=== PATIENT | male | born 1950 | race Caucasian/White ===

== ENCOUNTER 2021-03-11 08:00 | Outpatient (RCR) | payer MEDICARE, OTHER, SELFPAY | END 2021-03-13 23:59 | disposition home or self-care (01) | LOC: CR 08:00 | PROVIDERS: PCP Internal Medicine; Visit Provider Family Medicine | DX: Z51.89 Encounter for other specified aftercare (principal); I25.10 Atherosclerotic heart disease of native coronary artery without angina pectoris; Z95.5 Presence of coronary angioplasty implant and graft | CPT/HCPCS: S9472 ==

== ENCOUNTER 2021-04-11 08:00 | Outpatient (RCR) | payer MEDICARE, OTHER, SELFPAY | END 2021-04-12 23:59 | disposition home or self-care (01) | LOC: CR 08:00 | PROVIDERS: PCP Internal Medicine; Visit Provider Family Medicine | DX: Z51.89 Encounter for other specified aftercare (principal); I25.10 Atherosclerotic heart disease of native coronary artery without angina pectoris; Z95.5 Presence of coronary angioplasty implant and graft | CPT/HCPCS: S9472 ==

== ENCOUNTER 2021-05-09 08:00 | Outpatient (RCR) | payer MEDICARE, OTHER, SELFPAY | END 2021-05-13 23:59 | disposition home or self-care (01) | LOC: CR 08:00 | PROVIDERS: PCP Internal Medicine; Visit Provider Family Medicine | DX: Z51.89 Encounter for other specified aftercare (principal); I25.10 Atherosclerotic heart disease of native coronary artery without angina pectoris; Z95.5 Presence of coronary angioplasty implant and graft | CPT/HCPCS: S9472 ==

== ENCOUNTER 2021-06-03 08:00 | Outpatient (RCR) | payer MEDICARE, OTHER, SELFPAY | END 2021-06-13 23:59 | disposition home or self-care (01) | LOC: CR 08:00 | PROVIDERS: PCP Internal Medicine; Visit Provider Family Medicine | DX: Z51.89 Encounter for other specified aftercare (principal); I25.10 Atherosclerotic heart disease of native coronary artery without angina pectoris; Z95.5 Presence of coronary angioplasty implant and graft | CPT/HCPCS: S9472 ==

== ENCOUNTER 2022-12-14 10:04 | Outpatient (REF) | payer MEDICARE, SELFPAY ==
--- NOTE | 2022-12-14 09:00 | SKI_PTH ---
PATIENT: Francisco J Alvarez JR LOC: [facility] U#:[id number] AGE/SX: 72/M ROOM: RE12/14/[address]: Marvin Foster MD : [id number] BED: DIS: 12/14/2022 SPEC #: [id number] RECD: 12/14/22 15:33 STATUS: LINA REQ #: [id number] ISAAK: 12/14/22 09:[address]: Marvin Foster DEPT: Surgical Specimen RECD BY: Marti Ibarra ENTERED: 12/14/22 15:35 SP TYPE: CHARLENE MCCALL DR: Antione Moon Tissues: 1 - SKIN BIOPSY(SHAVE/PUNCH) Procedures: SKIN LEVEL 4 Comments: [id number]
== END 2022-12-14 10:05 | disposition home or self-care (01) ==
LOC: LBN 10:04
PROVIDERS: PCP Family Medicine; Visit Provider Otolaryngology
DX: L57.0 Actinic keratosis (principal); L98.8 Other specified disorders of the skin and subcutaneous tissue
CPT/HCPCS: 88305

== ENCOUNTER → 2022-12-18 09:07 | Outpatient (BNVA) | payer MEDICARE, SELFPAY | PROVIDERS: PCP Family Medicine; Referring Provider Family Medicine; Visit Provider Psychiatry & Neurology Neurology | DX: R51.9 Headache, unspecified (principal); I10 Essential (primary) hypertension | CPT/HCPCS: 99204 ==

== ENCOUNTER 2022-12-20 12:41 | Outpatient (REF) | payer MEDICARE, SELFPAY ==
[2022-12-20 15:31] LABS: CREATININE 1.3 mg/dL (0.70-1.30); Estimated GFR 58.73 (mL/min/1.73m2)
== END 2022-12-20 12:42 | disposition home or self-care (01) ==
LOC: NCHCN 12:41
PROVIDERS: PCP Family Medicine; Visit Provider Family Medicine
DX: Z01.812 Encounter for preprocedural laboratory examination (principal)
CPT/HCPCS: 82565

== ENCOUNTER → 2023-01-29 08:35 | Outpatient (BNVA) | payer MEDICARE, SELFPAY | PROVIDERS: PCP Family Medicine; Referring Provider Family Medicine; Visit Provider Psychiatry & Neurology Neurology | DX: R51.9 Headache, unspecified (principal); H53.142 Visual discomfort, left eye; I10 Essential (primary) hypertension | CPT/HCPCS: 99213 ==

== ENCOUNTER → 2023-05-18 01:05 | Outpatient (CLI) | payer MEDICARE, SELFPAY ==
--- OUTSIDE RECORDS SUMMARY | 2023-05-18 01:05 | XMS_ITS | Continuity of Care Document ---
Author Name Unknown Organization [facility] Address [address] [place] [id number] Care Team Providers Care [employer] Name Role Phone ESTER YARBROUGH Primary Care Physician Encounter [facility] NBR [id number] Date(s): 11/20/22 - 11/20/[address] [id number] Discharge Disposition: Home f/u Internal Provider Attending Physician: Davonte Mata MD Admitting Physician: Davonte Mata MD Referring Physician: ESTER YARBROUGH Allergies, Adverse Reactions, Alerts Substance Reaction Severity Status sulfa drugs diffuse rash Unknown Active Pollen Unknown Unknown Active Abhinav Rash Unknown Moderate Active Assessment and Plan Diagnostic Tests Pending * Pathology Request 11/20/22 Functional Status 11/20/22 ADLs Independent Family Member Travel History No recent t ravel Recent Travel History No recent travel Other exposure to Infectious Disease Non e 11/15/22 Living Situation Home independently Immunizations Given and Recorded Vaccine Date Status Refusal Reason influenza virus vaccine, inactivated 03/09/22 Give n influenza, unspecified formulation 1 02/24/21 Elio rded influenza, unspecified formulation 2 02/17/20 Elio rded SARS-CoV-2 (COVID-19) mRNA-1273 vaccine 3 08/26/20 Recorded SARS-CoV-2 (COVID-19) mRNA-1273 vaccine 4 07/29/20 Recorded zoster vaccine, inactivated 5 06/22/20 Recorded zoster vaccine, inactivated 6 01/16/20 Recorded pneumococcal 13-valent conjugate vaccine 7 12/25/19 Recorded tetanus/diphth/pertuss (Tdap) adult/adol 10/02/13 Recorded Td(adult) unspecified formulation 05/14/13 Recorde d 1Result Comment: Unit: Unknown 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: [employer] 2Result Comment: Unit: Unknown 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: [employer] 3Result Comment: Unit: Unknown 4Result Comment: Unit: Unknown 5Result Comment: Unit: Unknown 6Result Comment: Unit: Unknown 7Result Comment: Unit: Unknown Medications !-Aspir 81 oral delayed release tablet 81 mg = 1 tab, Oral, Daily, # 30 tab, 0 Refill(s) Start Date: 06/19/22 Status: Ordered amLODIPine 10 mg oral tablet 10 mg = 1 tab, Oral, Daily, # 30 tab, 0 Refill(s) Start Date: 03/09/22 Status: Ordered amLODIPine 5 mg oral tablet 1 Unknown, 0 Refill(s) Start Date: 03/06/22 Status: Ordered atorvastatin 40 mg oral tablet 1 Unknown, 0 Refill(s) Start Date: 03/06/22 Status: Ordered cholecalciferol 2000 intl units oral capsule 1 Unknown, 0 Refill(s) Start Date: 03/06/22 Status: Ordered folic acid 0.4 mg oral tablet 1 Unknown, 0 Refill(s) Start Date: 03/06/22 Status: Ordered Home CPAP Supply, See instructions, # 1 EA, 0 Refill(s) Start Date: 03/06/22 Status: Ordered multivitamin adult, oral tablet 1 Unknown, 0 Refill(s) Start Date: 03/06/22 Status: Ordered nitroglycerin 0.4 mg sublingual tablet 0 Refill(s) Start Date: 03/06/22 Status: Ordered Probiotic + Colostrum 0 Refill(s) Start Date: 03/06/22 Status: Ordered Timolol Maleate (Eqv-Timoptic) 0.5% ophthalmic solution 1 Unknown, 0 Refill(s) Start Date: 03/06/22 Status: Ordered triamcinolone 0.1% topical cream 1 Unknown, 0 Refill(s) Start Date: 03/06/22 Status: Ordered Vitamin B12 1000 mcg oral tablet 1 Unknown, 0 Refill(s) Start Date: 03/06/22 Status: Ordered Problem List Condition Confirmation Course Effective Dates Status Health Status Informant Benign prostatic hyperplasia Confirmed Active Disorder of reproductive system Confirmed Active Eczema Confirmed Active Essential hypertension Confirmed Active Excessive cerumen in ear canal Confirmed Active Hematoma of scrotum Confirmed Active History of operative procedure on knee Confirmed Active Hydrocele of testis Confirmed Active Hyperlipidemia Confirmed Active Obstructive sleep apnea syndrome Confirmed Active Pain of right knee joint Confirmed Active Polyp of colon Confirmed Active Psoriasis Confirmed Active Psychophysiologic insomnia Confirmed Active Swelling of scrotum Confirmed Active Procedures Procedure Date Related Diagnosis Body Site Status Colonoscopy Biopsy 1 11/20/22 Comp leted Adenotonsillectomy Comple janusz Arthroplasty, left knee C ompleted Colonoscopy Completed Placement of stent in cardiac conduit 2 Completed 1auto-populated from documented surgical case Vital Signs Most recent to oldest [Reference Range]: 1 2 3 Temperature Temporal Artery [36-38 Deg C] 36.7 Deg C (11/20/22 11:25 AM) 36.8 Deg C (11/20/22 10:58 AM) 36.1 Deg C (11/20/22 9:11 AM) Temperature Temporal Artery (DegF) [97.3-100 Deg F] 98.24 Deg F (11/20/22 10:58 AM) Peripheral Pulse Rate [60-100 bpm] 52 bpm *LOW* (11/20/22 11:25 AM) 51 bpm *LOW* (11/20/22 11:11 AM) 48 bpm *LOW* (11/20/22 11:05 AM) Respiratory Rate [12-24 br/min] 16 br/min (11/20/22 9:11 AM) Blood Pressure [90-140/60-90 mmHg] 144/80mmHg *HI* (11/20/22 11:25 AM) 118/71mmHg (11/20/22 11:11 AM) 118/71mmHg (11/20/22 11:05 AM) Mean Arterial Pressure, Cuff [65-140 mmHg] 101 mmHg (11/20/22 11:25 AM) 87 mmHg (11/20/22 11:11 AM) 87 mmHg (11/20/22 11:05 AM) Mean Arterial Pressure Cuff 100 mmHg (11/20/22:25 AM) 84 mmHg (11/20/22 11:11 AM) 83 mmHg (11/20/22 10:58 AM) Weight 115.670 kg (11/15/22 11:54 AM) Weight Dosing 115.670 kg (11/15/22 11:54 AM) Height 190.500 cm (11/15/22 11:54 AM) Height/Length Dosing 190.500 cm (11/15/22 11:54 AM) Social History Social History Type Response Tobacco Never tobacco user T obacco Use:. Sex Hospital Discharge Instructions Patient Education 11/20/2022 10:04:11 Diverticulosis Diverticulosis Diverticulosis is a condition that develops when small pouches (diverticula) form in the wall of the large intestine (colon). The colon is where water is absorbed and stool (feces) is formed. The pouches form when the inside layer of the colon pushes through weak spots in the outer layers of the colon. You may have a few pouches or many of them. The pouches usually do not cause problems unless they become inflamed or infected. When this happens, the condition is called diverticulitis. What are the causes? The cause of this condition is not known. What increases the risk? The following factors may make you more likely to develop this condition: ??? Being older than age 60. Your risk for this condition increases with age. Diverticulosis is rare among people younger than age 30. By age 80, many people have it. ??? Eating a low-fiber diet. ??? Having frequent constipation. ??? Being overweight. ??? Not getting enough exercise. ??? Smoking. ??? Taking ruwy-ykh-nzttqzo pain medicines, like aspirin and ibuprofen. ??? Having a family history of diverticulosis. What are the signs or symptoms? In most people, there are no symptoms of this condition. If you do have symptoms, they may include: ??? Bloating. ??? Cramps in the abdomen. ??? Constipation or diarrhea. ??? Pain in the lower left side of the abdomen. How is this diagnosed? Because diverticulosis usually has no symptoms, it is most often diagnosed during an exam for othercolon problems. The condition may be diagnosed by: ??? Using a flexible scope to examine the colon (colonoscopy). ??? Taking an X-ray of the colon after dye has been put into the colon (barium enema). ??? Having a CT scan. How is this treated? You may not need treatment for this condition. Your health care provider may recommend treatment toprevent problems. You may need treatment if you have symptoms or if you previously had diverticulitis. Treatment may include: ??? Eating a high-fiber diet. ??? Taking a fiber supplement. ??? Taking a live bacteria supplement (probiotic). ??? Taking medicine to relax your colon. Follow these instructions at home: Medicines ??? Take tixk-wjx-tkgjnln and prescription medicines only as told by your health care provider. ??? If told by your health care provider, take a fiber supplement or probiotic. Constipation prevention Your condition may cause constipation. To prevent or treat constipation, you may need to: ??? Drink enough fluid to keep your urine pale yellow. ??? Take msop-meg-cidzgli or prescription medicines. ??? Eat foods that are high in fiber, such as beans, whole grains, and fresh fruits and vegetables. ??? Limit foods that are high in fat and processed sugars, such as fried or sweet foods. General instructions ??? Try not to strain when you have a bowel movement. ??? Keep all follow-up visits as told by your health care provider. This is important. Contact a health care provider if you: ??? Have pain in your abdomen. ??? Have bloating. ??? Have cramps. ??? Have not had a bowel movement in 3 days. Get help right away if: ??? Your pain gets worse. ??? Your bloating becomes very bad. ??? You have a fever or chills, and your symptoms suddenly get worse. ??? You vomit. ??? You have bowel movements that are bloody or black. ??? You have bleeding from your rectum. Summary ??? Diverticulosis is a condition that develops when small pouches (diverticula) form in the wall of the large intestine (colon). ??? You may have a few pouches or many of them. ??? This condition is most often diagnosed during an exam for other colon problems. ??? Treatment may include increasing the fiber in your diet, taking supplements, or taking medicines. This information is not intended to replace advice given to you by your health care provider. Make sure you discuss any questions you have with your health care provider. Document Revised: 11/27/2019 Document Reviewed: 11/27/2019 [employer] Patient Education ?? 2022 [employer]. 11/20/2022 10:04:08 Colonoscopy, Adult, Care After Colonoscopy, Adult, Care After The following information offers guidance on how to care for yourself after your procedure. Your health care provider may also give you more specific instructions. If you have problems or questions, contact your health care provider. What can I expect after the procedure? After the procedure, it is common to have: ??? A small amount of blood in your stool for 24 hours after the procedure. ??? Some gas. ??? Mild cramping or bloating of your abdomen. Follow these instructions at home: Eating and drinking ??? Drink enough fluid to keep your urine pale yellow. ??? Follow instructions from your health care provider about eating or drinking restrictions. ??? Resume your normal diet as told by your health care provider. Avoid heavy or fried foods that are hard to digest. Activity ??? Rest as told by your health care provider. ??? Avoid sitting for a long time without moving. Get up to take short walks every 1???2 hours. This is important to improve blood flow and breathing. Ask for help if you feel weak or unsteady. ??? Return to your normal activities as told by your health care provider. Ask your health care provider what activities are safe for you. Managing cramping and bloating ??? Try walking around when you have cramps or feel bloated. ??? If directed, apply heat to your abdomen as told by your health care provider. Use the heat source that your health care provider recommends, such as a moist heat pack or a heating pad. ??? Place a towel between your skin and the heat source. ??? Leave the heat on for 20???30 minutes. ??? Remove the heat if your skin turns bright red. This is especially important if you are unable to feel pain, heat, or cold. You have a greater risk of getting burned. General instructions ??? If you were given a sedative during the procedure, it can affect you for several hours. Do not drive or operate machinery until your health care provider says that it is safe. ??? For the first 24 hours after the procedure: ??? Do not sign important documents. ??? Do not drink alcohol. ??? Do your regular daily activities at a slower pace than normal. ??? Eat soft foods that are easy to digest. ??? Take zzha-epy-mhrrkqu and prescription medicines only as told by your health care provider. ??? Keep all follow-up visits. This is important. Contact a health care provider if: ??? You have blood in your stool 2???3 days after the procedure. Get help right away if: ??? You have more than a small spotting of blood in your stool. ??? You have large blood clots in your stool. ??? You have swelling of your abdomen. ??? You have nausea or vomiting. ??? You have a fever. ??? You have increasing pain in your abdomen that is not relieved with medicine. These symptoms may be an emergency. Get help right away. Call 911. ??? Do not wait to see if the symptoms will go away. ??? Do not drive yourself to the hospital. Summary ??? After the procedure, it is common to have a small amount of blood in your stool. You may also have mild cramping and bloating of your abdomen. ??? If you were given a sedative during the procedure, it can affect you for several hours. Do not drive or operate machinery until your health care provider says that it is safe. ??? Get help right away if you have a lot of blood in your stool, nausea or vomiting, a fever, or increased pain in your abdomen. This information is not intended to replace advice given to you by your health care provider. Make sure you discuss any questions you have with your health care provider. Document Revised: 12/21/2021 Document Reviewed: 12/21/2021 [employer] Patient Education ?? 2022 [employer]. 11/20/2022 10:04:07 Colon Polyps Colon Polyps Colon polyps are tissue growths inside the colon, which is part of the large intestine. They are one of the types of polyps that can grow in the body. A polyp may be a round bump or a mushroom-shapedgrowth. You could have one polyp or more than one. Most colon polyps are noncancerous (benign). However, some colon polyps can become cancerous over time. Finding and removing the polyps early can help prevent this. What are the causes? The exact cause of colon polyps is not known. What increases the risk? The following factors may make you more likely to develop this condition: ??? Having a family history of colorectal cancer or colon polyps. ??? Being older than 45 years of age. ??? Being younger than 45 years of age and having a significant family history of colorectal canceror colon polyps or a genetic condition that puts you at higher risk of getting colon polyps. ??? Having inflammatory bowel disease, such as ulcerative colitis or Crohn's disease. ??? Having certain conditions passed from parent to child (hereditary conditions), such as: ??? Familial adenomatous polyposis (FAP). ??? West syndrome. ??? Turcot syndrome. ??? Peutz???Jeghers syndrome. ??? MUTYH-associated polyposis (MAP). ??? Being overweight. ??? Certain lifestyle factors. These include smoking cigarettes, drinking too much alcohol, not getting enough exercise, and eating a diet that is high in fat and red meat and low in fiber. ??? Having had childhood cancer that was treated with radiation of the abdomen. What are the signs or symptoms? Many times, there are no symptoms. If you have symptoms, they may include: ??? Blood coming from the rectum during a bowel movement. ??? Blood in the stool (feces). The blood may be bright red or very dark in color. ??? Pain in the abdomen. ??? A change in bowel habits, such as constipation or diarrhea. How is this diagnosed? This condition is diagnosed with a colonoscopy. This is a procedure in which a lighted, flexible scope is inserted into the opening between the buttocks (anus) and then passed into the colon to examine the area. Polyps are sometimes found when a colonoscopy is done as part of routine cancer screening tests. How is this treated? This condition is treated by removing any polyps that are found. Most polyps can be removed during a colonoscopy. Those polyps will then be tested for cancer. Additional treatment may be needed depending on the results of testing. Follow these instructions at home: Eating and drinking ??? Eat foods that are high in fiber, such as fruits, vegetables, and whole grains. ??? Eat foods that are high in calcium and vitamin D, such as milk, cheese, yogurt, eggs, liver, fish, and broccoli. ??? Limit foods that are high in fat, such as fried foods and desserts. ??? Limit the amount of red meat, precooked or cured meat, or other processed meat that you eat, such as hot dogs, sausages, daniels, or meat loaves. ??? Limit sugary drinks. Lifestyle ??? Maintain a healthy weight, or lose weight if recommended by your health care provider. ??? Exercise every day or as told by your health care provider. ??? Do not use any products that contain nicotine or tobacco, such as cigarettes, e-cigarettes, andchewing tobacco. If you need help quitting, ask your health care provider. ??? Do not drink alcohol if: ??? Your health care provider tells you not to drink. ??? You are , may be , or are planning to become . ??? If you drink alcohol: ??? Limit how much you use to: ??? 0???1 drink a day for women. ??? 0???2 drinks a day for men. ??? Know how much alcohol is in your drink. In the [place] one drink equals one 12 oz bottle of beer (355 mL), one 5 oz glass of wine (148 mL), or one 1?? oz glass of hard liquor (44 mL). General instructions ??? Take pjug-dhe-upkgwgz and prescription medicines only as told by your health care provider. ??? Keep all follow-up visits. This is important. This includes having regularly scheduled colonoscopies. Talk to your health care provider about when you need a colonoscopy. Contact a health care provider if: ??? You have new or worsening bleeding during a bowel movement. ??? You have new or increased blood in your stool. ??? You have a change in bowel habits. ??? You lose weight for no known reason. Summary ??? Colon polyps are tissue growths inside the colon, which is part of the large intestine. They are one type of polyp that can grow in the body. ??? Most colon polyps are noncancerous (benign), but some can become cancerous over time. ??? This condition is diagnosed with a colonoscopy. ??? This condition is treated by removing any polyps that are found. Most polyps can be removed during a colonoscopy. This information is not intended to replace advice given to you by your health care provider. Make sure you discuss any questions you have with your health care provider. Document Revised: 08/18/2020 Document Reviewed: 08/18/2020 [employer] Patient Education ?? 2022 [employer] Discharge instructions * Harriett Foy: PERFORM Event Display: Discharge Instructions Authored Date: [id number] RAUL PIEDRA JR :1950 Age:72 years Sex:Male Visit Date:11/20/2022 Primary Care Physician: ESTER YARBROUGH Hospital Discharge Instructions We would like to thank you for allowing us to assist you with your healthcare needs. The following includes patient education materials and information regarding your injury/illness. Medications What How Much When Instructions Next Dose Unchanged amLODIPine (amLODIPine 10 mg oral tablet) 1 tab Oral (given by mouth) Every day Unchanged amLODIPine (amLODIPine 5 mg oral tablet) 1 Unknown ?? Unchanged aspirin (!-Aspir 81 oral delayed release tablet) 1 tab Oral (given by mouth) Every day Unchanged atorvastatin (atorvastatin 40 mg oral tablet) 1 Unknown ?? Unchanged bifidobacterium-lactobacillus (Probiotic + Colostrum) Unchanged cholecalciferol (cholecalciferol 2000 intl units oral capsule) 1 Unknown ?? Unchanged cyanocobalamin (Vitamin B12 1000 mcg oral tablet) 1 Unknown ?? Unchanged Durable Medical Equipment for Prescription (Home CPAP) See instructions Unchanged folic acid (folic acid 0.4 mg oral tablet) 1 Unknown ?? Unchanged multivitamin (multivitamin adult, oral tablet) 1 Unknown ?? Unchanged nitroglycerin (nitroglycerin 0.4 mg sublingual tablet) Unchanged timolol ophthalmic (Timolol Maleate (Eqv-Timoptic) 0.5% ophthalmic solution) 1 Unknown ?? Unchanged triamcinolone topical (triamcinolone 0.1% topical cream) 1 Unknown ?? Your Summary Your Care Team Admitting Physician - Esperanza RAND, Davonte Attending Physician - Esperanza RAND, Davonte Primary Care Physician - ESTER YARBROUGH Referring Physician - ESTER YARBROUGH Problems Ongoing - Any problem that you are currently receiving treatment for. Benign prostatic hyperplasia Disorder of reproductive system Eczema Essential hypertension Excessive cerumen in ear canal Hematoma of scrotum History of operative procedure on knee Hydrocele of testis Hyperlipidemia Obstructive sleep apnea syndrome Pain of right knee joint Polyp of colon Psoriasis Psychophysiologic insomnia Swelling of scrotum Historical - Any problem that you are no longer receiving treatment for. 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 Procedures Performed ???Colonoscopy Biopsy (11/20/2022)???Arthroplasty, left knee???Placement of stent in cardiac conduit Discharge Vitals Temperature??(Temporal Artery) 98.2 ??F (36.8 ??C) Heart Rate??(Peripheral) 48 Respiratory Rate?? 16 Blood Pressure?? 118/71?? Allergies Abhinav??(Rash, Unknown) Pollen??(Unknown) sulfa drugs??(diffuse rash) Education Materials Diverticulosis Diverticulosis is a condition that develops when small pouches (diverticula) form in the wall of the large intestine (colon). The colon is where water is absorbed and stool (feces) is formed. The pouches form when the inside layer of the colon pushes through weak spots in the outer layers of the colon. You may have a few pouches or many of them. The pouches usually do not cause problems unless they become inflamed or infected. When this happens, the condition is called diverticulitis. What are the causes? The cause of this condition is not known. What increases the risk? The following factors may make you more likely to develop this condition: ? Being older than age 60. Your risk for this condition increases with age. Diverticulosis is rare among people younger than age 30. By age 80, many people have it. ? Eating a low-fiber diet. ? Having frequent constipation. ? Being overweight. ? Not getting enough exercise. ? Smoking. ? Taking tpsg-yvd-fjxepwx pain medicines, like aspirin and ibuprofen. ? Having a family history of diverticulosis. What are the signs or symptoms? In most people, there are no symptoms of this condition. If you do have symptoms, they may include: ? Bloating. ? Cramps in the abdomen. ? Constipation or diarrhea. ? Pain in the lower left side of the abdomen. How is this diagnosed? Because diverticulosis usually has no symptoms, it is most often diagnosed during an exam for othercolon problems. The condition may be diagnosed by: ? Using a flexible scope to examine the colon (colonoscopy). ? Taking an X-ray of the colon after dye has been put into the colon (barium enema). ? Having a CT scan. How is this treated? You may not need treatment for this condition. Your health care provider may recommend treatment toprevent problems. You may need treatment if you have symptoms or if you previously had diverticulitis. Treatment may include: ? Eating a high-fiber diet. ? Taking a fiber supplement. ? Taking a live bacteria supplement (probiotic). ? Taking medicine to relax your colon. Follow these instructions at home: Medicines ? Take tcuz-iay-yduoudx and prescription medicines only as told by your health care provider. ? If told by your health care provider, take a fiber supplement or probiotic. Constipation prevention Your condition may cause constipation. To prevent or treat constipation, you may need to: ? Drink enough fluid to keep your urine pale yellow. ? Take hjwx-gqj-qzdtkcz or prescription medicines. ? Eat foods that are high in fiber, such as beans, whole grains, and fresh fruits and vegetables. ? Limit foods that are high in fat and processed sugars, such as fried or sweet foods. General instructions ? Try not to strain when you have a bowel movement. ? Keep all follow-up visits as told by your health care provider. This is important. Contact a health care provider if you: ? Have pain in your abdomen. ? Have bloating. ? Have cramps. ? Have not had a bowel movement in 3 days. Get help right away if: ? Your pain gets worse. ? Your bloating becomes very bad. ? You have a fever or chills, and your symptoms suddenly get worse. ? You vomit. ? You have bowel movements that are bloody or black. ? You have bleeding from your rectum. Summary ? Diverticulosis is a condition that develops when small pouches (diverticula) form in the wall of the large intestine (colon). ? You may have a few pouches or many of them. ? This condition is most often diagnosed during an exam for other colon problems. ? Treatment may include increasing the fiber in your diet, taking supplements, or taking medicines. This information is not intended to replace advice given to you by your health care provider. Make sure you discuss any questions you have with your health care provider. Document Revised: 11/27/2019 Document Reviewed: 11/27/2019 [employer] Patient Education ?? 2022 [employer] Colonoscopy, Adult, Care After The following information offers guidance on how to care for yourself after your procedure. Your health care provider may also give you more specific instructions. If you have problems or questions, contact your health care provider. What can I expect after the procedure? After the procedure, it is common to have: ? A small amount of blood in your stool for 24 hours after the procedure. ? Some gas. ? Mild cramping or bloating of your abdomen. Follow these instructions at home: Eating and drinking ? Drink enough fluid to keep your urine pale yellow. ? Follow instructions from your health care provider about eating or drinking restrictions. ? Resume your normal diet as told by your health care provider. Avoid heavy or fried foods that are hard to digest. Activity ? Rest as told by your health care provider. ? Avoid sitting for a long time without moving. Get up to take short walks every 1???2 hours. This isimportant to improve blood flow and breathing. Ask for help if you feel weak or unsteady. ? Return to your normal activities as told by your health care provider. Ask your health care provider what activities are safe for you. Managing cramping and bloating ? Try walking around when you have cramps or feel bloated. ? If directed, apply heat to your abdomen as told by your health care provider. Use the heat source that your health care provider recommends, such as a moist heat pack or a heating pad. ? Place a towel between your skin and the heat source. ? Leave the heat on for 20???30 minutes. ? Remove the heat if your skin turns bright red. This is especially important if you are unable to feel pain, heat, or cold. You have a greater risk of getting burned. General instructions ? If you were given a sedative during the procedure, it can affect you for several hours. Do not drive or operate machinery until your health care provider says that it is safe. ? For the first 24 hours after the procedure: ? Do not sign important documents. ? Do not drink alcohol. ? Do your regular daily activities at a slower pace than normal. ? Eat soft foods that are easy to digest. ? Take oemx-uff-ciogaij and prescription medicines only as told by your health care provider. ? Keep all follow-up visits. This is important. Contact a health care provider if: ? You have blood in your stool 2???3 days after the procedure. Get help right away if: ? You have more than a small spotting of blood in your stool. ? You have large blood clots in your stool. ? You have swelling of your abdomen. ? You have nausea or vomiting. ? You have a fever. ? You have increasing pain in your abdomen that is not relieved with medicine. These symptoms may be an emergency. Get help right away. Call 911. ? Do not wait to see if the symptoms will go away. ? Do not drive yourself to the hospital. Summary ? After the procedure, it is common to have a small amount of blood in your stool. You may also have mild cramping and bloating of your abdomen. ? If you were given a sedative during the procedure, it can affect you for several hours. Do not drive or operate machinery until your health care provider says that it is safe. ? Get help right away if you have a lot of blood in your stool, nausea or vomiting, a fever, or increased pain in your abdomen. This information is not intended to replace advice given to you by your health care provider. Make sure you discuss any questions you have with your health care provider. Document Revised: 12/21/2021 Document Reviewed: 12/21/2021 [employer] Patient Education ?? 2022 [employer] Colon Polyps Colon polyps are tissue growths inside the colon, which is part of the large intestine. They are one of the types of polyps that can grow in the body. A polyp may be a round bump or a mushroom-shapedgrowth. You could have one polyp or more than one. Most colon polyps are noncancerous (benign). However, some colon polyps can become cancerous over time. Finding and removing the polyps early can help prevent this. What are the causes? The exact cause of colon polyps is not known. What increases the risk? The following factors may make you more likely to develop this condition: ? Having a family history of colorectal cancer or colon polyps. ? Being older than 45 years of age. ? Being younger than 45 years of age and having a significant family history of colorectal cancer or colon polyps or a genetic condition that puts you at higher risk of getting colon polyps. ? Having inflammatory bowel disease, such as ulcerative colitis or Crohn's disease. ? Having certain conditions passed from parent to child (hereditary conditions), such as: ? Familial adenomatous polyposis (FAP). ? West syndrome. ? Turcot syndrome. ? Peutz???Jeghers syndrome. ? MUTYH-associated polyposis (MAP). ? Being overweight. ? Certain lifestyle factors. These include smoking cigarettes, drinking too much alcohol, not gettingenough exercise, and eating a diet that is high in fat and red meat and low in fiber. ? Having had childhood cancer that was treated with radiation of the abdomen. What are the signs or symptoms? Many times, there are no symptoms. If you have symptoms, they may include: ? Blood coming from the rectum during a bowel movement. ? Blood in the stool (feces). The blood may be bright red or very dark in color. ? Pain in the abdomen. ? A change in bowel habits, such as constipation or diarrhea. How is this diagnosed? This condition is diagnosed with a colonoscopy. This is a procedure in which a lighted, flexible scope is inserted into the opening between the buttocks (anus) and then passed into the colon to examine the area. Polyps are sometimes found when a colonoscopy is done as part of routine cancer screening tests. How is this treated? This condition is treated by removing any polyps that are found. Most polyps can be removed during a colonoscopy. Those polyps will then be tested for cancer. Additional treatment may be needed depending on the results of testing. Follow these instructions at home: Eating and drinking ? Eat foods that are high in fiber, such as fruits, vegetables, and whole grains. ? Eat foods that are high in calcium and vitamin D, such as milk, cheese, yogurt, eggs, liver, fish, and broccoli. ? Limit foods that are high in fat, such as fried foods and desserts. ? Limit the amount of red meat, precooked or cured meat, or other processed meat that you eat, such as hot dogs, sausages, daniels, or meat loaves. ? Limit sugary drinks. Lifestyle ? Maintain a healthy weight, or lose weight if recommended by your health care provider. ? Exercise every day or as told by your health care provider. ? Do not use any products that contain nicotine or tobacco, such as cigarettes, e- cigarettes, and chewing tobacco. If you need help quitting, ask your health care provider. ? Do not drink alcohol if: ? Your health care provider tells you not to drink. ? You are , may be , or are planning to become . ? If you drink alcohol: ? Limit how much you use to: ? 0???1 drink a day for women. ? 0???2 drinks a day for men. ? Know how much alcohol is in your drink. In the [place] one drink equals one 12 oz bottle of beer (355mL), one 5 oz glass of wine (148 mL), or one 1?? oz glass of hard liquor (44 mL). General instructions ? Take gzlh-dmo-yvhzamy and prescription medicines only as told by your health care provider. ? Keep all follow-up visits. This is important. This includes having regularly scheduled colonoscopies. Talk to your health care provider about when you need a colonoscopy. Contact a health care provider if: ? You have new or worsening bleeding during a bowel movement. ? You have new or increased blood in your stool. ? You have a change in bowel habits. ? You lose weight for no known reason. Summary ? Colon polyps are tissue growths inside the colon, which is part of the large intestine. They are one type of polyp that can grow in the body. ? Most colon polyps are noncancerous (benign), but some can become cancerous over time. ? This condition is diagnosed with a colonoscopy. ? This condition is treated by removing any polyps that are found. Most polyps can be removed during a colonoscopy. This information is not intended to replace advice given to you by your health care provider. Make sure you discuss any questions you have with your health care provider. Document Revised: 08/18/2020 Document Reviewed: 08/18/2020 [employer] Patient Education ?? 2022 [employer] Patient Name:RAUL PIEDRA JR I have received this information and my questions have been answered. 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
--- OUTSIDE RECORDS SUMMARY | 2023-05-18 01:05 | XMS_ITS | Continuity of Care Document ---
Author Name Unknown Organization [facility] Address [address] [place] [id number] Care Team Providers Care Insurance Claims Supervisor Name Role Phone Korin Romero Primary Care Physician Encounter [facility] FIN NBR [id number] Date(s): 05/10/22 - 05/10/[address] [address] Discharge Disposition: Home or Self Care Attending Physician: Korin Romero APRN Admitting Physician: Korin Romero APRN Allergies, Adverse Reactions, Alerts Substance Reaction Severity Status sulfa drugs diffuse rash Unknown Active Pollen Unknown Unknown Active Abhinav Unknown Unknown Active Assessment and Plan Future Appointments Immunizations Given and Recorded Vaccine Date Status [...] 05/14/13 Recorde d 1Result Comment: Unit: Unknown 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[employer] 2Result Comment: Unit: Unknown 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[employer] 3Result Comment: Unit: Unknown 4Result Comment: Unit: Unknown 5Result Comment: Unit: Unknown 6Result Comment: Unit: Unknown 7Result Comment: Unit: Unknown Medications amLODIPine 10 mg oral tablet 10 mg = 1 tab, Oral, Daily, # 30 tab, 0 Refill(s) Start Date: 03/09/22 Status: Ordered amLODIPine 5 mg oral tablet 1 Unknown, 0 Refill(s) Start Date: 03/06/22 Status: Ordered atorvastatin 40 mg oral tablet 1 Unknown, 0 Refill(s) Start Date: 03/06/22 Status: Ordered Brilinta (ticagrelor) 90 mg oral tablet BID, 1 Unknown, 0 Refill(s) Start Date: 03/06/22 [...] of operative procedure on knee Confirmed Active 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 Confirmed Active Hydrocele of testis Confirmed Active Hyperlipidemia Confirmed Active Obstructive sleep apnea syndrome Confirmed Active Pain of right knee joint Confirmed Active Polyp of colon Confirmed Active Psoriasis Confirmed Active Psychophysiologic insomnia Confirmed Active Swelling of scrotum Confirmed Active Procedures Procedure Date Related Diagnosis Body Site Status Adenotonsillectomy Comple janusz Colonoscopy Completed Results Laboratory List Name Date Comprehensive Metabolic Panel 05/10/22 Lipid Panel 05/10/22 PSA Screen 05/10/22 Most recent to oldest [Reference Range]: 1 BUN [8-26 mg/dL] 19 mg/dL (05/10/22 8:03 AM) Cholesterol Total [129-209 mg/dL] 109 mg /dL *LOW* (05/10/22 8:03 AM) LDL 57.0 *NA* (05/10/22 8:03 AM) Glucose Level [74-106 mg/dL] 108 mg/dL *HI* (05/10/22 8:03 AM) Potassium Level [3.5-5.1 mmol/L] 4.2 mmo l/L (05/10/22 8:03 AM) HDL [40-80 mg/dL] 41 mg/dL (05/10/22 8:03 AM) AST [15-41 IntlUnit/L] 20 IntlUnit/L (05/10/22 8:03 AM) ALT [17-63 IntlUnit/L] 23 IntlUnit/L (05/10/22 8:03 AM) Osmolality [275-295 mOsm/kg] 282 mOsm/kg (05/10/22 8:03 AM) Sodium Level [134-143 mmol/L] 140 mmol/L (05/10/22 8:03 AM) Chol/HDL 2.7 *NA* (05/10/22 8:03 AM) Triglycerides [10-150 mg/dL] 55 mg/dL (05/10/22 8:03 AM) Calcium Level [8.9-10.3 mg/dL] 9.5 mg/dL (05/10/22 8:03 AM) Albumin Level [3.5-5.0 g/dL] 4.1 g/dL (05/10/22 8:03 AM) Protein Total [6.5-8.1 g/dL] 6.3 g/dL *LOW* (05/10/22 8:03 AM) Bilirubin Total [0.2-1.2 mg/dL] 1.3 mg/d L *HI* (05/10/22 8:03 AM) Alk Phos [38-130 IntlUnit/L] 64 IntlUnit /L (05/10/22 8:03 AM) CO2 [22-32 mmol/L] 27 mmol/L (05/10/22 8:03 AM) eGFR Non-AA 93 *NA* (05/10/22 8:03 AM) eGFR AA 93 *NA* (05/10/22 8:03 AM) Chloride Level [98-111 mmol/L] 105 mmol/ L (05/10/22 8:03 AM) A/G Ratio 1.9 *NA* (05/10/22 8:03 AM) BUN/Creat Ratio [8.0-20.0] 21.6 *HI* (05/10/22 8:03 AM) Globulin 2.2 *NA* (05/10/22 8:03 AM) Creatinine Level [0.61-1.24 mg/dL] 0.88 mg/dL (05/10/22 8:03 AM) PSA Total Screening [<=4.000 ng/mL] 2.30 0 ng/mL (05/10/22 8:03 AM) Anion Gap [3.0-12.0] 8.0 (05/10/22 8:03 AM) Social History Social History Type Response Tobacco Never tobacco user T obacco Use:. Sex Patient Care team information Personnel Name: Korin Romero APRN Address: Address: [address] [place] [address]
--- OUTSIDE RECORDS SUMMARY | 2023-05-18 01:05 | XMS_ITS | Continuity of Care Document ---
Author Name Unknown Organization [facility] Ambulatory Clin[facility] Address [address] [place] [address] Care Team Providers Care Aerial Photographer Name Role Phone Korin Romero Primary Care Physician Encounter [facility] NBR [id number] Date(s): 03/09/22 - 03/09/22 [facility] [address] [place], [place] [address] Encounter Diagnosis Essential hypertension(Discharge Diagnosis) - 03/09/22 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(Discharge Diagnosis) - 03/09/22 Screening for colon cancer(Discharge Diagnosis) - 03/09/22 Screening for prostate cancer(Discharge Diagnosis) - 03/09/22 Screening for cardiovascular condition(Discharge Diagnosis) - 03/09/22 Discharge Disposition: Home or Self Care Attending Physician: Korin Romero APRN Allergies, Adverse Reactions, Alerts Substance Reaction Severity Status sulfa drugs diffuse rash Unknown Active Pollen Unknown Unknown Active Abhinav Unknown Unknown Active Assessment and Plan Future Scheduled Tests Laboratory* Comprehensive Metabolic Panel 03/09/22 * Lipid Panel 03/09/22 * PSA Screen 03/09/22 Functional Status 03/09/22 Other exposure to Infectious Disease Non e Immunizations Given and Recorded Vaccine Date Status [...] 05/14/13 Recorde d 1Result Comment: Unit: Unknown 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[employer] 2Result Comment: Unit: Unknown 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[employer] P[employer] 3Result Comment: Unit: Unknown 4Result [...] Site Status Adenotonsillectomy Comple janusz Colonoscopy Completed Vital Signs Most recent to oldest [Reference Range]: 1 Peripheral Pulse Rate [60-100 bpm] 52 bp m *LOW* (03/09/22 9:37 AM) Respiratory Rate [12-24 br/min] 16 br/mi n (03/09/22 9:37 AM) Blood Pressure [90-140/60-90 mmHg] 121/7 2mmHg (03/09/22 9:37 AM) Weight 111.3 kg (03/09/22 9:37 AM) Weight Measured (lbs) 245.374 lb (03/09/22 9:37 AM) [place] Body Weight Calculated 84.5 kg (03/09/22 9:37 AM) Height 190.5 cm (03/09/22 9:37 AM) Height/Length Measured (inches) 75 inch (03/09/22 9:37 AM) BSA Measured 2.43 m2 (03/09/22 9:37 AM) Body Mass Index 30.67 kg/m2 (03/09/22 9:37 AM) Social History Social History Type Response Tobacco Never tobacco user T obacco Use:. Sex Patient Care team information Personnel Name: Korin Romero APRN Address: Address: [address] [place] [address] [address]
--- OUTSIDE RECORDS SUMMARY | 2023-05-18 01:06 | XMS_ITS | Continuity of Care Document ---
Author Name Unknown Organization [facility] Address [address] [place] [address] Care Team Providers Care Tile Helper Name Role Phone Nick Korin Primary Care Physician [phone] Encounter [facility] NBR [id number] Date(s): 06/19/22 - 06/19/22 [facility] [address] [place], [place] [address] Encounter Diagnosis Obstructive sleep apnea syndrome(Discharge Diagnosis) - 06/19/22 Discharge Disposition: Home or Self Care Attending Physician: Elan Dawn DO Allergies, Adverse Reactions, Alerts Substance Reaction Severity Status sulfa drugs diffuse rash Unknown Active Pollen Unknown Unknown Active Abhinav Unknown Unknown Active Functional Status 06/19/22 Other exposure to Infectious Disease Non e [...] 05/14/13 Recorde d 1Result Comment: Unit: Unknown 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[employer] 2Result Comment: Unit: Unknown 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[employer]ur 3Result Comment: Unit: Unknown 4Result [...] Range]: 1 Peripheral Pulse Rate [60-100 bpm] 53 bp m *LOW* (06/19/22 9:04 AM) Respiratory Rate [12-24 br/min] 14 br/mi n (06/19/22 9:04 AM) Blood Pressure [90-140/60-90 mmHg] 130/6 0mmHg (06/19/22 9:04 AM) Weight 115.8 kg (06/19/22 9:04 AM) Weight Measured (lbs) 255.295 lb (06/19/22 9:04 AM) [place] Body Weight Calculated 84.5 kg (06/19/22 9:04 AM) Height 190.5 cm (06/19/22 9:04 AM) Height/Length Measured (inches) 75 inch (06/19/22 9:04 AM) BSA Measured 2.48 m2 (06/19/22 9:04 AM) Body Mass Index 31.91 kg/m2 (06/19/22 9:04 AM) Neck Circumference 42.5 cm (06/19/22 9:04 AM) Social History Social History Type Response Tobacco Never tobacco user T obacco Use:. Sex Hospital Discharge Instructions Follow Up Care 04/21/2022 15:25:21 With:Elan Dawn DO Address: [address] [place] [id number] When:Within 1 Year(s) Polysomnography (sleep) study * Татьяна Becker: PERFORM Event Display: Sleep Study Authored Date: * Татьяна Becker: PERFORM Event Display: Sleep Study Authored Date: NCSLEEP/ADULT PAP QUESTIONNAIRE Electronically Signed on 06/19/22 01:05 PM Татьяна Becker * Татьяна Becker: PERFORM Event Display: Sleep Study Authored Date: * Татьяна Becker: PERFORM Event Display: Sleep Study Authored Date: [id number] NCSLEEP/APAP COMPLIANCE REPORT Electronically Signed on 06/19/22 01:03 PM Татьяна Becker Physician Outpatient Note * Elan Dawn DO: PERFORM Event Display: Office Clinic Note Physician Authored Date: [id number] FRANCISCO J PIEDRA :1950 Age:72 years Sex:Male Visit Date:06/19/2022 Primary Care Physician: Korin Romero APRN Chief Complaint Annual follow-up for mild to moderate WILNER treated with AutoPap 10 to 20 cm H2O. ESS 06/06 History of Present Illness --Clinical presentation: Initially seen September 25, 2018 for his primary care provider, Dr. Hill Ng. Known diagnosis of WILNER having trouble falling asleep and staying asleep. Witnessed apneas and gasping, nonrestorative and fragmented sleep. --Home sleep apnea test scored by 4% desaturation rule dated September 30, 2018. 7 hours and 44 minutes of data. --20 apneas, 18 were obstructive and 2 were central, and 41 hypopneas for an AHI of 8.7. Supine AHI16.5 versus a nonsupine AHI 6.7. --Average oxygen saturation 92.3% with a madan of 84%. --Average heart rate 48.7 bpm. ... ?? Data Download:??May 16, 2022??through June 14, 2022 - Settings:??AutoPap 10 to 20 cm H2O - Use:??30 of 30 days or 100% - Av. nightly use:??8 hours 8 minutes - 95% pressure:??14.6 cm H2O - AHI:??2.2 - 95% leak:??27 L/min ... Francisco J presents today??without complaints.?? He uses a large??AirTouch fullface mask that he??changes every month or 2. ??He also wipes and out??daily.?? He does not use the reservoir.?? He changes ahose monthly??and he changes the filters every 2 weeks. ?? Francisco J sleeps somewhere between 10 PM and 10:30 PM until 6 AM.?? He has to drink a lot of water??and??frequently gets up to pee but that is only??twice at night.?? Awakenings are brief and he readilyresumes sleep.?? His Parmele sleepiness score is nice and low at 06/06. ?? There is no medical news to report.?? He does not have a stable primary care??provider at present.?? He saw a nurse practitioner??over in our primary care department but little was done, he tells me.?? He misses Dr. Gaming who saved his life by??finding inflammatory markers and tracking them down and demanding he get a second opinion??prior to getting a stent??in a??more than 90% occluded??LAD.?? That was down at [facility]??a few years ago. ?? Francisco J continues to note positive benefits and these include no snoring, better sleep quality, waking up more refreshed,??and having less daytime sleepiness. ?? He travels quite a lot throughout the world??and would like??me to order an AirMini from [employer]??through [employer].?? I am happy to do so. Review of Systems Constitutional:?No??fevers,?No??chills,?No??sweats ENT:?No??ear pain,?No??nasal congestion,?No??sore throat Respiratory:?No??shortness of breath,?No??cough Cardiovascular:?No??Chest pain,?No??palpitations,?No??syncope Neurologic: Alert & oriented X 4 Psychiatric:?No??anxiety,?No??depression Physical Exam Vitals & Measurements HR:??53??(Peripheral)?? RR:??14?? BP:??130/60?? SpO2:??98%?? HT:??190.5??cm?? WT:??115.8??kg?? BMI:??31.91?? BSA:??2.48?? General: Alert and oriented,??No??acute distress, tall Eye: PERRL, EOMI,?Normal??conjunctiva HENT: Normocephalic, Atraumatic, Dentition??normal??Retrognathia??none??Mallampati class??III-IV,??Tongue size??large, Tonsils??Normal, Uvula??Normal Throat:??Normal Neck: Supple, non-tender,?No??carotid bruits,?No??JVD,?No??lymphadenopathy Lungs: Clear to auscultation and percussion,?Non-labored?? respiration,??No wheezes,??No Rales,??No rhonchi Heart:?Normal?? rate,?Regular??rhythm,?No??murmur??_,?No??gallop,?No??edema Neurologic: Awake, alert and oriented, Cognition??Normal, Coordination??Normal??Speech??Normal??TremorNone Psychiatric: Appropriate mood and affect Assessment/Plan 1.??Obstructive sleep apnea syndrome??G47.33 I expect??our friend to continue to do well.?? He is remarkably consistent in his bed routine and usage.?? Furthermore, everything is working out well for him and he takes proper care of things.?? Heis getting lots of good benefits.?? I am going to write him a prescription for a??portable??unit??set to??his??current settings of 10 to 20 cm H2O.?? I will make that out to [email or web address]??and he will let me know if there are any problems.?I will Alfonso will also be in touch with me between now and next year??should any questions, problems, or concerns arise.?? He will be due for new machine at that time. Follow Up Instructions With When Contact Information Elan Dawn DO In 1 year [address] [place] [address] Additional Instructions: Problem List/Past Medical History Ongoing Benign prostatic hyperplasia Disorder of reproductive system Eczema Essential hypertension Excessive cerumen in ear canal Hematoma of scrotum History of operative procedure on knee 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 Hydrocele of testis Hyperlipidemia Obstructive sleep apnea syndrome Pain of right knee joint Polyp of colon Psoriasis Psychophysiologic insomnia Swelling of scrotum Historical No qualifying data Procedure/Surgical History ???Adenotonsillectomy???Colonoscopy Medications !-Aspir 81 oral delayed release tablet, 81 mg= 1 tab, Oral, Daily amLODIPine 10 mg oral tablet, 10 mg= 1 tab, Oral, Daily amLODIPine 5 mg oral tablet atorvastatin 40 mg oral tablet cholecalciferol 2000 intl units oral capsule folic acid 0.4 mg oral tablet Home CPAP, See instructions multivitamin adult, oral tablet nitroglycerin 0.4 mg sublingual tablet Probiotic + Colostrum Timolol Maleate (Eqv-Timoptic) 0.5% ophthalmic solution triamcinolone 0.1% topical cream Vitamin B12 1000 mcg oral tablet Allergies Abhinav??(Unknown) Pollen??(Unknown) sulfa drugs??(diffuse rash) Social History Alcohol Never Electronic Cigarette/Vaping Electronic Cigarette Use: Never. Tobacco Never tobacco user Tobacco Use:. Family History Cancer: Mother. Heart attack: Father and Grandfather (P). Hypertension: Father. Stroke: Grandfather (P). Family Member(s): ?? FATHER, at age: 58 Years. Cause of : Family Member(s): ?? MOTHER, at age: Unknown. 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asteur SARS-CoV-2 (COVID-19) mRNA-1273 vaccine 08/26/2020 Recorded Comments : Unit: Unknown SARS-CoV-2 (COVID-19) mRNA-1273 vaccine 07/29/2020 Recorded Comments : Unit: Unknown zoster vaccine, inactivated 06/22/2020 Recorded Comments : Unit: Unknown influenza, unspecified formulation 02/17/2020 Recorded Comments : Unit: Unknown 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asteur zoster vaccine, inactivated 01/16/2020 Recorded Comments : Unit: Unknown pneumococcal 13-valent conjugate vaccine 12/25/2019 Recorded Comments : Unit: Unknown tetanus/diphth/pertuss (Tdap) adult/adol 10/02/2013 Recorded Td(adult) unspecified formulation 05/14/2013 Recorded Electronically Signed on 06/19/22 09:44 AM Elan Dawn DO Patient Care team information Personnel Name: Korin Romero APRN Address: Address: [address] [place] [address] [address] [place], [place] [address]
--- NOTE | 2023-05-18 09:50 | DI.RAD_ITS ---
Exam(s) XR ANKLE RT COMPLETE XR HEEL RT OS CALCIS EXAM: XR ANKLE RT COMPLETE and XR heel RT os calcis CLINICAL HISTORY: PLANTAR FASCIAL FIBROMATOSIS,M72.2,RT FOOT PAIN,m79.671. TECHNIQUE: 2D digital imaging was performed of the right heel and ankle. Six images were obtained. AP, lateral and oblique views were obtained. COMPARISON: No priors for comparison. FINDINGS: BONES: No acute fracture is present. No bony destructive lesion is seen. There is a plantar calcanea l spur. There is an enthesophyte at the posterior calcaneus. JOINTS: The ankle mortise is normally aligned. Degenerative changes are seen in the hindfoot at the t alonavicular joint and the visualized tarsometatarsal joints. SOFT TISSUE: Vascular calcifications are present. IMPRESSION: 1. Degenerative changes seen in the foot. 2. Calcaneal spurs. DATA REPOSITORY: RADIATION DOSE DELIVERED:
== END ==
PROVIDERS: PCP Family Medicine; Visit Provider Family Medicine
DX: M19.071 Primary osteoarthritis, right ankle and foot (principal); M77.31 Calcaneal spur, right foot
CPT/HCPCS: 73610; 73650

== ENCOUNTER 2023-07-25 15:07 | Outpatient (REF) | payer MEDICARE, SELFPAY ==
[2023-07-25 14:41] LABS: HCT 41.5 % (40.0-50.0); HGB 14.5 g/dL (13.5-17.5); MCHC 34.9 % (32.0-36.0); MCV 89 fL (80-95); MPV 9.3 fL (8.0-11.0); Platelet Count 220 10^3/uL (130-400); RBC 4.67 10^6/uL (4.36-5.78); RDW 12.4 % (11.8-14.1); RDW-SD 40.5 fL; WBC 6.42 10^3/uL (4.4-10.8)
[2023-07-25 15:01] LABS: ALT 31 U/L (16-63); AST 20 U/L (15-37); Albumin 4.2 g/dL (3.4-5.0); Alkaline Phosphatase 84 U/L (46-116); BUN 15 mg/dL (7-18); Bilirubin, Total 1.2 mg/dL (0.2-1.0); Calcium 9.7 mg/dL (8.5-10.1); Chloride 110 mmol/L (98-107); Estimated GFR 79.97 (mL/min/1.73m2); Glucose 94 mg/dL (74-106); Sodium 146 mmol/L (136-145); Total Protein 6.4 g/dL (6.4-8.2)
== END 2023-07-25 15:08 | disposition home or self-care (01) ==
LOC: NCHCN 15:07
PROVIDERS: PCP Family Medicine; Referring Provider Family Medicine; Visit Provider Family Medicine
DX: I10 Essential (primary) hypertension (principal)
CPT/HCPCS: 80053; 85027

== ENCOUNTER → 2023-08-21 00:30 | Outpatient (CLI) | payer MEDICARE, SELFPAY ==
--- NOTE | 2023-08-21 15:04 | DI.RAD_ITS ---
Exam(s) XR LUMBAR SPINE COMPLETE EXAM: XR LUMBAR SPINE COMPLETE CLINICAL HISTORY: SI JOINT,M53.3. TECHNIQUE: 2D digital imaging was performed. Five views. COMPARISON: No exams were available for comparison FINDINGS: BONES: No fracture or destructive lesion. Vertebral body heights are maintained. Prominent endplate osteophytes. Facet degenerative changes on noted greatest at L4-5 and L5-S1. DISKS: Moderate narrowing of the L1-2 disc space. Mild narrowing of the L 2 3 and L3-4 disc spaces. Severe narrowing of the L4-5 disc space. Mild narrowing of the L5-S1 disc space. ALIGNMENT: Lumbar spinal alignment is within normal limits. SOFT TISSUE: Tania calcifications. IMPRESSION: Degenerative changes, greatest at L4-5. DATA REPOSITORY: RADIATION DOSE DELIVERED:
== END ==
PROVIDERS: PCP Family Medicine; Visit Provider Family Medicine
DX: M53.3 Sacrococcygeal disorders, not elsewhere classified (principal); M47.817 Spondylosis without myelopathy or radiculopathy, lumbosacral region; M51.37 Other intervertebral disc degeneration, lumbosacral region
CPT/HCPCS: 72110

== ENCOUNTER 2024-03-08 13:56 | Emergency (ER) | payer MEDICARE, SELFPAY ==
[2024-03-08] VITALS (19 sets, daily range): BP systolic 130–169; BP diastolic 68–108; PULSE 59–139; RESP 13–22; TEMP 36.6–36.8; O2SAT 94–99
--- NOTE | 2024-03-08 13:45 | RT.EKG_ITS ---
APPROVED REPORT Exam: Resting ECG Reason for Exam: abnormal heart rate Patient Location: E HR:115 bpm ECG Measurements Heart Rate 115 AXIS DC [id number] P [id number] QRSd 83 QRS -7 QT 308 T 72 QTc 427 Conclusion Atrial fibrillation with RVR, V-rate 115 No STEMI No priors avaiable for comparison
--- NOTE | 2024-03-08 14:27 | W.ED.GENAD ---
Discharge Plan Disposition Patient Disposition: Home Condition: Stable Discharge Details Clinical Impression: Atrial fibrillation, Urinary frequency Primary Care Provider: Antione Moon ED Provider: Senia Rosenberg Home Meds and New Rx's Prescriptions: New diltiazem HCl 60 mg capsule,extended release 12 hr 60 mg PO BID Qty: 60 0RF apixaban 5 mg tablet 5 mg PO BID Qty: 60 0RF No Action aspirin 81 mg tablet,delayed release (DR/EC) 81 mg PO DAILY cholecalciferol (vitamin D3) 50 mcg (2,000 unit) capsule 50 mcg PO DAILY folic acid 400 mcg tablet 0.4 mg PO DAILY cyanocobalamin (vitamin B-12) 1,000 mcg capsule 1,000 mcg PO DAILY atorvastatin 40 mg tablet 40 mg PO DAILY nitroglycerin 0.4 mg tablet, sublingual 0.4 mg sublingual ONCE Rx Instructions: as a single dose; administer 5-10 minutes before situation known to precipitate angina attack amlodipine 5 mg tablet 5 mg PO DAILY CPAP .daily multivitamin [Daily Multi-Vitamin] Tablet 1 tab PO DAILY vitamin K2 1 cap PO DAILY coenzyme Q10 [Ultra CoQ10] 1 tab PO DAILY Discharge Instructions Instructions: Atrial Fibrillation (DC) Additional Instructions: You were seen in the emergency department today for evaluation of urinary frequency and fast heart rate and were found to be in atrial fibrillation. In our department you have a full physical examination performed, had laboratory studies that were reassuring, and had an EKG that did not show any sign of damage to your heart. You are in an irregular rhythm called atrial fibrillation, and will need to follow-up with your carpenter mold to discuss next steps. As we mentioned, one of the medications used to treat atrial fibrillation is a blood thinner called apixaban. This is a medication you take twice per day, and you should take this medication until you are able to meet with your carpenter mold. Your risk of bleeding is increased, so you should avoid activities that could cause injury to your head, and if you do have falls, car crashes, or other injuries you should return to the emergency department immediately. I also provided you with a medication called diltiazem, this can help keep your heart rate slightly lower, and your carpenter mold may make changes to the dose or the medication at your visit. You should return to the emergency department if you develop any chest pain, dizziness or loss of consciousness, or any other symptoms that cause you concern. I also provided you with a referral to urology to discuss your urinary frequency. Thank you for allowing us to be part of your care. Referrals: Matthieu Sweeney MD [ [facility] STAFF PHYSICIAN] - 2 weeks HPI General Mode of arrival: ambulatory. Date/Time Provider Initiated Documentation: 03/08/24 13:59. Limitations to Documentation: no limitations. Information obtained by: patient, family and old records reviewed. HPI Narrative: HPI: This is a 73-year-old male patient with a past medical history significant for hypertension, coronary artery disease, WILNER, who is presenting for evaluation of high heart rate and urinary frequency. The patient reports that he was in his normal state of health until last night, when he noticed he had to get up and use the bathroom several times over the course of the night. This was not associated with any dysuria, hematuria, or sensation of incomplete emptying. He states that when he woke up this morning he will had several notifications from his smart watch that his heart rate was high. Typically he has a low resting heart rate, but today his heart rate has gone up as high as the 120s. He has not experienced any associated palpitations, chest pain, shortness of breath, exercise intolerance, or peripheral edema. The patient reports that he has no personal history of atrial fibrillation, takes an aspirin every day but does not take any anticoagulants. He is attempting to lose some weight and has been limiting excess sugar, including Pepsi which is his typical source of caffeine. He does not utilize any utey-ung-iyjgfze supplementation for weight loss. Exam: Gen: Awake and alert, in no apparent distress HEENT: Non-icteric sclera Neck: Supple Lungs: No apparent respiratory distress, normal respiratory effort. Lung sounds clear and equal bilaterally CV: Appears well perfused, heart with irregularly irregular rhythm and tachycardic rate, no murmurs auscultated, strong and symmetrical distal pulses Abdomen: Non-distended, soft MSK: Moves 4 extremities without apparent limitation in ROM, no peripheral edema appreciated, no unilateral calf swelling or tenderness Skin: Visualized skin without rashes, cyanosis. Neuro: Normal Gait, no obvious focal deficits or facial asymmetry. Speaks in full, clear sentences. Psych: Appropriate for situation. MDM: This is a 73-year-old male patient presenting for evaluation of increasing urinary frequency as well as intermittent tachycardia, with atrial fibrillation appreciated on the patient's EKG performed here today. Regarding his urinary frequency my differential includes but is not limited to urinary tract infection, renal stone, BPH, certainly considered kidney injury, medication effects, etc. I considered overflow incontinence and urinary retention. Regarding the patient's new atrial fibrillation, I considered paroxysmal atrial fibrillation that had been previously unrecognized, considered structural heart disease, ACS/ischemia, metabolic and electrolyte derangement, hyperthyroidism. On my examination the patient does have a rapid ventricular response though he is hemodynamically appropriate and without signs concerning for instability such as chest pain or pulmonary edema. As the patient is not anticoagulated and the onset is not known to be within 48 hours, we will not proceed with rhythm control or cardioversion. I will obtain laboratory studies to include CBC, CMP, magnesium, troponin, BNP, and TSH. I will obtain a urinalysis, provide the patient with 2 g of magnesium for supplementation given his A-fib with RVR, as well as 10 mg of diltiazem. ED Course: The patient was noted to have improvement in his rate after administration of the above-noted treatments, with a ventricular rate in the 80s. He remained chest pain and palpitation free, but similarly did not convert spontaneously to a sinus rhythm. I independently interpreted the laboratory studies, which show no significant leukocytosis, anemia, or thrombocytopenia. The chemistry panel is without evidence of electrolyte abnormality, kidney dysfunction, or liver injury. The patient's troponin was not elevated, given his lack of chest pain and the duration of symptoms he does not meet criteria for delta troponin trending. He had a borderline elevated BNP to 345 without associated physical examination evidence concerning for fluid overload or heart failure. TSH was within normal limits. His urinalysis was noninfectious and without hematuria. I will provide him with a referral to urology to discuss his ongoing urinary frequency, which is likely prostatic in nature given the lack of other concerning findings on exam and laboratory studies. I provided the patient with a dose of oral diltiazem, and had a shared decision-making conversation with the patient and his family regarding anticoagulation. The patient has a [id number] score of 2, and a has bled score of 3. At this time, the patient meets criteria for, and is amenable to starting anticoagulant coagulation therapy, and understands the risks and benefits associated with this medication. We also discussed return precautions for both bleeding events and worsening of atrial fibrillation/cardiac events. At this time, the patient has had a full medical evaluation and is safe for discharge to home. They are hemodynamically stable, ambulatory, and tolerating PO. They are understanding of the follow-up plan and return precautions. They left our facility without incident. Senia Rosenberg MD Related Data Home Medications ?Medication ?Instructions ?Recorded ?Confirmed amlodipine 5 mg tablet 5 mg PO DAILY 12/04/22 03/08/24 aspirin 81 mg tablet,delayed 81 mg PO DAILY 12/04/22 03/08/24 release atorvastatin 40 mg tablet 40 mg PO DAILY 12/04/22 03/08/24 cholecalciferol (vitamin D3) 50 50 mcg PO DAILY 12/04/22 03/08/24 mcg (2,000 unit) capsule cyanocobalamin (vitamin B-12) 1,000 mcg PO DAILY 12/04/22 03/08/24 1,000 mcg capsule folic acid 400 mcg tablet 0.4 mg PO DAILY 12/04/22 03/08/24 nitroglycerin 0.4 mg sublingual 0.4 mg sublingual ONCE 12/04/22 03/08/24 tablet CPAP .daily 12/12/22 02/01/23 coenzyme Q10 1 tab PO DAILY 12/12/22 03/08/24 multivitamin (Daily Multi-Vitamin 1 tab PO DAILY 12/12/22 03/08/24 tablet) vitamin K2 1 cap PO DAILY 12/12/22 03/08/24 apixaban 5 mg tablet 5 mg PO BID #60 tabs 03/08/24 diltiazem HCl 60 mg 60 mg PO BID #60 caps 03/08/24 capsule,extended release 12 hr Previous Rx's ?Medication ?Instructions ?Recorded apixaban 5 mg tablet 5 mg PO BID #60 tabs 03/08/24 diltiazem HCl 60 mg 60 mg PO BID #60 caps 03/08/24 capsule,extended release 12 hr Allergies Allergy/AdvReac Type Severity Reaction Status Date / Time Sulfa (Sulfonamide Allergy Intermediate Unknown Verified 03/08/24 14:21 Antibiotics) POLLEN Allergy Intermediate Unknown Uncoded 03/08/24 14:21 cadneium Allergy Unknown Unknown Uncoded 03/08/24 14:21 YUDY Allergy Unknown Unknown Uncoded 03/08/24 14:21 General Stated Complaint: Arrhythmia ESTEFANI: 3 Course Vital Signs Vital signs: Vital Signs Temperature 36.6 C 03/08/24 14:02 Pulse 80 03/08/24 14:02 Respiratory Rate 20 03/08/24 14:02 Blood Pressure 147/77 H 03/08/24 14:02 Pulse Oximetry 95 03/08/24 14:02 Temperature 36.6 C 03/08/24 14:02 Temperature Source Oral 03/08/24 14:02 Pulse 80 03/08/24 14:02 Respiratory Rate 20 03/08/24 14:02 Respiratory Effort Normal 03/08/24 14:07 Blood Pressure 147/77 H 03/08/24 14:02 Blood Pressure Position Sitting 03/08/24 14:02 Pulse Oximetry 95 03/08/24 14:02 Oxygen Delivery Method Room Air 03/08/24 14:02 Oxygen Flow Rate 0 03/08/24 14:02 Medical Decision Making Quality:SDOH Health Related Social Needs: No Data to Display PFSH All Active Problems (Updated 03/08/24 @ 16:00 by Senia Rosenberg MD) Urinary frequency (Acute) Atrial fibrillation (Chronic) Facial pain (Acute) Medical History Asthma Atherosclerotic cardiovascular disease Atopic dermatitis BPH (benign prostatic hyperplasia) Colonic polyp Glaucoma Hyperlipidemia Hypertension Lesion of skin of nose Psoriasis Sleep apnea Tinea cruris Vitamin B12 deficiency Surgical History History of heart artery stent Status post total left knee replacement Family History Father Heart disease Mother Hypertension Social History Smoking/Tobacco Use Status: Never Smoking risk assessment performed?: Yes Alcohol Intake: never Drug use: Never Household members: spouse Number of Children: 2 current occupation: Retired
[2024-03-08] MEDS: MAGNESIUM SULFATE 2 GM/50 ML BAG IV_INF (14:41)
[2024-03-08 14:50] LABS: Abs Immature Grans 0.06 10^3/uL (0.0-0.06); Absolute Basophil Count 0.05 10^3/uL (0.0-0.2); Absolute Eosinophil Count 0.16 10^3/uL (0.0-0.7); Absolute Lymphocyte Count 1.88 10^3/uL (1.2-3.4); Absolute Monocyte Count 0.63 10^3/uL (0.1-0.8); Basophils % 0.5 %; Eosinophils % 1.5 %; HCT 44.2 % (40.0-50.0); HGB 15.5 g/dL (13.5-17.5); Immature Grans % 0.6 %; Lymphocytes % 17.4 %; MCH 30.6 pg (27.0-33.0); MCHC 35.1 % (32.0-36.0); MCV 87 fL (80-95); MPV 8.6 fL (8.0-11.0); Monocytes % 5.8 %; Neutrophils % 74.2 %; Platelet Count 275 10^3/uL (130-400); RBC 5.06 10^6/uL (4.36-5.78); RDW 12.5 % (11.8-14.1); RDW-SD 39.5 fL; WBC 10.83 10^3/uL (4.4-10.8)
[2024-03-08 14:52] LABS: Absolute Neutrophil Count 8.04 10^3/uL (1.2-6.7)
[2024-03-08 14:57] LABS: Bilirubin Negative (Negative); Blood Negative (Negative); Clarity Clear (Clear); Glucose Negative (Negative); Ketones Negative (Negative); Leukocyte Esterase Negative (Negative); Nitrite Negative (Negative); Urobilinogen 0.2 mg/dL (Up to 0.2); pH 5.5 (5-8)
--- OUTSIDE RECORDS SUMMARY | 2024-03-08 14:58 | XMS_ITS | Encounter Summary ---
[place] [address] Care Team Providers Care Keyboard Operator Name Role Phone Edith Gaming DO Primary Care Provider Unava ilable Reason for Visit * Reason Onset Date Comments Prior Authorization 08/23/[address] c alcium Encounter Details Date Type Department Care Team (Late st Contact Info) Description 08/23/2020 Telephone Cardiology at [address] [phone] Mandy Mcgill, ornamental plaster sticker (cardiac CT calcium) Social History Tobacco Use Types Packs/Day Years Used Date Smoking Tobacco: Never Smokeless Tobacco: Never Alcohol Use Standard Drinks/Week Comments No 0 (1 standard drink = 0.6 oz pur e alcohol) Sex and Gender Information Value Date Recorded Sex Assigned at Male 08/16/2020 1:10 PM EDT Gender Identity Not on file Sexual Orientation Not on file documented as of this encounter Miscellaneous Notes * Telephone Encounter - Mandy Mcgill, RN - 08/23/2020 9:01 AM EDTSummary: Medicare + Medicare supplemental - [place] not required Images from the original note were not included. Medicare is primary Medicare supplement is [employer] through [address] of [place], [place] Patient Eligibility Lookup Patient ID:* Date Of :* MM/DD/YYYY Patient Last Name Only:* [?] We are unable to locate a patient record based on the information provided. If you believe this patient record is active with this health plan, please call to speak to an [facility] outreach representative. 40% Complete Provider and NPI JESUS GIRON [phone] ([employer]) documented in this encounter Plan of Treatment Not on file documented as of this encounter Visit Diagnoses Not on filedocumented in this encounter Care Teams Keyboard Operator Relationship Specialty Start Date End Date Edith Gaming DO PCP - General Family Medicine 07/24/20 04/23/23 documented as of this encounter
--- OUTSIDE RECORDS SUMMARY | 2024-03-08 14:58 | XMS_ITS | Encounter Summary ---
Author Organization [facility] [place] [address] Care Team Providers Care Shell Molder Name Role Phone Edith Gaming DO Primary Care Provider Unava ilable Encounter Details Date Type Department Care Team (Late st Contact Info) Description 11/08/2020 Telephone Cardiology at [address] [phone] Vasile Grover MD [facility] [place] [address] Social History Tobacco Use Types Packs/Day Years [...] encounter Miscellaneous Notes * Telephone Encounter - aTyla Medellin RN - 11/08/2020 11:34 AM EDT Called and gave him Dr. Grover instructions to decrease lisinopril to 5 mg a day and if systolic b/p is still lower than 120 after 3 days of decreased dosage he can stop it altogether. Pt aware and repeated instructions back. * Telephone Encounter - Tayla Medellin RN - 11/08/2020 10:36 AM EDT Says he is trying to lose the weight and has changed his diet and exercising. Has lost 38 lbs over 60 days. Drinks 150 oz of water a day. Is wondering if his b/p meds need to be reduced because he gets lightheaded when he bends over, looks up or moves fast. * Telephone Encounter - Cecilia Villa - 11/08/2020 9:02 AM EDT Patient called because he has now lost a total of 38 lbs. His blood pressures are: top # 105-115; bottom # 49-58; He said he is starting to get a little lightheadedness. Should his blood pressure medications lisinopril and metoprolol be reduced? Please call him @ [phone]. documented in this encounter Plan of Treatment Not on file documented as of this encounter Visit Diagnoses Not on filedocumented in this encounter Care Teams Shell Molder Relationship Specialty Start Date End Date Edith Gaming DO PCP - General Family Medicine 07/24/20 04/23/23 documented as of this encounter
--- OUTSIDE RECORDS SUMMARY | 2024-03-08 14:58 | XMS_ITS ---
Author Organization Unknown Address [address] [place] [phone] Phone Care Team Providers Care Hot Plate Plywood Press Laborer Name Role Phone GAURANG Allen Attending Unavailable LINNEA Bautista Primary Unavailable Social History Type Status Start Date End Date Code Code Syst em Smoking History Never smoker (Never Smoked) 157063682 SNOMED CT Sex Male Assessment You had the following problems:LOCALIZED OSTEOARTHRITIS Hospital Discharge Instructions Should you have any questions prior to discharge, please contact a member of your healthcare team. If you have left the hospital and have any questions, please contact your primary care physician. Reason For Referral No Data Found Problems Problem Start Date Resolved Date Status Code Code System LOCALIZED OSTEOARTHRITIS active 32503 002 SNOMED-CT Allergies and Adverse Reactions Allergy Substance Reaction Severity Start Date Concern Status Co de Code System NICKEL Moderate Active 6561289 RxNorm METAL Moderate Active Plan of Treatment No Data Found Encounters Encounter Diagnosis Start Date Code Code Sys tem Plantar fascial fibromatosis 06/04/2023 [id number] SNOMED-CT Personal Care Team Section Performer Name Performer Role Active Date Inactive Da te
--- OUTSIDE RECORDS SUMMARY | 2024-03-08 14:58 | XMS_ITS | Clinical Summary ---
Author Organization [facility] Address [facility] [place] [address] Care Team Providers Care Cup Trimming Machine Operator Name Role Phone Unknown Primary Care Provider Unavailabl e Allergies Active Allergy Reactions Criticality Noted Date Comments Nickel Rash 03/30/2014 Medications Medication Sig Dispensed Refills Start Date End Date Status metoprolol succinate (TOPROL-XL) 100 mg XL tablet Take 50 mg by mouth daily. 12/10/20 per MD Grover reduce to 50 mg daily 03/21/2013 Active ibuprofen (ADVIL;MOTRIN) 200 mg tablet Take 800 mg by mouth as needed. Active ELIDEL 1 % cream Apply topically 2 times daily as needed. 06/11/2013 Active FLUOCINONIDE-EMOLLI ENT 0.05 % cream 2 times daily as needed. 06/12/2013 Active atorvastatin (Lipitor) 40 mg Tablet Take 1 tablet by mouth every evening. 90 tablet 3 09/15/2020 Active ezetimibe (Zetia) 10 mg Tablet Take 1 tablet by mouth daily. 90 tablet 3 09/15/2020 Active lactobacillus rhamnosus, GG, (CULTURELLE) 10 billion cell Capsule Take 1 capsule by mouth daily. Active multivitamin with minerals and lutein Tablet Take 1 tablet by mouth daily. Active folic acid (Folvite) 1 mg Tablet Take 1 mg by mouth daily. Active cholecalciferol, Vitamin D3, (cholecalciferol, Vitamin D3,) 50 mcg (2,000 unit) Capsule Take 1 capsule by mouth. Active aspirin EC 81 mg Tablet, Delayed Release (E.C.) Take 1 tablet by mouth daily. 90 tablet 10/06/2020 Active Additional Information Patient not taking.Reported on 12/10/2020 Active Problems Problem Noted Date Diagnosed Date ASCVD (arteriosclerotic cardiovascular disease) 09/29/2020 Overview (09/29/2020): 09/2020 Coronary Calcium Score (in Agatston Units) Left Main 24 LAD 957 Cx 124 RCA 42 ?? Percentile Age/Gender Cohort ([place] database): 88% ?? IMPRESSION: 1) Total Calcium Score 1147 2) This coronary calcium score suggests a high burden of coronary artery disease. 3) Without symptoms, stress testing is not indicated. However, intense risk factor modification, including high-potency statin + zetia is recommended, with goal LDL < 70 Assessment & Plan (10/06/2020 11:18 AM EDT): The majority of this visit was spent discussing the results and interpretation of the coronary calcium. Reviewed that the calcium was a marker of atherosclerosis plaque, and because of this we know that he has significant CAD. He has significant disease in all vessels, which would portend a higher risk of future CO compared to age-matched cohort. Thus the desire to aggressively medically manage. There is no indication for stress testing nor coronary lumenography in the setting of no symptoms with exertion. Also reviewed that I do not think the calcium will change in the future, as most of it is extravascular and not easily removed. Similarly, I do not think the cholesterol profile will be of help to follow, as he already had a very good appearing lipid profile and still developed significant coronary calcium. 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, about 2004 Colon polyp 08/26/2009 Overview (07/27/2020): 2010-normal, Due in 2020 Hypertensive disorder 08/26/2009 Resolved Problems Problem Noted Date Diagnosed Date Resolved Date Fam hx-ischem heart disease 07/27/2020 08/18/2020 CRP elevated 07/27/2020 08/18/2020 Homocysteine level above reference range 07/27/2020 08/18/2020 Left knee pain 04/09/2013 08/18/2020 Snoring 09/18/2012 09/29/2020 Family History Medical History Relation Comments Myocardial Infarction Father Coronary Artery Disease Mother High Blood Pressure Mother Hypertension Mother Breast Cancer Sister 1 Cancer Sister 2 Relation Status Comments Father CO at 59, at 60 Mother Sister 1 Alive Sister 2 Social History Tobacco Use Types Packs/Day Years Used Date Smoking Tobacco: Never Smokeless Tobacco: Never Alcohol Use Standard Drinks/Week Comments No 0 (1 standard drink = 0.6 oz pur e alcohol) Sex and Gender Information Value Date Recorded Sex Assigned at Male 08/16/2020 1:10 PM EDT Gender Identity Not on file Sexual Orientation Not on file Last Filed Vital Signs Vital Sign Reading Time Taken Comments Blood Pressure 135/67 09/29/2020 1:36 PM EDT Pulse 57 09/29/2020 1:36 PM EDT Temperature 36.6 ??C (97.8 ??F) 06/16/2013 12:[address] Respiratory Rate 15 05/29/2013 8:35 AM EST Oxygen Saturation 97% 07/15/2015 8:15 AM EST Inhaled Oxygen Concentration - - Weight 131.5 kg (290 lb) 09/29/2020 1:36 PM EDT Height 190.5 cm (6' 3) 09/29/2020 1:36 PM EDT Body Mass Index 36.25 09/29/2020 1:36 PM EDT Plan of Treatment Health Maintenance Due Date Last Done Comments CT Colonography 1950 Colonoscopy 1950 Colorectal Cancer Screening 1950 FIT DNA 1950 FIT 1950 Sigmoidoscopy (10 year) with FIT yearly 1950 Sigmoidoscopy 1950 Hepatitis C Screening 1969 Tetanus/Diphtheria/Pertussis Vaccines (1 - Tdap) 05/24 Zoster vaccine (1 of 2) 2001 Advance Directive 2006 Pneumoccocal Vaccine: 65+ (1 of 1 - PCV) 2016 Covid-19 Vaccine (1 - 2022- season) 2024 Influenza (Flu) vaccine (1 o f 1 - Influenza standard series) 01/13/2024 Advance Directives * Full Code (Latest Code Status on File) Date Activated Date Inactivated Comments 05/29/2013 8:26 AM 05/29/2013 11:41 AM Question Answer Comments Does patient have decision m aking capacity? Yes, order is based on Patient wishes. Care Teams Cup Trimming Machine Operator Relationship Specialty Start Date End Date Unknown None PCP - General 04/24/23
--- OUTSIDE RECORDS SUMMARY | 2024-03-08 14:58 | XMS_ITS | Encounter Summary ---
Author Organization [facility] Address [facility] [place] [address] Care Team Providers Care Engraver Name Role Phone Edith Gaming DO Primary Care Provider Unava ilable Encounter Details Date Type Department Care Team (Late st Contact Info) Description 10/14/2020 Telephone Cardiology at [address] [phone] Vasile Grover MD [facility] [place] [address] Social History Tobacco Use Types Packs/Day Years [...] Telephone Encounter - Mandy Mcgill, RN - 10/14/2020 11:13 AM EDT Noted. Thank you * Telephone Encounter - Lorna Barnes - 10/14/2020 9:57 AM EDT Patient stopped in to say that the combination of medications his Heart rate is now in the 50's. Hehas also lost 18 lbs. He was coming from PCP office Dr. Gaming. Called for the PCP notes from today, they will fax when available. documented in this encounter Plan of Treatment Not on file documented as of this encounter Visit Diagnoses Not on filedocumented in this encounter Care Teams Engraver Relationship Specialty Start Date End Date Edith Gaming DO PCP - General Family Medicine 07/24/20 04/23/23 documented as of this encounter
--- OUTSIDE RECORDS SUMMARY | 2024-03-08 14:58 | XMS_ITS | Encounter Summary ---
Author Organization [facility] [place] [address] Care Team Providers Care Vamp Wetter Name Role Phone Edith Gaming DO Primary Care Provider Unava ilable Reason for Visit * Reason Onset Date Comments Prior Authorization 08/23/2020 echocaradiog juany Encounter Details Date Type Department Care Team (Late st Contact Info) Description 08/23/2020 Telephone Cardiology at [address] [phone] Mandy Mcgill, manager utilization management (echocaradiogram) Social History Tobacco Use Types Packs/Day Years [...] Encounter - Mandy Mcgill, RN - 08/23/2020 9:22 AM EDT x documented in this encounter Plan of Treatment Not on file documented as of this encounter Visit Diagnoses Not on filedocumented in this encounter Care Teams Vamp Wetter Relationship Specialty Start Date End Date Edith Gaming DO PCP - General Family Medicine 07/24/20 04/23/23 documented as of this encounter
--- OUTSIDE RECORDS SUMMARY | 2024-03-08 14:58 | XMS_ITS | Encounter Summary ---
Author Organization [facility] Address [facility] [place] [address] Care Team Providers Care Laborer Adjustable Steel Joist Name Role Phone Edith Gaming DO Primary Care Provider Unava ilable Encounter Details Date Type Department Care Team (Latest Contact Info) Description 09/15/2020 Interpretation Only Cardiology at [address] [phone] Vasile Grover MD [facility] [place] [address] Hypertension, unspecified type Social History Tobacco Use Types Packs/Day Years Used Date Smoking Tobacco: Never Smokeless Tobacco: Never Alcohol Use Standard Drinks/Week Comments No 0 (1 standard drink = 0.6 oz pur e alcohol) Sex and Gender Information Value Date Recorded Sex Assigned at Male 08/16/2020 1:10 PM EDT Gender Identity Not on file Sexual Orientation Not on file documented as of this encounter Procedure Notes * Vasile Grover MD - 09/15/2020 10:49 AM EDTAssociated Order(s): Coronary Calcium Score Post-Procedure Diagnose(s): Hypertension, unspecified type Coronary Calcium Score Vasile Grover MD 09/15/2020 Patient Location: [facility] [place] Coronary Calcium Score (in Agatston Units) Left Main 24 LAD 957 Cx 124 RCA 42 Percentile Age/Gender Cohort ([place] database): 88% Extra-cardiac findings: Please refer to dedicated report, performed by radiology. IMPRESSION: 1) Total Calcium Score 1147 2) This coronary calcium score suggests a high burden of coronary artery disease. 3) Without symptoms, stress testing is not indicated. However, intense risk factor modification, including high-potency statin + zetia is recommended, with goal LDL < 70 Electronically Signed: Vasile Grover MD, 09/15/2020 10:55 AM documented in this encounter Plan of Treatment Not on file documented as of this encounter Procedures Procedure Name Priority Date/Time Associated Diagnosis Comments CAT SCAN Routine 09/15/2020 10:49 AM EDT Hypertension, unspecified type documented in this encounter Results * CAT SCAN (09/15/2020 10:49 AM EDT) Anatomical Region Laterality Modality Other Narrative 09/15/2020 10:49 AM EDT Vasile Grover MD ? 09/15/2020 10:55 AM Coronary Calcium Score Vasile Grover MD 09/15/2020 Patient Location: [facility] [place] Vasile Grover MD PROCDOC ORDERABLES documented in this encounter Visit Diagnoses Diagnosis Hypertension, unspecified type documented in this encounter Care Teams Laborer Adjustable Steel Joist Relationship Specialty Start Date End Date Edith Gaming DO PCP - General Family Medicine 07/24/20 04/23/23 documented as of this encounter
--- OUTSIDE RECORDS SUMMARY | 2024-03-08 14:58 | XMS_ITS ---
Author Organization Unknown Address [address] [place] [phone] Phone Care Team Providers Care Appeals Referee Name Role Phone ARIANNA Cifuentes Attending Unavailable BRENDEN Macdonald Primary Unavailable Results XR KNEE 3V RT* - Completed: 10/04/2023 10:15 LOINC: [facility] [place], [place] [address] [facility] RENTAL CLERK REPORT Patient Name: RAUL PIEDRA MRN: Sex: : Age: [id number] O 1950 73 Account: Accession: Admit: StayType: [id number] 10/04/2023 O Ordered: Order ID: Submitted: Ordering Provider: 10/04/2023 09:56 [id number] NADJA NAYAK Completed: Technologist: Resulted: 10/04/2023 09:59 JULIAN 10/04/2023 11:26 FINAL REPORT EXAM: XR KNEE 3V RT* CLINICAL HISTORY: Reason for Extrem: Post Op Eval. TECHNIQUE: 2D digital imaging was performed. Four views. COMPARISON: KNEE LEFT 1V OR 2V from 04/28/2014 MO KNEE LEFT 3V from 06/01/2016 MO KNEE LEFT 3V from 09/09/2020 FINDINGS: BONES: No acute fracture is present. No bony destructive lesion is seen. JOINTS: The knee is normally aligned. A joint effusion is seen. Faint calcifications now seen in suprapatellar region. Stable appearance total knee prosthesis and surrounding bone. SOFT TISSUE: Unremarkable. IMPRESSION: Stable appearance of knee prosthesis. Faint calcifications are seen in the suprapatellar region. DATA REPOSITORY: RADIATION DOSE DELIVERED: Electronically signed by: Ashley Hernandez Dictated: 10/04/2023 11:26 Social History Type Status Start Date End Date Code Code Syst em Smoking History Never smoker (Never Smoked) [id number] SNOMED CT Sex Male Assessment You had [...] Status Code Code System LOCALIZED OSTEOARTHRITIS active 88036 002 SNOMED-CT Allergies and Adverse Reactions Allergy Substance Reaction Severity Start Date Concern Status Co de Code System NICKEL Moderate Active 6542947 RxNorm METAL Moderate Active Plan of Treatment No Data Found Encounters Encounter Diagnosis Start Date Code Code Sys tem 10/04/2023 [id number] SNOMED-CT Personal Care Team Section Performer Name Performer Role Active Date Inactive Da te
--- OUTSIDE RECORDS SUMMARY | 2024-03-08 14:58 | XMS_ITS | Encounter Summary ---
Author Organization [facility] [place] [address] Care Team Providers Care Software Reliability Engineer Name Role Phone Edith Gaming DO Primary Care Provider Unava ilable Reason for Visit * Reason Onset Date Comments Hypertension 10/18/2020 update from nick ent Encounter Details Date Type Department Care Team (Late st Contact Info) Description 10/18/2020 Telephone Cardiology at [address] [place] [address] Vasile Grover MD [facility] [place] [address] Hypertension (update from patient) Social History Tobacco Use Types Packs/Day Years [...] encounter Miscellaneous Notes * Telephone Encounter - Amrit Fields RN - 10/20/2020 9:23 AM EDT Fantastic BP! ??No changes Called patient and let him know Dr. Grover message. Had to leave voicemail. * Telephone Encounter - Mandy Mcgill RN - 10/18/2020 11:32 AM EDT Francisco J called with report on BP since the medications were adjusted 3 weeks ago. BP systolic range has been 120-125 most days, lowest seen was 109. BP diastolic range has been near 60 most days, lowest seen was 50 Pulse rate varies from 49-60. It is lowest when he has been quiet; revives to 60 +/- with activity. His weight was 290 pounds 3 weeks ago. He reports he has lost 24 pounds by cutting out the junk and eating fruits and vegetables. He denies feeling symptomatic for the lowered pulse. The only time he has been lightheaded is when bending at waist and head lowered to knee height. Plan: Al to continue checking BP and pulse Al to continue dietary changes Al will report any malaise symptoms if they occur This nurse to forward update message to Dr. Grover documented in this encounter Plan of Treatment Not on file documented as of this encounter Visit Diagnoses Not on filedocumented in this encounter Care Teams Software Reliability Engineer Relationship Specialty Start Date End Date Edith Gaming DO PCP - General Family Medicine 07/24/20 04/23/23 documented as of this encounter
--- OUTSIDE RECORDS SUMMARY | 2024-03-08 14:58 | XMS_ITS | Encounter Summary ---
Author Organization [facility] [place] [address] Care Team Providers Care Computer Lab Aide Name Role Phone Edith Gaming DO Primary Care Provider Unava ilable Reason for Visit * Reason Onset Date Comments Results 09/15/2020 CT heart angiogr am Encounter Details Date Type Department Care Team (Late st Contact Info) Description 09/15/2020 Telephone Cardiology at [address] [place] [address] Vasile Grover MD [facility] [place] [address] Results (CT heart angiogram) Social History Tobacco Use Types Packs/Day Years [...] Miscellaneous Notes * Telephone Encounter - Mandy Mcgill RN - 09/15/2020 4:02 PM EDT This nurse explains Dr. Grover' comments on the CT angiogram and his recomendation for medication management. 1. A strong statin 2. Zetia Are both oral medications that can be prescribed by your primary care provider,Dr. Gaming, or Dr. Grover. If Dr. Grover is asked to prescribe these therapies, follow up as needed will need to happenwith Dr. Grover. Otherwise, Dr. Gaming can prescribe these medications and follow his response to them. Francisco J asks questions as if this had been an angiogram with measurement of per cent blockage of coronary arteries. My explanation that the results are not expressed that way was unsatisfactory. He asks if the two medications will make the calcium go away and will this happen in 3 months? 6 months. Teaching: the medications do not actively remove calcium that has hardened onto the inside of the artery [place]. It works to reduce the amount of cholesterol in your blood and reduce the likelihood of it sticking to those calcium deposits. These will be lifetime therapies if he tolerates them well. He would also like information about diet and other things he can do to reduce his risk of heartattack. He would like his prescriptions to go to [facility] * Telephone Encounter - Mandy Mcgill, RN - 09/15/2020 3:58 PM EDT ----- Message from Vasile Grover MD sent at 09/15/2020 3:34 PM EDT ----- Patient has a significant amount of coronary calcium on CT scan. Recommended high intensity statin + zetia on report. To consolidate preventive care, Dr Gaming can certainly intiiate these, but if patient or GP feel differently, happy to prescribe and continue f/u. Otherwise, can f/u prn documented in this encounter Plan of Treatment Not on file documented as of this encounter Visit Diagnoses Not on filedocumented in this encounter Care Teams Computer Lab Aide Relationship Specialty Start Date End Date Edith Gaming DO PCP - General Family Medicine 07/24/20 04/23/23 documented as of this encounter
--- OUTSIDE RECORDS SUMMARY | 2024-03-08 14:58 | XMS_ITS | Encounter Summary ---
Author Organization [facility] [place] [address] Care Team Providers Care Rug Measurer Name Role Phone Edith Gaming DO Primary Care Provider Unava ilable Encounter Details Date Type Department Care Team (Late st Contact Info) Description 12/10/2020 Telephone Cardiology at [address] [address] Vasile Grover MD [facility] [address] Social History Tobacco Use Types Packs/Day Years [...] Telephone Encounter - Amrit Fields RN - 12/21/2020 8:29 AM EDT Patient returned call, let him know he can stop the Toprol-per Dr. Grover. Patient verbalized understanding. * Telephone Encounter - Amrit Fields RN - 12/20/2020 11:[address] Grover: It would be fine to stop the toprol * Telephone Encounter - Kiah Edwards RN - 12/17/2020 4:15 PM EDT Patient states that over all symptoms are resolving. Patient is still concerned about heart rates. See BP log below. Nurse will update MD Grover 12/11 BP 116/55 HR 42 8/1 BP 118/60 HR 52 8/2 BP 118/61 HR 45 8/3 BP 109/61 HR 47 8/4 BP 116/45 HR 49 8/5 BP 117/60 HR 43 * Telephone Encounter - Cecilia Villa - 12/17/2020 1:24 PM EDT Patient called to report his BP's. He said they have been okay. Please call him after 3 pm @ [phone] * Telephone Encounter - Kiah Edwards RN - 12/10/2020 3:54 PM EDT Per MD Grover patient may reduce his dose to 50 mg daily, keep BP log and report back to us in one week. * Telephone Encounter - Kiah Edwards RN - 12/10/2020 3:26 PM EDT Patient called to report out come from medication changes on 11/08/20. Per patient he was able to stop lisinopriil all together. He is wondering if he could decrease his metoprolol now. SBP runs between 98-112, DBP 44-59 and HR 42-52. He still report getting dizzy when changing position from kneeling to standing but not as often as before the medication reduction. Patient continues to loose weight. Nurse will update MD Grover. documented in this encounter Plan of Treatment Not on file documented as of this encounter Visit Diagnoses Not on filedocumented in this encounter Care Teams Rug Measurer Relationship Specialty Start Date End Date Edith Gaming DO PCP - General Family Medicine 07/24/20 04/23/23 documented as of this encounter
--- OUTSIDE RECORDS SUMMARY | 2024-03-08 14:58 | XMS_ITS | Encounter Summary ---
Author Organization [facility] [place] [address] Care Team Providers Care Industrial Roofer Name Role Phone Edith Gaming DO Primary Care Provider Unava ilable Reason for Visit * Reason Comments Coronary Artery Disease high coronary ca lcium score Encounter Details Date Type Department Care Team (Latest Contact Info) Description 09/29/2020 1:40 PM EDT Office Visit Cardiology at [address] [address] Vasile Grover MD [facility] [address] ASCVD (arteriosclerotic cardiovascular disease) Social History Tobacco Use Types Packs/Day Years Used Date Smoking Tobacco: Never Smokeless Tobacco: Never Alcohol Use Standard Drinks/Week Comments No 0 (1 standard drink = 0.6 oz pur e alcohol) Sex and Gender Information Value Date Recorded Sex Assigned at Male 08/16/2020 1:10 PM EDT Gender Identity Not on file Sexual Orientation Not on file documented as of this encounter Last Filed Vital Signs Vital Sign Reading Time Taken Comments Blood Pressure 135/67 09/29/2020 1:36 PM EDT Pulse 57 09/29/2020 1:36 PM EDT Temperature - - Respiratory Rate - - Oxygen Saturation - - Inhaled Oxygen Concentration - - Weight 131.5 kg (290 lb) 09/29/2020 1:36 PM EDT Height 190.5 cm (6' 3) 09/29/2020 1:36 PM EDT Body Mass Index 36.25 09/29/2020 1:36 PM EDT documented in this encounter Progress Notes * Vasile Grover MD - 09/29/2020 1:40 PM EDT Images from the original note were not included. Subjective: Patient ID: Francisco J Alvarez Jr. is a 70 y.o. male who presents on follow-up for: Chief Complaint Patient presents with ??? Coronary Artery Disease high coronary calcium score HPI Last seen by me 08/2020, at which time we had a discussion regarding preventive cardiology, and it was decided to obtain a calcium score. This returned with very high calcium score, as per the problemlist. He returns for further discussion Since then, he continues to be doing well. Notes nyha I dyspnea with strenuous activities; not out of the ordinary. He continues to perform strenuous activities without significant exertional symptomatology. Tolerating statin and zetia well Current Outpatient Medications: ??? lactobacillus rhamnosus, GG, (CULTURELLE) 10 billion cell Capsule, Take 1 capsule by mouth daily., Disp: , Rfl: ??? multivitamin with minerals and lutein Tablet, Take 1 tablet by mouth daily., Disp: , Rfl: ??? folic acid (Folvite) 1 mg Tablet, Take 1 mg by mouth daily., Disp: , Rfl: ??? cholecalciferol, Vitamin D3, (cholecalciferol, Vitamin D3,) 50 mcg (2,000 unit) Capsule, Take 1capsule by mouth., Disp: , Rfl: ??? atorvastatin (Lipitor) 40 mg Tablet, Take 1 tablet by mouth every evening., Disp: 90 tablet, Rfl: 3 ??? ezetimibe (Zetia) 10 mg Tablet, Take 1 tablet by mouth daily., Disp: 90 tablet, Rfl: 3 ??? lisinopriL (Prinivil;Zestril) 10 mg Tablet, Take 10 mg by mouth daily., Disp: , Rfl: ??? ELIDEL 1 % cream, Apply topically 2 times daily as needed., Disp: , Rfl: ??? FLUOCINONIDE-EMOLLIENT 0.05 % cream, 2 times daily as needed., Disp: , Rfl: ??? metoprolol succinate (TOPROL-XL) 100 mg XL tablet, Take 100 mg by mouth daily., Disp: , Rfl: ??? ibuprofen (ADVIL;MOTRIN) 200 mg tablet, Take 800 mg by mouth as needed., Disp: , Rfl: ??? aspirin EC 81 mg Tablet, Delayed Release (E.C.), Take 1 tablet by mouth daily., Disp: 90 tablet, Rfl: PRN Patient Active Problem List Diagnosis ??? ASCVD (arteriosclerotic cardiovascular disease) 09/2020 Coronary Calcium Score (in Agatston Units) Left Main 24 LAD 957 Cx 124 RCA 42 ?? Percentile Age/Gender Cohort ([employer] database): 88% ?? IMPRESSION: 1) Total Calcium Score 1147 2) This coronary calcium score suggests a high burden of coronary artery disease. 3) Without symptoms, stress testing is not indicated. However, intense risk factor modification, including high-potency statin + zetia is recommended, with goal LDL < 70 ??? Obstructive sleep apnea 2012, CPAP ??? Psoriasis Gluteal cleft ??? Hydrocele Left Chronic, about 2004 ??? Colon polyp 2010-normal, Due in 2020 ??? Hypertensive disorder Objective: BP 135/67 (BP Location (NBP): Right arm, Patient Position: Sitting, BP Cuff Sizes: Adult (25-34 cm)) Pulse 57 Ht 190.5 cm (6' 3) Wt 131.5 kg (290 lb) BMI 36.25 kg/m?? Gen: pleasant male in NAD Cor: rrr, s1/s2 of nl character and amplitude, no m/r/g. Estimated RAP not elevated. Carotids with normal upstroke without bruit. Pulm: CTAB. Normal diaphragmatic movement without use of accessory muscles Assessment and Plan: ASCVD (arteriosclerotic cardiovascular disease) The majority of this visit was spent discussing the results and interpretation of the coronary calcium. Reviewed that the calcium was a marker of atherosclerosis plaque, and because of this we know that he has significant CAD. He has significant disease in all vessels, which would portend a higher risk of future OR compared to age-matched cohort. Thus the desire [...] appearing lipid profile and still developed significant coronarycalcium. Reviewed that the role of the statin and zetia was to stabilize the cholesterol plaque anddecrease the probability of plaque rupture/OR - Lipitor 40 - Zetia 10 - ASA 81 RTC 12 months Vasile Grover MD Between 30 and 39 minutes were spent doing patient care, chart care/review (today), and care coordination. documented in this encounter Miscellaneous Notes * Assessment & Plan Note - Vasile Grover MD - 10/06/2020 11:11 AM EDT Associated Problem(s): ASCVD (arteriosclerotic cardiovascular disease) The majority of this visit was spent discussing the results and interpretation of the coronary calcium. Reviewed that the calcium was a marker of atherosclerosis plaque, and because of this we know that he has significant CAD. He has significant disease in all vessels, which would portend a higher risk of future OR compared to age-matched cohort. Thus the desire [...] appearing lipid profile and still developed significant coronarycalcium. Reviewed that the role of the statin and zetia was to stabilize the cholesterol plaque anddecrease the probability of plaque rupture/OR - Lipitor 40 - Zetia 10 - ASA 81 documented in this encounter Plan of Treatment Not on file documented as of this encounter Visit Diagnoses Diagnosis ASCVD (arteriosclerotic cardiovascular disease) Unspecified cardiovascular disease documented in this encounter Care Teams Industrial Roofer Relationship Specialty Start Date End Date Edith Gaming DO PCP - General Family Medicine 07/24/20 04/23/23 documented as of this encounter
--- OUTSIDE RECORDS SUMMARY | 2024-03-08 14:59 | XMS_ITS | Encounter Summary ---
Author Organization [facility] Address [address] [place] [address] Care Team Providers Care Distribution Center Manager Name Role Phone Quan Bingham MD Primary Care Provider Encounter Details Date Type Department Care Team (Late st Contact Info) Description 09/30/[address] [place] [address] Sylvain Su RN Social History Tobacco Use Types Packs/Day Years Used Date Smoking Tobacco: Never Smokeless Tobacco: Never Alcohol Use Standard Drinks/Week Comments No 0 (1 standard drink = 0.6 oz pur e alcohol) Sex and Gender Information Value Date Recorded Sex Assigned at Not on file Gender Identity Not on file Sexual Orientation Not on file documented as of this encounter Plan of Treatment Not on file documented as of this encounter Goals Goal Patient Goal Type Associated Problems Recent Progress Patient-Stated? Author Blood Pressure < 150/90 Blood Pressure Hypertensive disorder 128/70(09/28 8:41 EDT) No Morenita Carreno LPN Weight Loss General Hypertensive disorder Not on track(2013 9:39 EDT) Yes Quan Bingham Note: Goal: continue improved diet, smaller portions Confidence level (1= Not very confident; 10 = Very confident): 9 Barriers: None documented as of this encounter Visit Diagnoses Not on filedocumented in this encounter Care Teams Distribution Center Manager Relationship Specialty Start Date End Date Quan Bingham MD [address] [place] [address] [address] [place] [address] PCP - General 05/27/13 08/09/16 documented as of this encounter
--- OUTSIDE RECORDS SUMMARY | 2024-03-08 14:59 | XMS_ITS | Encounter Summary ---
[place] [address] Care Team Providers Care Radio Survey Worker Name Role Phone Irineo Vazquez MD Primary Care Provider [phone] Reason for Visit * Reason Comments Snoring Encounter Details Date Type Department Care Team (Late st Contact Info) Description 09/18/2012 10:00 AM EDT Office Visit [address] [address] Fatoumata Mcdowell MD [facility] [place] [address] Apnea (Primary Dx); Hypersomnia, unspecified; Other dyspnea and respiratory abnormality Social History Tobacco Use Types Packs/Day Years Used Date Smoking Tobacco: Never Assessed Sex and Gender Information Value Date Recorded Sex Assigned at Male 08/16/2020 1:10 PM EDT Gender Identity Not on file Sexual Orientation Not on file documented as of this encounter Last Filed Vital Signs Vital Sign Reading Time Taken Comments Blood Pressure - - Pulse - - Temperature - - Respiratory Rate - - Oxygen Saturation - - Inhaled Oxygen Concentration - - Weight 142 kg (313 lb) 09/18/2012 11:23 AM EDT b y report Height 185.4 cm (6' 1) 09/18/2012 11:23 AM EDT Body Mass Index 41.3 09/18/2012 11:23 AM EDT documented in this encounter Progress Notes * Fatoumata Mcdowell MD - 09/18/2012 10:07 AM EDT Sleep Medicine Consultation Note HPI: Mr. Francisco J Alvarez is a 62 y.o. male seen at the request of Dr. Vazquez for advice regarding suspected obstructive sleep apnea in the setting of loud snoring, witnessed apenas, and poor quality sleep. Sleep Apnea Risk: Snoring: yes, probably > 5 yrs, not sure, getting worse, very loud Frequency: nightly Modifying factors: ? 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 Never happened before. 5-6 weeks ago. Travels for work, but not oversees lately. Sleep Pattern: Location: bedroom Bed/Recliner/Wedge: bed # of pillows under head: 1 Position: sides, never back Bedtime: 9 pm Latency: immediately Awakenings: 3-4 x - most times gets back to sleep, not bathroom Rise time: 4-5 am Days off: weekends the same Not a brenda Daytime Symptoms: [place]: 7/24 Upon Awakening: inconsistent Daytime fatigue/sleepiness: some days worse than others Naps: no Involuntary Dozing: watching TV Cognitive Symptoms: no Driving: driving drowsiness on afternoon on long drives - discussed driving safety Close calls related to sleepiness: no Accidents related to sleepiness: no Sleep Review of Symptoms Parasomnias: Sleep Walking: no Dream Enactment: no Bruxism: no Motor: RLS: no PLMS: no Narcolepsy: Hallucinations: no Paralysis: no Cataplexy: no - episode described above NOT consistent with cataplexy Past/Childhood Sleep History: no issues Family History: Family history of sleep disorders: both parents are , Dad was terrible snoring, sister with sleep apnea with CPAP (50's nurse) Past Medical History Diagnosis Date ??? HTN (hypertension) ??? Hypertension ??? ENVIRONMENTAL ALLERGIES terrible as a child ??? Asthma mostly as a child, no meds for asthma now ??? Back pain ??? Obesity ??? GERD (gastroesophageal reflux disease) spicy food late at night leads to heart burn Past Surgical History Procedure Date ??? 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 Alcohol: no Smoking: no Other drugs: not asked Caffeine: 2 x Pepsi 20 oz ROS: CON: weight change: see HPI ENT: nasal obstruction: see HPI NEURO: sleep related headaches: no CV: chest pain: no Palpitations: no LE edema: yes PUL: PINEDA: no PSY: Depression: no Anxiety: no GI: GERD: yes : Nocturia: no MSK: Pain: no ALL: Environmental Allergies: yes, sleeps better when less allergens MSE: Alert and appropriate: yes Oriented to person, place and time: yes Mood: normal Affect: normal PE: Ht 185.4 cm (6' 1) Wt 141.976 kg (313 lb) BMI 41.30 kg/m2 General: alert, pleasant, no distress, full facial hair Eyes: Conjunctivae: clear EOM: full ENT: MP: 4 Facial deformity: no Hard palate: normal Soft palate: edematous Gums and teeth: adequate Tongue: large for space Pul: Respirations: NAD Auscultation: clear, no Wheezes Neck/Lymphatics: Circumference: 17 3/4 Cardiac: HS: RRR, ?soft systolic murmur LE edema: + edema, worse left than right, no clubbing or cyanosis Neuro: alert, pleasant Musculoskeletal: Gait and stance: normal Assessment: Mr. Francisco J Alvarez is a 62 y.o. male who is seen to evaluate for possible obstructive sleep apnea in the setting of loud snoring, witnessed apneas, obesity, and physical exam characteristics that are highly suggestive. The pathophysiology of, the reasons to treat and treatment options for obstructive sleep apnea were all reviewed with the patient today. Given his elevated BMI, he is also at higher risk for obesity hypoventilation. He has a childhood h/o of asthma/allergies and reports mild chest tightness when exposed to allergens, suggesting possible ongoing asthma which may contribute to lower nighttime oxygen levels, if seen. We discussed treatment of nasal congestion/allergies with a nasal steroid, but he deferred treatment at this point pending an overnight PSG. Time spent face to face: 55 min Time spent devoted to counseling and discussion: 25 min Recommendations: 1) Polysomnography - he will call to book testing. 2) Driving safety was reviewed with patient. If the patient feels too sleepy to drive he/she knows not to drive. If he/she becomes sleepy while driving he/she will wire puller and nap. The patient indicates understanding of these issues and agrees with the plan. Fatoumata Mcdowell MD documented in this encounter Plan of Treatment Not on file documented as of this encounter Visit Diagnoses Diagnosis Apnea- Primary Hypersomnia, unspecified Other dyspnea and respiratory abnormality documented in this encounter Care Teams Radio Survey Worker Relationship Specialty Start Date End Date Irineo Vazquez MD [facility] [address] [place] [address] PCP - General 05/22/11 04/08/13 documented as of this encounter
--- OUTSIDE RECORDS SUMMARY | 2024-03-08 14:59 | XMS_ITS | Encounter Summary ---
Author Organization [facility] Address [facility] [place] [address] Care Team Providers Care Electro Optics Engineer Name Role Phone Quan Bingham MD Primary Care Provider Encounter Details Date Type Department Care Team (Latest Contact Info) Description 09/10/2013 9:14 AM EDT - 09/10/2013 11:59 PM EDT Hospital Encounter XRay at [address] [place] [address] DJD (degenerative joint disease) of knee Social History Tobacco Use Types Packs/Day Years Used Date Smoking Tobacco: Never Smokeless Tobacco: Never Alcohol Use Standard Drinks/Week Comments No 0 (1 standard drink = 0.6 oz pur e alcohol) Sex and Gender Information Value Date Recorded Sex Assigned at Male 08/16/2020 1:10 PM EDT Gender Identity Not on file Sexual Orientation Not on file documented as of this encounter Medications at Time of Discharge Medication Sig Dispensed Refills Start Date End Date ELIDEL 1 % cream Apply topically 2 times daily as needed. 06/11/2013 FLUOCINONIDE-EMOLLIENT 0.05 % cream 2 times daily as needed. 06/12/2013 metoprolol succinate (TOPROL-XL) 100 mg XL tablet Take 50 mg by mouth daily. 12/10/20 per MD Grover reduce to 50 mg daily 03/21/2013 ibuprofen (ADVIL;MOTRIN) 200 mg tablet Take 800 mg by mouth as needed. enalapril (VASOTEC) 20 mg tablet Take 20 mg by mouth daily. 03/21/2013 08/13/2020 documented as of this encounter Plan of Treatment Not on file documented as of this encounter Procedures Procedure Name Priority Date/Time Associated Diagnosis Comments XR JOINT TEAM ALIGNMENT AP LAT SCHUSS SKYLINE Routine 09/10/2013 9:32 AM EDT DJD (degenerative joint disease) of knee documented in this encounter Results * XR JOINT TEAM ALIGNMENT AP LAT SCHUSS SKYLINE (09/10/2013 9:32 AM EDT) Anatomical Region Laterality Modality N/A Radiographic Christel ging 09/10/2013 9:32 AM EDT Narrative 09/10/2013 9:38 AM EDT Examination JOINT TEAM STANDING ALIGNMENT AP LAT SCHUSS SKYLINE/LEFT Clinical History Knee Pain Comparison April 09, 2013 Technique Separate images of the pelvis, knees and feet were acquired in the AP projection with the patient standing. In addition to routine views of the knee, these images were stitched together to form a composite image of the pelvis and legs allowing for evaluation of lower extremity alignment in the weight bearing position. AP standing, PA Schuss, axial both knees and lateral left knee. Findings There is spurring of the left-sided tibial spines. Small osteophytes are present at the left patella femoral space. ??There is narrowing of the right patellofemoral space. Chondrocalcinosis is present in the left knee. ?? Standing alignment There is mild medial deviation of weight-bearing axes of the legs bilaterally. Impression Mild osteoarthritis of the knees without change. Procedure Note Sixto Rain MD - 09/10/2013 Examination JOINT TEAM STANDING ALIGNMENT AP LAT SCHUSS SKYLINE/LEFT Clinical History Knee Pain Comparison April 09, 2013 Technique Separate images of the pelvis, knees and feet were acquired in the AP projection with the patient standing. In addition to routine views of theknee, these images were stitched together to form a composite image of thepelvis and legs allowing for evaluation of lower extremity alignment in the weightbearing position. AP standing, PA Schuss, axial both knees and lateral left knee. Findings There is spurring of the left-sided tibial spines. Small osteophytes are present at the left patella femoral space. There is narrowing of theright patellofemoral space. Chondrocalcinosis is present in the left knee. Standing alignment There is mild medial deviation of weight-bearing axes of the legsbilaterally. Impression Mild osteoarthritis of the knees without change. Casey Cota MD IMG DX ORDERABLES documented in this encounter Visit Diagnoses Diagnosis DJD (degenerative joint disease) of knee Osteoarthrosis, unspecified whether generalized or localized, lower leg documented in this encounter Care Teams Electro Optics Engineer Relationship Specialty Start Date End Date Quan Bingham MD PCP - General 04/09/13 07/23/20 documented as of this encounter
--- OUTSIDE RECORDS SUMMARY | 2024-03-08 14:59 | XMS_ITS | Encounter Summary ---
Author Organization [facility] [place] [address] Care Team Providers Care Product Safety Administrator Name Role Phone Quan Bingham MD Primary Care Provider [phone] Encounter Details Date Type Department Care Team (Late st Contact Info) Description 09/20/2018 Telephone [address] [facility] [address] [place] [address] Kayla Dawn Social History Tobacco Use Types Packs/Day Years [...] encounter Miscellaneous Notes * Telephone Encounter - Kayla Dawn - 09/20/2018 9:01 AM EDT I called Erica (manager customer) at [employer] exchange [phone] and this is a non working number.Pt was last seen in 2012 so we do not have a current script to send. If pt wants an updated script he would need to be referred and start with a consult appointment to re establish care. documented in this encounter Plan of Treatment Not on file documented as of this encounter Visit Diagnoses Not on filedocumented in this encounter Care Teams Product Safety Administrator Relationship Specialty Start Date End Date Quan Bingham MD PCP - General 04/09/13 07/23/20 documented as of this encounter
--- OUTSIDE RECORDS SUMMARY | 2024-03-08 14:59 | XMS_ITS | Encounter Summary ---
Author Organization [facility] Address [address] [place] [address] Care Team Providers Care Hand Sander Name Role Phone Quan Bingham MD Primary Care Provider Reason for Visit * Reason Comments Other Encounter Details Date Type Department Care Team (Late st Contact Info) Description 08/11/2015 Refill [facility] [place] [address] [facility] [address] [place] [address] Quan Bingham MD [address] [place] [address] [address] [place] [address] Other Social History Tobacco Use Types Packs/Day Years Used Date Smoking Tobacco: Never Smokeless Tobacco: Never Alcohol Use Standard Drinks/Week Comments No 0 (1 standard drink = 0.6 oz pur e alcohol) Sex and Gender Information Value Date Recorded Sex Assigned at Not on file Gender Identity Not on file Sexual Orientation Not on file documented as of this encounter Ordered Prescriptions Prescription Sig Dispensed Refills Start Date End Da te enalapril (VASOTEC) 20 mg tablet take 1 tablet by mouth once daily 90 Tab 0 08/11/2015 09/29/2015 documented in this encounter Miscellaneous Notes * Telephone Encounter - Angella Vora RN - 08/11/2015 1051 EDT Medication(s) Requested: Enalapril 20 mg Pharmacy: [facility] Last Refill Date: 08/31/14 for #90 with 3 refills Last Visit Date: 08/31/14 for pt to f/up in 6 months. Next Visit Date: Visit date not found Is patient out of medication? unknown Pt is overdue for ROV for hypertension check. Pt is now scheduled for physical on 09/07/15. Will bridge. Angella Vora, RN 08/11/2015 10:51 documented in this encounter Plan of Treatment [...] Diagnoses Not on filedocumented in this encounter Discontinued Medications Medication Sig Discontinue Reason Start Date End Da te enalapril (VASOTEC) 20 mg tabletIndications:Hypert ensive disorder take 1 tablet by mouth once daily Reorder 08/31/2014 08/11/2015 documented as of this encounter Care Teams Hand Sander Relationship Specialty Start Date End Date Quan Bingham MD [address] [place] [phone] PCP - General 05/27/13 08/09/16 documented as of this encounter
--- OUTSIDE RECORDS SUMMARY | 2024-03-08 14:59 | XMS_ITS | Encounter Summary ---
Author Organization [facility] Address [address] [place] [address] Care Team Providers Care Junior Software Engineer Name Role Phone Quan Bingham MD Primary Care Provider Encounter Details Date Type Department Care Team (Latest Contact Info) Description 07/19/2016 15:40 EST - 07/19/2016 23:59 EST Hospital Encounter [address] [address] Unknown, Provider, Discharge Disposition: Home or Self Care Social History Tobacco Use Types Packs/Day Years [...] Sig Dispensed Refills Start Date End Date enalapril (VASOTEC) 20 mg tabletIndications:Essent ial hypertension with goal blood pressure less than 140/90 take 1 tablet by mouth once daily 90 Tab 3 09/29/2015 fluocinonide (LIDEX) 0.05 % creamIndications:Rash Apply 1 application topically to affected area 2 times daily 60 g 1 08/03/2014 metoprolol XL (TOPROL-XL) 100 mg tabletIndications:Essent ial hypertension with goal blood pressure less than 140/90 Take 1 Tab by mouth daily. 90 Tab 3 09/29/2015 pimecrolimus (ELIDEL) 1 % cream Apply topically as needed. triamcinolone (KENALOG) 0.1 % creamIndications:Rash Apply 1 application topically 2 times daily. 80 g 1 09/29/2015 documented as of this encounter Discharge Disposition Disposition Code Departure Means Destination Home or Self Snf documented in this encounter Plan of Treatment [...] Barriers: None documented as of this encounter Procedures Procedure Name Priority Date/Time Associated Diagnosis Comments PATHOLOGY - SCANNED 08/07/2016 10:29 EDT documented in this encounter Results * PATHOLOGY - SCANNED (08/07/2016 10:29 EDT) 08/07/2016 10:2 9 EDT Scan 2 [facility] INFO SERVICE AN D SUPPORT & PHONE RESULT documented in this encounter Visit Diagnoses Not on filedocumented in this encounter Care Teams Junior Software Engineer Relationship Specialty Start Date End Date Quan Bingham MD [address] [place] [phone] PCP - General 05/27/13 08/09/16 documented as of this encounter
--- OUTSIDE RECORDS SUMMARY | 2024-03-08 14:59 | XMS_ITS | Clinical Summary ---
Author Organization [facility] Address [address] [place] [address] Care Team Providers Care Order Processing Specialist Name Role Phone Unknown, Provider Primary Care Provider Allergies Active Allergy Reactions Criticality Noted Date Comments Nickel Rash 03/30/2014 Medications Medication Sig Dispensed Refills Start Date End Date Status pimecrolimus (ELIDEL) 1 % cream Apply topically as needed. Active fluocinonide (LIDEX) 0.05 % creamIndications:Rash Apply 1 application topically to affected area 2 times daily 60 g 1 08/03/2014 Active enalapril (VASOTEC) 20 mg tabletIndications:Ess ential hypertension with goal blood pressure less than 140/90 take 1 tablet by mouth once daily 90 Tab 3 09/29/2015 Active metoprolol XL (TOPROL-XL) 100 mg tabletIndications:Ess ential hypertension with goal blood pressure less than 140/90 Take 1 Tab by mouth daily. 90 Tab 3 09/29/2015 Active triamcinolone (KENALOG) 0.1 % creamIndications:Rash Apply 1 application topically 2 times daily. 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, about 2004 Hypertensive disorder 08/26/2009 Colon polyp 08/26/2009 Overview: 2010-normal, Due in 2020 Immunizations Name Administration Dates Next Due Influenza Vaccine Quad (AFLURIA) PF 0.5 ml IM (3 yrs+) 03/30/2014 Tdap Vaccine =>7YO IM 10/02/2013 Tetanus Vaccine IM, Historical 05/14/2003 Zostavax (Zoster Vaccine, Live) SQ 10/02/2013 Surgical History Surgery Date Site/Laterality Comments COLONOSCOPY 2004,04/2011 repeat 2020 TONSILLECTOMY KNEE SURGERY remote,right, left 05/2013-meniscus JOINT REPLACEMENT 04/2014 left knee Family History Medical History Relation Comments Heart Disease Father [place] at 58 Heart Failure Father [place] age 58 Cancer Mother lung - 80s Cancer Paternal Grandmother gASTRIC Cancer Sister breast X 2 sisit errs Relation Status Comments Father Mother Paternal Grandmother Sister Social History Tobacco Use Types Packs/Day Years Used Date Smoking Tobacco: Never Smokeless Tobacco: Never Alcohol Use Standard Drinks/Week Comments No 0 (1 standard drink = 0.6 oz pur e alcohol) Interpersonal Safety Answer Date Record ed Physically Hurt Never 12/14/2019 Verbally Threaten Not on file 12/14/2019 Sex and Gender Information Value Date Recorded Sex Assigned at Not on file Gender Identity Not on file Sexual Orientation Not on file Obstetrics History Last Filed Vital Signs Vital Sign Reading Time Taken Comments Blood Pressure 128/70 09/29/2015 0841 EDT Pulse 54 09/29/2015 0841 EDT Temperature 36.6 ??C (97.8 ??F) 09/29/2015 0841 EDT Respiratory Rate 16 08/31/2014 0826 EDT Oxygen Saturation 95% 12/20/2012 0818 EDT Inhaled Oxygen Concentration - - Weight 131.5 kg (290 lb) 09/29/2015 0841 EDT Height 190.5 cm (6' 3) 09/29/2015 0841 EDT Body Mass Index 36.25 09/29/2015 0841 EDT Plan of Treatment Health Maintenance Due Date Last Done Comments RSV Immunization ( o r 60+ Years) (1 - 1-dose 60+ series) 2011 Fall Risk Screening 2016 Creatinine (Kidney Test) 09/28/2016 016, 10/01/2013, 08/21/2012 COVID-19 Vaccine (2023-2 5 season) 2024 Colonoscopy (Colon Cancer Screening) Discontinued 04/14 Colorectal Cancer Screening Discontinued Hepatitis C Screen Completed 09/29/2015, 09/29/2015 Cologuard (Colon Cancer Screening) Discontinued FIT Test (Colon Cancer Screening) Discontinued Sigmoidoscopy (Colon Cancer Screening) Discontinued Goals Goal Patient Goal Type Associated Problems Recent Progress Patient-Stated? Author Blood Pressure < 150/90 Blood Pressure Hypertensive disorder 128/70(09/28 8:41 EDT) No Morenita Carreno LPN Weight Loss General Hypertensive disorder Not on track(2013 9:39 EDT) Yes Quan Bingham Note: Goal: continue improved diet, smaller portions Confidence level (1= Not very confident; 10 = Very confident): 9 Barriers: None Procedures Procedure Name Priority Date/Time Associated Diagnosis Comments HEPATITIS C AB W REFLEX TO HCV RNA BY PCR Routine 09/29/2015 Health care maintenance CREATININE Routine 08/21/2012 COLONOSCOPY PROCEDURE Routine 05/09/2011 from Last 3 Months or Most Recently Relevant to Health Maintenance Results * HEPATITIS C ANTIBODY (09/29/2015) Hepatitis C Ab Negative POINT OF CARE Blood specimen (specimen) 09/29/2015 Quan Bingham MD CHEMISTRY & BL OOD GAS ORDERABLES POINT OF CARE * CREATININE (08/21/2012) Creatinine, External 1.1 [facility] GFR, Calculated, External >60 [facility] Blood specimen (specimen) 08/21/2012 Historical Provider CHEMISTRY & BLOOD GAS ORDERABLES [facility] * COLONOSCOPY (05/09/2011) Colonoscopy NORMAL [facility] Comment:REPEAT IN 2020 Colonoscopy, External [facility] Anatomical Region Laterality Modality Endoscopy 05/09/2011 Historical Provider GI PROCEDURE ALFONSO LEWIS from Last 3 Months or Most Recently Relevant to Health Maintenance Care Teams Order Processing Specialist Relationship Specialty Start Date End Date Unknown, Provider, PCP - General 10/17/16
--- OUTSIDE RECORDS SUMMARY | 2024-03-08 14:59 | XMS_ITS | Encounter Summary ---
Author Organization [facility] Address [address] [place] [address] Care Team Providers Care Senior Housekeeper Name Role Phone Quan Bingham MD Primary Care Provider Reason for Visit * Reason Comments Hypertension BP check. Pt needs b oth BP med's refilled. Encounter Details Date Type Department Care Team (Late st Contact Info) Description 08/31/2014 8:15 EDT Office Visit [facility] Medicine [address] [place], [place] [id number] Quan Bingham MD [address] [place] [address] [address] [place] [address] Hypertension (Primary Dx); Rash Social History Tobacco Use Types Packs/Day Years [...] Reading Time Taken Comments Blood Pressure 128/70 08/31/2014 0826 EDT Pulse 60 08/31/2014 0826 EDT Temperature - - Respiratory Rate 16 08/31/2014 0826 EDT Oxygen Saturation - - Inhaled Oxygen Concentration - - Weight 123.8 kg (273 lb) 08/31/2014 0826 EDT Height - - Body Mass Index 33.67 03/30/2014 1015 EST documented in this encounter Ordered Prescriptions Prescription Sig Dispensed Refills Start Date End Da te enalapril (VASOTEC) 20 mg tabletIndications:Hyperten sive disorder take 1 tablet by mouth once daily 90 Tab 3 08/31/2014 08/11/2015 documented in this encounter Progress Notes * Quan Bingham - 08/31/2014 1010 EDT REASON FOR VISIT: Hypertension. SUBJECTIVE: The patient here largely for followup of hypertension. Overall, doing well, no intervalproblems or complaints noted. Medicines were reviewed. He is tolerating medicines well. Other issues, knee replacement 4 months ago. This is improving with increased mobility and he is happy with status. He had recent mild venous stasis and stasis dermatitis. This has largely resolved. He was treated with triamcinolone cream as needed. REVIEW OF SYSTEMS: Otherwise negative. OBJECTIVE: Blood pressure 128/70, pulse 60. Lower extremity exam: Trace edema and no significant rash identified on pretibial surfaces is now. ASSESSMENT: Hypertension, well controlled. PLAN: 1. Continue current medicine. 2. Follow up in 6 months for recheck, sooner as needed. PROBLEM 2: Recent stasis dermatitis essentially resolved. Follow up as needed. PROBLEM 3: Recent knee replacement, doing well. documented in this encounter Plan of Treatment Not on file documented as of this encounter Goals Goal Patient Goal Type Associated Problems Recent Progress Patient-Stated? Author Blood Pressure < 150/90 Blood Pressure Hypertensive disorder 128/70(09/28 8:41 EDT) No Morenita Carreno, NANCY Weight Loss General Hypertensive disorder Not on track(2013 9:39 EDT) Yes Quan Bingham Note: Goal: continue improved diet, smaller portions Confidence level (1= Not very confident; 10 = Very confident): 9 Barriers: None documented as of this encounter Visit Diagnoses Diagnosis Hypertension- Primary Unspecified essential hypertension Rash Rash and other nonspecific skin eruption documented in this encounter Discontinued Medications Medication Sig Discontinue Reason Start Date End Da te enalapril (VASOTEC) 20 mg tablet take 1 tablet by mouth once daily Reorder 12/22/2013 08/31/2014 documented as of this encounter Care Teams Senior Housekeeper Relationship Specialty Start Date End Date Quan Bingham MD [address] [place] [phone] PCP - General 05/27/13 08/09/16 documented as of this encounter
--- OUTSIDE RECORDS SUMMARY | 2024-03-08 14:59 | XMS_ITS | Encounter Summary ---
Author Organization [facility] Address [address] [place] [address] Care Team Providers Care Psychiatric Arnp Name Role Phone Unknown, Provider Primary Care Provider Encounter Details Date Type Department Care Team (Latest Contact Info) Description 01/08/2017 14:23 EDT - 01/08/2017 23:59 EDT Hospital Encounter [address] [address] Unknown, Provider, Discharge Disposition: Home or Self [...] Code Departure Means Destination Home or Self Long-Term documented in this encounter Plan of Treatment [...] on filedocumented in this encounter Care Teams Psychiatric Arnp Relationship Specialty Start Date End Date Unknown, Provider, PCP - General 10/17/16 documented as of this encounter
--- OUTSIDE RECORDS SUMMARY | 2024-03-08 14:59 | XMS_ITS | Encounter Summary ---
[place] [address] Care Team Providers Care Disaster Response Director Name Role Phone Quan Bingham MD Primary Care Provider [phone] Encounter Details Date Type Department Care Team (Late st Contact Info) Description 09/13/[address] [facility] [address] [place] [address] Celena Goins, LAVENDER FARM WORKER Social History Tobacco Use Types Packs/Day Years [...] on filedocumented in this encounter Care Teams Disaster Response Director Relationship Specialty Start Date End Date Quan Bingham MD PCP - General 04/09/13 07/23/20 documented as of this encounter
--- OUTSIDE RECORDS SUMMARY | 2024-03-08 14:59 | XMS_ITS | Encounter Summary ---
Author Organization [facility] Address [address] [place] [address] Care Team Providers Care Instructional Designer Name Role Phone Unknown, Provider Primary Care Provider [phone] Encounter Details Date Type Department Care Team (Late st Contact Info) Description 01/08/2017 Results Only [facility] [phone] Lisa Burch MD [address] [place] [phone] Social History Tobacco Use Types Packs/Day Years [...] Procedure Name Priority Date/Time Associated Diagnosis Comments SURGICAL PATHOLOGY Routine 01/08/2017 11 :15 EDT documented in this encounter Results * SURGICAL PATHOLOGY (01/08/2017 11:15 EDT) Pathology Report: SURGICAL PATHOLOGY REPORT Reports generated via electronic interface contain original data; however they are lacking the format of the original report. Caution should be taken when reading/interpret ing unformatted reports. Name: ? FRANCISCO J ALVAREZ JR ? Accession #: ? [id number] ? : ? 1950 (Age: 66) ??M ? Collect Date: ? 01/08/2017 ? Location: ? [facility] ? Receive Date: ? 01/09/2017 ? Provider: LISA BURCH MD Copy to: ? Final Pathologic Diagnosis: RECTUM, POLYP, BIOPSY: - ??Hyperplastic polyp. Document reviewed and electronically signed by: OSMANY LEON MD Report ??Date: 01/10/2017 13:25 By the signature above, the attending physician certifies that he/she has personally conducted a gross and/or microscopic examination of the described specimens and rendered or confirmed the above diagnosis. Specimen(s) Received: Rectal polyp Clinical History: Screening; clinical diagnosis code: ??Z86.010 Gross Description: ? Received in formalin labelled with proper patient identification (initials A, A) and rectal polyp is a single pink-moreno tissue fragment (0.3 x 0.2 x 0.2 cm). Submitted intact in 1. ADRIANA Koch ([facility]) 01/09/2017 11:46 AM End of Report [facility] 01/08/2017 11:1 5 EDT 01/09/2017 11:15 EDT Lisa Burch MD PATHOLOGY ORDERABL ES [facility] [address] [phone] documented in this encounter Visit Diagnoses Not on filedocumented in this encounter Care Teams Instructional Designer Relationship Specialty Start Date End Date Unknown, Provider, PCP - General 10/17/16 documented as of this encounter
--- OUTSIDE RECORDS SUMMARY | 2024-03-08 14:59 | XMS_ITS | Encounter Summary ---
Author Organization [facility] Address [facility] [address] Care Team Providers Care Joint Filler Name Role Phone Irineo Vazquez MD Primary Care Provider [phone] Encounter Details Date Type Department Care Team (Late st Contact Info) Description 11/25/2012 Notes Only [facility] [address] [place] [address] Fatoumata Mcdowell MD [facility] [place] [address] Social History Tobacco Use Types Packs/Day Years Used Date Smoking Tobacco: Never Assessed Sex and Gender Information Value Date Recorded Sex Assigned at Male 08/16/2020 1:10 PM EDT Gender Identity Not on file Sexual Orientation Not on file documented as of this encounter Progress Notes * Fatoumata Mcdowell MD - 11/25/2012 4:43 PM EDT Orders filled out using [facility] special order sheet - AUTO 4-20, mask fitting. Fatoumata Mcdowell MD * Fatoumata Mcdowell MD - 11/25/2012 4:35 PM EDT Home sleep testing performed by [employer] through his insurance company. The study was performed from 10:16 to 2:07 am, TRT 228 min. The overall AHI was 17.4/hr with a mean oxygen saturation 925 with desaturations to a low of 79%. He was seen in the right and left lateral positions. These results were discussed by phone. Given the significant WILNER noted, therapy is recommended. We discussed AUTOPAP (recommended by his insurance protocol). He is agreeable to proceed. He expressed concern about his experience with [facility], stating that no one was available and did not call back for two of his calls regarding technical issues with his HST. [facility] is also will be providing equipment. I did inform him that we will be scheduling an early follow up in our PAP clinic to help assess his response, readjust pressures, and help ensure proper mask fit. He can call sooner if problems develop.He was advised to bring his equipment for that follow up. Impression: WILNER Plan: AUTOPAP Early follow up in PAP clinic to readjust the unit and assess mask fit. Fatoumata Mcdowell MD documented in this encounter Plan of Treatment Not on file documented as of this encounter Visit Diagnoses Not on filedocumented in this encounter Care Teams Joint Filler Relationship Specialty Start Date End Date Irineo Vazquez MD [facility] [address] [place] [address] PCP - General 05/22/11 04/08/13 documented as of this encounter
--- OUTSIDE RECORDS SUMMARY | 2024-03-08 14:59 | XMS_ITS | Encounter Summary ---
Author Organization [facility] Address [facility] [place] [address] Care Team Providers Care Book Sorter Name Role Phone Quan Bingham MD Primary Care Provider Encounter Details Date Type Department Care Team (Late st Contact Info) Description 04/09/2013 9:10 AM EST - 04/09/2013 11:59 PM [facility] Hospital Encounter XRay at [address] [place] [address] Knee pain Social History Tobacco Use Types Packs/Day Years Used Date Smoking Tobacco: Never Smokeless Tobacco: Never Alcohol Use Standard Drinks/Week Comments Yes 0 (1 standard drink = 0.6 oz pur e alcohol) Sex and Gender Information Value Date Recorded Sex Assigned at Male 08/16/2020 1:10 PM EDT Gender Identity Not on file Sexual Orientation Not on file documented as of this encounter Medications at Time of Discharge Medication Sig Dispensed Refills Start Date End Date metoprolol succinate (TOPROL-XL) 100 mg XL tablet [...] TEAM ALIGNMENT AP LAT SCHUSS SKYLINE Routine 04/09/2013 9:49 AM EST Knee pain documented in this encounter Results * XR JOINT TEAM ALIGNMENT AP LAT SCHUSS SKYLINE (04/09/2013 9:49 AM EST) Anatomical Region Laterality Modality N/A Radiographic Christel ging 04/09/2013 9:49 AM EST Narrative 04/09/2013 10:25 AM EST Examination JOINT TEAM STANDING ALIGNMENT AP LAT SCHUSS SKYLINE/LEFT Clinical History LEFT KNEE PAIN Comparison None Technique Separate images of the pelvis, knees and feet were acquired in the AP projection with the patient standing. In addition to routine views of the knee, these images were stitched together to form a composite image of the pelvis and legs allowing for evaluation of lower extremity alignment in the weight bearing position. Findings Standing alignment: There is minimal, left slightly greater than right medial deviation of the weightbearing axes. Knees: ??There is mild, left greater than right medial compartment joint space narrowing. Small tricompartmental marginal osteophytes are present, greater on the left than the right. There is no joint effusion, fracture or dislocation. Impression Mild osteoarthritis of the left knee. Procedure Note Jas Bautista MD - 04/09/2013 Examination JOINT TEAM STANDING ALIGNMENT AP LAT SCHUSS SKYLINE/LEFT Clinical History LEFT KNEE PAIN Comparison None Technique Separate images of the pelvis, knees and feet were acquired in the AP projection with the patient standing. In addition to routine views of theknee, these images were stitched together to form a composite image of thepelvis and legs allowing for evaluation of lower extremity alignment in the weightbearing position. Findings Standing alignment: There is minimal, left slightly greater than rightmedial deviation of the weightbearing axes. Knees: There is mild, left greater than right medial compartment jointspace narrowing. Small tricompartmental marginal osteophytes are present,greater on the left than the right. There is no joint effusion, fracture ordislocation. Impression Mild osteoarthritis of the left knee. Casey Cota MD IMG DX ORDERABLES documented in this encounter Visit Diagnoses Diagnosis Knee pain Pain in joint, lower leg documented in this encounter Care Teams Book Sorter Relationship Specialty Start Date End Date Quan Bingham MD PCP - General 04/09/13 07/23/20 documented as of this encounter
--- OUTSIDE RECORDS SUMMARY | 2024-03-08 14:59 | XMS_ITS | Encounter Summary ---
Author Organization [facility] Address [facility] [place] [address] Care Team Providers Care Aircraft Painter Apprentice Name Role Phone Quan Bingham MD Primary Care Provider [phone] Reason for Visit * Reason Comments Follow Up Surgery SP L KNEE SCOPE DOS 05/29/13 Encounter Details Date Type Department Care Team (Late st Contact Info) Description 06/16/2013 12:00 PM EST Office [place] [address] Casey Cota MD [facility] [place] [address] Knee pain, left Discharge Disposition: Home Social History Tobacco Use Types Packs/Day Years [...] Sign Reading Time Taken Comments Blood Pressure 147/77 06/16/2013 12:24 PM EST Pulse 56 06/16/2013 12:24 PM EST Temperature 36.6 ??C (97.8 ??F) 06/16/2013 12:[address] Respiratory Rate - - Oxygen Saturation - - Inhaled Oxygen Concentration - - Weight 141.1 kg (311 lb) 06/16/2013 12:24 PM EST Height 190.5 cm (6' 3) 06/16/2013 12:24 PM EST STATED Body Mass Index 38.87 06/16/2013 12:24 PM EST documented in this encounter Progress Notes * Casey Cota MD - 06/16/2013 12:49 PM EST Case Date: 05/29/2013 Surgeon: Surgeon(s) and Role: * Casey Cota MD - Primary PROCEDURES: 1. left knee diagnostic arthroscopy. 2. Arthroscopic partial medial meniscectomy. PREOPERATIVE DIAGNOSIS: medial meniscal tear with mechanical symptoms. POSTOPERATIVE DIAGNOSIS: medial meniscal tear with mechanical symptoms. FINDINGS: 1. Displaced posterior horn medial meniscal tear. 2. 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 3. Grade 2-3 chondromalacia changes in the medial compartment. 4. Grade 1 chondromalacia changes in the lateral compartment. 5. Intact anterior cruciate ligament. 6. Suprapatellar pouch, medial and lateral gutters were examined with no evidence of loose bodies. HISTORY OF PRESENT ILLNESS: The patient is a very pleasant 63 y.o.-year-old male who presents for afollowup of a knee arthroscopy. He has been doing very well and the pain has much improved over preoperative status. No fevers, chills, nausea, vomiting, or symptoms of infection. There has been no significant drainage from the wound and no erythema. Francisco J has been ambulating without support and weightbearing as tolerated. PHYSICAL EXAMINATION: A well-appearing male in no acute distress. Examination reveals well-healed arthroscopy portals with mild localized erythema. No drainage. Sutures were removed and steri-strips applied. Range of motion is 0-95 degrees. Intact motor and sensory function in the superficial peroneal, deep peroneal, and tibial nerve distributions. Palpable dorsalis pedis pulse. ASSESSMENT/PLAN: Doing well 2 weeks s/p knee arthroscopy. Francisco J is delighted with the results so far and has had relief from his previous pain. Continue weightbearing as tolerated and working on range of motion, and we will see him back in six weeks for repeat examination. documented in this encounter Plan of Treatment Not on file documented as of this encounter Visit Diagnoses Diagnosis Knee pain, left Pain in joint, lower leg documented in this encounter Care Teams Aircraft Painter Apprentice Relationship Specialty Start Date End Date Quan Bingham MD PCP - General 04/09/13 07/23/20 documented as of this encounter
--- OUTSIDE RECORDS SUMMARY | 2024-03-08 14:59 | XMS_ITS | Encounter Summary ---
Author Organization [facility] Address [address] [place] [address] Care Team Providers Care Forensic Accountant Name Role Phone Quan Bingham MD Primary Care Provider Unknown, Provider Primary Care Provider [phone] Quan Bingham MD Primary Care Provider Unknown, Provider Primary Care Provider [phone] Encounter Details Date Type Department Care Team (Late st Contact Info) Description 03/28/2016 Historical Results Only [facility] [place] [address] [place] [address] Will Field MD [address] [place] [address]A [address] [address] Social History Tobacco Use Types Packs/Day Years [...] Procedure Name Priority Date/Time Associated Diagnosis Comments BACTERIAL CULTURE/SMEAR, RESPIRATORY Routine 03/28/2016 8:58 EST documented in this encounter Results * BACTERIAL CULTURE/SMEAR, RESPIRATORY (03/28/2016 8:58 EST) GRAM STAIN - [facility] TWO SWABS RECEIVED FOR CULTURE AND GRAM STAIN 03/28/2016 15:02 [facility] GRAM POSITIVE COCCI - [facility] FEW 03/28/2016 15:02 [facility] WBC FEW 03/28/2016 15:02 [facility] GRAM STAIN - [facility] The mecA gene product was NOT detected in this coagulase positive Staph isolate. It is SUSCEPTIBLE to oxacillin, cephalosporins and other beta lactam antibiotics. 03/30/2016 12:31 [facility] ESCHERIACHIA COLI - [facility] ESCHERICHIA COLI 03/30/2016 12:31 [facility] QUANT - [facility] FEW 03/30/2016 12:31 [facility] STAPHYLOCOCCUS SP COAG POSITIVE - [facility] STAPHYLOCOCCUS SP COAG POS 03/30/2016 12:31 [facility] QUANT - [facility] MODERATE 03/30/2016 12:31 [facility] BETA STREP NOT A/B/ENTEROCOCCI - [facility] BABENT 03/30/2016 12:31 [facility] QUANT - [facility] RARE 03/30/2016 12:31 [facility] 03/28/2016 8:58 EST 03/28/2016 13:46 EST Narrative Organism Antibiotic Method Susceptibility Escherichia coli Ampicillin Sulbactam GRAM NEGAT DANYA SUSCEPTIBILITY - [facility] <=2: Susceptible Escherichia coli Ampicillin GRAM NEGATIVE SUSCEPTIBILITY - [facility] <=2: Susceptible Escherichia coli Amoxicillin Clavulanic acid GRAM NEGATIVE SUSCEPTIBILITY - [facility] <=2: Susceptible Escherichia coli Ceftriaxone GRAM NEGATIVE SUSCEPTIBILITY - [facility] <=1: Susceptible Escherichia coli Cefazolin GRAM NEGATIVE SUSCEPTIBILITY - [facility] <=4: Susceptible Escherichia coli Ciprofloxacin GRAM NEGATIVE SUSCEPTIBILITY - [facility] <=0.25: Susceptible Escherichia coli Cefepime GRAM NEGATIVE SUSCEPTIBILITY - [facility] <=1: Susceptible Escherichia coli Ertapenem GRAM NEGATIVE SUSCEPTIBILITY - [facility] <=0.5: Susceptible Escherichia coli Gentamicin GRAM NEGATIVE SUSCEPTIBILITY - [facility] <=1: Susceptible Escherichia coli Imipenem GRAM NEGATIVE SUSCEPTIBILITY - [facility] <=0.25: Susceptible Escherichia coli Levofloxacin GRAM NEGATIVE SUSCEPTIBILITY - [facility] <=0.12: Susceptible Escherichia coli Piperacillin Tazobactam GRAM NEGATIVE SUSCEPTIBILITY - [facility] <=4: Susceptible Escherichia coli Trimethoprim-Sulfame t hoxazole GRAM NEGATIVE SUSCEPTIBILITY - [facility] <=20: Susceptible Escherichia coli Tobramycin GRAM NEGATIVE SUSCEPTIBILITY - [facility] <=1: Susceptible Comment:See Reason(s) for [facility] Staphylococcus sp coag pos Azithromycin GRAM POSITIVE SUSCEPTIBILITY - [facility] Susceptible Staphylococcus sp coag pos Clindamycin GRAM POSITIVE SUSCEPTIBILITY - [facility] <=0.25: Susceptible Staphylococcus sp coag pos Cefpodoxime GRAM POSITIVE SUSCEPTIBILITY - [facility] Susceptible Staphylococcus sp coag pos Cefazolin GRAM POSITIVE SUSCEPTIBILITY - [facility] Susceptible Staphylococcus sp coag pos Erythromycin GRAM POSITIVE SUSCEPTIBILITY - [facility] <=0.25: Susceptible Staphylococcus sp coag pos Levofloxacin GRAM POSITIVE SUSCEPTIBILITY - [facility] 0.25: Susceptible Staphylococcus sp coag pos Oxacillin GRAM POSITIVE SUSCEPTIBILITY - [facility] <=0.25: Susceptible Staphylococcus sp coag pos Penicillin GRAM POSITIVE SUSCEPTIBILITY - [facility] 0.06: Susceptible Staphylococcus sp coag pos Trimethoprim-Sulfamet hoxazole GRAM POSITIVE SUSCEPTIBILITY - [facility] <=10: Susceptible Staphylococcus sp coag pos Tetracycline GRAM POSITIVE SUSCEPTIBILITY - [facility] <=1: Susceptible Staphylococcus sp coag pos Vancomycin GRAM POSITIVE SUSCEPTIBILITY - [facility] 1: Susceptible Comment:See Reason(s) for [facility] Will Field MD MICROBIOLOGY - GENER AL ORDERABLES [facility] documented in this encounter Visit Diagnoses Not on filedocumented in this encounter Care Teams Forensic Accountant Relationship Specialty Start Date End Date Quan Bingham MD [address] [place] [phone] PCP - General 05/27/13 08/09/16 Unknown, Provider, [address] [place] [address] [address] [place] [phone] PCP - General 08/10/16 10/15/16 Quan Bingham MD [address] [facility] [address] [place] [address] PCP - General 10/16/16 10/16/16 Unknown, Provider, [address] [place] [address] [address] [place] [phone] PCP - General 10/17/16 documented as of this encounter
--- OUTSIDE RECORDS SUMMARY | 2024-03-08 14:59 | XMS_ITS | Encounter Summary ---
Author Organization [facility] [place] [address] Care Team Providers Care Bench Repair Technician Name Role Phone Quan Bingham MD Primary Care Provider [phone] Encounter Details Date Type Department Care Team (Late st Contact Info) Description 03/31/2013 Telephone [place] [phone] Michelle Ruiz Social History Tobacco Use Types Packs/Day Years Used Date Smoking Tobacco: Never Assessed Sex and Gender Information Value Date Recorded Sex Assigned at Male 08/16/2020 1:10 PM EDT Gender Identity Not on file Sexual Orientation Not on file documented as of this encounter Miscellaneous Notes * Telephone Encounter - Enrique Michelle - 03/31/2013 9:46 AM EST Ask patient to verify the following:COMPLETE Full name: Francisco J Alvarez : 1950 Phone number: [phone] (home) Mailing address: [address] [address] Intake: LEFT KNEE PAIN Is this an injury that happened: NO ?? At work? ?? Playing a sport? ?? If yes to either, what is DOI? Tell me how this how long you've had these symptoms? 5 YEARS Has anyone ever seen you before for this issue? YES Have you tried:NO ?? Physical Therapy ?? INJECTION ?? Other therapies Have you had any of the following studies for this issue? YES ?? X-Ray ?? MRI -STEVEN PATEL ?? CT Scan ?? LABS Have you seen an Orthopaedic surgeon for the this issue? NO If YES: Who did you see? Where were you seen (facility)? When? Phone # Fax# Have you ever had surgery for this issue? NO If YES and different than above: Who performed surgery? Where did you have the surgery (facility)? When? Phone # Fax# If patient is implanted with hardware fixation or joint prosthesis retrieve OPERATIVE REPORT and IMPLANT STICKERS. documented in this encounter Plan of Treatment Not on file documented as of this encounter Visit Diagnoses Not on filedocumented in this encounter Care Teams Bench Repair Technician Relationship Specialty Start Date End Date Quan Bingham MD PCP - General 04/09/13 07/23/20 documented as of this encounter
--- OUTSIDE RECORDS SUMMARY | 2024-03-08 14:59 | XMS_ITS | Encounter Summary ---
Author Organization [facility] Address [facility] [place] [address] Care Team Providers Care Filter Press Supervisor Name Role Phone Irineo Vazquez MD Primary Care Provider [phone] Encounter Details Date Type Department Care Team (Late st Contact Info) Description 03/31/2013 Orders [place] [address] Casey Cota MD [facility] [place] [address] Knee pain (Primary Dx) Social History Tobacco Use Types Packs/Day Years Used Date Smoking Tobacco: Never Assessed Sex and Gender Information Value Date Recorded Sex Assigned at Male 08/16/2020 1:10 PM EDT Gender Identity Not on file Sexual Orientation Not on file documented as of this encounter Plan of Treatment Not on file documented as of this encounter Results * XR JOINT TEAM [...] in this encounter Visit Diagnoses Diagnosis Knee pain- Primary Pain in joint, lower leg Knee pain Pain in joint, lower leg documented in this encounter Care Teams Filter Press Supervisor Relationship Specialty Start Date End Date Irineo Vazquez MD [facility] [address] [place] [id number] PCP - General 05/22/11 04/08/13 documented as of this encounter
--- OUTSIDE RECORDS SUMMARY | 2024-03-08 14:59 | XMS_ITS | Encounter Summary ---
Author Organization [facility] [place] [address] Care Team Providers Care Securities Research Analyst Name Role Phone Quan Bingham MD Primary Care Provider [phone] Encounter Details Date Type Department Care Team (Late st Contact Info) Description 05/29/2013 7:30 AM EST - 05/29/2013 8:58 AM EST [place] [address] Casey Ramsey MD [facility] [place] [address] ARTHROSCOPY KNEE, MENISCECTOMY SINGLE W/ SHAVING (WRVU 7.03) Social History Tobacco Use Types Packs/Day Years [...] Sign Reading Time Taken Comments Blood Pressure 164/82 05/29/2013 8:35 AM EST Pulse 56 05/29/2013 8:35 AM EST Temperature 36.7 ??C (98.1 ??F) 05/29/2013 8:21 AM ES T Respiratory Rate 15 05/29/2013 8:35 AM EST Oxygen Saturation 98% 05/29/2013 8:35 AM EST Inhaled Oxygen Concentration - - Weight 138.8 kg (306 lb) 05/29/2013 6:08 AM EST Height 190.5 cm (6' 3) 05/29/2013 6:08 AM EST Body Mass Index 38.25 05/29/2013 6:08 AM EST documented in this encounter Discharge Instructions * Discharge Instructions* Monika Beard RN - 05/29/2013 8:40 AM EST Images from the original note were not included. Same day Program Home care instructions WALKING WITH CRUTCHES Proper crutch stance: stand erect with crutches 4 inches in front and slightly to the side of either foot. Weight should be on palm of hands with wrists extended and elbows slightly bent. Two different ways to walk with crutches: (1) Non weight bearing: Start Move crutches Step through Move crutches Ahead ahead (2) Partial weight bearing: Start Move both crutches Step through with And injured leg normal leg Hints for using crutches (A) Walking up stairs: Hold on to railing on one side and hold both crutches under the other Arm. Take one step at a time. Place good foot first, then crutches. (B) Walking down stairs: always place crutches down first before stepping down. (C) Getting out of a chair: Hold crutches in one hand slightly to one side. With other hand on armrest, push yourself to standing position. Once standing, place crutches under each arm. (D) Sitting in a chair: Always remove crutches from under arms before sitting down. (E) Do not walk on ice or slippery surfaces. (F) Remember; never put weight on your armpits. You could permanently damage a nerve. If you are having problems or concerns please call your surgeons office between the hours of 8 am and 6 pm. After hours call for the doctor senior instrumentation engineer. [address] ??? [place] [address] ??? [phone] ??? [email or web address] ??? [facility] ??? [facility] ??? [facility], [place], [place] POST ANESTHESIA INSTRUCTIONS Go home, rest, use caution on stairs. Change positions slowly. Do not smoke if you are alone. Diet light to regular as tolerated today. If nausea occurs start with clear liquids and progress slowly. No driving, operating machinery, alcoholic beverages and no important decisions for 24 hours. Monitor IV site for signs and symptoms of infection: increasing redness, swelling, foul drainage, if occurs contact M.D. Patients who have had endotrachial tubes (this tube, used by anesthesia department, is passed down your throat after you are asleep, to ensure safe air passage during your operation). A sore throat is normal due to the tube. Cold liquids or soothing lozenges will help ease the discomfort. The generalized muscle aches are due to the medication given to you just before the tube is inserted. As the medication wears off, you may develop muscle soreness, which usually goes away in 12-24 hours. * Patient Instructions* Orlando Torres III, MD - 05/29/2013 8:17 AM EST Orthopaedic Surgery Knee Arthroscopy Discharge Instructions Activity: Weight bear and Range of Motion of your knee as tolerated. Crutches for support as needed for pain. Ice to extremity 20-30 minutes four times daily. Do not drive while taking pain medications. Keep dressing intact for next 72 hours, then may remove and apply gauze daily for 1 week. After oneweek, may leave incision sites open to air. Keep incision sites clean and dry. Showering is okay but cover incision sites with plastic (tegaderm as provided), then change dressings after showering. Take Aspirin (325 mg) by mouth once daily for 4 weeks to help prevent blood clots. Call if you develop fevers, chills, night sweats, nausea, vomiting, wound discharge, numbness, tingling, increased pain, pain with passive or active extension of toes in the affected extremity, or other questions or concerns. Follow up: Future Appointments Date Time Provider Department Center 06/16/2013 12:00 PM Casey Ramsey MD [facility] None documented in this encounter Medications at Time of Discharge Medication Sig Dispensed Refills Start Date End Date metoprolol succinate (TOPROL-XL) 100 mg XL tablet Take 50 mg by mouth daily. 12/10/20 per Storms reduce to 50 mg daily 03/21/2013 ibuprofen (ADVIL;MOTRIN) 200 mg tablet Take 800 mg by mouth as needed. aspirin 325 mg EC tablet Take 1 tablet by mouth daily for 28 days. 28 tablet 0 05/29/2013 06/26/2013 OXYcodone (ROXICODONE) 5 mg immediate release tablet Take 1-2 tablets by mouth every 4 hours as needed for Pain. 60 tablet 0 05/29/2013 06/16/2013 acetaminophen (ACETAMINOPHEN EXTRA STRENGTH) 500 mg tablet Take 2 tablets by mouth every 8 hours. 30 tablet 1 05/29/2013 07/30/2013 enalapril (VASOTEC) 20 mg tablet Take 20 mg by mouth daily. 03/21/2013 08/13/2020 documented as of this encounter H&P Notes * Casey Ramsey MD - 05/29/2013 6:33 AM EST Patient Name: Francisco J Alvarez Jr. Patient Age: 63 y.o. Birthdate: 1950 Admit date: 05/29/2013 Attending Physician: Casey Ramsey MD Please see H&P note for visit documentation. The patient's history and physical exam have been reviewed and completed. There has been no interval change from that of the pre-operative history and physical exam done within the last 30 days. * Orlando Torres III, MD - 05/29/2013 6:22 AM EST The patient's history and physical exam have been reviewed and completed. There has been no interval change from that of the pre-operative history and physical exam. Please see clinic note on 05/21/13 documented in this encounter Miscellaneous Notes * Miscellaneous - Marci, Zarina - 05/29/2013 3:51 PM EST * Op Note - Casey Ramsey MD - 05/29/2013 8:08 AM EST [facility] [place] Patient Name: Francisco J Alvarez Jr. : [id number] MR#: [id number] Case Date: 05/29/2013 Surgeon: Surgeon(s) and Role: * Casey Ramsey MD - Primary * Orlando Torres III, MD - Resident-Surgeon Chief * Shannon Ramos PA - Physician Examining Officer PROCEDURES: 1. left knee diagnostic arthroscopy. 2. Arthroscopic partial medial meniscectomy. PREOPERATIVE DIAGNOSIS: medial meniscal tear with mechanical symptoms. POSTOPERATIVE DIAGNOSIS: medial meniscal tear with mechanical symptoms. ANESTHESIA: General endotracheal and local. ESTIMATED BLOOD LOSS: 50 cc. TOURNIQUET TIME: 16 minutes at 250 mm Hg. COMPLICATIONS: none. FINDINGS: 1. Displaced posterior horn medial meniscal tear. 2. 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 3. Grade 2-3 chondromalacia changes in the medial compartment. 4. Grade 1 chondromalacia changes in the lateral compartment. 5. Intact anterior cruciate ligament. 6. Suprapatellar pouch, medial and lateral gutters were examined with no evidence of loose bodies. INDICATIONS: The patient presented to the orthopedic clinic with severe knee pain. The physical exam and imaging findings consistent with a meniscal tear. His comorbidities include Patient Active Problem List Diagnosis Code ??? Snoring 786.09 ??? Knee pain 719.46 . He has exhausted non-operative treatment options including NSAIDS, physical therapy, and activitymodification. We had a discussion regarding the risks and benefits of the different treatment options including activity modification, physical therapy, anti-inflammatory medications, corticosteroid injection, and arthroscopic surgery. The patient elected to proceed with arthroscopy. We discussed the risks of surgery including bleeding, infection, damage to nerves or blood vessels, failure to relieve pain, recurrent meniscal tear, fracture, cardiopulmonary complications associated with anesthesia, and . All questions were answered. Informed consent was signed in the clinic during the pre-op visit and I personally marked the surgical site with a green big lagoon in the pre-op area. DESCRIPTION OF OPERATIVE PROCEDURE: After careful identification of the patient in the holding areaand confirmation of the procedure, the patient was transferred to the operating room. General endotracheal anesthesia was administered by the anesthesiology staff. Antibiotic prophylaxis was given and a tourniquet was placed on the upper thigh. A lateral post was then placed. The operative extremity was then prepped and draped in the usual sterile fashion. A time-out for the stated surgery was undertaken and all agreed to proceed with knee arthroscopy. The limb was exsanguinated and tourniquet inflated. A lateral parapatellar arthroscopy portal was marked out using bony landmarks. A 1 cm incision was then made and the joint was entered bluntly using a trocar. The knee was insufflated with fluid and a diagnostic arthroscopy undertaken. The findings were as listed above. We then marked out a medial parapatellar portal with the use of spinal needle after insufflation with Marcaine. A #15 blade was then used under direct visualization with the arthroscope to create this portal. The probe was introduced and the medial meniscus examined. We then used a combination of arthroscopic biter and shaver to debride the meniscus back to a stable edge. We then carefully probed the rest of the meniscus. We then returned to the lateral compartment and probed the meniscus there as well. The ACL was also examined with the probe. After completion of the therapeutic portion of the case, the knee was thoroughly irrigated with arthroscopic fluid. It was then sucked dry and the arthroscope removed. The wounds were then closed using 4-0 Prolene in a simpleinterrupted manner. The arthroscopy portals were injected with 0.25% marcaine. The wounds were cleansed, dried, and a dressing consistent of Xeroform followed by dry gauze and ABDs was applied. This was then over wrapped with an Gianluca bandage. The tourniquet was then deflated, and the patient awakened by the anesthesiology staff. The [facility] was [facility] good condition. There appeared to be no intraoperative complications. The patient had palpable dorsalis pedis pulse after the case. POSTOPERATIVE PLAN: Admission to the same-day surgery unit for recovery. The patient will be discharged with appropriate pain medications and asked to take daily aspirin for one month for DVT prophylaxis. Crutches as needed for comfort. Weightbearing as tolerated. Return to clinic in two weeks for suture removal. * OR Attestation - Casey Ramsey MD - 05/29/2013 8:07 AM EST Attestation: Case Date: 05/29/2013 I was present and I participated during the entire procedure (does not need to include opening and closing). CASEY RAMSEY MD 05/29/2013 * Brief Op Note - Casey Ramsey MD - 05/29/2013 8:07 AM EST Brief Operative Note Patient Name: Francisco J Alvarez Jr. : [id number] MR#: [id number] Case Date: 05/29/2013 Surgeon: Surgeon(s) and Role: * Casey Ramsey MD - Primary * Orlando Torres III, MD - Resident-Surgeon Chief * Shannon Ramos PA - Physician Examining Officer Preoperative diagnosis: mensical tear Postoperative diagnosis: mensical tear Procedure(s): ARTHROSCOPY KNEE, MENISCECTOMY SINGLE W/ SHAVING Anesthesia: General Findings: medial meniscal tear Complications: none Fluids: 550 mL Estimated Blood Loss: 50 mL Drains: none Disposition: awakened from anesthesia, extubated and taken to the recovery room in a stable condition, having suffered no apparent untoward event. Condition: doing well without problems (Please see the Surgical Encounter Summary for any Implant and Specimen details pertinent to this patient.) documented in this encounter Plan of Treatment Not on file documented as of this encounter Procedures Procedure Name Priority Date/Time Associated Diagnosis Comments ARTHROSCOPY KNEE, MENISCECTOMY SINGLE W/ SHAVING (WRVU 7.03) 05/29/2013 7:17 AM EST Knee pain, left documented in this encounter Visit Diagnoses Diagnosis Knee pain, left Pain in joint, lower leg Knee pain, left Pain in joint, lower leg documented in this encounter Administered Medications Inactive Administered Medications - up to 3 most recent administrations Medication Order MAR Action Action Date Dose Rate Site acetaminophen (TYLENOL) tablet 1,000 mg 1,000 mg, Oral, EVERY 8 HOURS SCHEDULED, First dose on Vielka 05/29/13 at 0900, Until Discontinued, Maximum total acetaminophen dose 4 grams per 24 hours., Recovery (Recovery-Hospital Unit), Routine Given 05/29/2013 8:45 AM EST 1,000 mg BUpivacaine (PF) (MARCAINE) 0.25 % (2.5 mg/mL) injection ONCE PRN, Starting on Vielka 05/29/13 at 0810, Until Vielka 05/29/13 at 0905, Intra-Operative (Intra-Procedure), Routine Given 05/29/2013 8:10 AM EST 75 mg 19- Surgical Site lactated ringers infusion 1,000 mL 1,000 mL, at 100 mL/hr, Intravenous, CONTINUOUS, Starting on Vielka 05/29/13 at 0630, Until Vielka 05/29/13 at 0905, Day of Surgery (Day of Procedure) New Bag 05/29/2013 6:30 AM EST 1,000 mLs 100 mL/hr OXYcodone (ROXICODONE) immediate release tablet 5 mg 5 mg, Oral, EVERY 4 HOURS PRN, Starting on Vielka 05/29/13 at 0839, Until Vielka 05/29/13 at 0905, Pain, mild pain, PACU Recovery, Routine Given 05/29/2013 8:45 AM EST 5 mg documented in this encounter Active and Recently Administered Medications Times are shown in EST. Scheduled Medication Order 05/27/2013 05/28/2013 05/29/2013 acetaminophen (TYLENOL) tablet 1,000 mg (CANCELED) 1,000 mg, Oral, EVERY 8 HOURS SCHEDULED, First dose on Vielka 05/29/13 at 0900, Until Discontinued, Maximum total acetaminophen dose 4 grams per 24 hours., Recovery (Recovery-Hospital Unit), Routine 0845 (Given - Provid er: Monika Beard RN) ceFAZolin (ANCEF) 2g in dextrose 5% 50 mL (CANCELED) 2 g, Intravenous, EVERY 8 HOURS, First dose on Vielka 05/29/13 at 0645, Until Discontinued, Indication for (Active or Suspected): Pneumonia (Health-Care) 0645 (Due)0737 (Give n - Provider: Mayank Hussein MD) Continuous Medication Order 05/27/2013 05/28/2013 05/29/2013 lactated ringers infusion 1,000 mL (CANCELED) 1,000 mL, at 100 mL/hr, Intravenous, CONTINUOUS, Starting on Vielka 05/29/13 at 0630, Until Vielka 05/29/13 at 0905, Day of Surgery (Day of Procedure) 0630 (New Bag - Prov ider: Sheyla Turner RN)0750 (Anesthesia Volume Adjustment - Provider: Mayank Hussein MD) PRN Medication Order 05/27/2013 05/28/2013 05/29/2013 BUpivacaine (PF) (MARCAINE) 0.25 % (2.5 mg/mL) injection (CANCELED) ONCE PRN, Starting on Vielka 05/29/13 at 0810, Until Vielka 05/29/13 at 0905, Intra-Operative (Intra-Procedure), Routine 0810 (Given - Provid er: Orlando Torres III, MD) OXYcodone (ROXICODONE) immediate release tablet 5 mg (CANCELED)(Linked Group 1) 5 mg, Oral, EVERY 4 HOURS PRN, Starting on Vielka 05/29/13 at 0839, Until Vielka 05/29/13 at 0905, Pain, mild pain, PACU Recovery, Routine 0845 (Given - Provid er: Monika Beard RN) Linked Groups Order Group 1: OXYcodone (ROXICODONE) immediate release tablet 5 mg (CANCELED)Jump to med 5 mg, Oral, EVERY 4 HOURS PRN, Starting on Vielka 05/29/13 at 0839, Until Vielka 05/29/13 at 0905, Pain, mild pain, PACU Recovery, Routine Or OXYcodone (ROXICODONE) immediate release tablet 10 mg (CANCELED) 10 mg, Oral, EVERY 4 HOURS PRN, Starting on Vielka 05/29/13 at 0839, Until Vielka 05/29/13 at 0905, Pain, moderate pain, Moderate pain, PACU Recovery, Routine Or OXYcodone (ROXICODONE) immediate release tablet 15 mg (CANCELED) 15 mg, Oral, EVERY 4 HOURS PRN, Starting on Vielka 05/29/13 at 0839, Until Vielka 05/29/13 at 0905, Pain, severe pain, Severe pain, PACU Recovery, Routine documented in this encounter Care Teams Securities Research Analyst Relationship Specialty Start Date End Date Quan Bingham MD PCP - General 04/09/13 07/23/20 documented as of this encounter
--- OUTSIDE RECORDS SUMMARY | 2024-03-08 14:59 | XMS_ITS | Encounter Summary ---
Author Organization [facility] [place] [address] Care Team Providers Care It Application Support Analyst Name Role Phone Irineo Vazquez MD Primary Care Provider [phone] Encounter Details Date Type Department Care Team (Late st Contact Info) Description 04/04/2013 Telephone [place] [id number] Casey Cota MD [facility] [address] [place] [address] Social History Tobacco Use Types Packs/Day Years Used Date Smoking Tobacco: Never Assessed Sex and Gender Information Value Date Recorded Sex Assigned at Male 08/16/2020 1:10 PM EDT Gender Identity Not on file Sexual Orientation Not on file documented as of this encounter Miscellaneous Notes * Telephone Encounter - Kiah Torres - 04/04/2013 4:03 PM EST Patient says his MRI was done at [facility] and he has the disc to bring with him. I told him to give it to Xray when he checks in. Patient voiced understanding. * Telephone Encounter - Mandy Lyons CMA - 04/04/2013 4:00 PM EST I called the pt and left a message on answering machine asking that he go to [facility] to get a copy of the MRI that he had there and to please bring it with him for his visit on Sunday. documented in this encounter Plan of Treatment Not on file documented as of this encounter Visit Diagnoses Not on filedocumented in this encounter Care Teams It Application Support Analyst Relationship Specialty Start Date End Date Irineo Vazquez MD [facility] [address] [place] [address] PCP - General 05/22/11 04/08/13 documented as of this encounter
--- OUTSIDE RECORDS SUMMARY | 2024-03-08 14:59 | XMS_ITS | Encounter Summary ---
Author Organization [facility] [place] [address] Care Team Providers Care Lead Recreation Assistant Name Role Phone Quan Bingham MD Primary Care Provider Reason for Visit * Reason Comments Follow Up Surgery SP L [id number] SCOPE DOS 05/29/13, DOI 06/17/13 Encounter Details Date Type Department Care Team (Late st Contact Info) Description 09/10/2013 7:40 AM EDT Office Visit [place] [address] Casey Cota MD [facility] [place] [address] DJD (degenerative joint disease) of knee (Primary Dx); Knee pain, left Discharge Disposition: Home Social [...] Sign Reading Time Taken Comments Blood Pressure 163/83 09/10/2013 8:11 AM EDT Pulse 56 09/10/2013 8:11 AM EDT Temperature - - Respiratory Rate - - Oxygen Saturation - - Inhaled Oxygen Concentration - - Weight 143.8 kg (317 lb) 09/10/2013 8:11 AM EDT Height 190.5 cm (6' 3) 09/10/2013 8:11 AM EDT s tated Body Mass Index 39.62 09/10/2013 8:11 AM EDT documented in this encounter Progress Notes * Alireza Cohen PA - 09/10/2013 9:27 AM EDT Subjective: Francisco J Alvarez Jr. is a 63 y.o. male here for reevaluation and treatment of left knee pain. The painbegan a few weeks ago. The pain's location is medial, anterior. He describes the symptoms as aching, burning and throbbing. Symptoms improve with rest, avoiding painful activities. Symptoms worsen with activity, stair climbing, getting up from a chair. The knee has not given out or felt unstable. The patient can bend and straighten the knee fully. Treatment to date has been ice, NSAID's, cortisone injection without significant relief. MCL pain has resolved Patient's medications, allergies, past medical, surgical, social and family histories were reviewedand updated as appropriate. ROS: Denies fevers, chills, night sweats, nausea, or vomiting. Objective: General : alert, appears stated age and cooperative Gait: Antalgic. The patient can bear weight on the injured extremity. Left Lower Extremity Hip Palpation: no tenderness over the greater trochanter Hip ROM: 100% of normal Knee Effusion: 1+ Ecchymosis: none Knee ROM: 0 to 120 degrees with subpatellar crepitance. Patella: Patella does track normally. Patellar apprehension test: negative Patellar compression test: positive Tenderness: medial joint line Stability: Olman's test: negative Posterior drawer: negative Sensation: intact to light touch Pulses: normal DP and PT pulses Assessment: DJD, MCL strain left knee. Plan: Questions solicited and answered. Patient voiced understanding to info/instructions given. Treatment options discussed including Cortisone injection discussed, Physical Therapy discussed andordered. Discussed knee brace. Repeat x-rays today will call patients with results. Patient was seen and evaluated with Dr Cota PROCEDURE NOTE: left knee intra-articular Injection A time-out was performed and the left knee was confirmed to be the site of injection. The patient was confirmed to have no allergies to betadine, local anesthetics, or corticosteroids. The patient was reminded that blood glucose can be transiently elevated by the corticosteroid injection. The patient was counseled about the potential risks of the procedure, including infection, bleeding and incomplete relief of symptoms. I also discussed with the patient that cortisone is not healthy for muscletendons or cartilage and that there is an increased risk with repeated injections. The skin was prepped widely over the lateral left knee with chlor prep. Then, using sterile technique, 5cc of 1% lidocaine was injected subcutaneously and after adequate anesthetic response using an 18 gauge needle the knee was aspirated and approximately 10cc of joint fluid was aspiration then through the same needle a solution consisting of 4cc 1% lidocaine (40 mg), and 1 cc Kenalog (40 mg) wasinjected into the left knee. The needle was felt to slide into the joint and the mixture flowed freely. The skin was cleaned with alcohol and a Band-Aid was applied. The patient tolerated the procedure well. ADRIANA TALBOT * Casey Cota MD - 09/10/2013 9:01 AM EDT I saw this patient in conjunction with ADRIANA Warren today. Please see her note for details of the history and physical examination. I am in agreement with the plan as stated. In short, Mr. Alvarez is a 63-year-old gentleman who is well known to me. He underwent knee arthroscopy back in May that was initially very successful for him. However, he sustained an injury shortly after that, it caused quite a bit of pain in the medial aspect of his knee as well as his MCL. He feels like the ligament portion has gotten quite a bit better, but he still has significant pain in his medial compartment. He also has quite a bit of swelling in the lower extremity. We attempted a corticosteroid injection back in July, but it did not give him significant relief. I explained that occasionally, we might not get the injection fully in the joint space. It is also possible that his MCL pain was masking his relief. At this point, he is continuing to have quite a bit of pain in the medial compartment of his knee that appears to be arthritic in nature. He has a gelling phenomenon and the pain is certainly worse with weightbearing. I have suggested a repeat corticosteroid injection today to see if he can get any better relief. I would also like to repeat his weightbearing x-rays to make sure that he has not had rapid progression of his arthritis. I am suspicious that is the case. We did talk about treatment options including ribbon lap machine tender braces, viscosupplementation, repeat corticosteroid injections, and knee replacement. He may be moving towards the possibility of a knee surgery if he does not get better relief from this injection. Casey Cota MD [place] Addendum: Xrays show minimally worsened medial compartment OA, but not terribly impressive. Will see how he does with injection and consider repeat MRI if he does not get good relief. documented in this encounter Plan of Treatment [...] Diagnoses Diagnosis DJD (degenerative joint disease) of knee- Primary Osteoarthrosis, unspecified whether generalized or localized, lower leg Knee pain, left Pain in joint, lower leg DJD (degenerative joint disease) of knee Osteoarthrosis, unspecified whether generalized or localized, lower leg documented in this encounter Administered Medications Inactive Administered Medications - up to 3 most recent administrations Medication Order MAR Action Action Date Dose Rate Site lidocaine (XYLOCAINE) 10 mg/mL (1 %) injection 40 mg 40 mg, Intra-articular, ONCE, 1 dose, On Sun09/10/13 at 0945, Routine Given 09/10/2013 9:25 AM EDT 40 mg triamcinolone acetonide (KENALOG-40) injection 40 mg 40 mg, Intra-articular, ONCE, 1 dose, On Sun09/10/13 at 0945, Routine Given 09/10/2013 9:25 AM EDT 40 mg documented in this encounter Care Teams Lead Recreation Assistant Relationship Specialty Start Date End Date Quan Bingham MD PCP - General 04/09/13 07/23/20 documented as of this encounter
--- OUTSIDE RECORDS SUMMARY | 2024-03-08 14:59 | XMS_ITS | Encounter Summary ---
[place] [address] Care Team Providers Care Rake Operator Name Role Phone Quan Bingham MD Primary Care Provider [phone] Encounter Details Date Type Department Care Team (Late st Contact Info) Description 07/15/2015 8:15 AM EST Office Visit Sleep Center at [facility] [address] [place] [address] Darien Villegas MD [facility] [place] [address] Obstructive sleep apnea (Primary Dx) Social History Tobacco Use Types [...] Sign Reading Time Taken Comments Blood Pressure 159/78 07/15/2015 8:15 AM EST Pulse 84 07/15/2015 8:15 AM EST Temperature - - Respiratory Rate - - Oxygen Saturation 97% 07/15/2015 8:15 AM EST Inhaled Oxygen Concentration - - Weight 132.2 kg (291 lb 6.4 oz) 07/15/2015 8:15 AM EST Height 193 cm (6' 4) 07/15/2015 8:15 AM EST Body Mass Index 35.47 07/15/2015 8:15 AM EST documented in this encounter Progress Notes * Darien Villegas MD - 07/15/2015 8:15 AM EST Sleep Medicine Follow-Up Note HPI: (Includes context, quality, duration, and associated signs/symptoms) Mr. Francisco J Alvarez is a 65 y.o. male seen at for follow-up regarding his obstructive sleep apnea. Review and Summary of Previous Records (Most Recent): He was first seen in [address] Mcdowell with complaints of apneas and snoring. He had a home sleep apnea test which showed an overall AHI of 17.4/hr with a desaturation as low as 79%. He has returned to clinic today because he needs supplies to be replaced and has not been able to obtain them. He still has his original CPAP machine, but due to his travelling, it has seen better days. He is wanting to buy a travel CPAP to use when travelling and keep the current machine at home. He has actually already tried to order one from [facility] but they need a prescription. With the CPAP, he states that he will fall asleep instantly, whereas he used to toss and turn. His also tells him that he is sleeping better now. He feels more rested in the mornings and more awake in the afternoons, ever since starting CPAP back in 2012. Sleep Routine/Context: Location: Bedroom Into bed: 9:930 Lights Out: Immediate. Asleep: Immediate. Position: All over. Awakenings: 0-1x/nt Wake up: 4:30 PAP-related Issues: Air-hunger: No complaints. Aerophagia: Denies. Mask fit issues: Wearing out. Other Associated Sign/Symptoms: Ongoing Snoring: Denies. Mouth Breathing: Very rare. Dry Mouth: Very rare. Day Sleepiness: Denies. [place] Sleepiness Scale(s): [facility] 07/14/2015 [place] [facility] 3 Insomnia Severity Index 1 (No clinically significant insomnia) VR12 - Physical Component Summary 53.27 VR12 - Mental Component Summary 60.23 Napping: Denies Driving: Francisco J denies problems with sleepiness and driving. He denies close calls or accidents related to sleepiness. ROS: Constitutional: Change in weight: Down about 30 lbs. Since last visit. HENT: Nasal Obstructions: Denies. Compliance Card Download ([employer] CPAP): Date Range: 12/4/15-07/14/15 Pressure Settings: AutoCPAP @ 4-20 cmH2O Avg. % Periodic Breathin.9 Residual AHI: 3.2 Vibratory Snore Index: 5.2 Avg. % in Large Leak: 0.1% Days Used: 88 of 90 days. Avg. Use (on Nts. Used): 6h48m % Days with Usage > 4hrs: 93.3% Updates to Medical History: Patient Active Problem List Diagnosis Code ??? Snoring R06.83 ??? Knee pain M25.569 Updates to Social History: Travels to [place] often. History Social History ??? Marital Status: Spouse Name: N/A Number of Children: N/A ??? Years of Education: N/A Social History Main Topics ??? Smoking status: Never Smoker ??? Smokeless tobacco: Never Used ??? Alcohol Use: No ??? Drug Use: No ??? Sexual Activity: Not on file Other Topics Concern ??? Exercise: Patient Reported No ??? Abuse Or Threat: Physical, Sexual, Verbal No Social History Narrative ??? No narrative on file PE: Filed Vitals: 07/15/15 0815 BP: 159/78 Pulse: 84 Height: 193 cm (6' 4) Weight: 132.178 kg (291 lb 6.4 oz) SpO2: 97% Body mass index is 35.48 kg/(m^2). Wt Readings from Last 5 Encounters: 07/15/15 132.178 kg (291 lb 6.4 oz) 09/10/13 143.79 kg (317 lb) 07/30/13 141.522 kg (312 lb) 06/16/13 141.069 kg (311 lb) 05/29/13 138.801 kg (306 lb) Const: Male with an elevated BMI, appearing approximately documented age, dressed in seasonally-appropriate clothing, in no apparent distress or discomfort. Eyes: Non-injected Skin: Face: No rashes or signs of skin breakdown in areas that would be in contact with the PAP mask cushion. Pulm: Respirations are unlabored. MSK: Gait and balance are normal. Ambulates without assistance. No katlin atrophy or adventitious movements. Assessment: Mr. Francisco J Alvarez is a 65 y.o. male who is seen for follow-up of obstructive sleep apnea. He is reporting benefit from use of CPAP in improved quality of sleep and improved alertness during the day. Based on the compliance download (details described above), he is meeting complianceuse minimums; residual AHI is within goal and leak is within expected/appropriate amounts. I recommend continuing the use of CPAP. We reviewed the advantages and disadvantages of travel machines, primarily the lack of humidification, and he reports that he does not use the humidifier anyway. We also reviewed the machine he had selected and found that it was not capable of automatic titration. We d iscussed the difference between remaining in automatic mode or changing to a fixed pressure and he prefers to remain in automatic mode so we identified the automatic version of that CPAP and he will change his order. Also discussed patient's elevated blood pressure. He reports that it is atypical and he just had a caffeinated drink. We advised him to keep track of his BP and contact his PCP if it remained elevated. He also reports that his blood pressure medications have been reduced recently. Time spent face to face: 30min Time spent devoted to counseling and discussion: 15min Recommendations: - Continue home CPAP at [id number]. - Prescribe travel CPAP for patient to purchase on his own. - Reviewed cleaning/maintenance intervals for equipment. - Follow-up in 3 months if needed by DME, otherwise yearly, or sooner as needed. DME: [facility] Driving safety was reviewed with Francisco J. If the he feels too sleepy to drive he knows not to drive.If he becomes sleepy while driving he was advised to snout puller and nap. The patient indicates understanding of these issues and agrees with the plan. This patient was seen and discussed with Dr. Alaniz, who saw the patient and participated in the decision making and [id number] as outlined above. * Neri Salgado MD - 07/15/2015 8:15 AM EST I evaluated Mr. Francisco J Alvarez Bess with Dr. Villegas and performed donahue aspects of the history and examination. I actively participated in the formulation of the management strategy. I have reviewed Dr. Villegas's note and agree with the assessment and recommendations. Neri Salgado MD documented in this encounter Plan of Treatment Not on file documented as of this encounter Visit Diagnoses Diagnosis Obstructive sleep apnea- Primary Obstructive sleep apnea (adult) (pediatric) documented in this encounter Care Teams Rake Operator Relationship Specialty Start Date End Date Quan Bingham MD PCP - General 04/09/13 07/23/20 documented as of this encounter
--- OUTSIDE RECORDS SUMMARY | 2024-03-08 14:59 | XMS_ITS | Encounter Summary ---
Author Organization [facility] Address [address] [place] [id number] Care Team Providers Care Licensing Worker Name Role Phone Quan Bingham MD Primary Care Provider Reason for Referral * Consult (Routine/Next Available) - Specialty Report Received Specialty Diagnoses / Procedures Referred By Contac t Referred To Contact Urology Diagnoses Hydrocele, unspecified hydrocele type Quan Bingham MD [address] [place] [phone] Will Field MD [address] [place] [phone] Referral ID Status Reason Start Date Expiration Date Visits Requested Visits Authorized [id number] Specialty Report Received Specialty Services Required 09/29/2015 1 1 Question Answer Reason for Request: large hydrocele on left Comments CV * Laboratory Services (Routine) - Closed Specialty Diagnoses / Procedures Referred By Contac t Referred To Contact Diagnoses Health care maintenance Procedures HIV 1/2 ANTIBODY Quan Bingham MD [address] [place] [phone] Referral ID Status Reason Start Date Expiration Date Visits Re quested Visits Authorized [id number] Closed 09/29/2015 1 1 * Laboratory Services (Routine) - Closed Specialty Diagnoses / Procedures Referred By Contac t Referred To Contact Diagnoses Health care maintenance Procedures HEPATITIS C ANTIBODY Quan Bingham MD [address] [place] [phone] Referral ID Status Reason Start Date Expiration Date Visits Re quested Visits Authorized [id number] Closed 09/29/2015 1 1 * Laboratory Services (Routine) - Closed Specialty Diagnoses / Procedures Referred By Contac t Referred To Contact Diagnoses Health care maintenance Procedures PSA Quan Bingham MD [address] [place] [phone] Referral ID Status Reason Start Date Expiration Date Visits Re quested Visits Authorized [id number] Closed 09/29/2015 1 1 * Laboratory Services (Routine) - Closed Specialty Diagnoses / Procedures Referred By Contac t Referred To Contact Diagnoses Essential hypertension with goal blood pressure less than 140/90 Procedures BASIC METABOLIC PANEL Quan Bingham MD [address] [place] [phone] Referral ID Status Reason Start Date Expiration Date Visits Re quested Visits Authorized [id number] Closed 09/29/2015 1 1 Reason for Visit * Reason Comments Annual Exam MPE - Only concerned voiced was dry skin areas. BHS completed: No flags. Medications Refill Pended Encounter Details Date Type Department Care Team (Late st Contact Info) Description 09/29/2015 8:45 EDT Office Visit [address] [place] [address] Quan Bingham MD [address] [place] [phone] Health care maintenance (Primary Dx); Essential hypertension with goal blood pressure less than 140/90; Rash; Hydrocele, unspecified hydrocele type Discharge Disposition: Auto Discharge Social History Tobacco Use Types Packs/Day Years [...] (97.8 ??F) 09/29/2015 0841 EDT Respiratory Rate - - Oxygen Saturation - - Inhaled Oxygen Concentration - - Weight 131.5 kg (290 lb) 09/29/2015 08 EDT Height 190.5 cm (6' 3) 09/29/2015 0841 EDT Body Mass Index 36.25 09/29/2015 0841 EDT documented in this encounter Discharge Diagnoses Diagnosis Z00.00 Encounter for general adult medical examination without abnormal findings-Z00.00[ICD-10-CM] I10 Essential (primary) hypertension-I10[ICD-10-CM] R21 Rash and other nonspecific skin eruption-R21[ICD-10-CM] N43.3 Hydrocele, unspecified-N43.3[ICD-10-CM] documented in this encounter Ordered Prescriptions Prescription Sig Dispensed Refills Start Date End Da te triamcinolone (KENALOG) 0.1 % creamIndications:Rash Apply 1 application topically 2 times daily. 80 g 1 09/29/2015 metoprolol XL (TOPROL-XL) 100 mg tabletIndications:Essent ial hypertension with goal blood pressure less than 140/90 Take 1 Tab by mouth daily. 90 Tab 3 09/29/2015 enalapril (VASOTEC) 20 mg tabletIndications:Essent ial hypertension with goal blood pressure less than 140/90 take 1 tablet by mouth once daily 90 Tab 3 09/29/2015 documented in this encounter Discharge Disposition Disposition Code Departure Means Destination Auto Discharge documented in this encounter Progress Notes * Quan Bingham - 09/29/2015 1305 EDT Subjective: Patient ID: Francisco J Alvarez Jr. is an 65 y.o. male. Chief Complaint Patient presents with ??? Annual Exam MPE - Only concerned voiced was dry skin areas. S completed: No flags. ??? Medications Refill Pended HPI REASON FOR VISIT: Physical exam. SUBJECTIVE: A 65-year-old generally in good health, here for physical exam. REVIEW OF SYSTEMS: Unremarkable for any significant acute change other than skin issues. He notes dry skin with patches of erythema, scale and pruritus. Diagnosed in the past with a variant of psoriasis, particularly in gluteal cleft. He has not undertaken any treatment. He has not seen a agronomy supervisor in some time. Previously had treated this with a combination of either Elidel or triamcinolone cream. He notes modest flare currently. He is not using any of the above now. He does have a history of obstructive sleep apnea using CPAP machine, doing well. Also, a history of hypertension, which he has been doing well with current medications. No recent changes noted. History urologically of a large hydrocele on the left, noted a couple years ago. However, plan was to have this repaired, but postponed as he did have a flare of left knee pain requiring a semi-urgent replacement and has not followed through on this. He notes some discomfort, left hemiscrotum, but no other acute complaints. Status post left knee repair over a year ago, approximately 2 years ago generally doing well. 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 Past medical, surgical, family and social history updated in the EMR. Patient Active Problem List Diagnosis ??? Hypertensive disorder ??? Colon polyp ??? Hydrocele ??? Obstructive sleep apnea ??? Psoriasis ??? Left knee pain History reviewed. No pertinent past medical history. Current Outpatient Prescriptions on File Prior to Visit Medication Sig Dispense Refill ??? fluocinonide (LIDEX) 0.05 % cream Apply 1 application topically to affected area 2 times daily 60 g 1 ??? pimecrolimus (ELIDEL) 1 % cream Apply topically as needed. No current facility-administered medications on file prior to visit. Allergies Allergen Reactions ??? Nickel Rash Social History Substance Use Topics ??? Smoking status: Never Smoker ??? Smokeless tobacco: Never Used ??? Alcohol Use: No ROS - See HPI Objective: BP 128/70 mmHg Pulse 54 Temp(Src) 36.6 ??C (97.8 ??F) (Tympanic) Ht 190.5 cm (75) Wt 131.543 kg (290 lb) BMI 36.25 kg/m2 Physical Exam PHYSICAL EXAM: Blood pressure 128/70, pulse 54, weight 290, BMI 36. We discussed diet and exercise and weight targets and would like to get him down closer to below 275, preferably closer to 250, which he had been several years ago. Head, ear, nose, throat exam normal. Neck normal. Chest: Clear to auscultation. Cardiovascular: Regular rate and rhythm, no murmur. Abdomen: Nontender. Genital exam: Large hydrocele on the left, otherwise normal. Prostate within normal limits. No nodules. Extremity exam: Normal pulses, sensation, range of motion. Skin exam significant for a confluent area of erythema in the gluteal cleft and numerous small erythematous patches some with silver scale on trunk andupper extremity. ASSESSMENT: PROBLEM 1: Hypertension, doing well. PLAN: 1. Continue current treatment and medicines refilled. 2. Metabolic panel. PROBLEM 2: Rash, some of this appears to be a flare of psoriasis and may be an element of eczema. PLAN: 1. Triamcinolone cream 0.1% to the areas of flare for 2 to 3 weeks 2. Low threshold for dermatology reevaluation, treatment if not improving. PROBLEM 3: Large hydrocele on the left. PLAN: Urology referral for repair. PROBLEM 4: Health maintenance. PLAN: 1. Discussed diet and exercise and weight target. 2. Lab: PSA, hep C, HIV screening. Risks, benefits discussed. 3. Next exam should be in 1 year. Assessment: Plan: Francisco J was seen today for annual exam and medications refill. Diagnoses and all orders for this visit: Health care maintenance Comments: today Orders: - PSA - Hepatitis C Antibody - HIV 1/2 Antibody Essential hypertension with goal blood pressure less than 140/90 Orders: - enalapril (VASOTEC) 20 mg tablet; take 1 tablet by mouth once daily - metoprolol XL (TOPROL-XL) 100 mg tablet; Take 1 Tab by mouth daily. - Basic Metabolic Panel Rash Orders: - triamcinolone (KENALOG) 0.1 % cream; Apply 1 application topically 2 times daily. Hydrocele, unspecified hydrocele type Orders: - Amb Consult/Follow Up Urology Return in about 1 year (around 09/28/2016) for PE. documented in this encounter Plan of Treatment Scheduled Orders Name Type Priority Associated Diagnoses Orde r Schedule BASIC METABOLIC PANEL Lab Routine Essential Hypertension With Goal Blood Pressure Less Than 140/90 Ordered: 09/29/2015 PSA Lab Routine Health care maintenance Ordered: 09/29/2015 Scheduled Referrals Name Type Priority Associated Diagnoses Orde r Schedule AMB CONS/FOLLOW UP UROLOGY Outpatient Referral Routine Hydrocele, unspecified hydrocele type Ordered: 09/29/2015 documented as of this encounter Goals Goal [...] BY PCR Routine 09/29/2015 Health care maintenance HIV 1/2 ANTIGEN AND ANTIBODY, 4TH GENERATION Routine 09/29/2015 Health care maintenance documented in this encounter Results * HIV 1/2 ANTIBODY (09/29/2015) Hiv Ab, External Non-reacti ve POINT OF CARE Blood specimen (specimen) 09/29/2015 Quan Bingham MD IMMUNOLOGY AND SEROLOGY ORDERABLES POINT OF CARE * HEPATITIS C ANTIBODY (09/29/2015) Hepatitis C Ab Negative POINT OF CARE Blood specimen (specimen) 09/29/2015 Quan Bingham MD CHEMISTRY & BL OOD GAS ORDERABLES POINT OF CARE documented in this encounter Visit Diagnoses Diagnosis Health care maintenance- Primary Routine general medical examination at a health care facility Essential hypertension with goal blood pressure less than 140/90 Rash Rash and other nonspecific skin eruption Hydrocele, unspecified hydrocele type documented in this encounter Discontinued Medications Medication Sig Discontinue Reason Start Date End Da te metoprolol XL (TOPROL-XL) 100 mg tablet Take 0.5 Tabs by mouth daily Dose adjustment 06/29/2014 09/29/2015 enalapril (VASOTEC) 20 mg tablet take 1 tablet by mouth once daily Reorder 08/11/2015 09/29/2015 metoprolol XL (TOPROL-XL) 100 mg tablet Take 1 Tab by mouth daily Reorder 01/11/2015 09/29/2015 triamcinolone (KENALOG) 0.1 % creamIndications:Rash Apply 1 application topically 2 times daily. Reorder 03/30/2014 09/29/2015 documented as of this encounter Care Teams Licensing Worker Relationship Specialty Start Date End Date Quan Bingham MD [address] [place] [phone] PCP - General 05/27/13 08/09/16 documented as of this encounter
--- OUTSIDE RECORDS SUMMARY | 2024-03-08 14:59 | XMS_ITS | Encounter Summary ---
Author Organization [facility] [place] [address] Care Team Providers Care Splicing Supervisor Name Role Phone Quan Bingham MD Primary Care Provider [phone] Encounter Details Date Type Department Care Team (Late st Contact Info) Description 05/21/2013 9:40 AM EST Clinical [place] [phone] Knee pain, left Social History Tobacco Use Types Packs/Day Years [...] Respiratory Rate - - Oxygen Saturation 97% 05/21/2013 9:20 AM EST Inhaled Oxygen Concentration - - Weight - - Height - - Body Mass Index - - documented in this encounter Progress Notes * Jazmine Arora RN - 05/21/2013 9:48 AM EST Preadmission testing - PAT questionnaire reviewed with patient here in PAT. Patient reports has hadno problems with anesthesia in the past. He has a history of hypertension, childhood asthma and sleep apnea. Advanced directive forms provided for patient. EKG done today as ordered. DOS - 05/29/[address] Cota documented in this encounter Plan of Treatment Not on file documented as of this encounter Procedures Procedure Name Priority Date/Time Associated Diagnosis Comments EKG 12-LEAD Routine 05/21/2013 9:47 AM EST Knee pain, left documented in this encounter Results * EKG 12 Lead (05/21/2013 9:47 AM EST) Ventricular rate 58 BPM MUSE SYSTEM Atrial Rate 58 BPM MUSE SYSTEM P-R Interval 138 ms MUSE SYSTEM QRS Duration 94 ms MUSE SYSTEM Q-T Interval 398 ms MUSE SYSTEM QTC Calculated (Bezet) 390 ms MUSE SYSTEM Calculated P [place] 20 degrees MUSE SYSTEM Calculated R [place] -5 degrees MUSE SYSTEM Calculated T [place] 11 degrees MUSE SYSTEM INTERPRETATION Sinus bradycardia with sinus arrhythmia Otherwise normal ECG No previous ECGs available Confirmed by MD PATRICIA, SABIHA ([id number]) on 05/21/2013 5:16:07 PM MUSE SYSTEM 05/21/2013 9:47 AM EST 05/21/2013 5:16 PM EST Casey Cota MD ECG ORDERABLES MUSE SYSTEM documented in this encounter Visit Diagnoses Diagnosis Knee pain, left Pain in joint, lower leg documented in this encounter Care Teams Splicing Supervisor Relationship Specialty Start Date End Date Quan Bingham MD PCP - General 04/09/13 07/23/20 documented as of this encounter
--- OUTSIDE RECORDS SUMMARY | 2024-03-08 14:59 | XMS_ITS | Encounter Summary ---
Author Organization [facility] Address [address] [place] [address] Care Team Providers Care Mottler Operator Name Role Phone Quan Bingham MD Primary Care Provider Reason for Referral * Consult (Routine/Next Available) - Specialty Report Received Specialty Diagnoses / Procedures [facility] Referred To Contact Urology Diagnoses Hydrocele, unspecified hydrocele type Quan Bingham MD [address] [place] [phone] Salvador Archer MD [address] [place] [phone] Referral ID Status Reason Start Date Expiration Date Visits Requested Visits Authorized [id number] Specialty Report Received Specialty Services Required 06/07/2016 1 1 Question Answer Reason for Request: 2nd opinion reagrding hydrocele Comments DR Archer Reason for Visit * Reason Onset Date Comments Referral Request 06/07/2016 Encounter Details Date Type Department Care Team (Late st Contact Info) Description 06/07/2016 Telephone [facility] [place] [facility] Family Medicine - [place] [address] [place] [address] Quan Bingham MD [address] [place] [phone] Referral Request Social History Tobacco Use Types Packs/Day Years [...] encounter Miscellaneous Notes * Telephone Encounter - Anjali Roberts - 06/07/2016 1123 EST Faxed referral to Dr. Archer in [place], [place]. * Telephone Encounter - Tonia Garrett RN - 06/07/2016 0839 EST Patient would like referral to Dr. Archer [facility] because he is unhappy with the results of hydrocele repair. * Telephone Encounter - Anjali Roberts - 06/07/2016 0829 EST Pt is unhappy with the results of Hydroseal and would like a referral for a new urologist. He prefers Dr. Archer in [place], [place]. documented in this encounter Plan of Treatment Scheduled Referrals Name Type Priority Associated Diagnoses Orde r Schedule AMB CONS/FOLLOW UP UROLOGY Outpatient Referral Routine Hydrocele, unspecified hydrocele type Ordered: 06/07/2016 documented as of this encounter Goals Goal [...] as of this encounter Visit Diagnoses Diagnosis Hydrocele, unspecified hydrocele type- Primary documented in this encounter Care Teams Mottler Operator Relationship Specialty Start Date End Date Quan Bingham MD [address] [place] [phone] PCP - General 05/27/13 08/09/16 documented as of this encounter
--- OUTSIDE RECORDS SUMMARY | 2024-03-08 14:59 | XMS_ITS | Encounter Summary ---
Author Organization [facility] Address [facility] [place] [address] Care Team Providers Care Relay Tester Name Role Phone Quan Bingham MD Primary Care Provider [phone] Encounter Details Date Type Department Care Team (Late st Contact Info) Description 07/16/2013 Telephone [place] [phone] Casey Cota MD [facility] [place] [address] Social History Tobacco Use Types Packs/Day Years [...] encounter Miscellaneous Notes * Telephone Encounter - Kyle Waggoner RN - 07/17/2013 8:37 AM EST Spoke with Mr Alvarez and he states that he was doing well until this past weekend when he developed aburning type pain and sensitivity to touch along the lateral aspect of his patella. The pain was much worse upon waking in the morning and a little better as the day progresses. The knee is not swollen or red. Ice dose help and heat makes the pain worse. He did start using the elliptical slowly and after the first day things were great, the second day the pain worsened. He is having a lot of difficulty going up and down stairs. The pain is about 30% less than what it was three days ago. Advisedto ice and take anti inflammatories through the weekend and if he continues to improve we will see him in follow up as planned on the . If things worsen he will call on Sunday for earlier appointment. * Telephone Encounter - Kiah Torres - 07/16/2013 4:48 PM EST Patient called and said that his left knee which he had surgery on in May by Dr. Cota is popping and it's very painful. He's not sure what's going on but he would like to speak with a nurse. Please call him back as soon as possible at [phone]. Patient's procedure was Arthroscopic partial medial meniscectomy. DOS: 05/29/2013. documented in this encounter Plan of Treatment Not on file documented as of this encounter Visit Diagnoses Not on filedocumented in this encounter Care Teams Relay Tester Relationship Specialty Start Date End Date Quan Bingham MD PCP - General 04/09/13 07/23/20 documented as of this encounter
--- OUTSIDE RECORDS SUMMARY | 2024-03-08 14:59 | XMS_ITS | Encounter Summary ---
Author Organization [facility] Address [facility] [place] [address] Care Team Providers Care Integration Technician Name Role Phone Quan Bingham MD Primary Care Provider [phone] Reason for Referral * Physical Therapy (Routine) - Closed by system - unspecified Specialty Diagnoses / Procedures Referred By Contac t Referred To Contact Physical Therapy Diagnoses Left knee pain Alireza Cohen PA [facility] ORTHOPAEDIC SURGERY [place] [phone] Referral ID Status Reason Start Date Expiration Date Visits Requested Visits Authorized [id number] Closed by system - unspecified Evaluate and Treat 07/30/2013 01/26/2014 16 16 Reason for Visit * Reason Comments Follow Up Surgery sp left knee scope d os 05/29/13 Encounter Details Date Type Department Care Team (Late st Contact Info) Description 07/30/2013 7:40 AM EDT Office [place] [phone] Casey Cota MD [facility] [place] [address] Left knee pain; Knee pain, left Discharge Disposition: Home Social [...] Sign Reading Time Taken Comments Blood Pressure 143/80 07/30/2013 8:07 AM EDT Pulse 50 07/30/2013 8:07 AM EDT Temperature - - Respiratory Rate - - Oxygen Saturation - - Inhaled Oxygen Concentration - - Weight 141.5 kg (312 lb) 07/30/2013 8:07 AM EDT Height 190.5 cm (6' 3) 07/30/2013 8:07 AM EDT Body Mass Index 39 07/30/2013 8:07 AM EDT documented in this encounter Progress Notes * Alireza Cohen PA - 07/30/2013 12:43 PM EDT Subjective: Francisco J Alvarez Jr. is [...] Treatment to date has been ice, NSAID's, without significant relief. Patient's medications, allergies, past medical, surgical, social [...] compression test: positive Tenderness: medial joint line and over the MCL Stability: Olman's test: negative Posterior drawer: negative Sensation: intact to light touch Pulses: normal DP and PT pulses Assessment: DJD, MCL strain left knee. Plan: Questions solicited and answered. Patient voiced understanding to info/instructions given. Treatment options discussed including Cortisone injection discussed, Physical Therapy discussed andordered. Discussed knee brace. Follow up: 6 weeks. PROCEDURE NOTE: left knee intra-articular Injeciton A time-out was performed and the left [...] with chlor prep. Then, using sterile technique, a solution consisting of 4cc 1% lidocaine (40 mg), and 1 cc Kenalog (40 mg) was injected into the left knee using a 22 gauge needle. The needle was felt to slide into the joint and the mixture flowed freely. The skin was cleaned with alcohol and a Band-Aid was applied. The patient tolerated the procedure well. ADRIANA TALBOT * Casey Cota MD - 07/30/2013 8:41 AM EDT I saw this patient in conjunction with ADRIANA Warren today. Please see her note for details of the history and physical examination. I am in agreement with the plan as stated. In short, Mr. Alvarez is a 63-year-old gentleman who presents for followup of his left knee arthroscopy. He was doing remarkably well the last time I saw him, but unfortunately a couple of days later, he slipped and strained the medial side of his knee. He says that he had excruciating pain for a few days, but it has slowly gotten better over the past 30 days. However, he is still continuing to have some pain on the medial side of his knee and quite a bit of pain in the retropatellar area. On exam, he has moderate effusion. He is tender over the medial joint line, but also over the medial collateral ligament. His knee is stable to anterior and posterior, and varus and valgus stresses, although I think he does have 1 or 2 mm more medial laxity on the left side than on the right. I had a discussion with him today regarding potential pain generators. I did remind him that he had grade 2 to 3 chondromalacial changes in the medial and patellofemoral compartments during the arthroscopy. I cannot say for sure whether he has exacerbated his osteoarthritis or whether he has strained his MCL. There is no obvious instability in the knee today. I have suggested a diagnostic/therapeutic corticosteroid injection. If all of his pain improves from the injection, then I would not treat the medial collateral ligament further. However, if there is some persistent medial pain after the injection, then I would consider bracing for 4 to 6 weeks to allow the MCL to heal. He will contact us depending on how the injection goes. Casey Cota MD [place] documented in this encounter Plan of Treatment Scheduled Referrals Name Type Priority Associated Diagnoses Orde r Schedule Referral to Physical Therapy Outpatient Referral Routine Left knee pain Ordered: 07/30/2013 documented as of this encounter Visit Diagnoses Diagnosis Left knee pain Pain in joint, lower leg Knee pain, left Pain in joint, lower leg documented in this encounter Administered Medications Inactive Administered Medications - up to 3 most recent administrations Medication Order MAR Action Action Date Dose Rate Site lidocaine (XYLOCAINE) 10 mg/mL (1 %) injection 40 mg 40 mg, Intra-articular, ONCE, 1 dose, On Sun07/30/13 at 1345, Routine Given 07/30/2013 1:26 PM EDT 40 mg triamcinolone acetonide (KENALOG-40) injection 40 mg 40 mg, Intra-articular, ONCE, 1 dose, On Sun07/30/13 at 1345, Routine Given 07/30/2013 1:26 PM EDT 40 mg documented in this encounter Care Teams Integration Technician Relationship Specialty Start Date End Date Quan Bingham MD PCP - General 04/09/13 07/23/20 documented as of this encounter
--- OUTSIDE RECORDS SUMMARY | 2024-03-08 14:59 | XMS_ITS | Encounter Summary ---
Author Organization [facility] [place] [address] Care Team Providers Care Buttermaker Continuous Churn Name Role Phone Quan Bingham MD Primary Care Provider [phone] Reason for Visit * Reason Comments Left Knee Pain Encounter Details Date Type Department Care Team (Late st Contact Info) Description 05/21/2013 8:20 AM EST Office [place] [phone] Casey Cota MD [facility] [place] [address] Knee pain, left (Primary Dx) Discharge Disposition: Home Social History Tobacco Use [...] Sign Reading Time Taken Comments Blood Pressure 149/90 05/21/2013 8:10 AM EST Pulse 60 05/21/2013 8:10 AM EST Temperature - - Respiratory Rate - - Oxygen Saturation - - Inhaled Oxygen Concentration - - Weight 137.4 kg (303 lb) 05/21/2013 8:10 AM EST Height 190.5 cm (6' 3) 05/21/2013 8:10 AM EST Body Mass Index 37.87 05/21/2013 8:10 AM EST documented in this encounter Progress Notes * Casey Cota MD - 05/21/2013 8:56 AM EST I saw this patient in conjunction with ADRIANA Rosales today. Please see her note for details of the history and physical examination. I am in agreement with the plan as stated. Francisco J Alvarez is a 62 y.o. year old male with left knee pain. He has a history, clinical exam, and radiologic findings consistent with a meniscal tear. The patient is having pain as well as mechanical symptoms, but seems to be more bothered by the mechanical symptoms. He feels that the knee gets caught and he has to work it loose. We had a discussion of the treatment options including activity modification, weight reduction, PT, NSAIDS, corticosteroid injection, as well as knee arthroscopy. Thepatient feels that they have exhausted non- operative treatment measures at this point including NSAIDS, PT, activity modification and injection. I explained that addressing the meniscal pathology would likely improve the mechanical symptoms, but would not necessarily improve any arthritis-related pain. There is a possibility that he would have some persistent discomfort after knee arthroscopy. However, given his level of mechanical symptoms, I think he will get significant relief from partial meniscectomy. The patient understands this andwould like to proceed. We discussed the risks of surgery including bleeding, infection, need for further surgery, fracture, damage to nerves or blood vessels, blood clots, persistent pain, and cardiopulmonary complicationsup to and including . All questions were answered. I explained that the procedure would be done as a same-day surgery and he would be allowed to weight bear as tolerated. Crutches would likely be needed for the first few days and we would plan for early knee ROM. I advised him to plan for being out of work for at least 2 weeks and that it may take up to 3 months to recover fully. We would like him to take Aspirin 325 mg daily for 1 month for DVT prophylaxis. Casey Cota MD MS * Shannon Ramos PA - 05/21/2013 8:34 AM EST Date of Visit: 05/21/13 Staff: Dr. Cota CC: Left knee pain HPI: This is a 62 yo male who presents for follow up of his left knee pain. He states in February after a day of working on his property he awoke with substantial knee pain and swelling. He has continued with symptoms since that point. He has underlying constant dull pain that intermittently worsens. He can not pinpoint a specific activity that increases knee pain but he knows that he experiences some popping sensation either worsening or improvement of pain. He finds that when his pain is at its worse he cannot bear weight on the extremity. He is noted no significant swelling since the original incident. At the end of March he underwent intra-articular joint injection with good relief for 24 hours. He still has some benefit from the injection however is significantly decreased. He denies locking but does describe significant stiffness. Denies fever chills in last 24 hours, but has been getting over illness. Some nasal congestion and non productive cough. Exam: Alert and oriented x 3 NAD COR: Regular rate and rhythm without murmur appreciated. Lungs: Clear to auscultation bilaterally. No rales, rhonchi or wheezes noted. I have made the following determinations: Knee Exam: Left Prior surgery on this joint: No Gait Abnormality: Antalgic Knee ROM: Extension:0 Flexion: 115 Alignment: 0-4 degrees Neutral Stability: A/P Translation <5mm Varus (lateral stability) <5mm Valgus (medial stability) <5mm Extension La degrees or less Radiographic evidence of joint damage: [0= normal; 1=minimal ; 2= some osteophytes , some narrowing ; 3= moderate osteophytes, significantnarrowing, mild deformity; 4= large osteophytes, marked narrowing, obvious deformity]: 1= minimal Patella Tracking: Normal Skin Integrity: Normal Pulses Palpable: Left PT:Yes Left DP:Yes Motor/Sensory: Distal Motor:Normal Distal Sensory: Normal Quadriceps Strength:5 XRAY: MRI and xray reviewed from previous A/P: Meniscal pathology- left knee Patient seen with Dr. Cota. After limited benefit of injection and continued mechanical symptoms we'll move forward with arthroscopy. Planning for OR scheduling. documented in this encounter Plan of Treatment Not on file documented as of this encounter Procedures Procedure Name Priority Date/Time Associated Diagnosis Comments ARTHROSCOPY KNEE, MENISCECTOMY SINGLE W/ SHAVING Routine 05/21/2013 8:52 AM EST Knee pain, left documented in this encounter Results * EKG 12 Lead (05/21/2013 9:47 AM EST) Ventricular rate 58 BPM MUSE SYSTEM Atrial Rate 58 BPM MUSE SYSTEM P-R Interval 138 ms MUSE SYSTEM QRS Duration 94 ms MUSE SYSTEM Q-T Interval 398 ms MUSE SYSTEM QTC Calculated (Bezet) 390 ms MUSE SYSTEM Calculated P [place] 20 degrees MUSE SYSTEM Calculated R [place] -5 degrees MUSE SYSTEM Calculated T [place] 11 degrees MUSE SYSTEM INTERPRETATION Sinus bradycardia with sinus arrhythmia Otherwise normal ECG No previous ECGs available Confirmed by MD PATRICIA, SABIHA ([id number]) on 05/21/2013 5:16:07 PM MUSE SYSTEM 05/21/2013 9:47 AM EST 05/21/2013 5:16 PM EST Casey Cota MD ECG ORDERABLES MUSE SYSTEM documented in this encounter Visit Diagnoses Diagnosis Knee pain, left- Primary Pain in joint, lower leg documented in this encounter Care Teams Buttermaker Continuous Churn Relationship Specialty Start Date End Date Quan Bingham MD PCP - General 04/09/13 07/23/20 documented as of this encounter
--- OUTSIDE RECORDS SUMMARY | 2024-03-08 14:59 | XMS_ITS | Encounter Summary ---
Author Organization [facility] Address [address] [place] [address] Care Team Providers Care Forestry Crew Chief Name Role Phone Quan Bingham MD Primary Care Provider Encounter Details Date Type Department Care Team (Late st Contact Info) Description 09/29/2015 Results Only [facility] Medicine - [place] [address] [facility] [address] [place] [address] Quan Bingham MD [address] [place] [address] [address] [place] [address] Social History Tobacco Use Types Packs/Day Years [...] Procedure Name Priority Date/Time Associated Diagnosis Comments BASIC METABOLIC PANEL ([facility]) Routine 09/29/2015 9:40 EDT PSA TOTAL, DIAGNOSTIC Routine 09/29/2015 9:40 EDT documented in this encounter Results * PSA (09/29/2015 9:40 EDT) PSA, External 2.120 0.00 - 4.50 ng/mL [facility] Comment:Method: Siemens Vist a-Chemiluminescence/Experticity technology 09/29/2015 9:40 EDT 09/29/2015 9:40 EDT Narrative [facility] - 09/29/2015 11:39 EDT Does PT Have a Latex Allergy? NO Quan Bingham MD CHEMISTRY & BL OOD GAS ORDERABLES [facility] * (ABNORMAL) BASIC METABOLIC PANEL ([facility]) (09/29/2015 9:40 EDT) Bun, External 10 7 - 18 mg/dL [facility] Calcium, External 8.5 8.5 - 10.1 mg/dL [facility] Chloride, External 109(H) 98 - 107 mEq/L [facility] CO2, External 28 21 - 32 mEq/L [facility] Creatinine, External 0.86 0.5 - 1.3 mg/dL [facility] GFR, Jeremi/Est., External >60 [facility] Comment: Chronic renal impairment is defined as GFR <60 Multiply result by 1.210 for patients. Glucose, Serum, External 89 70 - 100 mg/dL [facility] Potassium, External 4.4 3.5 - 5.0 mEq/L [facility] Sodium, External 142 135 - 145 mEq/L [facility] 09/29/2015 9:40 EDT 09/29/2015 9:40 EDT Narrative [facility] - 09/29/2015 11:39 EDT Does PT Have a Latex Allergy? NO Quan Bingham MD CHEMISTRY & BL OOD GAS ORDERABLES [facility] documented in this encounter Visit Diagnoses Not on filedocumented in this encounter Care Teams Forestry Crew Chief Relationship Specialty Start Date End Date Quan Bingham MD [address] [place] [phone] PCP - General 05/27/13 08/09/16 documented as of this encounter
--- OUTSIDE RECORDS SUMMARY | 2024-03-08 14:59 | XMS_ITS | Encounter Summary ---
Author Organization [facility] Address [address] [place] [address] Care Team Providers Care Real Estate Investment Analyst Name Role Phone Quan Bingham MD Primary Care Provider Encounter Details Date Type Department Care Team (Latest Contact Info) Description 03/08/2016 20:07 EDT - 03/08/2016 23:59 EDT Hospital Encounter [facility] [address] [place] [address] Unknown, Provider, Discharge Disposition: Home or Self [...] on filedocumented in this encounter Care Teams Real Estate Investment Analyst Relationship Specialty Start Date End Date Quan Bingham MD [address] [place] [phone] PCP - General 05/27/13 08/09/16 documented as of this encounter
--- OUTSIDE RECORDS SUMMARY | 2024-03-08 14:59 | XMS_ITS | Encounter Summary ---
Author Organization [facility] Address [facility] [place] [address] Care Team Providers Care Hand Mounter Name Role Phone Edith Gaming DO Primary Care Provider Unava ilable Encounter Details Date Type Department Care Team (Late st Contact Info) Description 07/27/2020 Telephone Cardiology at [address] [phone] Vasile Grover MD [facility] [place] [address] Social History Tobacco Use Types Packs/Day Years [...] encounter Miscellaneous Notes * Telephone Encounter - Lorna Barnes - 07/27/2020 2:50 PM EDT Appt scheduled 08/18/2020 2:20 pm Pt informed * Telephone Encounter - Lorna Barnes - 07/27/2020 8:33 AM EDT Received Referral from Dr. Gaming for this man. 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 Is this something Dr. Grover will deal With? documented in this encounter Plan of Treatment Not on file documented as of this encounter Visit Diagnoses Not on filedocumented in this encounter Care Teams Hand Mounter Relationship Specialty Start Date End Date Edith Gaming DO PCP - General Family Medicine 07/24/20 04/23/23 documented as of this encounter
--- OUTSIDE RECORDS SUMMARY | 2024-03-08 14:59 | XMS_ITS | Encounter Summary ---
Author Organization [facility] [place] [address] Care Team Providers Care Terminal Block Assembler Name Role Phone Quan Bingham MD Primary Care Provider Encounter Details Date Type Department Care Team (Latest Contact Info) Description 05/29/2013 5:59 AM EST - 05/29/2013 9:08 AM EST Hospital Encounter [place] [address] Casey Ramsey MD [facility] [address] [place] [address] Knee pain, left Discharge Disposition: Home Social [...] pm. After hours call for the doctor passport application examiner. [address] ??? [place] [address] ??? [phone] ??? [email or web address] [employer] ??? [facility] ??? [facility] ??? [facility], [place], [place] POST ANESTHESIA INSTRUCTIONS Go home, rest, [...] this encounter Miscellaneous Notes * Miscellaneous - Zarina Covarrubias - 05/29/2013 3:51 PM EST * Op Note - Casey Ramsey MD - 05/29/2013 8:08 AM EST [facility] [place] [place] Operative Note Patient Name: Francisco J Alvarez Jr. : [id number] MR#: [id number] Case Date: 05/29/2013 Surgeon: Surgeon(s) and Role: * Casey Ramsey MD - Primary * Orlando Torres III, MD - Resident-Surgeon Chief * Shannon Ramos PA - Physician Research Leader PROCEDURES: 1. left knee diagnostic arthroscopy. 2. [...] marked the surgical site with a green [place] vie[place] in the pre-op area. DESCRIPTION OF OPERATIVE [...] anesthesiology staff. The patient was transferred [facility] in good condition. There appeared to [...] Patient Name: Francisco J Alvarez Jr. : [id number] MR#: [id number] Case Date: 05/29/2013 Surgeon: Surgeon(s) and Role: * Casey Ramsey MD - Primary * Orlando Torres III, MD - Resident-Surgeon Chief * Shannon Ramos PA - Physician Research Leader Preoperative diagnosis: mensical tear Postoperative diagnosis: mensical [...] Given 05/29/2013 8:45 AM EST 1,000 mg lactated ringers infusion 1,000 mL 1,000 mL, [...] Routine documented in this encounter Care Teams Terminal Block Assembler Relationship Specialty Start Date End Date Quan Bingham MD PCP - General 04/09/13 07/23/20 documented as of this encounter
--- OUTSIDE RECORDS SUMMARY | 2024-03-08 14:59 | XMS_ITS | Encounter Summary ---
Author Organization [facility] Address [address] [place] [address] Care Team Providers Care Telehealth Case Manager Name Role Phone Ayaka Wilcox MD Primary Care Provider Encounter Details Date Type Department Care Team (Late st Contact Info) Description 07/19/2016 Results Only [facility] [phone] Michel Archer MD [address] [place] [id number] Social History Tobacco Use Types Packs/Day Years [...] disorder Not on track(2013 9:39 EDT) Yes Ayaka Wilcox Note: Goal: continue improved diet, smaller portions Confidence level (1= Not very confident; 10 = Very confident): 9 Barriers: None documented as of this encounter Procedures Procedure Name Priority Date/Time Associated Diagnosis Comments SURGICAL PATHOLOGY Routine 07/19/2016 9:47 EST documented in this encounter Results * SURGICAL PATHOLOGY (07/19/2016 9:47 EST) Pathology Report: SURGICAL PATHOLOGY REPORT Reports generated via electronic interface contain original data; however they are lacking the format of the original report. Caution should be taken when reading/interpret ing unformatted reports. Name: ? FRANCISCO J ALVAREZ JR ? Accession #: ? [id number] ? : ? 1950 (Age: 66) ??M ? Collect Date: ? 07/19/2016 ? Location: ? [facility] ? Receive Date: ? 07/20/2016 ? Provider: MICHEL ARCHER MD Copy to: AYAKA WILCOX MD ? Final Pathologic Diagnosis: TISSUE FROM LEFT SCROTUM, HEMATOMA SAC, RESECTION: - Portions of membranous fibroadipose tissue with fibrosis, organizing fibrino-blood coagulum, and focal mild chronic inflammation. - Features consistent with clinical hematoma sac. Document reviewed and electronically signed by: Emily Huddleston MD Report ??Date: 07/24/2016 17:22 By the signature above, the attending physician certifies that he/she has personally conducted a gross and/or microscopic examination of the described specimens and rendered or confirmed the above diagnosis. Specimen(s) Received: Scrotal hematoma sac Clinical History: S/P L hydrocelectomy 02/2016; postop mass, avascular by U/S, suspected organized hematoma Gross Description: ? Received in formalin labelled with proper patient identification (initials A, A) and scrotal hematoma sac are multiple irregular saccular sheets of fibrous tissue measuring 12.0 x 10.5 x 2.8 cm in aggregate. One surface of each tissue is smooth to slightly irregular, dusky, moreno-brown, and focally coated by fibrinous brown material. The opposing surfaces are smooth to focally ragged and velazquez-purple. Sections through the tissues show a dense wall, ranging from 0.2-0.7 cm in thickness. Rooming House Operator sections are submitted in 1 and 2. ADRIANA Lacey (ASCP) 07/20/2016 1:35 PM End of Report [facility] 07/19/2016 9:47 EST 07/20/2016 9:47 EST Michel Archer MD PATHOLOGY ORDERABLES [facility] [address] [place] [address] documented in this encounter Visit Diagnoses Not on filedocumented in this encounter Care Teams Telehealth Case Manager Relationship Specialty Start Date End Date Ayaka Wilcox MD [address] [place] [phone] PCP - General 05/27/13 08/09/16 documented as of this encounter
--- OUTSIDE RECORDS SUMMARY | 2024-03-08 14:59 | XMS_ITS | Encounter Summary ---
Author Organization [facility] Address [address] [place] [address] Care Team Providers Care Allergy Physician Name Role Phone Quan Bingham MD Primary Care Provider Unknown, Provider Primary Care Provider [phone] Reason for Visit * Reason Onset Date Comments Medications Refill 10/16/2016 Encounter Details Date Type Department Care Team (Late st Contact Info) Description 10/16/2016 Refill [facility] [address] [place], [place] [phone] Quan Bingham MD [address] [place] [address] [address] [place] [phone] Medications Refill Social History Tobacco Use Types Packs/Day Years [...] encounter Miscellaneous Notes * Telephone Encounter - Tonia Garrett RN - 10/16/2016 1712 EDT Patient is no longer in this practice as on Sunday. * Telephone Encounter - Venice Dumont - 10/16/2016 1646 EDT Patient called, let him know to schedule an appointment. Patient stated he has a new PCP and an appointment next Sunday. * Telephone Encounter - Tonia Garrett, ANAYA - 10/16/2016 1604 EDT Last Refill Date: 09/29/15 Last Visit Date with Ordering Provider: 09/29/15 Next Visit Date as it relates to the requested medication: Please Schedule an Appointment. Last Related Labs Date: 09/29/15 BMP Tonia Garrett RN 10/16/2016 16:04 * Telephone Encounter - Татьяна Blas - 10/16/2016 1530 EDT Medication(s) Requested: Metoprolol Preferred Pharmacy: [facility] Is patient out of medication? Unknown Татьяна Blas 10/16/2016 15:30 documented in this encounter Plan of Treatment [...] as of this encounter Visit Diagnoses Diagnosis Essential hypertension with goal blood pressure less than 140/90- Primary documented in this encounter Care Teams Allergy Physician Relationship Specialty Start Date End Date Quan Bingham MD [address] [place] [address] PCP - General 10/16/16 10/16/16 Unknown, ProviderMD [address] [place] [address] PCP - General 10/17/16 documented as of this encounter
--- OUTSIDE RECORDS SUMMARY | 2024-03-08 14:59 | XMS_ITS | Encounter Summary ---
Author Organization [facility] [place] [address] Care Team Providers Care Research Asst Name Role Phone Quan Bingham MD Primary Care Provider [phone] Encounter Details Date Type Department Care Team (Late st Contact Info) Description 09/15/2013 Telephone [place] [phone] Casey Cota MD [facility] [place] [address] Social History Tobacco Use Types Packs/Day Years [...] Telephone Encounter - Kyle Waggoner RN - 09/15/2013 12:42 PM EDT Message left for patient to call back with where he would like for us to send the prescription for a medial compartment off acid loader knee brace. * Telephone Encounter - Kyle Waggoner RN - 09/15/2013 11:05 AM EDT Spoke with Mr Alvarez. He had cortisone injection in his knee last week. He states that for the first two days there was a little relief but by the third day it was worse than before the injections. He has continue to have pain since then. He is wearing the ANGELINA stocking and it has helped some with theswelling. He is ready for the next step. Possibly the brace if that is what Dr Cota feels is best. * Telephone Encounter - Terri Logan - 09/15/2013 10:35 AM EDT Patient was told by Dr. Cota to call and discuss the possibility of injection. Patient can be reached at [phone]. documented in this encounter Plan of Treatment Not on file documented as of this encounter Visit Diagnoses Diagnosis Left knee pain- Primary Pain in joint, lower leg documented in this encounter Care Teams Research Asst Relationship Specialty Start Date End Date Quan Bingham MD PCP - General 04/09/13 07/23/20 documented as of this encounter
--- OUTSIDE RECORDS SUMMARY | 2024-03-08 14:59 | XMS_ITS | Encounter Summary ---
Author Organization [facility] Address [address] [place] [address] Care Team Providers Care Technical Solutions Consultant Name Role Phone Quan Bingham MD Primary Care Provider Unknown, Provider Primary Care Provider [phone] Quan Bingham MD Primary Care Provider Unknown, Provider Primary Care Provider [phone] Reason for Visit * Reason Comments Other Encounter Details Date Type Department Care Team (Late st Contact Info) Description 01/10/2015 Refill [facility] [address] [facility] [address] [place] [address] Quan Bingham MD [address] [place] [address] [address] [place] [phone] Other Social History Tobacco Use [...] Dispensed Refills Start Date End Da te metoprolol XL (TOPROL-XL) 100 mg tablet Take 1 Tab by mouth daily 90 Tab 3 01/11/2015 09/29/2015 documented in this encounter Miscellaneous Notes * Telephone Encounter - Staci Rosenthal RN - 01/11/2015 1032 EDT Patient called back. He said he had decreased for a short time to half a tab (50 mg) metoprolol, but after his knee surgery he had to go up to [address] Bingham if ok to refill at 100 mg? * Telephone Encounter - Staci Rosenthal RN - 01/11/2015 1013 EDT Metoprolol last ordered 06/29/14-in prism as NO Print Last lab May 2014 Last OV 08/31/14 Called pharmacy-pharmacist said patient has been getting metoprolol 100 mg, dose 100 mg, take one daily for past year (from May) It was last filled December 2014, same metoprolol 100 mg extended release, dose 100 mg. Noted at OV Jun 02 2014, plan was to decrease metoprolol to 50 mg. Attempted to call patient, to ask if he is taking a whole or half tablet of metoprolol? No answer. Left message to call back Routing to inform Dr Bingham of dose difference documented in this encounter Plan of Treatment [...] on filedocumented in this encounter Care Teams Technical Solutions Consultant Relationship Specialty Start Date End Date Quan Bingham MD [address] [place] [phone] PCP - General 05/27/13 08/09/16 Unknown, Provider, [address] [place] [phone] PCP - General 08/10/16 10/15/16 Quan Bingham MD [address] [facility] [address] [place], [place] [phone] PCP - General 10/16/16 10/16/16 Unknown, Provider, [address] [facility] [address] [place] [phone] PCP - General 10/17/16 documented as of this encounter
--- OUTSIDE RECORDS SUMMARY | 2024-03-08 14:59 | XMS_ITS | Encounter Summary ---
Author Organization [facility] [place] [address] Care Team Providers Care Alberene Stone Setter Name Role Phone Edith Gaming DO Primary Care Provider Unava ilable Reason for Visit * Reason Comments Hypertension * Consultation (Routine) - Closed Specialty Diagnoses / Procedures Referred By Contdejuan t Referred To Contact Cardiology Diagnoses Deficiency of other specified B group vitamins Edith Gaming DO [address] [place] [phone] Vasile Grover MD [facility] [place] [address] Referral ID Status Reason Start Date Expiration Date V isits Requested Visits Authorized [id number] Closed Consult, Test & Treat Connection [facility] PCP Updated and/or Approved 07/16/2020 07/16/2021 10 10 Encounter Details Date Type Department Care Team (Latest Contact Info) Description 08/18/2020 2:20 PM EDT Office Visit Cardiology at [address] [phone] Vasile Grover MD [facility] [place] [address] At risk for cardiovascular event Social History Tobacco Use Types Packs/Day Years [...] Sign Reading Time Taken Comments Blood Pressure 139/76 08/18/2020 2:20 PM EDT Pulse 55 08/18/2020 2:20 PM EDT Temperature - - Respiratory Rate - - Oxygen Saturation - - Inhaled Oxygen Concentration - - Weight 130.2 kg (287 lb) 08/18/2020 2:20 PM EDT Height 190.5 cm (6' 3) 08/18/2020 2:20 PM EDT Body Mass Index 35.87 08/18/2020 2:20 PM EDT documented in this encounter Progress Notes * Vasile Grover MD - 08/18/2020 2:20 PM EDT Images from the original note were not included. CARDIOLOGY NEW OUTPATIENT PRIMARY CARE PROVIDER: Edith Gaming DO PROBLEM LIST: Patient Active Problem List Diagnosis ??? Obstructive sleep apnea 2012, CPAP ??? Psoriasis Gluteal cleft ??? Hydrocele Left Chronic, about 2004 ??? Snoring ??? Colon polyp 2010-normal, Due in 2020 ??? Hypertensive disorder MEDICATIONS: Current Outpatient Medications Medication Sig Dispense Refill ??? lisinopriL (Prinivil;Zestril) 10 mg Tablet Take 10 mg by mouth daily. ??? ELIDEL 1 % cream Apply topically 2 times daily as needed. ??? FLUOCINONIDE-EMOLLIENT 0.05 % cream 2 times daily as needed. ??? metoprolol succinate (TOPROL-XL) 100 mg XL tablet Take 100 mg by mouth daily. ??? ibuprofen (ADVIL;MOTRIN) 200 mg tablet Take 800 mg by mouth as needed. No current facility-administered medications for this visit. Subjective: Patient ID: Francisco J Alvarez Jr. is a 70 y.o. male. HPI: 70 M referred by GP for coronary artery disease risk stratification and possible preventive measures. Patient is rather healthy, carrying a diagnosis of HTN. Does not smoke. He has stated fhx, and thusrisk stratification with the below markers were delved into. He is reasonably active without exertional symptomatology. Coronary risk factors: Smokin Diabetes:0 Hypercholesterolemia: 0 Hypertension: + Family history of premature disease: n/a Objective: BP 139/76 (BP Location (NBP): Left arm, Patient Position: Sitting, BP Cuff Sizes: Large Adult (32-43 cm)) Pulse 55 Ht 190.5 cm (6' 3) Wt 130.2 kg (287 lb) BMI 35.87 kg/m?? Gen: pleasant male in NAD Cor: rrr, s1/s2 of nl character and amplitude, no m/r/g. Estimated RAP not elevated. Carotids without bruit. Pulm: CTAB. Normal diaphragmatic movement without use of accessory muscles Ext: no c/c/e. Dp/pt ++ Lipids 06/2020: HDL 30, LDL 89, TG 232 CRP 06/2020 10.4 (ULN 7.5) Elevated homocysteine Per risk calculator, 20% decade-risk of MACE, even with normal BP. 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 Although he has low HDL, his LDL in the absence of significant coronary artery disease and DM is excellent. I reviewed that an elevated CRP in this setting is ofquestionable further guidance. That is, we typically use it as a tie-breaker in patients who haveborderline cholesterol profile and risks but dont qualify for statins in the current guidelines. Estela background of already low-risk cholesterol profile, this elevation does not re-stratify his risk.Also reviewed that it is non-specific, measuring general inflammation rather than portraying a specific cardiac risk The homocyteine level was next reviewed. Discussed that it was previously thought that this would be a helpful predictor of risk, given that patients with familial homocysteinemia are at very high risk of arterial and venous thrombosis. However, outside of this realm, recently it has only been linked to vascular calcium. While this latter pathology is a risk factor for MACE, there is no gradationto risk, and thus is not utilized for such. The question seems to be, Based on my normal cholesterol profile but still increased risk of 10-year MACE (mostly due to age), is there a better measurement of my actual risk, both short term and residential?. This question is best answered by a calcium score, which has upended non-cholesterol risk stratifications in both accuracy and utility. - Calcium Score CT (no contrast) Vasile Grover MD documented in this encounter Plan of Treatment Not on file documented as of this encounter Visit Diagnoses Diagnosis At risk for cardiovascular event documented in this encounter Care Teams Alberene Stone Setter Relationship Specialty Start Date End Date Edith Gaming DO PCP - General Family Medicine 07/24/20 04/23/23 documented as of this encounter
--- OUTSIDE RECORDS SUMMARY | 2024-03-08 14:59 | XMS_ITS | Encounter Summary ---
Author Organization [place] [address] Care Team Providers Care Credit Report Checker Name Role Phone Quan Bingham MD Primary Care Provider Encounter Details Date Type Department Care Team (Late st Contact Info) Description 05/29/2013 7:26 AM EST Anesthesia [place] [phone] Edith Ruiz MD [facility] [place] [address] Mayank Hussein MD [facility] [place] [address] Anesthesia Record Procedure Summary Procedure Name Responsible Anesthesiologist Anesthesia Start Time Anesthesia Stop Time ARTHROSCOPY KNEE, MENISCECTOMY SINGLE W/ SHAVING (WRVU 7.03) (Left: Knee) Edith Ruiz MD 05/29/13 0726 05/29/13 0819 Events Date Time Event Comment 05/29/2013 0722 0726 Start 0731 AN Verify 0731 An Start Data 0735 An Induction 0736 An Intubation 0737 Anesthesia Ready 0746 Procedure Start 0751 An Tourn Inflated 0800 An Data Art Nasal temp prob e became dislodged. 0808 An Tourn Deflated 0815 Extubation/LMA Out 0815 an stop data 0819 Stop Meds Name Total Midazolam 2 mg fentaNYL 125 mcg propofol 250 mg Ondansetron 4 mg ceFAZolin (ANCEF) 2g in dextrose 5% 50 m L 2 g ketorolac 30 mg lactated ringers infusion 1,000 mL 0 mL * Agents Name O2 Air Sevoflurane (et) * Blood No blood administrations on file. Lines, Drains, and Airways Type Details Placement Removal Incision 05/29/13; knee; 01/09/22 (LDA cleanup utility RA#[id number]); 1715 (LDA cleanup utility RA#[id number]) 05/29/13 0000 by Steven Sal RN 01/09/22 1715 by Imelda Griggs (RETIRED) Peripheral IV Line - Single Lumen 05/29/13; 0627; 05/29/13; 0859 05/29/13 0627 by Sheyla Turner RN 05/29/13 0859 by Monika Beard RN (RETIRED) Non-Surgical Airway LMA Type: iGel; LMA Size: 4; Removal Date: 05/29/13; Removal Time: 81405/29/13 0736 by Mayank Hussein MD 05/29/13 0815 by Mayank Hussein MD documented in this encounter Social History Tobacco Use Types Packs/Day Years Used Date Smoking Tobacco: Never Smokeless Tobacco: Never Alcohol Use Standard Drinks/Week Comments No 0 (1 standard drink = 0.6 oz pur e alcohol) Sex and Gender Information Value Date Recorded Sex Assigned at Male 08/16/2020 1:10 PM EDT Gender Identity Not on file Sexual Orientation Not on file documented as of this encounter OR Notes * Anesthesia Postprocedure Evaluation - Edith Ruiz MD - 05/29/2013 2:00 PM EST Patient: Francisco J Alvarez Jr. Procedure(s) Performed: Procedure(s): ARTHROSCOPY KNEE, MENISCECTOMY SINGLE W/ SHAVING Actual Anesthetic: No value filed. Patient location: PACU Post-op pain: Adequate analgesia Post-op nausea: no nausea or vomiting Last Vitals: Filed Vitals: 05/29/13 0835 BP: 164/82 Pulse: 56 Temp: Resp: 15 Post-op cardiovascular and respiratory status: is stable Level of consciousness: awake, alert and oriented Complications: no apparent complications and tolerated the procedure well Fluid Status: normal * Anesthesia Preprocedure Evaluation - Edith Ruiz MD - 05/28/2013 8:52 PM EST Pre-Anesthesia Evaluation for: Francisco J Alvarez Jr. a 63 y.o. male. Procedure(s): ARTHROSCOPY KNEE, MENISCECTOMY SINGLE W/ SHAVING Patient Active Problem List Diagnosis ??? Knee pain ??? Snoring Past Medical History Diagnosis Date ??? HTN (hypertension) ??? Hypertension ??? ENVIRONMENTAL ALLERGIES terrible as a child ??? Asthma mostly as a child, no meds for asthma now ??? Back pain ??? Obesity ??? GERD (gastroesophageal reflux disease) spicy food late at night leads to heart burn ??? Hypertensive disease ??? Skin disorder Past Surgical History Procedure Date ??? Total knee arthroplasty ??? Unlisted evaluation service ??? Musculoskeletal surgery unlisted 1993 right knee cartilidge tear playing basketball History Substance Use Topics ??? Smoking status: Never Smoker ??? Smokeless tobacco: Never Used ??? Alcohol Use: No History Drug Use No No Known Allergies Medications: MAR and/or home medications have been reviewed. Physical Exam: There were no vitals filed for this visit. There is no height or weight on file to calculate BMI. Airway Assessment: Mallampati: II TM distance: >3 FB Neck ROM: full Cardiovascular Assessment: Rhythm: regular Rate: normal Pulmonary Assessment: breath sounds clear to auscultation Dental Assessment: - normal exam [facility] [place] Assessment: Anesthesia Plan: ASA 2 general, with a(n) intravenous induction 63 y.o. male here for knee arthroscopy. Past medical history, past surgical history, medications, and allergies reviewed; notable for HTN, childhood asthma, obesity and WILNER. Allergies: No Known Allergies NPO: Yes Anesthetic History: No complications Type and Screen: No results found for this basename: ABORH Anesthetic plan of GA vs spinal discussed, pt prefers GA/no contraindication to LMA. Risks, benefits, and alternatives of anesthetic plan discussed. Questions sought and all answered. Consent obtained. Region - Other Informed Consent: Anesthetic plan and risks discussed with patient and spouse. Plan discussed with resident. [facility] [place]. Assessment: documented in this encounter Plan of Treatment Not on file documented as of this encounter Visit Diagnoses Not on filedocumented in this encounter Administered Medications Inactive Administered Medications - up to 3 most recent administrations Medication Order MAR Action Action Date Dose Rate Site ceFAZolin (ANCEF) 2g in dextrose 5% 50 mL 2 g, Intravenous, EVERY 8 HOURS, First dose on Vielka 05/29/13 at 0645, Until Discontinued, Indication for (Active or Suspected): Pneumonia (Health-Care) Given 05/29/2013 7:37 AM EST 2 g fentaNYL 50mcg/mL injection PRN, Starting on Vielka 05/29/13 at 0732, Until Vielka 05/29/13 at 1001, Pain, Anesthesia Intra-op, Routine Given 05/29/2013 8:04 AM EST 25 mcg Given 05/29/2013 7:50 AM EST 50 mcg Given 05/29/2013 7:32 AM EST 50 mcg ketorolac (TORADOL) injection PRN, Starting on Vielka 05/29/13 at 0808, Until Vielka 05/29/13 at 1001, Pain, Anesthesia Intra-op, Routine Given 05/29/2013 8:08 AM EST 30 mg midazolam (VERSED) injection PRN, Starting on Vielka 05/29/13 at 0726, Until Vielka 05/29/13 at 1001, Sleep, Anesthesia Intra-op, Routine Given 05/29/2013 7:26 AM EST 2 mg ondansetron (ZOFRAN) injection PRN, Starting on Vielka 05/29/13 at 0808, Until Vielka 05/29/13 at 1001, Nausea, Anesthesia Intra-op, Routine Given 05/29/2013 8:08 AM EST 4 mg propofol (DIPRIVAN) 10 mg/mL bolus injection (Anesthesia) PRN, Starting on Vielka 05/29/13 at 0735, Until Vielka 05/29/13 at 1001, Anesthesia Intra-op Given 05/29/2013 7:35 AM EST 250 mg documented in this encounter Care Teams Credit Report Checker Relationship Specialty Start Date End Date Quan Bingham MD PCP - General 04/09/13 07/23/20 documented as of this encounter
--- OUTSIDE RECORDS SUMMARY | 2024-03-08 14:59 | XMS_ITS | Referral Summary ---
Author Organization [facility] Address [address] [place] [address] Care Team Providers Care Pneumatic Tool Repairer Name Role Phone Unknown, Provider Primary Care Provider [phone] Allergies Active Allergy Reactions Criticality Noted Date [...] cleft Hydrocele 12/20/2012 Overview: Left Chronic, about 2005 Hypertensive disorder 08/26/2009 Colon polyp 08/26/2009 Overview: 2010-normal, Due in 2020 Immunizations Name Administration Dates Next Due Influenza Vaccine Quad (AFLURIA) PF 0.5 ml IM (3 yrs+) 03/30/2014 Tdap Vaccine =>7YO IM 10/02/2013 Tetanus Vaccine IM, Historical 05/14/2003 Zostavax (Zoster Vaccine, Live) SQ 10/02/2013 Social History Tobacco Use Types Packs/Day Years [...] 36.25 09/29/2015 0841 EDT Plan of Treatment Not on file Goals Goal Patient Goal Type Associated Problems [...] CARE * CREATININE (08/21/2012) Creatinine, External 1.1 [facility] GFR, Calculated, External >60 [facility] Blood specimen (specimen) 08/21/2012 Historical Provider CHEMISTRY & BLOOD GAS ORDERABLES Performing Organization Address [facility]/ZIP Co de Phone Number [facility] * COLONOSCOPY (05/09/2011) Colonoscopy NORMAL [facility] Comment:REPEAT IN 2020 Colonoscopy, External [facility] Anatomical Region Laterality Modality Endoscopy 05/09/2011 Historical Provider GI PROCEDURE ORDE JOSHUA from Last 3 Months or Most Recently Relevant to Health Maintenance Care Teams Pneumatic Tool Repairer Relationship Specialty Start Date End Date Unknown, Provider, PCP - General 10/17/16
--- OUTSIDE RECORDS SUMMARY | 2024-03-08 14:59 | XMS_ITS | Encounter Summary ---
Author Organization [facility] Address [address] [place] [address] Care Team Providers Care Harness Worker Name Role Phone Unknown, Provider Primary Care Provider Encounter Details Date Type Department Care Team (Late st Contact Info) Description 12/15/2022 Lab Requisition [facility] Pathology & Laboratory Medicine - [address] [address] Marvin Foster MD [address] [place] [id number] Disorder of the skin and subcutaneous tissue, unspecified Social History Tobacco Use Types Packs/Day Years [...] Priority Date/Time Associated Diagnosis Comments SURGICAL PATHOLOGY Today 12/14/2022 9: 00 EDT Disorder of the skin and subcutaneous tissue, unspecified documented in this encounter Results * SURGICAL PATHOLOGY (12/14/2022 9:00 EDT) Note to Patient The following pathology results have been interpreted by your pathologist and may be available to you before your health provider has had the opportunity to review them. Please allow time for your provider to receive these results and explore management options, if applicable. 12/19/2022 14:43 [facility] Final Diagnosis A. SKIN OF NOSE, TIP, SHAVE BIOPSY: - Actinic keratosis, inflamed. See comment. 12/19/2022 14:43 [facility] Diagnosis Comment Numerous sections of the biopsy were reviewed. The biopsy consists of superficial portions of skin with features of actinic keratosis. Given the clinical history suggesting that this is a small biopsy of a larger lesion, correlation with the clinical history and examination is recommended. 12/19/2022 14:43 [facility] Attestation By the signature below, the attending physician certifies that they have 1) personally conducted a gross and/or microscopic examination of the described specimen(s), and/or personally interpreted the results of laboratory testing of the described specimen(s), and 2) personally rendered or confirmed the above diagnosis. 12/19/2022 14:43 [facility] at 1443 Microscopic Description Sections consist of small fragmented portions of skin consisting primarily of stratum corneum and epidermis. The stratum corneum has parakeratosis and crust with bacterial colonies. Portions of epidermis show variable degree of basal nuclear atypia with enlargement and dispolarity. There is elastosis. Numerous additional, deeper sections show similar features. 12/19/2022 14:43 [facility] Clinical History Present greater than 6 months; bleeding daily x2 months, 1 cm ulcerated; clinical diagnosis code: L98.9 12/19/2022 14:43 EDT [facility] Gross Description A. Received in formalin labelled with proper patient identification (initials A, A) and tip of nose is a 0.3 x 0.2 by less than 0.1 cm white-moreno crusted and friable skin shave. The specimen is submitted in toto in A1. ADRIANA FRAZIER(ASCP) 12/15/2022 15:10 12/19/2022 14:43 EDT [facility] Performing Lab [facility] 12/19/2022 14:43 EDT [facility] Scanned Images 12/19/2022 14:43 EDT [facility] Tissue TISSUE SPECIMEN FROM SKIN / Unknown 12/14/2022 9:00 EDT 12/15/2022 9:06 EDT Marvin Foster MD PATHOLOGY ORDERABLES [facility] [address] [place] [address] documented in this encounter Visit Diagnoses Diagnosis Disorder of the skin and subcutaneous tissue, unspecified documented in this encounter Care Teams Harness Worker Relationship Specialty Start Date End Date Unknown, Provider, PCP - General 10/17/16 documented as of this encounter
--- OUTSIDE RECORDS SUMMARY | 2024-03-08 14:59 | XMS_ITS | Encounter Summary ---
Author Organization [facility] Address [address] [place] [address] Care Team Providers Care Mathematics Technician Name Role Phone Quan Bingham MD Primary Care Provider Reason for Visit * Reason Onset Date Comments Medication Management 09/16/2015 Encounter Details Date Type Department Care Team (Late st Contact Info) Description 09/16/2015 Telephone [facility] Family Medicine - [place] [address] [facility] [address] [place] [address] Quan Bingham MD [address] [place] [phone] Medication Management Social History Tobacco Use Types Packs/Day Years [...] encounter Miscellaneous Notes * Telephone Encounter - Jessica Lehman - 09/16/2015 1227 EDT Doesn't need rx found * Telephone Encounter - Jessenia Aniya - 09/16/2015 1208 EDT Reason for Call: Medication Management Summary/Symptoms: Patient calling asking wether or not he can get his Enalapril refilled today. He uses the [facility] [place]. Please advise. Onset and Duration? Today Appointment Offered? No Aniya Ruelas 09/16/2015 12:08 documented in this encounter Plan of Treatment [...] on filedocumented in this encounter Care Teams Mathematics Technician Relationship Specialty Start Date End Date Quan Bingham MD [address] [place] [phone] PCP - General 05/27/13 08/09/16 documented as of this encounter
--- OUTSIDE RECORDS SUMMARY | 2024-03-08 14:59 | XMS_ITS | Encounter Summary ---
Author Organization [facility] Address [address] [place] [address] Care Team Providers Care Front Maker Name Role Phone Unknown, Provider Primary Care Provider [phone] Reason for Visit * Reason Onset Date Comments Medications Refill 12/11/2016 Encounter Details Date Type Department Care Team (Late st Contact Info) Description 12/11/2016 Refill [facility] Family Medicine - [address] [place], [place] [id number] Quan Bingham MD [address] [place] [address] [address] [place] [phone] Medications Refill Social History Tobacco [...] Telephone Encounter - Tonia Garrett RN - 12/11/2016 1352 EDT Patient is no longer with this practice. See encounter from 10/16/16. documented in this encounter Plan of Treatment [...] Primary documented in this encounter Care Teams Front Maker Relationship Specialty Start Date End Date Unknown, Provider, PCP - General 10/17/16 documented as of this encounter
--- OUTSIDE RECORDS SUMMARY | 2024-03-08 14:59 | XMS_ITS | Encounter Summary ---
Author Organization [facility] Address [address] [place] [address] Care Team Providers Care Certified Pest Control Technician Name Role Phone Unknown, Provider Primary Care Provider Encounter Details Date Type Department Care Team (Late st Contact Info) Description 11/21/2022 Lab Requisition [facility] - [address] [id number] Davonte Mata MD [address] [place] [phone] Encounter for screening for malignant neoplasm of colon Social History Tobacco Use Types Packs/Day Years [...] Date/Time Associated Diagnosis Comments SURGICAL PATHOLOGY Today 11/20/2022 10 :55 EDT Encounter for screening for malignant neoplasm of colon documented in this encounter Results * SURGICAL PATHOLOGY (11/20/2022 10:55 EDT) Note to Patient The following pathology results have been interpreted by your pathologist and may be available to you before your health provider has had the opportunity to review them. Please allow time for your provider to receive these results and explore management options, if applicable. 11/27/2022 10:30 [facility] Final Diagnosis A. 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 See comment. 11/27/2022 10:30 [facility] Diagnosis Comment Within the lamina propria, there are prominent collections of foamy histiocytes consistent with xanthoma/xanthoma tous inflammation. Deeper levels were examined. The technical component of the specimen processing was performed at the [facility] Pathology Department, [address] [place] [address] (CLIA [id number]). The professional component of the specimen evaluation (slide review and issuing of the final diagnosis) was performed at [facility], [address] [place] [address] (CLIA License Number [id number]). 11/27/2022 10:30 [facility] Attestation By the signature below, the attending physician certifies that they have 1) personally conducted a gross and/or microscopic examination of the described specimen(s), and/or personally interpreted the results of laboratory testing of the described specimen(s), and 2) personally rendered or confirmed the above diagnosis. 11/27/2022 10:30 [facility] at 1030 Clinical History Screening colonoscopy, diverticulosis; clinical diagnosis code: Z12.11 11/27/2022 10:30 [facility] Gross Description A. Received in formalin labelled with proper patient identification (initials A, A) and rectum polyp cold snare is a light moreno tissue measuring 0.4 x 0.3 x 0.2 cm. Submitted intact in A1. ADRIANA OLIVA(ASCP) 11/21/2022 18:57 11/27/2022 10:30 EDT [facility] Performing Lab [facility] 11/27/2022 10:30 EDT [facility] Scanned Images 11/27/2022 10:30 EDT [facility] Tissue SPECIMEN FROM RECTUM / Unknown 11/20/2022 10:55 EDT 11/21/2022 15:03 EDT Davonte Mata MD PATHOLOGY ORD ERABLES [facility] [address] [place] [address] documented in this encounter Visit Diagnoses Diagnosis Encounter for screening for malignant neoplasm of colon Special screening for malignant neoplasms, colon documented in this encounter Care Teams Certified Pest Control Technician Relationship Specialty Start Date End Date Unknown, Provider, PCP - General 10/17/16 documented as of this encounter
--- OUTSIDE RECORDS SUMMARY | 2024-03-08 14:59 | XMS_ITS | Encounter Summary ---
Author Organization [facility] [place] [address] Care Team Providers Care Senior Grant Writer Name Role Phone Quan Bingham MD Primary Care Provider [phone] Reason for Visit * Reason Comments Left Knee Pain Encounter Details Date Type Department Care Team (Late st Contact Info) Description 04/09/2013 10:00 AM EST Office [place] [phone] CLINIC, Tee Chawla, [place] [facility] [place] [address] Knee pain (Primary Dx) Discharge Disposition: Home Social History [...] Sign Reading Time Taken Comments Blood Pressure 144/74 04/09/2013 10:42 AM EST Pulse 50 04/09/2013 10:42 AM EST Temperature - - Respiratory Rate - - Oxygen Saturation - - Inhaled Oxygen Concentration - - Weight 140.6 kg (310 lb) 04/09/2013 10:42 AM EST Height 190.5 cm (6' 3) 04/09/2013 10:42 AM EST Body Mass Index 38.75 04/09/2013 10:42 AM EST documented in this encounter Progress Notes * Tee Higginbotham PA - 04/09/2013 12:33 PM EST DATE OF VISIT: 04/09/2013 CHIEF COMPLAINT: Left knee pain. HISTORY OF PRESENT ILLNESS: A 62-year-old male presents today for evaluation of his knee. He has had several years of intermittent symptoms, stiffness, achiness, and decreased range of motion at times. In the last two months, had a dramatic increase in symptoms without injury or new activity. He woke to find his range of motion limited to 90 degrees. He had marked medial joint pain as well as anterior knee discomfort with full flexion. No significant instability to the knee. There is stiffness after a prolonged sitting and a sense of gelling within the knee. There has been some swelling to the knee that again comes and goes. He has tried exop-aop-pwgltpi medications and modalities without dramatic improvement. He did find that heat made things much worse. There will be at times some clicking in the knee. No catching or locking. His health has been stable aside from the knee. He has had no arthroscopic procedure on his right knee, which does well. PHYSICAL EXAMINATION: Ambulatory without antalgia or assistive devices. The left knee shows small effusion and synovial fullness. Able to straight leg raise without difficulty or lag. No increased pain or laxity with varus and valgus stress. Negative drawer. Negative Olman. There is medial joint tenderness. No lateral tenderness. He has no pain with patellar mobilization. Flexion limited to 105 degrees with anterior pressure. There is increased pain with Rigo's maneuver. Hip range of motion well tolerated without increased pain or apprehension. X-RAYS: X-rays taken today reviewed with the patient in the office, four views of the left knee showing symmetric medial joint space narrowing compared to the contralateral knee. No evidence of loose body or chondrocalcinosis. No signs of subchondral lesions. MRI: MRI study reviewed showing diffuse cartilage loss in the medial and patellofemoral compartments with degenerative-type tearing of the posterior horn of the medial meniscus. Cruciates and collaterals are intact. ASSESSMENT: Left knee degenerative meniscus tear. PLAN: We discussed his symptoms. We reviewed a range of treatment options today. He likely has two problems at this point. An arthroscopic surgery could address meniscal symptoms, but would unlikely improve any of his arthritic-type symptoms. We discussed management options for arthritis and indications for knee replacement. For today, we will pursue cortisone injection. If he fails to see improvement, arthroscopic surgery would be considered. We will follow up with him after his injection. Procedure: Time-out was performed. After consent was obtained, using sterile technique the left knee was prepped and 3 ml's of 1% plain Lidocaine used to anesthetize the needle tract into the joint from the suprapatellar approach. The knee joint was entered and 35 mg kenalog and 2 ml plain Lidocaine was then injected and the needle withdrawn. The procedure was well tolerated. The patient is askedto continue to rest the knee for a few more days before resuming regular activities. It may be morepainful for the first 1-2 days. Watch for fever, or increased swelling or persistent pain in knee. Call or return to clinic prn if such symptoms occur or the knee fails to improve as anticipated. documented in this encounter Plan of Treatment Not on file documented as of this encounter Visit Diagnoses Diagnosis Knee pain- Primary Pain in joint, lower leg documented in this encounter Administered Medications Inactive Administered Medications - up to 3 most recent administrations Medication Order MAR Action Action Date Dose Rate Site BUpivacaine (PF) (MARCAINE) 0.25 % (2.5 mg/mL) injection 5 mg 5 mg, Intra-articular, ONCE, 1 dose, On Sun04/09/13 at 1300, Routine Given 04/09/2013 12:40 PM EST 5 mg lidocaine (PF) (XYLOCAINE) 10 mg/mL (1 %) injection 50 mg 50 mg, Subcutaneous, ONCE, 1 dose, On Sun04/09/13 at 1300, Routine Given 04/09/2013 12:40 PM EST 50 mg triamcinolone acetonide (KENALOG) injection 35 mg 35 mg, Intra-articular, ONCE, 1 dose, On Sun04/09/13 at 1300, Routine Given 04/09/2013 12:40 PM EST 35 mg documented in this encounter Care Teams Senior Grant Writer Relationship Specialty Start Date End Date Quan Bingham MD PCP - General 04/09/13 07/23/20 documented as of this encounter
--- OUTSIDE RECORDS SUMMARY | 2024-03-08 14:59 | XMS_ITS | Encounter Summary ---
[place] [address] Care Team Providers Care Merchandising Consultant Name Role Phone Edith Gaming DO Primary Care Provider Unava ilable Encounter Details Date Type Department Care Team (Late st Contact Info) Description 08/13/2020 Abstract Cardiology at [address] [phone] Mandy Mcgill, RN Social History Tobacco Use Types Packs/Day [...] on filedocumented in this encounter Care Teams Merchandising Consultant Relationship Specialty Start Date End Date Edith Gaming DO PCP - General Family Medicine 07/24/20 04/23/23 documented as of this encounter
--- OUTSIDE RECORDS SUMMARY | 2024-03-08 14:59 | XMS_ITS | Encounter Summary ---
[place] [address] Care Team Providers Care Endoscope Technician Name Role Phone Quan Bingham MD Primary Care Provider [phone] Encounter Details Date Type Department Care Team (Late st Contact Info) Description 03/24/2013 Orders [place] [address] Basil Cross MD [address] [place] [address] Social History Tobacco Use Types Packs/Day Years Used Date Smoking Tobacco: Never Assessed Sex and Gender Information Value Date Recorded Sex Assigned at Male 08/16/2020 1:10 PM EDT Gender Identity Not on file Sexual Orientation Not on file documented as of this encounter Plan of Treatment Pending Results Name Type Priority Associated Diagnoses Date /Time Film Library- Storage only MR Knee Imaging Routine 03/24/2013 12:45 PM EST documented as of this encounter Visit Diagnoses Not on filedocumented in this encounter Care Teams Endoscope Technician Relationship Specialty Start Date End Date Quan Bingham MD PCP - General 04/09/13 07/23/20 documented as of this encounter
--- OUTSIDE RECORDS SUMMARY | 2024-03-08 15:00 | XMS_ITS | Encounter Summary ---
Author Organization [facility] Address [address] [place] [address] Care Team Providers Care Machine Set Up Technician Name Role Phone Quan Bingham MD Primary Care Provider Reason for Visit * Reason Onset Date Comments Results 06/01/2014 Encounter Details Date Type Department Care Team (Late st Contact Info) Description 06/01/2014 Telephone [facility] Medicine [address] [place] [address] Quan Bingham MD [address] [place] [address] [address] [place] [address] Results Social History Tobacco Use Types Packs/Day Years [...] encounter Miscellaneous Notes * Telephone Encounter - Quan Bingham - 06/03/2014 1841 EST TC with the pt, The echocardiogram was normal . EKG from [place] was a false positive as expected for q waves inferiorly. No further eval needed * Telephone Encounter - Staci Rosenthal RN - 06/01/2014 1338 EST Called and informed patient of this information. * Telephone Encounter - Saturnino Garcia MD - 06/01/2014 1336 EST Echo shows normal wall motion, normal ejection fraction. The looks like [facility] was looking for wall motion abnormalities suggestive of prior ischemia. Please review note from 05/25. * Telephone Encounter - Staci Rosenthal RN - 06/01/2014 1331 EST Echo results in [employer], requests results * Telephone Encounter - Jsesica Lehman - 06/01/2014 1324 EST Pt is wondering if you have rec'd the echo results from last Sunday? Please not to wait until Sunday documented in this encounter Plan of Treatment [...] on filedocumented in this encounter Care Teams Machine Set Up Technician Relationship Specialty Start Date End Date Quan Bingham MD [address] [place] [phone] PCP - General 05/27/13 08/09/16 documented as of this encounter
--- OUTSIDE RECORDS SUMMARY | 2024-03-08 15:00 | XMS_ITS | Encounter Summary ---
Author Organization [facility] Address [address] [place] [address] Care Team Providers Care Features Editor Name Role Phone Irineo Vazquez MD Primary Care Provider Unav ailable Encounter Details Date Type Department Care Team (Late st Contact Info) Description 08/21/2012 Results Only [facility] Medicine - [place] [address] [place] [address] Quan Bingham MD [address] [place] [address] [address] [place] [address] Social History Tobacco Use Types [...] Procedure Name Priority Date/Time Associated Diagnosis Comments COMPREHENSIVE METABOLIC PANEL ([facility]) Routine 08/21/2012 9:37 EDT TSH Routine 08/21/2012 9:37 EDT LIPID PROFILE (INCLUDES CHOLESTEROL, TRIGLYCERIDES, HDL, LDL) Routine 08/21/2012 9:37 EDT documented in this encounter Results * TSH (08/21/2012 9:37 EDT) TSH, External 2.77 0.35 - 5.50 uIU/mL [facility] 08/21/2012 9:37 EDT 08/21/2012 9:37 EDT Narrative [facility] - 08/21/2012 10:53 EDT Does PT Have a Latex Allergy? NO Medical Necessity NA Quan Bingham MD CHEMISTRY & BL OOD GAS ORDERABLES Performing Organization Address [facility]/ZIP Co de Phone Number [facility] * (ABNORMAL) LIPID PROFILE (INCLUDES CHOLESTEROL, TRIGLYCERIDES, HDL, LDL) (08/21/2012 9:37 EDT) Triglycerides, External 293(H) 35 - 150 mg/dL [facility] Cholesterol, External 169 120 - 200 mg/dL [facility] HDL, External 31(L) 40 - 60 mg/dL [facility] LDL, External 79 60 - 100 mg/dL [facility] 08/21/2012 9:37 EDT 08/21/2012 9:37 EDT Narrative [facility] - 08/21/2012 10:53 EDT Does PT Have a Latex Allergy? NO Medical Necessity NA Quan Bingham MD CHEMISTRY & BL OOD GAS ORDERABLES Performing Organization Address [facility] Co de Phone Number [facility] * (ABNORMAL) COMPREHENSIVE METABOLIC PANEL ([facility]) (08/21/2012 9:37 EDT) Albumin, External 4.3 3.4 - 5.0 g/dL [facility] Total Alkaline Phosphatase, External 73 42 - 121 U/L [facility] Bilirubin, Total, External 0.8 0.0 - 1.0 mg/dL [facility] Bun, External 14 7 - 18 mg/dL [facility] Calcium, External 10.2(H) 8.5 - 10.1 mg/dL [facility] Chloride, External 107 98 - 107 mEq/L [facility] CO2, External 29 21 - 32 mEq/L [facility] Creatinine, External 1.1 0.5 - 1.4 mg/dL [facility] GFR, Jeremi/Est., External > 60 [facility] Comment: Chronic renal impairment is defined as GFR <60 Multiply result by 1.210 for patients. Glucose, Serum, External 101(H) 70 - 100 mg/dL [facility] Potassium, External 5.1(H) 3.5 - 5.0 mEq/L [facility] Sodium, External 142 135 - 145 mEq/L [facility] Total Protein, External 6.4 6.4 - 8.2 gm/dl [facility] AST, External 28 10 - 37 U/L [facility] ALT, External 53 12 - 78 U/L [facility] 08/21/2012 9:37 EDT 08/21/2012 9:37 EDT Narrative [facility] - 08/21/2012 10:53 EDT Does PT Have a Latex Allergy? NO Medical Necessity NA Quan Bingham MD CHEMISTRY & BL OOD GAS ORDERABLES [facility] documented in this encounter Visit Diagnoses Not on filedocumented in this encounter Care Teams Features Editor Relationship Specialty Start Date End Date Irineo Vazquez MD PCP - General 03/29/09 05/26/13 documented as of this encounter
--- OUTSIDE RECORDS SUMMARY | 2024-03-08 15:00 | XMS_ITS | Encounter Summary ---
Author Organization [facility] Address [address] [place] [address] Care Team Providers Care Coagulator Name Role Phone Irineo Vazquez MD Primary Care Provider Unav ailable Encounter Details Date Type Department Care Team (Late st Contact Info) Description 05/26/2011 Documentation Visit [address] [address] Irineo Vazquez MD Social History Tobacco Use Types Packs/Day Years Used Date Smoking Tobacco: Never Alcohol Use Standard Drinks/Week Comments Not Asked 0 (1 standard drink = 0.6 oz pur e alcohol) Sex and Gender Information Value Date Recorded Sex Assigned at Not on file Gender Identity Not on file Sexual Orientation Not on file documented as of this encounter Progress Notes * Angella Ornelas - 05/26/2011 1519 EST COLO documented in this encounter Plan of Treatment Not on file documented as of this encounter Procedures Procedure Name Priority Date/Time Associated Diagnosis Comments COLONOSCOPY PROCEDURE Routine 05/09/2011 documented in this encounter Results * COLONOSCOPY (05/09/2011) Colonoscopy NORMAL [facility] Comment:REPEAT IN 2020 Colonoscopy, External [facility] Anatomical Region Laterality Modality Endoscopy 05/09/2011 Historical Provider GI PROCEDURE ALFONSO LEWIS documented in this encounter Visit Diagnoses Not on filedocumented in this encounter Care Teams Coagulator Relationship Specialty Start Date End Date Irineo Vazquez MD PCP - General 03/29/09 05/26/13 documented as of this encounter
--- OUTSIDE RECORDS SUMMARY | 2024-03-08 15:00 | XMS_ITS | Encounter Summary ---
Author Organization [facility] Address [address] [place] [address] Care Team Providers Care Sand Tester Name Role Phone Quan Bingham MD Primary Care Provider Unknown, Provider Primary Care Provider [phone] Quan Bingham MD Primary Care Provider Unknown, Provider Primary Care Provider [phone] Reason for Visit * Reason Comments Other Encounter Details Date Type Department Care Team (Late st Contact Info) Description 12/22/2013 Refill [facility] Family Medicine [facility] [address] [place] [address] Quan Bingham MD [address] [place] [address] [address] [place] [address] Other Social History Tobacco Use [...] te metoprolol XL (TOPROL-XL) 100 mg tablet take 1 tablet by mouth once daily 90 Tab 3 12/22/2013 06/29/2014 enalapril (VASOTEC) 20 mg tablet take 1 tablet by mouth once daily 90 Tab 3 12/22/2013 08/31/2014 documented in this encounter Miscellaneous Notes * Telephone Encounter - Krishna, Rosemarie, RN - 12/22/2013 1020 EDT Refill request Office visit 10/02/13 Labs 10/01/13 documented in this encounter Plan of Treatment Not on file documented as of this encounter Goals Goal Patient Goal Type Associated Problems Recent Progress Patient-Stated? Author Weight Loss General Hypertensive disorder Not on track(2013 9:39 EDT) Yes Quan Bingham Note: Goal: continue improved diet, smaller portions Confidence level (1= Not very confident; 10 = Very confident): 9 Barriers: None documented as of this encounter Visit Diagnoses Not on filedocumented in this encounter Care Teams Sand Tester Relationship Specialty Start Date End Date Quan Bingham MD [address] [place] [address] [address] [place] [phone] PCP - General 05/27/13 08/09/16 Unknown, Provider, [address] [place] [address] [address] [place] [address] PCP - General 08/10/16 10/15/16 Quan Bingham MD [address] [place] [address] [address] [place] [address] PCP - General 10/16/16 10/16/16 Unknown, Provider, [address] [place] [address] [address] [place] [address] PCP - General 10/17/16 documented as of this encounter
--- OUTSIDE RECORDS SUMMARY | 2024-03-08 15:00 | XMS_ITS | Encounter Summary ---
Author Organization [facility] Address [address] [place] [id number] Care Team Providers Care Display Mechanic Name Role Phone Irineo Vazquez MD Primary Care Provider Unav ailable Reason for Visit * Reason Comments Other skin tag removal Encounter Details Date Type Department Care Team (Late st Contact Info) Description 10/20/2009 8:30 EDT Office Visit [facility] Medicine [address] [address] Irineo Vazquez MD Hypertension; Skin tags Social History Tobacco Use Types Packs/Day Years Used Date Smoking Tobacco: Never Assessed Sex and Gender Information Value Date Recorded Sex Assigned at Not on file Gender Identity Not on file Sexual Orientation Not on file documented as of this encounter Last Filed Vital Signs Vital Sign Reading Time Taken Comments Blood Pressure 110/70 10/20/2009 0825 EDT Pulse 60 10/20/2009 0825 EDT Temperature - - Respiratory Rate - - Oxygen Saturation - - Inhaled Oxygen Concentration - - Weight - - Height - - Body Mass Index - - documented in this encounter Progress Notes * Irineo Vazquez MD - 10/22/2009 1618 EDT [facility] PROGRESS/FOLLOWUP NOTE - 10/20/2009 PROBLEM: Hypertension, skin lesions. 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 I had seen him for a followup visit 2 weeks ago, at which time he was experiencing discomfort in the neck. This has apparently improved. He showed me a traumatized skin tag right axilla and requested to have this excised. His neck is better. He denies any acute problem. 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 He has not had much success losing weight. He denies chest pain, palpitation, lightheadedness, shortness of breath. MEDICATIONS: Enalapril 20 mg. Lopressor 100 mg. Elidel cream. Lidex cream. OBJECTIVE: BP 110/70, pulse 60, regular. Throat clear. Neck supple, no adenopathy. Lungs clear. Heart sounds normal. Abdomen: Active bowel sounds, soft, nontender. Extremities: No edema, no joint abnormality. Genitalia: No hernia, right axilla reveals two skin tag approximately 5 mm size. PROCEDURE: After obtaining informed consent, I excised 2 skin tags, right axilla with use of lidocaine infiltration, scissors excision and gentle cautery. This was tolerated very well. DIAGNOSTIC DATA: Labs include cholesterol 152, HDL 29, LDL 70. PSA 1.6, normal blood chemistries. An x-ray of the cervical spine just showed mild narrowing of C5 and 6. ASSESSMENT: Hypertension, stable, resolved neck strain, skin tags right axilla. PLAN: Report any problem with recurring skin tags. He had a urinalysis that was negative. I signed a 2 year CDL certification. I will see him for a followup visit in 6 months. He will continue effortto reduce weight. Electronically Signed by Irineo Vazquez MD 10/22/2009 16:17 Irineo Vazquez MD - Irineo Vazquez MD - AN Job ID: Doc ID: [id number] Ext Doc ID: [id number] cc: * Irineo Vazquez MD - 10/20/2009 0902 EDT This office note has been dictated. documented in this encounter Plan of Treatment Not on file documented as of this encounter Procedures Procedure Name Priority Date/Time Associated Diagnosis Comments POCT URINE DIPSTICK, CLINITEK Routine 10/20/2009 11:00 EDT Hypertension documented in this encounter Results * POCT URINE DIPSTICK (10/20/2009 11:00 EDT) Color, UA Yellow POINT OF CARE Clarity, UA Clear POINT OF CARE Glucose, UA Negative Negative, Trace mg/dL POINT OF CARE Bilirubin, UA Negative Negative POINT OF CARE Ketones, UA Negative Negative mg/dL POINT OF CARE Spec Grav, UA 1.020 1.010, 1.015, 1.020, 1.025 POINT OF CARE Blood, UA Negative Negative POINT OF CARE pH, UA 5.0 4.6 - 8.0 POINT OF CARE Protein, UA Negative Negative mg/dL POINT OF CARE Urobilinogen, UA 0.2 2.0 E.U./dL POINT OF CARE Nitrite, UA Negative Negative POINT OF CARE Leuk Esterase Negative Negative POINT OF CARE Comment POINT OF CARE Urine specimen (specimen) 10/20/2009 11:00 EDT Irineo Vazquez MD POINT OF CARE TEST ORDERABLES POINT OF CARE documented in this encounter Visit Diagnoses Diagnosis Hypertension Unspecified essential hypertension Skin tags Unspecified hypertrophic and atrophic condition of skin documented in this encounter Care Teams Display Mechanic Relationship Specialty Start Date End Date Irineo Vazquez MD PCP - General 03/29/09 05/26/13 documented as of this encounter
--- OUTSIDE RECORDS SUMMARY | 2024-03-08 15:00 | XMS_ITS | Encounter Summary ---
Author Organization [facility] Address [address] [place] [address] Care Team Providers Care Scrap Metal Burner Name Role Phone Irineo Vazquez MD Primary Care Provider Unav ailable Reason for Visit * Reason Comments Rash right arm,groin. nee d renewals of ointment. Encounter Details Date Type Department Care Team (Late st Contact Info) Description 08/27/2009 14:00 [place] [address] Adrián Valerio PA-C Rash (Primary Dx) Social History Tobacco Use Types Packs/Day Years Used Date Smoking Tobacco: Never Assessed Sex and Gender Information Value Date Recorded Sex Assigned at Not on file Gender Identity Not on file Sexual Orientation Not on file documented as of this encounter Last Filed Vital Signs Vital Sign Reading Time Taken Comments Blood Pressure 146/72 08/27/2009 1401 EDT Pulse 72 08/27/2009 1401 EDT Temperature 36.4 ??C (97.6 ??F) 08/27/2009 1401 EDT Respiratory Rate - - Oxygen Saturation - - Inhaled Oxygen Concentration - - Weight 141.2 kg (311 lb 3.2 oz) 08/27/2009 1401 EDT Height - - Body Mass Index - - documented in this encounter Ordered Prescriptions Prescription Sig Dispensed Refills Start Date End Da te pimecrolimus (ELIDEL) 1 % cream Apply topically 2 times daily. Apply to affect area(s) as directed. 30 Tube 1 08/27/2009 05/22/2011 fluocinonide (LIDEX) 0.05 % cream Apply topically daily. Apply to affect area(s) as directed. 60 g 1 08/27/2009 05/22/2011 documented in this encounter Progress Notes * Adrián Valerio PA - 08/30/2009 0823 EDT [facility] [address] PROGRESS/FOLLOWUP NOTE - 08/27/2009 SUBJECTIVE: Mr Alvarez comes today for a refill on some cortisone topical medications that he had received from Dr Moreland approximately 4 years ago. He has been using the same medications for that period of time and has not needed refills until now. He periodically gets a rash along his belt line, which responds well to Lidex cream, as well an eczematous rash on his arms, again using the Lidex. He also brings Elidel cream with him that he uses for rashes around the scalp and behind his ears. He does have a rash on his right arm and his belt line at this time. OBJECTIVE: Temperature is 97.6, blood pressure 146/72, pulse is 72. He weighs 311 pounds. He is well appearing. Exam of the skin shows an approximately 4 x 6 cm patch of eczematous scaly, pink skin in the right antecubital space. In addition, he has erythema across the belt line on the abdomen. ASSESSMENT: Recurrent dermatitis. PLAN: Medication is refilled as noted on his med list. He is given one additional refill, and he will follow up with us as necessary. Electronically Signed by Adrián Valerio PA-C 08/30/2009 08:23 Dictated by: Adrián Valerio PA-C - Adrián Valerio PA-C P - SEBAS Job ID: SM Doc ID: [id number] Ext Doc ID: [id number] cc: * Adrián Valerio PA - 08/27/2009 1429 EDT This office note has been dictated. documented in this encounter Plan of Treatment Not on file documented as of this encounter Visit Diagnoses Diagnosis Rash- Primary Rash and other nonspecific skin eruption documented in this encounter Care Teams Scrap Metal Burner Relationship Specialty Start Date End Date Irineo Vazquez MD PCP - General 03/29/09 05/26/13 documented as of this encounter
--- OUTSIDE RECORDS SUMMARY | 2024-03-08 15:00 | XMS_ITS | Encounter Summary ---
Author Organization [facility] Address [address] [place] [address] Care Team Providers Care Sider Mechanic Name Role Phone Quan Bingham MD Primary Care Provider Reason for Visit * Reason Comments Elbow Injury left elbow pain - fo r a month now per pt. no swelling or visible bruising. no known injury per pt. just painful to lift, or extending with twisting and touch (No med refills needed per pt) Encounter Details Date Type Department Care Team (Latest Contact Info) Description 08/28/2013 8:20 EDT Office Visit [address] [place] [id number] Adrián Valerio PA-C Lateral epicondylitis (tennis elbow) (Primary Dx) Social History Tobacco Use Types [...] Sign Reading Time Taken Comments Blood Pressure 150/84 08/28/2013 0822 EDT Pulse 64 08/28/2013 0822 EDT Temperature 36.8 ??C (98.2 ??F) 08/28/2013 0822 EDT Respiratory Rate 20 08/28/2013 0822 EDT Oxygen Saturation - - Inhaled Oxygen Concentration - - Weight 147.7 kg (325 lb 9.6 oz) 08/28/2013 0822 EDT Height - - Body Mass Index 42.09 04/29/2012 1347 EST documented in this encounter Patient Instructions * Patient Instructions* Adrián Valerio PA-C - 08/28/2013 8:35 EDT Images from the original note were not included. [employer] Activation Thank you for your interest in [employer] patient portal, [employer]. Please follow the instructions below to set up your account. [employer] allows you to send messages to your doctor, view your test results, renew your prescriptions, request appointments, pay bills and more. How Do I Sign Up? 1. In your Internet browser, go to [email or web address] 2. Click on the Accept My Invitation Code link in the Set Up an Account box. You will see the page: Accept My Invitation. 3. Enter your [employer] Invitation Code exactly as it appears below. You will not need to use this code after you???ve completed the sign-up process. If you do not sign up before the expiration date, you must request a new code. [employer] Invitation Code: [id number] Expires: 10/27/2013 8:25 4. Enter your Date of (mm/dd/yyyy) as indicated and click Next. You will be taken to the nextpage to create your account. 5. Create a [employer] username. This will be your [employer] username and cannot be changed, sothink of one that is secure and easy to remember. 6. Create a [employer] password. You can change your password at any time. Enter your passwordagain to confirm it. 7. Enter your e-mail address. You will receive e-mail notifications when new information is available in [employer]. 8. Enter your security question and answer. These can be used at a later time if you forget your password. 9. Click Create Account. You can now view your medical record and billing information. If you have been granted proxy access to another patient's chart, you will see that patient listed under Family Records when you log into your [employer] account. Additional Information If you have questions, you can email [email or web address] or call to talk to our [employer] Customer Service Center, which is open 24 hours a day, 7 days a week. Remember, [employer] is NOT to be used for urgent needs. For medical emergencies, dial . [facility] Patient Instructions Tennis Elbow: After Your Visit Your Care Instructions Tennis elbow is soreness or pain on the outer part of the elbow. The pain occurs when the tendon isstretched and becomes irritated by repeated twisting of the hand, wrist, and forearm. A tendon is atough tissue that connects muscle to bone. This injury is common in tennis players. But you also can get it from many activities that work the same muscles. Examples include gardening, painting, and using tools. Tennis elbow usually heals with rest and treatment at home. Follow-up care is a donahue part of your treatment and safety. Be sure to make and go to all appointments, and call your doctor if you are having problems. It's also a good idea to know your test resultsand keep a list of the medicines you take. How can you care for yourself at home? ?? Rest your fingers, wrist, and forearm. Try to stop or reduce any activity that causes elbow pain. You may have to rest your arm for weeks to months. Follow your doctor's directions for how long torest. ?? Put ice or a cold pack on your elbow for 10 to 20 minutes at a time. Try to do this every 1 to 2hours for the next 3 days (when you are awake) or until the swelling goes down. Put a thin cloth between the ice and your skin. ?? If your doctor gave you a brace or splint, use it as directed. A counterforce brace is a straparound your forearm, just below your elbow. It may ease the pressure on the tendon and spread forcethroughout your arm. ?? Prop up your elbow on pillows to help reduce swelling. ?? Follow your doctor's or physical therapist's directions for exercise. ?? Return to your usual activities slowly. ?? Try to prevent the problem. Learn the best techniques for your sport. For example, make sure thegrip on your tennis racquet is not too big for your hand. Try not to hit a tennis ball late in yourswing. ?? Think about asking your employer about new ways of doing your job if your elbow pain is caused by something you do at work. Medicines ?? Take pain medicines exactly as directed. ?? If the doctor gave you a prescription medicine for pain, take it as prescribed. ?? If you are not taking a prescription pain medicine, ask your doctor if you can take an efid-dhv-fyxqlxz medicine. ?? Take anti-inflammatory medicines to reduce pain and swelling. These include ibuprofen (Advil, Motrin) and naproxen (Aleve). Read and follow all instructions on the label. When should you call for help? Call your doctor now or seek immediate medical care if: ?? Your pain is worse. ?? You cannot bend your elbow normally. ?? Your arm or hand is cool or pale or changes color. ?? You have tingling, weakness, or numbness in your hand and fingers. Watch closely for changes in your health, and be sure to contact your doctor if: ?? You have work problems caused by your elbow pain. ?? Your pain is not better after 2 weeks. Where can you learn more? Go to [email or web address] Enter C285 in the search box to learn more about Tennis Elbow: After Your Visit. ?? [phone] [employer]. Care instructions adapted under license by [facility], [facility]. This care instruction is for use with your licensed healthcare professional. If you have questions about a medical condition or this instruction, always ask your healthcare professional. [employer] disclaims any warranty or liability for your use of this information. Content Version: 10.0.302269; Last Revised: July 29, 2012 documented in this encounter Progress Notes * Adrián Valerio PA-C - 08/28/2013 0837 EDT Mr Alvarez comes in today with complaint of left elbow pain for the past month. No history of injury; however, he does admit to doing some lv the day that it is started. He was repetitively pullingspikes out of the roof with his left arm. He is left-hand dominant. Has not attempted any treatment. OBJECTIVE: Temperature is 98.2. He appears well. Exam of the elbows show no swelling, redness or bruising. Left elbow has tenderness over the lateral epicondyle, forearm tenderness extending distallyas well. Increased discomfort with wrist extension against resistance. He has full pattern drum maker strength, but again, this increases the discomfort. ASSESSMENT: Left lateral epicondylitis. PLAN: Discussed at length with the patient. Recommended ice and massage to the affected area. Can also use ibuprofen or Aleve if needed. Also, I recommended a tennis elbow strap when patient is doingphysical work to help relieve muscle pull at its attachment. We did discuss physical therapy. The patient will work with conservative therapy and then if necessary, we can refer to PT. documented in this encounter Plan of Treatment Not on file documented as of this encounter Visit Diagnoses Diagnosis Lateral epicondylitis (tennis elbow)- Primary Lateral epicondylitis of elbow documented in this encounter Historical Medications * This list may reflect changes made after this encounter. Medication Sig Dispensed Refills Start Date End Date ibuprofen (MOTRIN) 200 mg tablet Take 200 mg by mouth every 6 hours. 10/02/2013 added in this encounter Care Teams Sider Mechanic Relationship Specialty Start Date End Date Quan Bingham MD [address] [place] [id number] PCP - General 05/27/13 08/09/16 documented as of this encounter
--- OUTSIDE RECORDS SUMMARY | 2024-03-08 15:00 | XMS_ITS | Encounter Summary ---
Author Organization [facility] Address [address] [place] [address] Care Team Providers Care Automotive Metalsmith Name Role Phone Unavailable Primary Care Provider Unavailabl e Encounter Details Date Type Department Care Team (Late st Contact Info) Description 10/08/2007 Before PRISM Converted Visit ([facility]) [facility] - [facility] conversion [address] [place] [address] Adrián Valerio, PAEstherC Social History Tobacco Use Types Packs/Day Years Used Date Smoking Tobacco: Never Assessed Sex and Gender Information Value Date Recorded Sex Assigned at Not on file Gender Identity Not on file Sexual Orientation Not on file documented as of this encounter Plan of Treatment Not on file documented as of this encounter Visit Diagnoses * Evaluation - Adrián Valerio - 02/08/2009 1523 EDT [facility] - 10/08/2007 SUBJECTIVE 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 He is feeling well. He has no complaints at thistime. continues on medication for his hypertension. CURRENT MEDICATIONS Currently, his medication is Toprol XL 100 mg daily. PAST MEDICAL HISTORY AND PAST SURGICAL HISTORY He sees a physician friend on a routine basis (Dr. Julio C Flannery), who is in [facility], and Dr. Flannery keeps track of his labs as well as his hypertension. He did have whatappears to be a left testicular hydrocele and said he hada thorough urology workup in [place] and everything came out normal. He still has his hydrocele and occasionally it causes some discomfort but no specific pain. last colonoscopy was in 2004; a colon polyp was found. He needs to have a repeat colonoscopy done in 2009. IMMUNIZATIONS He had a laceration of his left little toe that was repaired at [facility] in 2003 and his tetanus immunization was updated at that time. Otherwise, he is without complaints. He says his cholesterol was checked in July 2007 and was normal at that time. He does note, however, that he has gained some weight recently. ALLERGIES He has no medication allergies. OBJECTIVE His height is 6 feet 3 inches. He weighs 302 pounds, which is a 17-pound weight gain from two yearsago. His blood pressure is 138/80. Pulse is 88. He is in no apparent distress. He does wear corrective lenses and visual acuity is 20/20 in each eye. Ear, nose and throat exam is normal. There is no adenopathy. Lungs are clear and heart is regular without murmur. Abdomen is obese with no palpable or ganomegaly. Genitalia are without hernia. He does have a verobvious left swollen scrotum that is fluctuant and nontender, and a prostate exam is normal. The peripheral pulses are +2 and symmetrical. There is no edema. He has good muscle strength and deep tendon reflexes are present and symmetrical. An in-office urinalysis is within normal limits. ASSESSMENT AND PLAN 1. 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 Tetanus immunization will not be due until 2013. 2. Hypertension appears to be well under control and is currently being followed by Dr. muñiz, as noted, and his lab work as well is done by Dr. Flannery. We would like any current information faxed to our office. 3. Colon polyp in 2004. We will repeat colonoscopy in 2009 as directed 4. What appears to be a hydrocele of the left testicle. Since his full urology evaluation, he will not need any additional work. Otherwise, he will follow up with us as needed. 5. Significant weight gain. He is significantly overweight at this time. We discussed this at length. We would most assuredly like him under 300 pounds and we would like to start with him getting back under 300 pounds and then think about losing at least 50 pounds. He hopes to be able to do this with increased outdoor work during the summer and increased exercise and cutting down on portion sizes. Signed by Adrián Valerio PA-C 10/14/2007 08:27 Adrián Valerio PA-C - Adrián Valerio PA-C A - Job ID: [id number] Document ID: [id number] cc: documented in this encounter
--- OUTSIDE RECORDS SUMMARY | 2024-03-08 15:00 | XMS_ITS | Encounter Summary ---
Author Organization [facility] Address [address] [place] [id number] Care Team Providers Care Skein Straightener Name Role Phone Irineo Vazquez MD Primary Care Provider Unav ailable Reason for Referral * Consult (Routine) - Closed Specialty Diagnoses / Procedures Referred By Norma urban Referred To Contact Diagnoses Sleep disorder HTN (hypertension) Irineo Vazquez MD [address] [place] [id number] [address] [address] Referral ID Status Reason Start Date Expiration Date V isits Requested Visits Authorized [id number] Closed Specialty Services Required 05/22/2011 1 1 Question Answer Reason for Request: sleep disorder with snoring, apnea, daytime fatigue Comments [facility] sleep lab Reason for Visit * Reason Comments Follow-up s/p tests Encounter Details Date Type Department Care Team (Late st Contact Info) Description 05/22/2011 8:00 EST Office Visit [facility] [address] [facility] [address] [address] Irineo Vazquez MD HTN (hypertension) (Primary Dx); Sleep disorder Social History Tobacco Use Types Packs/Day Years [...] Sign Reading Time Taken Comments Blood Pressure 130/60 05/22/2011 0813 EST Pulse 68 05/22/2011 0813 EST Temperature - - Respiratory Rate - - Oxygen Saturation - - Inhaled Oxygen Concentration - - Weight - - Height - - Body Mass Index - - documented in this encounter Ordered Prescriptions Prescription Sig Dispensed Refills Start Date End Da te metoprolol XL (TOPROL-XL) 100 mg tabletIndications:HTN (hypertension) Take 1 Tab by mouth daily. 90 Tab 4 05/22/2011 06/17/2012 enalapril (VASOTEC) 20 mg tabletIndications:HTN (hypertension) Take 1 Tab by mouth daily. 90 Tab 4 05/22/2011 06/17/2012 documented in this encounter Progress Notes * Irineo Vazquez MD - 05/22/2011 1240 EST PROBLEM: Hypertension, sleep disorder. SUBJECTIVE: Francisco J is here to follow up hypertension and discuss progressive sleep disorder. He hasrecovered from left lower quadrant abdominal pain after taking a course of Cipro. He is not certainif Cipro was the reason for recovery or if just was able to work itself out. He did undergo colonoscopy that showed a few diverticulae and a single hyperplastic polyp in distal sigmoid. He has no newcomplaints other than concern about poor sleep. He has noted increased interruptions to his sleep, and his reports significant interrupted breathing. He has been experiencing daytime fatigue. Hedenies chest pain, palpitations, lightheadedness, shortness of breath. He would like to undergo further study. He had recent blood tests done to include a PSA of 3.1. He has seen Dr Archer to evaluate a hydrocele which Dr Archer advised keeping under observation, but he recommended a followup PSA in 6 months. MEDICATIONS: Enalapril 20 mg daily. Metoprolol XL 100 mg daily. ALLERGIES: None. OBJECTIVE: BP 130/60, pulse 68, regular. Chest clear. Heart sounds normal. Extremities: No edema. ASSESSMENT: Hypertension, controlled. Left hydrocele, sleep disorder, question obstructive sleep apnea. PLAN: Referral to sleep center at [facility] to evaluate for obstructive sleep apnea since he is experiencing symptomatic sleep disorder with daytime fatigue. I encouraged continued effort at weight reduction and increasing physical activity. He will continue his current medications. He will report any re currence of abdominal discomfort. I will plan to see him again in 6 months. documented in this encounter Plan of Treatment Scheduled Referrals Name Type Priority Associated Diagnoses Orde r Schedule AMB CONSULT SLEEP CENTER Outpatient Referral Routine Sleep disorder HTN (hypertension) Ordered: 05/22/2011 documented as of this encounter Visit Diagnoses Diagnosis HTN (hypertension)- Primary Unspecified essential hypertension Sleep disorder Sleep disturbance, unspecified documented in this encounter Discontinued Medications Medication Sig Discontinue Reason Start Date End Da te ciprofloxacin (CIPRO) 500 mg tablet Take 1 Tab by mouth 2 times daily. Error 03/15/2011 05/22/2011 fluocinonide (LIDEX) 0.05 % cream Apply topically daily. Apply to affect area(s) as directed. Error 08/27/2009 05/22/2011 pimecrolimus (ELIDEL) 1 % cream Apply topically 2 times daily. Apply to affect area(s) as directed. Error 08/27/2009 05/22/2011 enalapril (VASOTEC) 20 mg tabletIndications:HTN (hypertension) Take 1 Tab by mouth daily. Reorder 11/08/2010 05/22/2011 metoprolol XL (TOPROL-XL) 100 mg tabletIndications:HTN (hypertension) Take 1 Tab by mouth daily. Reorder 11/08/2010 05/22/2011 documented as of this encounter Care Teams Skein Straightener Relationship Specialty Start Date End Date Irineo Vazquez MD PCP - General 03/29/09 05/26/13 documented as of this encounter
--- OUTSIDE RECORDS SUMMARY | 2024-03-08 15:00 | XMS_ITS | Encounter Summary ---
Author Organization [facility] Address [address] [place] [address] Care Team Providers Care Magazine Feeder Name Role Phone Irineo Vazquez MD Primary Care Provider Unav ailable Reason for Referral * Radiology Services (Routine) - Closed Specialty Diagnoses / Procedures Referred By Contac t Referred To Contact Diagnoses Knee pain Procedures MR KNEE Quan Bingham MD [address] [place] [address] [address] Referral ID Status Reason Start Date Expiration Date Visits Re quested Visits Authorized [id number] Closed 03/15/2013 1 1 * Consult (Routine/Next Available) - Specialty Report Received Specialty Diagnoses / Procedures Referred By Contac t Referred To Contact Orthopedic Surgery Diagnoses Knee pain Quan Bingham MD [address] [place] [address] [address] Referral ID Status Reason Start Date Expiration Date Visits Requested Visits Authorized [id number] Specialty Report Received Specialty Services Required 03/15/2013 1 1 Question Answer Reason for Request: recurrent left knee pain, with effusion recent flare, suspect meniscal injury Reason for Visit * Reason Comments Knee Pain increase in the knee pain , increqase in pain over last 3 days, no trauma Encounter Details Date Type Department Care Team (Late st Contact Info) Description 03/15/2013 9:45 EDT Office Visit [facility] [address] [facility] [address] [address] Quan Bingham MD [address] [facility] [address] [place] [phone] Knee pain (Primary Dx) Social History Tobacco [...] Sign Reading Time Taken Comments Blood Pressure 132/80 03/15/2013 0956 EDT Pulse 64 03/15/2013 0956 EDT Temperature 36.8 ??C (98.2 ??F) 03/15/2013 0956 EDT Respiratory Rate - - Oxygen Saturation - - Inhaled Oxygen Concentration - - Weight - - Height - - Body Mass Index - - documented in this encounter Progress Notes * Quan Bingham - 03/15/2013 1545 EDT REASON FOR VISIT: Knee pain. SUBJECTIVE: Followup visit for knee pain. The patient seen 4 days ago for acute knee pain, which had been severe but had largely resolved and had a benign exam other than a small effusion and medial joint tenderness, but otherwise decent range of motion without pain. However, by the following day he had recurrence of medial pain, which is quite severe, lifting and difficulty weightbearing and moving knee. It is stiffer, unable to flex beyond 90 degrees. No locking or buckling. No fever, no other joint complaints. OBJECTIVE: Blood pressure 132/80, pulse 64, temperature 98.2. Joint exam significant for left knee,which there is a mild effusion, perhaps slightly more prominent, but still small on left, none on right. Actively, range of motion to 90 degrees, passively to just beyond 90 degrees with stiffness. Tender to palpation over medial joint line on right medially. No other abnormality palpated. NegativeLachman and drawer test. No varus valgus instability other than mild pain over medial joint with valgus stress. Equivocal Rigo test. ASSESSMENT: Left knee pain, recent flare of this again with mild effusion. I suspect this might represent flare of osteoarthritis and/or medial meniscal injury. Differential also includes Pes anserine bursitis given location of medial pain, although I think this otherwise would be more inferior if this was a true bursitis. At this point, no signs of inflammation. Given mild effusion, I do not think that there would be any therapeutic benefit in attempt at aspirating a small amount and no signs of inflammation at this point. Therefore, I suggested proceeding with imaging and an orthopedic evaluation. It was suggested to follow up with this should it increase in size or become more prominent in terms of effusion or edema. PLAN: 1. Relative rest. 2. NSAIDs as needed for pain. 3. MR of knee. 4. Orthopedic referral. 5. Follow up as needed. documented in this encounter Plan of Treatment Scheduled Orders Name Type Priority Associated Diagnoses Orde r Schedule MR KNEE Imaging Routine Knee pain Ordered: 03/15/2013 Scheduled Referrals Name Type Priority Associated Diagnoses Order Schedule AMB CONSULT ORTHOPEDICS Outpatient Referral Routine Knee pain Ordered: 03/15/2013 documented as of this encounter Visit Diagnoses Diagnosis Knee pain- Primary Pain in joint, lower leg documented in this encounter Care Teams Magazine Feeder Relationship Specialty Start Date End Date Irineo Vazquez MD PCP - General 03/29/09 05/26/13 documented as of this encounter
--- OUTSIDE RECORDS SUMMARY | 2024-03-08 15:00 | XMS_ITS | Encounter Summary ---
Author Organization [facility] Address [address] [place] [address] Care Team Providers Care Caretaker Name Role Phone Quan Bingham MD Primary Care Provider Reason for Visit * Reason Comments Pre-op Exam LTKR surgery on 04/[address] Monson. EKG done on Sunday at [facility] and labs done. Medications Refill None needed today. Flu Vaccine Pt doesn't want the flu shot before surgery - afterwards? Encounter Details Date Type Department Care Team (Late st Contact Info) Description 03/30/2014 10:15 EST Office Visit [facility] [address] [facility] [address] [place] [address] Quan Bingham MD [address] [place] [address] [address] [place] [phone] Left knee pain (Primary Dx); Rash; Hypertension; Needs flu shot Social History Tobacco Use Types Packs/Day Years [...] Sign Reading Time Taken Comments Blood Pressure 128/74 03/30/2014 1015 EST Pulse 64 03/30/2014 1015 EST Temperature 36.9 ??C (98.5 ??F) 03/30/2014 1015 EST Respiratory Rate 16 03/30/2014 1015 EST Oxygen Saturation - - Inhaled Oxygen Concentration - - Weight 135.6 kg (299 lb) 03/30/2014 1015 EST Height 191.8 cm (6' 3.5) 03/30/2014 1015 EST Body Mass Index 36.88 03/30/2014 1015 EST documented in this encounter Ordered Prescriptions Prescription Sig Dispensed Refills Start Date End Da te triamcinolone (KENALOG) 0.1 % creamIndications:Rash Apply 1 application topically 2 times daily. 80 g 1 03/30/2014 09/29/2015 documented in this encounter Progress Notes * Quan Bingham - 03/30/2014 1228 EST Preoperative H&P Patient ID: Francisco J Alvarez Jr. is an 63 y.o. male. :1950 Date of Service: 03/30/2014 Chief Complaint: Chief Complaint Patient presents with ??? Pre-op Exam LTKR surgery on 04/14/[address] Monson. EKG done on Sunday at [facility] and labs done. ??? Medications Refill None needed today. ??? Flu Vaccine Pt doesn't want the flu shot before surgery - afterwards? Planned Procedure: left knee replacemnt Surgeon: Iona Planned Procedure Date: 04/14/14 Problem List Available or Initiated: yes Subjective: HISTORY OF PRESENT ILLNESS: REASON FOR VISIT: Preop for left knee replacement. SUBJECTIVE: Patient with chronic left knee pain status post meniscal repair last year but still hassignificant pain, effusion, swelling and pain with weightbearing. It does limit activity. Not improving with conservative measures, therapy. He is scheduled for knee replacement in 2 weeks. Review of systems otherwise unremarkable. Otherwise in good health. These systems reviewed, along with flowsheet for [facility]. Other medical problems include sleep apnea, which has been stable. He will need to use his CPAP machine at the hospital, which he was warned. . He also has a large left hydrocele. This has been present for many years and is unchanged. He does not have any symptoms. He has seen a urologist and is planning on having this repaired in the near term, but did wish to have knee status resolved before proceeding given active symptoms from knee, which is significantly impairing quality of life. Otherwise, he has a history of psoriasis and also probably some type of contact dermatitis on abdomen and axilla. He has been using Elidel cream. However, has had breakthrough symptoms recently. There is mild pruritus at this site. No secondary infection at this time, but he does note active rash. REVIEW OF SYSTEMS: Otherwise unremarkable. Past medical, surgical and family history all updated in EMR. Probable sensitivity to YUDY. Medicines reviewed. The patient also with a history of mild venous stasis, which is longstanding, slightly worse on theleft with recent knee pain, but no changes noted. Cardiovascular or pulmonary risk factors: none Prior h/o of anesthetic complications: no Prior h/o bleeding problems: no Prior h/o DVT/PE: no Prior h/o infections (VRE, MRSA): no Reaction to tape or latex: no Family history of anesthetic complications, bleeding problems or DVT/PE: no. Patient Active Problem List Diagnosis ??? Hypertension ??? Colon polyp ??? Hydrocele ??? Obstructive sleep apnea ??? Psoriasis ??? Left knee pain History reviewed. No pertinent past medical history. Past Surgical History Procedure Laterality Date ??? Colonoscopy 2004,04/2011 repeat 2020 ??? Tonsillectomy ??? Knee surgery remote,right, left 05/2013-meniscus History Substance Use Topics ??? Smoking status: Never Smoker ??? Smokeless tobacco: Never Used ??? Alcohol Use: No Family History Problem Relation Age of Onset ??? Cancer Mother lung - 80s ??? Heart Failure Father mi age 58 ??? Heart Disease Father [place] at 58 ??? Cancer Sister breast X 2 sisiterrs ??? Cancer Paternal Grandmother gASTRIC Allergies Allergen Reactions ??? Nickel Rash Current Outpatient Prescriptions Medication Sig Dispense Refill ??? enalapril (VASOTEC) 20 mg tablet take 1 tablet by mouth once daily 90 Tab 3 ??? metoprolol XL (TOPROL-XL) 100 mg tablet take 1 tablet by mouth once daily 90 Tab 3 ??? pimecrolimus (ELIDEL) 1 % cream Apply topically as needed. ??? triamcinolone (KENALOG) 0.1 % cream Apply 1 application topically 2 times daily. 80 g 1 No current facility-administered medications for this visit. ROS Objective: BP 128/74 Pulse 64 Temp(Src) 36.9 ??C (98.5 ??F) (Oral) Resp 16 Ht 191.8 cm (75.5) Wt 135.626 kg (299 lb) BMI 36.87 kg/m2 Body mass index is 36.87 kg/(m^2). Physical Exam PHYSICAL EXAM: Blood pressure 128/74, pulse 64. BMI 36. The patient has lost a significant amount of weight over the last year. Head, ear, nose, throat exam: TMs both occluded with cerumen. Pupils equal and reactive to light. Extraocular movements intact. Mouth, throat exam unremarkable. PROCEDURE: Both ear canals were cleaned with use of curette bilaterally with significant amount of cerumen and then large plug of wax was removed bilaterally with irrigation. Canals, TMs were normal afterwards. Neck: No lymphadenopathy, supple, no thyromegaly, 2+ carotids, no bruit. Chest clear to auscultation. Cardiovascular: Regular rate and rhythm, no murmur. Abdomen: Positive bowel sounds, soft, nontender. Genital exam large hydrocele on left. No significant change, right normal, no active hernias seen. Extremity exam: 2+ radial pulses, normal range, normal exam: Upper extremity, lower extremity: 1+ pedal edema bilaterally, slightly more pronounced on left than right, unchanged from base line. Normal dorsalis pedis, posterior tibial pulses. Mild effusion left knee. Near full range of motion of both knees without difficulty, no instability. Skin exam significant for confluent area of linear rash lower abdomen at waistband site, with erythematous maculopapular rash and confluent erythema in both axillae. ASSESSMENT: PROBLEM 1. Chronic left knee pain, osteoarthritis with chronic infusion and discomfort. Overall, patient is at low risk for surgery. No significant concerning findings noted, although he does have anactive rash at the waist area. I did suggest that it would be advised to try to have this under better control with less signs of irritation prior to surgery. The patient concurred. Otherwise, patient at low risk for surgery. He has high blood pressure well controlled. Also sleep apnea also well controlled and he will need CPAP machine in the hospital after surgery. PLAN: 1. No further preop evaluation suggested. 2. Low risk for surgery assuming that rash has not worsened. PROBLEM 2. Hypertension -- well controlled. PLAN: 1. Continue current medicines. PROBLEM 3. Sleep apnea. PLAN: Continue CPAP machine including using a machine in the hospital. PROBLEM 4. Dermatologic, active rash with history of psoriasis, but I actually think he has more ofa contact dermatitis in axilla and lower abdomen. PLAN: 1. Discontinue Elidel cream. 2. Begin triamcinolone cream 0.1% b.i.d. 3. Follow up with dermatology if not improving. PROBLEM 5. Left hydrocele, longstanding, stable. At this point, I do not think that this should interfere with surgery. PROBLEM 6. Health maintenance. The patient overweight, but has lost significant amount of weight and was congratulated. Also cerumen impaction, which was cleaned and cleared today. PLAN: 1. Flu shot. 2. Discussed ear hygiene. 3. Followup as needed. EKG: at [facility] Assessment: 1. Left knee pain 2. Rash 3. Hypertension 4. Needs flu shot No contraindications to planned surgery Plan: Patient requires endocarditis prophylaxis (see guideline summary below): yes. Perioperative beta-adal recommendation (see guideline summary below): yes - continue current betablocker. GENERAL PREOP INSTRUCTIONS: Proceed with surgery as planned. Quan Bingham MD 03/30/2014 12:28 If is billing provider, the [employer]BAC[employer] ACREAGE MEASURER or PA must attest: I SUMMARY OF GUIDELINES: Endocarditis prophylaxis indications: Antibiotics are indicated for prosthetic heart materials (notroutine MVP), uncorrected congenital heart anomalies, history of endocarditis; and only for surgeries of mouth, respiratory tract, or infected tissue. Options for a one-time oral dose of antibiotic taken 30 - 60 minutes prior to the procedure include amoxicillin 2 grams, clindamycin 600 mg, or azithromycin 500 mg. Guideline Title: Prevention of Infective Endocarditis Guidelines From the [place] [employer]: A Guideline From the [place] [employer] Rheumatic Fever, Endocarditis, and Kawasaki Disease Committee, [place] on Cardiovascular Disease in the [place], and the [place] on Clinical Cardiology, [place] on Cardiovascular Surgery and Anesthesia, and the Quality of Care and Outcomes Research Interdisciplinary Working Group. Please see Circulation. 2007;116:5658-3323 for the detailed indications. Helen-operative betablocker (BB) indications: For patients already on BB for angina, arrhythmia, or HTN continue the BB (Class I). For patients not on BB, consider adding 1 week prior to surgery for vascular surgery in patients with CAD or multiple risk factors; or CHD or multiple risk factors undergoing intermediate - to high-risk procedures (Class IIa). Consider continuing the BB 2-4 weeks post-operatively. Otherwise, starting a perioperative betablocker may be harmful. Guideline Title: 2009 ACCF/AHA focused update on perioperative beta blockade incorporated into the ACC/AHA 2007 guidelines on perioperative cardiovascular evaluation and care for noncardiac surgery. A report of the [place] [employer] Foundation/[place] [employer] Task Force on Practice Guidelines. Please see J Am Kendrick Cardiol. 2009; Apr 06;54(22):p50-y177 for the detailed indications. documented in this encounter Plan of Treatment [...] pain- Primary Pain in joint, lower leg Rash Rash and other nonspecific skin eruption Hypertension Unspecified essential hypertension Needs flu shot Need for prophylactic vaccination and inoculation against influenza documented in this encounter Discontinued Medications Medication Sig Discontinue Reason Start Date End Da te enalapril (VASOTEC) 20 mg tabletIndications:Hypert ensive disorder take 1 tablet by mouth once daily. Duplicate Therapy 11/11/2013 03/30/2014 metoprolol XL (TOPROL-XL) 100 mg tabletIndications:Hypert ensive disorder take 1 tablet by mouth once daily. Duplicate Therapy 11/11/2013 03/30/2014 documented as of this encounter Historical Medications * This list may reflect changes made after this encounter. Medication Sig Dispensed Refills Start Date End Date pimecrolimus (ELIDEL) 1 % cream Apply topically as needed. added in this encounter Orders Immunization/Injection Count Last Ordered Date First Ordered Date INFLUENZA VACCINE =>3YO QUAD PRESERVATIVE FREE IM 1 03/30/2014 documented in this encounter Care Teams Caretaker Relationship Specialty Start Date End Date Quan Bingham MD [address] [place] [phone] PCP - General 05/27/13 08/09/16 documented as of this encounter
--- OUTSIDE RECORDS SUMMARY | 2024-03-08 15:00 | XMS_ITS | Encounter Summary ---
Author Organization [facility] Address [address] [place] [address] Care Team Providers Care Jig Bore Operator Name Role Phone Quan Bingham MD Primary Care Provider Reason for Visit * Reason Comments Dizziness Orthostatic BP's desiree cked - see VS. Pt feels funny every time he gets up from a lying position. Left ear feels funny. Off balance. Started after flight to [facility]. Will break out in a sweat for a split second as well. Medications Refill None needed. Encounter Details Date Type Department Care Team (Late st Contact Info) Description 06/29/2014 13:45 EST Office Visit [facility] [address] [facility] [address] [place] [address] Quan Bingham MD [address] [place] [address] [address] [place] [id number] Vertigo (Primary Dx) Social History Tobacco Use Types [...] Sign Reading Time Taken Comments Blood Pressure 120/76 06/29/2014 1409 EST Pulse 68 06/29/2014 1409 EST Temperature 36.5 ??C (97.7 ??F) 06/29/2014 1405 EST Respiratory Rate 20 06/29/2014 1409 EST Oxygen Saturation - - Inhaled Oxygen Concentration - - Weight 126.1 kg (278 lb) 06/29/2014 1405 EST Height - - Body Mass Index 34.29 03/30/2014 1015 EST documented in this encounter Patient Instructions * Patient Instructions* Quan Bingham - 06/29/2014 14:41 EST Images from the original note were not included. [facility] Patient Instructions Benign Paroxysmal Positional Vertigo (BPPV): After Your Visit Your Care Instructions Benign paroxysmal positional vertigo, also called BPPV, is an inner ear problem. It causes a spinning or whirling sensation when you move your head. This sensation is called vertigo. The vertigo usually lasts for less than a minute. People often have vertigo spells for a few days or weeks. Then the vertigo goes away. But it may come back again. The vertigo may be mild, or it may be bad enough to cause unsteadiness, nausea, and vomiting. When you move, your inner ear sends messages to the brain. This helps you keep your balance. Vertigo can happen when debris builds up in the inner ear. The buildup can cause the inner ear to send thewrong message to the brain. Your doctor may move you in different positions to help your vertigo get better faster. This is called the Jai maneuver. Your doctor may also prescribe medicines or exercises to help with your symptoms. Follow-up care is a donahue part of your treatment and safety. Be sure to make and go to all appointments, and call your doctor if you are having problems. It's also a good idea to know your test resultsand keep a list of the medicines you take. How can you care for yourself at home? ?? If your doctor suggests that you do Stephens-Daroff exercises: ?? Sit on the edge of a bed or sofa. Quickly lie down on the side that causes the worst vertigo. Lie on your side with your ear down. ?? Stay in this position for at least 30 seconds or until the vertigo goes away. ?? Sit up. If this causes vertigo, wait for it to stop. ?? Repeat the procedure on the other side. ?? Repeat this 10 times. Do these exercises 2 times a day until the vertigo is gone. When should you call for help? Call 911 anytime you think you may need emergency care. For example, call if: ?? You have symptoms of a stroke. These may include: ?? Sudden numbness, tingling, weakness, or loss of movement in your face, arm, or leg, especially on only one side of your body. ?? Sudden vision changes. ?? Sudden trouble speaking. ?? Sudden confusion or trouble understanding simple statements. ?? Sudden problems with walking or balance. ?? A sudden, severe headache that is different from past headaches. Call your doctor now or seek immediate medical care if: ?? You have new or worse nausea and vomiting. ?? You have new symptoms such as hearing loss or roaring in your ears. Watch closely for changes in your health, and be sure to contact your doctor if: ?? You are not getting better as expected. ?? Your vertigo gets worse. Where can you learn more? Go to [email or web address] Enter P372 in the search box to learn more about Benign Paroxysmal Positional Vertigo (BPPV): After Your Visit. ?? [id number] [employer]. Care instructions adapted under license by [facility] This care instruction is for use with your licensed healthcare professional. If you have questions about a medical condition or this instruction, always ask your healthcare professional. [employer] disclaims any warranty or liability for your use of this information. Content Version: 10.2.386378; Current as of: August 01, 2012 [facility] Patient Instructions Vertigo: After Your Visit Your Care Instructions Vertigo is the feeling that you or your surroundings are moving when there is no actual movement. It is often described as a feeling of spinning, whirling, falling, or tilting. Vertigo may make you vomit or feel nauseated. You may have trouble standing or walking and may lose your balance. Vertigo is often related to an inner ear problem, but it can have other more serious causes. If vertigo continues, you may need more tests to find its cause. Follow-up care is a donahue part of your treatment and safety. Be sure to make and go to all appointments, and call your doctor if you are having problems. It???s also a good idea to know your test results and keep a list of the medicines you take. How can you care for yourself at home? ?? Do not lie flat on your back. Prop yourself up slightly. This may reduce the spinning feeling. Keep your eyes open. ?? Move slowly so that you do not fall. ?? If your doctor recommends medicine, take it exactly as directed. ?? Do not drive while you are having vertigo. Certain exercises, called Stephens-Daroff exercises, can help decrease vertigo. To do Stephens-Daroff exercises: ?? Sit on the edge of a bed or sofa and quickly lie down on the side that causes the worst vertigo.Lie on your side with your ear down. ?? Stay in this position for at least 30 seconds or until the vertigo goes away. ?? Sit up. If this causes vertigo, wait for it to stop. ?? Repeat the procedure on the other side. ?? Repeat this 10 times. Do these exercises 2 times a day until the vertigo is gone. When should you call for help? Call 911 anytime you think you may need emergency care. For example, call if: ?? You passed out (lost consciousness). ?? You have symptoms of a stroke. These may include: ?? Sudden numbness, tingling, weakness, or loss of movement in your face, arm, or leg, especially on only one side of your body. ?? Sudden vision changes. ?? Sudden trouble speaking. ?? Sudden confusion or trouble understanding simple statements. ?? Sudden problems with walking or balance. ?? A sudden, severe headache that is different from past headaches. Call your doctor now or seek immediate medical care if: ?? Vertigo occurs with a fever, a headache, or ringing in your ears. ?? You have new or increased nausea and vomiting. Watch closely for changes in your health, and be sure to contact your doctor if: ?? Vertigo gets worse or happens more often. ?? Vertigo has not gotten better after 2 weeks. Where can you learn more? Go to [email or web address] Enter W717 in the search box to learn more about Vertigo: After Your Visit. ?? [id number] [employer]. Care instructions adapted under license by [facility] This care instruction is for use with your licensed healthcare professional. If you have questions about a medical condition or this instruction, always ask your healthcare professional. [employer] disclaims any warranty or liability for your use of this information. Content Version: 10.2.093405; Current as of: September 27, 2012 [facility] Patient Instructions Vertigo: Exercises Your Care Instructions Here are some examples of typical rehabilitation exercises for your condition. Start each exercise slowly. Ease off the exercise if you start to have pain. Your doctor or physical therapist will tell you when you can start these exercises and which ones will work best for you. How to do the exercises Note: Do these exercises twice a day. Try to progress to doing each head movement 15 to 20 times. Then try to do them with your eyes closed. Exercise 1 1. Stand with a chair in front of you and a wall behind you. If you begin to fall, you may use themfor support. 2. Stand with your feet together and your arms at your sides. Exercise 2 Move your head side to side 10 times. Exercise 3 Move your head diagonally up and down 10 times. Exercise 4 Move your head diagonally up and down 10 times on the other side. Follow-up care is a donahue part of your treatment and safety. Be sure to make and go to all appointments, and call your doctor if you are having problems. It's also a good idea to know your test resultsand keep a list of the medicines you take. Where can you learn more? Go to [email or web address][email or web address] Enter F349 in the search box to learn more about Vertigo: Exercises. ?? [phone] [employer]. Care instructions adapted under license by [facility] This care instruction is for use with your licensed healthcare professional. If you have questions about a medical condition or this instruction, always ask your healthcare professional. [employer] disclaims any warranty or liability for your use of this information. Content Version: 10.2.749821; Current as of: July 02, 2012 documented in this encounter Ordered Prescriptions Prescription Sig Dispensed Refills Start Date End Da te metoprolol XL (TOPROL-XL) 100 mg tablet Take 0.5 Tabs by mouth daily 90 Tab 3 06/29/2014 09/29/2015 documented in this encounter Progress Notes * Quan Bingham - 06/29/2014 1833 EST REASON FOR VISIT: Dizziness. SUBJECTIVE: This 64-year-old generally had been in good health. He is status post knee replacement from almost 2 months ago. Generally improving modestly, but overall feels like he is doing well. However, he notes a new onset of dizziness. This occurred in the last few days. Initially he felt left ear was feeling full and funny. This happened after a recent flight. Then has developed recurrent episode of dizziness, unsteadiness, usually occurring upon standing, particularly in the morning when he first wakes up. Symptoms usually only last seconds and occur 1 to several times a day. He hasnot fallen due to this. Recent episodes, he feels fine. He denies any actual ear pain. Only complained of fullness and slight decreased hearing, mainly involving left ear, minimal symptoms on right. No visual changes, no cognitive, memory, speech, or other neurologic symptoms. The patient moving all extremities well. No numbness or weakness. No palpitations or chest symptoms. No new leg edema. Hecontinues on current medicines, which were reviewed. The patient with lower blood pressure at visitlast month and his metoprolol was lowered, but has not had any significant difficulty since then. He is eating and drinking regularly. No fever, chills or other acute respiratory complaints. No GI com plaints. No nausea, vomiting, no bleeding noted. OBJECTIVE: Blood pressure 134/72, pulse 64, temperature 97.7, pulse 68 and with standing blood pressure 128/76. He was not asymptomatic. Head, ear, eye, nose, throat exam: TMs velazqeuz bilaterally, no acute abnormality noted. Canals clear. Hearing within normal limits bilaterally. Pupils equal and reactive to light. Extraocular movements intact. Mouth, throat exam unremarkable. Neck: 2+ carotids, no bruit, no thyromegaly. Chest: Clear to auscultation. Cardiovascular: Regular rate and rhythm, no murmur. Abdomen: Positive bowel sounds, soft nontender. Extremity exam: Normal pulses, sensation, rangeof motion. No significant edema. No cords palpated. Neurologic exam: Cranial nerves II-XII intact. Sensory within normal limits to light touch throughout. Motor 5/5 strength throughout. Independence-Hallpike maneuver was positive actually to right (side opposite of ear symptoms), but with a clear positive with increased dizziness and nystagmus briefly. Minimal symptoms to left. Jai maneuver was performed with dizziness provoked with initial steps. He tolerated this well. ASSESSMENT: This 64-year-old status post recent knee replacement, who had generally been doing wellrecently with new onset of dizziness, which seems most consistent with vertigo. I think that there is a clear positional component. Differential also includes acute labyrinthitis, possibly from congestion and/or eustachian tube dysfunction from recent plane flight. Overall, exam is reassuring. There is no sign of a significant central systemic cause. No obvious indication to suggest cardiopulmonary cause. I think this should be self- limiting. He is already beginning to improve. Symptoms only brief and otherwise have not caused any significant disability. PLAN: 1. Supportive care, given brief symptoms, I do not think that medication is indicated. Discussed with patient if it occurs. 2. Also given exam, I do not think further evaluation is needed, such as lab or imaging. Also discussed with patient who concurs. 3. Ensure adequate rest, fluids, and follow up as needed. 4. Exercise, as discussed with the patient for vertigo along with instructions not to lie flat after Jai maneuver for the next 2 days. Follow up if symptoms should worsen or change. documented in this encounter Plan of Treatment [...] as of this encounter Visit Diagnoses Diagnosis Vertigo- Primary Dizziness and giddiness documented in this encounter Discontinued Medications Medication Sig Discontinue Reason Start Date End Da te metoprolol XL (TOPROL-XL) 100 mg tablet take 1 tablet by mouth once daily Reorder 12/22/2013 06/29/2014 warfarin (COUMADIN) 5 mg tablet Take 5 mg by mouth daily Ends on 05/26/14 . 06/29/2014 CELECOXIB (CELEBREX ORAL) Take 1 Cap by mouth daily Ends on 05/26/13 . 06/29/2014 documented as of this encounter Care Teams Jig Bore Operator Relationship Specialty Start Date End Date Quan Bingham MD [address] [place] [phone] PCP - General 05/27/13 08/09/16 documented as of this encounter
--- OUTSIDE RECORDS SUMMARY | 2024-03-08 15:00 | XMS_ITS | Encounter Summary ---
Author Organization [facility] Address [address] [place] [address] Care Team Providers Care French Professor Name Role Phone Irineo Vazquez MD Primary Care Provider Unav ailable Reason for Referral * Consult (Routine) - Closed Specialty Diagnoses / Procedures Referred By Contac t Referred To Contact Diagnoses Hydrocele Irineo Vazquez MD [address] [address] Referral ID Status Reason Start Date Expiration Date V isits Requested Visits Authorized [id number] Closed Specialty Services Required 03/15/2011 1 1 Question Answer Reason for Request: left hydrocoele Comments Dr. Archer * Consult (Routine) - Closed Specialty Diagnoses / Procedures Referred By Contact Referred To Contact Gastroenterology and Hepatology Diagnoses Colon polyp Irineo Vazquez MD [address] [address] [facility] [address] [place] [address] Referral ID Status Reason Start Date Expiration Date V isits Requested Visits Authorized [id number] Closed Specialty Services Required 03/15/2011 1 1 Question Answer Reason for Request: colonoscopy -cancer screening Comments [facility] - h/o polyp * (Routine) - Closed Specialty Diagnoses / Procedures Referred By Contac t Referred To Contact Diagnoses Hypertension Procedures BASIC METABOLIC PANEL Irineo Vazquez MD [address] [facility] [address] [address] Referral ID Status Reason Start Date Expiration Date Visits Re quested Visits Authorized [id number] Closed 03/15/2011 1 1 * (Routine) - Closed Specialty Diagnoses / Procedures Referred By Contac t Referred To Contact Diagnoses Abdominal pain Procedures HEMAGRAM AND DIFFERENTIAL Irineo Vazquez MD [address] [facility] [address] [place] [id number] Referral ID Status Reason Start Date Expiration Date Visits Re quested Visits Authorized [id number] Closed 03/15/2011 1 1 * (Routine) - Closed Specialty Diagnoses / Procedures Referred By Contac t Referred To Contact Diagnoses Health maintenance examination Procedures PSA TOTAL AND FREE, SERUM Irineo Vazquez MD [address] [facility] [address] [place] [id number] Referral ID Status Reason Start Date Expiration Date Visits Re quested Visits Authorized [id number] Closed 03/15/2011 1 1 * (Routine) - Closed Specialty Diagnoses / Procedures Referred By Contac t Referred To Contact Diagnoses Hypertension Procedures LIPID PROFILE (INCLUDES CHOLESTEROL, TRIGLYCERIDES, HDL, LDL) Irineo Vazquez MD [address] [facility] [address] [place] [address] Referral ID Status Reason Start Date Expiration Date Visits Re quested Visits Authorized [id number] Closed 03/15/2011 1 1 * (Routine) - Closed Specialty Diagnoses / Procedures Referred By Contac t Referred To Contact Diagnoses Hypertension Procedures ALT Irineo Vazquez MD [address] [facility] [address] [address] Referral ID Status Reason Start Date Expiration Date Visits Re quested Visits Authorized [id number] Closed 03/15/2011 1 1 Reason for Visit * Reason Comments Annual Exam med check,bp. having issues with snoring and apnea.Has some tenderness in lt lower abd. Encounter Details Date Type Department Care Team (Late st Contact Info) Description 03/15/2011 8:00 EDT Office Visit [facility] [address] [facility] [address] [address] Irineo Vazquez MD Hypertension; Colon polyp; Abdominal pain; Health maintenance examination; Hydrocele Social History Tobacco Use Types Packs/Day Years [...] Sign Reading Time Taken Comments Blood Pressure 122/80 03/15/2011805 EDT Pulse 58 03/15/2011805 EDT Temperature - - Respiratory Rate - - Oxygen Saturation - - Inhaled Oxygen Concentration - - Weight 137.9 kg (304 lb) 03/15/2011808 EDT Height 190.5 cm (6' 3) 03/15/2011808 EDT Body Mass Index 38 03/15/2011808 EDT documented in this encounter Patient Instructions * Patient Instructions* Irineo Vazquez MD - 03/15/2011 8:39 EDT Images from the original note were not included. Take cipro 500 mg twice daily for 7 days, and report if stomach not better by then.[facility] Patient Instructions Diverticulitis: After Your Visit Your Care Instructions Diverticulitis occurs when pouches form in the wall of the colon and become inflamed or infected. It can be very painful. Diverticulitis may be the result of a diet that is too low in fiber. You can change your diet and take other steps to help your body heal and prevent future problems. Follow-up care is a donahue part of your treatment and safety. Be sure to make and go to all appointments, and call your doctor if you are having problems. It???s also a good idea to know your test results and keep a list of the medicines you take. How can you care for yourself at home? MARGIN-BOTTOM: 0mm Drink plenty of fluids, enough so that your urine is light yellow or clear like water. If you have kidney, heart, or liver disease and have to limit fluids, talk with your doctor before you increase the amount of fluids you drink. Stick to liquids or a bland diet (plain rice, bananas, dry toast or crackers, applesauce) until youare feeling better. Then you can return to regular foods and gradually increase the amount of fiberin your diet. Use a heating pad set on low on your belly to relieve mild cramps and pain. Get extra rest until you are feeling better. If your doctor prescribed antibiotics, take them as directed. Do not stop taking them just because you feel better. You need to take the full course of antibiotics. Take pain medicines exactly as directed. LANK-[id number]-[id number]: [place]; MARGIN-BOTTOM: 0mm If the doctor gave you a prescription medicine for pain, take it as prescribed. If you are not taking a prescription pain medicine, ask your doctor if you can take an xakh-yav-lhdzztf medicine. Do not take two or more pain medicines at the same time unless the doctor told you to. Many pain medicines have acetaminophen, which is Tylenol. Too much acetaminophen (Tylenol) can be harmful. To prevent future attacks of diverticulitis MARGIN-BOTTOM: 0mm Avoid constipation: HGLE-[id number]-[id number]: [place]; MARGIN-BOTTOM: 0mm Include fruits, vegetables, beans, and whole grains in your diet each day. These foods are high in fiber. Drink plenty of fluids, enough so that your urine is light yellow or clear like water. If you have kidney, heart, or liver disease and have to limit fluids, talk with your doctor before you increase the amount of fluids you drink. Get some exercise every day. Build up slowly to 30 to 60 minutes a day on 5 or more days of the week. Take a fiber supplement, such as Citrucel or Metamucil, every day if needed. Start with a small dose and very slowly increase the dose over a month or more. Schedule time each day for a bowel movement. Having a daily routine may help. Take your time and donot strain when having a bowel movement. When should you call for help? Call 911 anytime you think you may need emergency care. For example, call if: ?? You passed out (lost consciousness). ?? You vomit blood or what looks like coffee grounds. ?? You pass maroon or very bloody stools. Call your doctor now or seek immediate medical care if: ?? You have severe pain or swelling in your belly. ?? You have a new or higher fever. ?? You cannot keep down fluids or medicines. ?? You have new pain that gets worse when you move or cough. Watch closely for changes in your health, and be sure to contact your doctor if: ?? The symptoms you had when you first started feeling sick come back. ?? You do not get better as expected. Where can you learn more? Go to [email or web address].net/fahc Enter H901 in the search box to learn more about Diverticulitis: After Your Visit. ?? [id number] [employer]. Care instructions adapted under license by [facility], [facility]. This care instruction is for use with your licensed healthcare professional. If you have questions about a medical condition or this instruction, always ask your healthcare professional. [employer] disclaims any warranty or liability for your use of this information. Content Version: 8.9.23980; Last Revised: August 25, 2008 documented in this encounter Ordered Prescriptions Prescription Sig Dispensed Refills Start Date End Da te ciprofloxacin (CIPRO) 500 mg tablet Take 1 Tab by mouth 2 times daily. 14 Tab 0 03/15/2011 05/22/2011 documented in this encounter Progress Notes * Irineo Vazquez MD - 03/15/2011 1100 EDT SUBJECTIVE: Mr Alvarez is 60 years old, seen for health maintenance examination and followup of hypertension and to evaluate abdominal pain. He has been experiencing left lower quadrant pain for the past 5 days. He is not aware of any strain or injury, but says he could easily have strained something without realizing since he is quite physically active. This has been well localized in the left lower quadrant and is aggravated by bending or straightening, particularly when he first gets up from a seated position. It was aggravated by a long car drive, it bothers him walking up stairs. There has been no change in bowel pattern. He denies fever, nausea, vomiting or change in diet. He has no prior history of any similar abdominal discomfort. Advil has helped. He is also concerned about snoring that his reports has become quite severe. She has noted episodes of interrupted breathing and has had to sleep in a separate room. He occasionally wakes up at night and sometimes has to get up and occupy himself, but generally he has restful sleep and does not experience daytime fatigue. His blood pressure has been stable. He denies headache, lightheadedness, palpitations, chest pain, shortness of breath, heartburn and he has no difficulty with urination. His last concern is increased size left side scrotum where he has had a chronic hydrocele. This has become more bothersome. MEDICATIONS: Enalapril 20 mg daily. Metoprolol XL 100 mg daily. He uses Lidex and Elidel cream for recurring dermatitis on belt line. He has no known allergies. He does not smoke or overuse alcohol. OBJECTIVE: Weight 3 to 4 pounds, height 75 inch, BMI 38. BP 122/80, pulse 58. Sclerae clear. Eyes full EOM, TMs normal. Sinuses nontender. Throat clear. Neck supple, no JVD, no adenopathy. Carotid arteries 2+, no bruit. Lungs clear, good breath sounds. Heart sounds regular, no murmur. Abdomen: Active bowel sounds, soft, tender area well localized left lower quadrant, no guarding, no rebound tenderness, no palpable mass. No pain on psoas stress. Genitalia: Large hydrocele left scrotum, no inguinal hernia. Rectal: No mass. Prostate 15 grams, smooth, no nodule. Extremities: Good range of motion of knees and hips. Erythematous dermatitis belt line and some areas of raised erythema left groin where he has applied a heat pad. ASSESSMENT: Hypertension, left hydrocele, left lower quadrant pain, possible diverticulitis versus ligament strain, eczematous dermatitis. PLAN: Mr Alvarez will have a fasting blood test done. He declined a flu vaccine. He is due for tetanusvaccine in 2003. I suggested empiric treatment with Cipro 500 mg twice daily for one week for mild diverticulitis. He will report if symptoms get any worse or are not resolved by the end of one week.This may need further evaluation with CT scan. He is due for colonoscopy, which will be scheduled. He will be referred to a urologist to evaluate his hydrocele. I strongly encouraged effort to reduceweight by cutting down portions of meals, weight reduction would help his snoring and apparent sleep apnea. He might also try using a saline nose spray at night to ease nasal congestion. He may require further evaluation with an overnight sleep study if he begins to experience more daytime fatigue.He will continue his antihypertensive medications. I would like to see him for followup in two months. CC: Salvador Archer MD; Patient. documented in this encounter Plan of Treatment Scheduled Orders Name Type Priority Associated Diagnoses Orde r Schedule ALT Lab Routine Hypertension Ordered: 03/15/2011 PSA TOTAL AND FREE, SERUM Lab Routine Health maintenance examination Ordered: 03/15/2011 HEMAGRAM AND DIFFERENTIAL Lab Routine Abdominal pain Ordered: 03/15/2011 BASIC METABOLIC PANEL Lab Routine Hypertension Ordered: 03/15/2011 Scheduled Referrals Name Type Priority Associated Diagnoses Order Schedule AMB CONSULT GASTROENTEROLOGY Outpatient Referral Routine Colon polyp Ordered: 03/15/2011 AMB CONSULT UROLOGY Outpatient Referral Routine Hydrocele Ordered: 03/15/2011 documented as of this encounter Procedures Procedure Name Priority Date/Time Associated Diagnosis Comments LIPID PROFILE (INCLUDES CHOLESTEROL, TRIGLYCERIDES, HDL, LDL) Routine 03/15/2011 Hypertension documented in this encounter Results * LIPID PROFILE (INCLUDES CHOLESTEROL, TRIGLYCERIDES, HDL, LDL) (03/15/2011) Cholesterol, External 177 [facility] Triglycerides, External 311 [facility] HDL, External 26 [facility] LDL, External 89 [facility] Chol/HDL Ratio, External [facility] Fasting?, External [facility] Blood specimen (specimen) 03/15/2011 Irineo Vazquez MD CHEMISTRY & BLOOD G ORDERABLES [facility] documented in this encounter Visit Diagnoses Diagnosis Hypertension Unspecified essential hypertension Colon polyp Benign neoplasm of colon Abdominal pain Abdominal pain, unspecified site Health maintenance examination Routine general medical examination at a health care facility Hydrocele Hydrocele, unspecified documented in this encounter Discontinued Medications Medication Sig Discontinue Reason Start Date End Da te doxycycline (VIBRA-TABS) 100 mg tabletIndications:Bug bites Take 2 Tabs by mouth daily. Error 11/02/2009 03/15/2011 documented as of this encounter Care Teams French Professor Relationship Specialty Start Date End Date Irineo Vazquez MD PCP - General 03/29/09 05/26/13 documented as of this encounter
--- OUTSIDE RECORDS SUMMARY | 2024-03-08 15:00 | XMS_ITS | Encounter Summary ---
Author Organization [facility] Address [address] [place] [address] Care Team Providers Care Detail Technician Name Role Phone Quna Bingham MD Primary Care Provider Encounter Details Date Type Department Care Team (Late st Contact Info) Description 05/26/2014 Results Only [facility] - [place] [address] [facility] [address] [place] [address] Quan Bingham MD [address] [place] [address] [address] [place] [address] Social History Tobacco Use Types [...] Diagnosis Comments BASIC METABOLIC PANEL ([facility]) Routine 05/26/2014 10:43 EST HEMOGLOBIN A1C Routine 05/26/2014 10:43 EST LIPID PROFILE (INCLUDES CHOLESTEROL, TRIGLYCERIDES, HDL, LDL) Routine 05/26/2014 10:43 EST documented in this encounter Results * HEMOGLOBIN A1C (05/26/2014 10:43 EST) Hemoglobin A1C, External 5.1 4.0 - 6.0 % [facility] Est Avg Glucose, External 100 mg/dL [facility] 05/26/2014 10:4 3 EST 05/26/2014 10:43 EST Narrative [facility] - 05/26/2014 12:34 EST Does PT Have a Latex Allergy? NO Quan Bingham MD CHEMISTRY & BL OOD GAS ORDERABLES [facility] * (ABNORMAL) LIPID PROFILE (INCLUDES CHOLESTEROL, TRIGLYCERIDES, HDL, LDL) (05/26/2014 10:43 EST) Triglycerides, External 209(H) 35 - 150 mg/dL [facility] Cholesterol, External 160 120 - 200 mg/dL [facility] Chol/HDL Ratio, External 5.1(H) 0 - 5.0 [facility] Comment: DESIRABLE RATIO IS LESS THAN 4.1 PATIENTS ARE CONSIDERED AT RISK: WOMEN RATIO >5 MEN RATIO >6 Fasting?, External Yes [facility] HDL, External 31(L) 40 - 60 mg/dL [facility] LDL, External 87 60 - 100 mg/dL [facility] Non HDL Chol, External 129 mg/dl [facility] Comment: Desirable: ?Less than 130 Borderline High: ??130-159 High: ? 160-189 Very High: ?Greater than or equal to 190 05/26/2014 10:4 3 EST 05/26/2014 10:43 EST Narrative [facility] - 05/26/2014 11:50 EST Does PT Have a Latex Allergy? NO Quan Bingham MD CHEMISTRY & BL OOD GAS ORDERABLES [facility] * BASIC METABOLIC PANEL ([facility]) (05/26/2014 10:43 EST) Bun, External 13 7 - 18 mg/dL [facility] Calcium, External 9.7 8.5 - 10.1 mg/dL [facility] Chloride, External 104 98 - 107 mEq/L [facility] CO2, External 27 21 - 32 mEq/L [facility] Creatinine, External 0.8 0.5 - 1.4 mg/dL [facility] GFR, Jeremi/Est., External >60 [facility] Comment: Chronic renal impairment is defined as GFR <60 Multiply result by 1.210 for patients. Glucose, Serum, External 94 70 - 100 mg/dL [facility] Potassium, External 4.5 3.5 - 5.0 mEq/L [facility] Sodium, External 139 135 - 145 mEq/L [facility] 05/26/2014 10:4 3 EST 05/26/2014 10:43 EST Narrative [facility] - 05/26/2014 11:50 EST Does PT Have a Latex Allergy? NO Quan Bingham MD CHEMISTRY & BL OOD GAS ORDERABLES [facility] documented in this encounter Visit Diagnoses Not on filedocumented in this encounter Care Teams Detail Technician Relationship Specialty Start Date End Date Quan Bingham MD [address] [place] [phone] PCP - General 05/27/13 08/09/16 documented as of this encounter
--- OUTSIDE RECORDS SUMMARY | 2024-03-08 15:00 | XMS_ITS | Encounter Summary ---
Author Organization [facility] Address [address] [place] [address] Care Team Providers Care News Commentator Name Role Phone Irineo Vazquez MD Primary Care Provider Unav ailable Reason for Visit * Reason Comments Follow-up follow up after resu lts follow up on syncope episode in July Encounter Details Date Type Department Care Team (Late st Contact Info) Description 09/11/2012 8:45 EDT Office Visit [facility] [address] [facility] [address] [place], [place] [id number] Quan Bingham MD [address] [place] [address] [address] [place] [address] Hypertension (Primary Dx) Social History Tobacco Use Types [...] Sign Reading Time Taken Comments Blood Pressure 140/70 09/11/2012 0850 EDT Pulse 64 09/11/2012 0850 EDT Temperature 36.9 ??C (98.4 ??F) 09/11/2012 0850 EDT Respiratory Rate - - Oxygen Saturation 95% 09/11/2012 0850 EDT res ting room air Inhaled Oxygen Concentration - - Weight 144.2 kg (318 lb) 09/11/2012 0850 EDT Height - - Body Mass Index 41.11 04/29/2012 1347 EST documented in this encounter Progress Notes * Quan Bingham - 09/11/2012 1326 EDT REASON FOR VISIT: Follow up syncope. SUBJECTIVE: Followup visit for syncope, an episode one month ago, largely related in retrospect to irregular diet and fluid intake. No interval problems. Benign exam last month. Unremarkable labs essentially and Holter monitoring testing. He has done well since. No interval complaints. He continueson current medicines, which were reviewed. OBJECTIVE: Blood pressure 140/70, pulse 64, temp 98.4, O2 sat 95% room air. General: Alert, no acute distress. Chest clear to auscultation. Cardiovascular: Regular rate and rhythm, no murmur. Abdomennontender. ASSESSMENT: PROBLEM 1: Status post syncope, likely a combination of vasovagal episode, volume depletion. Overall, reassuring in the interval since then including evaluation including labs, Holter monitor and x-ray. PLAN: 1. Continue current medicines. 2. Regular diet, fluid intake. 3. Follow up as needed. PROBLEM 2: Borderline low oxygen O2 of unclear significance. Benign exam with normal x-ray, D-dimerlast month. No acute pulmonary cause identified. Body habitus and history does suggest sleep apnea.And he is scheduled for sleep clinic evaluation, likely sleep study. It may contribute to borderline low oxygenation. PLAN: 1. Observe. 2. Sleep study as noted. 3. Follow up as needed. documented in this encounter Plan of Treatment Not on file documented as of this encounter Visit Diagnoses Diagnosis Hypertensive disorder- Primary Unspecified essential hypertension documented in this encounter Care Teams News Commentator Relationship Specialty Start Date End Date Irineo Vazquez MD PCP - General 03/29/09 05/26/13 documented as of this encounter
--- OUTSIDE RECORDS SUMMARY | 2024-03-08 15:00 | XMS_ITS | Encounter Summary ---
Author Organization [facility] Address [address] [place] [address] Care Team Providers Care Ornamental Metal Erector Name Role Phone Quan Bingham MD Primary Care Provider Reason for Referral * Consult (Routine/Next Available) - Closed Specialty Diagnoses / Procedures Referred By Contac t Referred To Contact Diagnoses Hydrocele Quan Bingham MD [address] [place] [address] 2 [place] [address] Referral ID Status Reason Start Date Expiration Date V isits Requested Visits Authorized [id number] Closed Specialty Services Required 08/03/2014 1 1 Question Answer Reason for Request: needs top have hydrocele rep[aired-seen by [facility] urlogy before Comments [facility] Reason for Visit * Reason Comments Rash Red slightly raised rash - patchy and dry - to left lower leg - from knee down. Cortisone helps for about 48 hours. Very itchy, 2 weeks Medications Refill None needed,. Encounter Details Date Type Department Care Team (Late st Contact Info) Description 08/03/2014 14:30 EDT Office Visit [facility] Family Medicine - [address] [place] [address] Quan Bingham MD [address] [place] [address] 2 [place] [phone] Rash (Primary Dx); Hydrocele Social History Tobacco Use Types Packs/Day [...] Sign Reading Time Taken Comments Blood Pressure 118/62 08/03/2014 1442 EDT Pulse 64 08/03/2014 1442 EDT Temperature 36.7 ??C (98 ??F) 08/03/2014 1442 EDT Respiratory Rate 20 08/03/2014 1442 EDT Oxygen Saturation - - Inhaled Oxygen Concentration - - Weight 122 kg (269 lb) 08/03/2014 1442 EDT Height - - Body Mass Index 33.18 03/30/2014 1015 EST documented in this encounter Ordered Prescriptions Prescription Sig Dispensed Refills Start Date End Da te fluocinonide (LIDEX) 0.05 % creamIndications:Rash Apply 1 application topically to affected area 2 times daily 60 g 1 08/03/2014 documented in this encounter Progress Notes * Quan Bingham - 08/03/2014 1738 EDT REASON FOR VISIT: Rash. SUBJECTIVE: A 64-year-old who presents to the clinic today with a rash on left lower leg, new onsetover the last few weeks, quite itchy, erythematous with some scaling. No clear provocative factor. 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 He has been at times scratching, but has tried to refrain from this. No fever or chills, no other unusual exposures. Rash confined to lower leg. History of psoriasis, but generally quiet, generally around gluteal cleft and around scalp, but no acute problems noted. He continues on a local triamcinolone cream on body and Elidel cream on face and head. He has only used [id number] hydrocortisone cream on the lower leg, which has helped te mporarily, but rash returns a day or 2 after use. No other acute problems noted. Recovering from knee replacement surgery from approximately 3 monthsago, doing well. Otherwise, he notes large hydrocele on left. He had seen urology a year ago and plan was to have this repaired, but postponed due to acute knee problems. He was quite interested in having this repaired as it is large. No acute urologic difficulty otherwise now. OBJECTIVE: Blood pressure 118/62, pulse 64, respirations 20, temp 98. Chest clear to auscultation. Cardiovascular: Regular rate and rhythm, no murmur. Abdomen nontender. Skin exam: Left lower james, there is mild 1+ edema on left, trace on right, and diffuse erythema with some scaling over pretibialsurface on left, none on right, slight area of crusting over gluteal cleft and at scalp line posteriorly to ears and also noted large hydrocele on left, unchanged. ASSESSMENT: PROBLEM 1: Rash, left leg, consistent with local case of eczema - stasis dermatitis. I think this is separate from his psoriasis. This appears to be a local phenomenon, doubt infection at this time. PLAN: 1. Lidex cream once to twice a day for 10 to 14 days. 2. Dermatologic evaluation if not improved. PROBLEM 2: Large hydrocele. PLAN: Referral back to local urology for repair. documented in this encounter Plan of Treatment Scheduled Referrals Name Type Priority Associated Diagnoses Orde r Schedule AMB CONS/FOLLOW UP UROLOGY Outpatient Referral Routine Hydrocele Ordered: 08/03/2014 documented as of this encounter Goals Goal [...] Primary Rash and other nonspecific skin eruption Hydrocele Hydrocele, unspecified documented in this encounter Care Teams Ornamental Metal Erector Relationship Specialty Start Date End Date Quan Bingham MD [address] [place] [phone] PCP - General 05/27/13 08/09/16 documented as of this encounter
--- OUTSIDE RECORDS SUMMARY | 2024-03-08 15:00 | XMS_ITS | Encounter Summary ---
Author Organization [facility] Address [address] [place] [address] Care Team Providers Care Sole Blacker Name Role Phone Irineo Vazquez MD Primary Care Provider Unav ailable Reason for Visit * Reason Comments Lyme Disease pt was at chiropract ors office and noted an area on lt lateral james ,concerned it was from a tick,? lyme disease. Encounter Details Date Type Department Care Team (Late st Contact Info) Description 11/02/2009 11:00 EDT Office Visit [facility] [address] [phone] Elvira James FNP 130 [facility] [address] [place] [address] Bug bites (Primary Dx) Social History Tobacco Use Types [...] Sign Reading Time Taken Comments Blood Pressure 130/70 11/02/2009 1151 EDT Pulse 78 11/02/2009 1151 EDT Temperature 36.8 ??C (98.3 ??F) 11/02/2009 1151 EDT Respiratory Rate - - Oxygen Saturation - - Inhaled Oxygen Concentration - - Weight - - Height - - Body Mass Index - - documented in this encounter Patient Instructions * Patient Instructions* Elvira James, NICOLASA - 11/02/2009 12:12 EDT Take the two tab. At once. You should not have any problems documented in this encounter Ordered Prescriptions Prescription Sig Dispensed Refills Start Date End Da te doxycycline (VIBRA-TABS) 100 mg tabletIndications:Bug bites Take 2 Tabs by mouth daily. 2 Tab 0 11/02/2009 03/15/2011 documented in this encounter Progress Notes * Elvira James NP - 11/02/2009 1225 EDT Seen at chiropractor today and he noticed a bug bite with some inflammation .Francisco J noticed an itch2 days ago but no bugs. [place] Objective: small dark area of lower leg with minimal change in color surrounding it.Slightly firm Ass: bug bite Plan: Doubt this is a tick bite. But will rx. 2 100mg. Doxycline. Keep area clean. May use some cortisone if desired. documented in this encounter Plan of Treatment Not on file documented as of this encounter Visit Diagnoses Diagnosis Bug bites- Primary Other, multiple, and unspecified sites, insect bite, nonvenomous, without mention of infection documented in this encounter Discontinued Medications Medication Sig Discontinue Reason Start Date End Da te methocarbamol (ROBAXIN) 500 mg tablet Take 2 Tabs by mouth 4 times daily as needed. muscle tension' Therapy completed 09/29/2009 11/02/2009 documented as of this encounter Care Teams Sole Blacker Relationship Specialty Start Date End Date Irineo Vazquez MD PCP - General 03/29/09 05/26/13 documented as of this encounter
--- OUTSIDE RECORDS SUMMARY | 2024-03-08 15:00 | XMS_ITS | Encounter Summary ---
Author Organization [facility] Address [address] [place] [address] Care Team Providers Care Guest Laundry Attendant Name Role Phone Quan Bingham MD Primary Care Provider Reason for Visit * Reason Onset Date Comments Medications Refill 09/29/2013 Encounter Details Date Type Department Care Team (Late st Contact Info) Description 09/29/2013 Telephone [facility] Family [facility] 130 [facility] [address] [place] [address] Quan Bingham MD [address] [place] [address] [address] [place] [phone] Medications Refill Social History Tobacco [...] tablet take 1 tablet by mouth once daily. 90 Tab 0 09/29/2013 10/02/2013 enalapril (VASOTEC) 20 mg tablet take 1 tablet by mouth once daily. 90 Tab 0 09/29/2013 10/02/2013 documented in this encounter Miscellaneous Notes * Telephone Encounter - Staci Rosenthal RN - 09/29/2013 1156 EDT Vasotec and metoprolol last filled 06/20/13 Last acute OV 08/28/[address] Bingham for 10/02/13 and BMP * Telephone Encounter - Angela Choi - 09/29/2013 1123 EDT Pt asked for a refill of enalapril and metoprolol. I tried pending these but was unable to. Last ov 08.28. and refill ... documented in this encounter Plan of Treatment Not on file documented as of this encounter Visit Diagnoses Not on filedocumented in this encounter Discontinued Medications Medication Sig Discontinue Reason Start Date End Da te enalapril (VASOTEC) 20 mg tablet take 1 tablet by mouth once daily Reorder 06/20/2013 09/29/2013 metoprolol XL (TOPROL-XL) 100 mg tablet take 1 tablet by mouth once daily Reorder 06/20/2013 09/29/2013 documented as of this encounter Care Teams Guest Laundry Attendant Relationship Specialty Start Date End Date Quan Bingham MD [address] [place] [phone] PCP - General 05/27/13 08/09/16 documented as of this encounter
--- OUTSIDE RECORDS SUMMARY | 2024-03-08 15:00 | XMS_ITS | Encounter Summary ---
Author Organization [facility] Address [address] [place] [id number] Care Team Providers Care Rn Transition Name Role Phone Irineo Vazquez MD Primary Care Provider Unav ailable Reason for Visit * Reason Onset Date Comments Medication Problem 05/10/2010 Pharmacy 05/10/2010 Encounter Details Date Type Department Care Team (Late st Contact Info) Description 05/10/[address] [address] Irineo Vazquez MD Medication Problem; Pharmacy Social History Tobacco Use Types Packs/Day Years [...] Tab by mouth daily. 90 Tab 3 05/10/2010 11/08/2010 documented in this encounter Miscellaneous Notes * Telephone Encounter - Maura Eid LPN - 05/10/2010 0915 EST The wrong metoprolol was sent to the ,he takes the toprol xl. I already clarified,just sign the order. * Telephone Encounter - Jose Abernathy - 05/10/2010 0906 EST Patient is at [facility] in [place] filling the metoprolol and the pharmacist called. He stated thatthe medication isn't usually this type of metoprolol and is hoping someone could call to verify what was ordered. The pharmacists name is Louie and he is at the [facility]. [phone] documented in this encounter Plan of Treatment Not on file documented as of this encounter Visit Diagnoses Diagnosis HTN (hypertension)- Primary Unspecified essential hypertension documented in this encounter Discontinued Medications Medication Sig Discontinue Reason Start Date End Da te metoprolol (LOPRESSOR) 100 mg tablet Take 1 Tab by mouth daily. 04/29/2010 05/10/2010 documented as of this encounter Care Teams Rn Transition Relationship Specialty Start Date End Date Irineo Vazquez MD PCP - General 03/29/09 05/26/13 documented as of this encounter
--- OUTSIDE RECORDS SUMMARY | 2024-03-08 15:00 | XMS_ITS | Encounter Summary ---
Author Organization [facility] Address [address] [place] [address] Care Team Providers Care Clinical Research Monitor Name Role Phone Irineo Vazquez MD Primary Care Provider Unav ailable Reason for Visit * Reason Onset Date Comments Medication Problem 11/02/2009 Encounter Details Date Type Department Care Team (Late st Contact Info) Description 11/02/[address] [address] Irineo Vazquez MD Medication Problem Social History Tobacco Use Types Packs/Day Years [...] Telephone Encounter - Maura Eid LPN - 11/02/2009 1519 EDT Message left on voice mail that antibx was escribed and it takes an hour or so to get to the . * Telephone Encounter - Jose Abernathy - 11/02/2009 1357 EDT Patient just called and he is at his pharmacy. They haven't received the script for Doxycline and he is hoping someone could send it in. He is still at the pharmacy. Please call the number he left as it is his cell phone. documented in this encounter Plan of Treatment Not on file documented as of this encounter Visit Diagnoses Not on filedocumented in this encounter Care Teams Clinical Research Monitor Relationship Specialty Start Date End Date Irineo Vazquez MD PCP - General 03/29/09 05/26/13 documented as of this encounter
--- OUTSIDE RECORDS SUMMARY | 2024-03-08 15:00 | XMS_ITS | Encounter Summary ---
Author Organization [facility] Address [address] [place] [address] Care Team Providers Care Prick Stitcher Name Role Phone Irineo Vazquez MD Primary Care Provider Unav ailable Reason for Visit * Reason Onset Date Comments Medications Refill 06/17/2012 Encounter Details Date Type Department Care Team (Late st Contact Info) Description 06/17/2012 Refill [facility] Medicine [address] [address] Irineo Vazquez MD Medications Refill Social History Tobacco Use Types [...] Tab by mouth daily. 90 Tab 4 06/17/2012 06/20/2013 enalapril (VASOTEC) 20 mg tabletIndications:HTN (hypertension) Take 1 Tab by mouth daily. 90 Tab 4 06/17/2012 06/20/2013 documented in this encounter Miscellaneous Notes * Telephone Encounter - Maura Eid LPN - 06/17/2012 1116 EST ? Lab work. documented in this encounter Plan of Treatment Not on file documented as of this encounter Visit Diagnoses Diagnosis HTN (hypertension)- Primary Unspecified essential hypertension documented in this encounter Discontinued Medications Medication Sig Discontinue Reason Start Date End Da te enalapril (VASOTEC) 20 mg tabletIndications:HTN (hypertension) Take 1 Tab by mouth daily. Reorder 05/22/2011 06/17/2012 metoprolol XL (TOPROL-XL) 100 mg tabletIndications:HTN (hypertension) Take 1 Tab by mouth daily. Reorder 05/22/2011 06/17/2012 documented as of this encounter Care Teams Prick Stitcher Relationship Specialty Start Date End Date Irineo Vazquez MD PCP - General 03/29/09 05/26/13 documented as of this encounter
--- OUTSIDE RECORDS SUMMARY | 2024-03-08 15:00 | XMS_ITS | Encounter Summary ---
Author Organization [facility] Address [address] [place] [address] Care Team Providers Care Claim Attorney Name Role Phone Quan Bingham MD Primary Care Provider Reason for Referral * (Routine) - Closed Specialty Diagnoses / Procedures Referred By Contac t Referred To Contact Diagnoses Hypertensive disorder Procedures BASIC METABOLIC PANEL Quan Bingham MD [address] [place] [phone] Referral ID Status Reason Start Date Expiration Date Visits Re quested Visits Authorized [id number] Closed 09/22/2013 1 1 Reason for Visit * Reason Onset Date Comments Labs Only 09/22/2013 Encounter Details Date Type Department Care Team (Late st Contact Info) Description 09/22/2013 Telephone [facility] Family Medicine - [address] [place] [address] Quan Bingham MD [address] [place] [phone] Labs Only Social History Tobacco Use Types Packs/Day Years [...] encounter Miscellaneous Notes * Telephone Encounter - Karina Hill - 09/22/2013 1531 EDT Left message with details for pt. * Telephone Encounter - Quan Bingham - 09/22/2013 1004 EDT Labs in prism-only a basic metaboic panel * Telephone Encounter - Angella Ornelas - 09/22/2013 0830 EDT Reason for Call: Labs Only Summary/Symptoms: Patient is scheduled for MPE on 10/02 and wonders if he needs labs ahead of time. Onset and Duration? Appointment Offered? N/A Angella Ornelas 09/22/2013 8:30 documented in this encounter Plan of Treatment Scheduled Orders Name Type Priority Associated Diagnoses Orde r Schedule BASIC METABOLIC PANEL Lab Routine Hypertension Ordered: 09/22/2013 documented as of this encounter Visit Diagnoses Diagnosis Hypertension- Primary Unspecified essential hypertension documented in this encounter Care Teams Claim Attorney Relationship Specialty Start Date End Date Quan Bingham MD [address] [place] [phone] PCP - General 05/27/13 08/09/16 documented as of this encounter
--- OUTSIDE RECORDS SUMMARY | 2024-03-08 15:00 | XMS_ITS | Encounter Summary ---
Author Organization [facility] Address [address] [place] [address] Care Team Providers Care Tractor Trailer Driver Name Role Phone Irineo Vazquez MD Primary Care Provider Unav ailable Reason for Referral * Consult (Routine) - Closed Specialty Diagnoses / Procedures Referred By Contac t Referred To Contact Diagnoses Syncope Sleep apnea Quan Bingham MD [address] [place] [address] [address] Referral ID Status Reason Start Date Expiration Date V isits Requested Visits Authorized [id number] Closed Specialty Services Required 08/21/2012 1 1 Question Answer Reason for Request: probable sleep apnea * Radiology Services (Routine/Next Available) - Closed Specialty Diagnoses / Procedures Referred By Contac t Referred To Contact Diagnoses Syncope Procedures CHEST PA AND LATERAL Quan Bingham MD [address] [place] [address] Referral ID Status Reason Start Date Expiration Date Visits Re quested Visits Authorized [id number] Closed 08/21/2012 1 1 * Cardiology (Routine) - Closed Specialty Diagnoses / Procedures Referred By Contac t Referred To Contact Diagnoses Syncope Procedures HOLTER MONITOR Quan Bingham MD [address] [place] [address] Referral ID Status Reason Start Date Expiration Date Visits Re quested Visits Authorized [id number] Closed 08/21/2012 1 1 * (Routine) - Closed Specialty Diagnoses / Procedures Referred By Contac t Referred To Contact Diagnoses Syncope Procedures TSH Quan Bingham MD [address] [facility] [address] [place] [address] Referral ID Status Reason Start Date Expiration Date Visits Re quested Visits Authorized [id number] Closed 08/21/2012 1 1 * (Routine) - Closed Specialty Diagnoses / Procedures Referred By Contac t Referred To Contact Diagnoses Syncope Procedures LIPID PROFILE (INCLUDES CHOLESTEROL, TRIGLYCERIDES, HDL, LDL) Quan Bingham MD [address] [facility] [address] [address] Referral ID Status Reason Start Date Expiration Date Visits Re quested Visits Authorized [id number] Closed 08/21/2012 1 1 * (Routine) - Closed Specialty Diagnoses / Procedures Referred By Contac t Referred To Contact Diagnoses Syncope Procedures D-DIMER Quan Bingham MD [address] [facility] [address] [address] Referral ID Status Reason Start Date Expiration Date Visits Re quested Visits Authorized [id number] Closed 08/21/2012 1 1 * (Routine) - Closed Specialty Diagnoses / Procedures Referred By Contac t Referred To Contact Diagnoses Syncope Procedures HEMAGRAM AND DIFFERENTIAL Quan Bingham MD [address] [facility] [address] [address] Referral ID Status Reason Start Date Expiration Date Visits Re quested Visits Authorized [id number] Closed 08/21/2012 1 1 * (Routine) - Closed Specialty Diagnoses / Procedures Referred By Contac t Referred To Contact Diagnoses Syncope Procedures COMPREHENSIVE METABOLIC PANEL (CMP) Quan Bingham MD [address] [facility] [address] [place] [address] Referral ID Status Reason Start Date Expiration Date Visits Re quested Visits Authorized [id number] Closed 08/21/2012 1 1 Reason for Visit * Reason Comments Other Passed out 6 days ag o., prior weakness-just prior to episode, very brief, witneesed by tow people ,very brief, irregular diet, no pain, no sob,, no prior hx Encounter Details Date Type Department Care Team (Late st Contact Info) Description 08/21/2012 8:00 EDT Office Visit [facility] [address] [facility] [address] [place], [place] [id number] Quan Bingham MD [address] [place] [address] 2 [place] [address] Syncope (Primary Dx); Sleep apnea; Vasovagal episode Social History Tobacco Use Types Packs/Day Years [...] Sign Reading Time Taken Comments Blood Pressure 140/86 08/21/2012 0827 EDT Pulse 60 08/21/2012 0808 EDT Temperature 36.6 ??C (97.8 ??F) 08/21/2012 0808 EDT Respiratory Rate - - Oxygen Saturation 96% 08/21/2012 1222 EDT Inhaled Oxygen Concentration - - Weight 142 kg (313 lb) 08/21/2012 0808 EDT Height - - Body Mass Index 40.46 04/29/2012 1347 EST documented in this encounter Patient Instructions * Patient Instructions* Quan Bingham - 08/21/2012 8:51 EDT Images from the original note were not included. [facility] Patient Instructions Fainting: After Your Visit Your Care Instructions When you faint, or pass out, you lose consciousness for a short time. A brief drop in blood flow tothe brain often causes it. When you fall or lie down, more blood flows to your brain and you regainconsciousness. Emotional stress, pain, or overheating--especially if you have been standing--can make you faint. In these cases, fainting is usually not serious. But fainting can be a sign of a more serious problem. Your doctor may want you to have more tests to rule out other causes. Follow-up care is a donahue part of your treatment and safety. Be sure to make and go to all appointments, and call your doctor if you are having problems. It???s also a good idea to know your test results and keep a list of the medicines you take. How can you care for yourself at home? ?? Drink plenty of fluids to prevent dehydration. If you have kidney, heart, or liver disease and have to limit fluids, talk with your doctor before you increase your fluid intake. When should you call for help? Call 911 anytime you think you may need emergency care. For example, call if: ?? You have chest pain or pressure. This may occur with: ?? Sweating. ?? Shortness of breath. ?? Nausea or vomiting. ?? Pain that spreads from the chest to the neck, jaw, or one or both shoulders or arms. ?? Dizziness or lightheadedness. ?? A fast or uneven pulse. After calling 911, chew 1 adult-strength aspirin. Wait for an ambulance. Do not try to drive yourself. ?? You have signs of a stroke. These may include: ?? Sudden numbness, paralysis, or weakness in your face, arm, or leg, especially on only one side of your body. ?? New problems with walking or balance. ?? Sudden vision changes. ?? Drooling or slurred speech. ?? New problems speaking or understanding simple statements, or feeling confused. ?? A sudden, severe headache that is different from past headaches. ?? You passed out (lost consciousness) again. ?? You have a seizure. Watch closely for changes in your health, and be sure to contact your doctor if: ?? You do not get better as expected. Where can you learn more? Go to www.[employer].net/fahc Enter A848 in the search box to learn more about Fainting: After Your Visit. ?? [id number] [employer]. Care instructions adapted under license by [facility], [facility]. This care instruction is for use with your licensed healthcare professional. If you have questions about a medical condition or this instruction, always ask your healthcare professional. [employer] disclaims any warranty or liability for your use of this information. Content Version: 9.2.875577; Last Revised: February 01, 2010 documented in this encounter Progress Notes * Quan Bingham - 08/21/2012 1216 EDT REASON FOR VISIT: Syncope. SUBJECTIVE: The patient presents to the clinic today for a syncope episode. A 62-year-old with history of hypertension, but generally in stable health. He does acknowledge being overweight and deconditioned. However, approximately 6 days prior to visit, while at work and talking with coworkers, he abruptly lost consciousness. This apparently was only brief and the patient was described as only essentially slumping abruptly and awkwardly to knees. He did, however, fall fast enough that he struckright arm against car with bruise. He does not recall specifically event and thinks and was told that episode only lasted seconds. He describes confusion for part of a minute and then this resolved. And essentially was back to baseline. There were no clear prodromal effects other than noting that legs got very weak and wobbly just prior to onset of symptoms. There was no prodromal pain, palpitations, shortness of breath, diaphoresis. There were no GI symptoms. Subsequent to recovery, he was doing well. In addition, there were no neurologic complaints including no change in cognitive or memory function, speech, vision, hearing, or neurologic symptoms such as numbness or weakness. No obvious coordination difficulties noted that are new. REVIEW OF SYSTEMS: No recent cold, flu, or febrile complaints. No complaints of pain. No GI disturbances with normal bowel habits. No bleeding described. No HEENT symptoms, no CP/Palpitations, no neurologic symptoms, no urologic symptoms, no extremity/orthopedic symptoms, no rash. He does describe having somewhat irregular eating habits on the day of episode, which he did go a prolonged period, it sounds like, without eating, although thought he had been well hydrated. He has no prior history of syncope, no cardiovascular history. SURGICAL HISTORY: Reviewed and essentially unremarkable for any recent events. FAMILY HISTORY: Significant for father with heart disease who had an MD and in his 60s. Medicines were reviewed and significant for enalapril and Vasotec. No recent changes noted. SOCIAL: Lives in [place]. He does have a significant amount of property that he owns and is generally quite busy managing his property. Overall, no difficulty with exercise or exertion, although he does note he could be exercising more regularly. Does acknowledge being overweight. He is a nonsmoker -- never smoked; no alcohol, tobacco, or drug use. No trauma or injury described. OBJECTIVE: Blood pressure 146/82, pulse 60; my recheck 140/86. Temp 97.8. O2 sat was 96% on room air. General: Alert, in no acute distress. Responds well to questions, articulate. TMs velazquez. Pupils equal and reactive to light, extraocular ocular movements intact. Throat exam: Unremarkable. Neck: No lymphadenopathy, supple, 2+ carotids, no bruit, no thyromegaly. Chest: Clear to auscultation. Cardiovascular: Regular rate and rhythm, no murmur. Abdomen: Positive bowel sounds, soft, nontender. Extremity exam: Normal appearance, no edema, no arthritis seen. Normal pulses, full range of motion without difficulty. Neurologic exam: Cranial nerves II-XII intact. Motor and 5/5 strength. Sensation intact to light touch. Electrocardiogram showed a sinus bradycardia, but otherwise was unremarkable. ASSESSMENT: The patient with a history of hypertension but otherwise had been in good health with abrief syncopal episode. I suspect, in retrospect, given circumstances, possibly delay in p.o. intake. This may have been associated with a vasovagal type episode. However, at this point, given cardiac and family history, there are some additional risk factors for a more concerning cause. With that in mind, I did suggest at least lab work and Holter monitor. We discussed indication for stress testing, but at this point, I think likely that indication is not strong enough to suggest that this is required at this stage. I did suggest close observation with followup with his primary care providerin 2 to 3 weeks. If any further events occur suggesting cardiac causes, will need further risk stratification. Discussed with patient, who concurred. PLAN: 1. Lab: CBC, metabolic panel, D-dimer (if positive, will require CT angiogram of chest), lipid panel, TSH. 2. Chest x-ray. 3. Holter monitor. 4. Follow up with his PCP in 2 to 3 weeks. Discussed vasovagal episode and importance of regular diet, sleep, hydration. documented in this encounter Plan of Treatment Scheduled Orders Name Type Priority Associated Diagnoses Orde r Schedule EKG 12-LEAD ECG Routine Syncope Ordered: 08/21/2012 COMPREHENSIVE METABOLIC PANEL (CMP) Lab Routine Syncope Ordered: 08/21/2012 HEMAGRAM AND DIFFERENTIAL Lab Routine Syncope Ordered: 08/21/2012 D-DIMER Lab Routine Syncope Ordered: 08/21/2012 LIPID PROFILE (INCLUDES CHOLESTEROL, TRIGLYCERIDES, HDL, LDL) Lab Routine Syncope Ordered: 08/21/2012 TSH Lab Routine Syncope Ordered: 08/21/2012 HOLTER MONITOR ECG Routine Syncope Ordered: 08/21/2012 CHEST PA AND LATERAL Imaging Routine Syncope Ordered: 08/21/2012 Scheduled Referrals Name Type Priority Associated Diagnoses Orde r Schedule [facility] Outpatient Referral Routine Syncope Sleep apnea Ordered: 08/21/2012 documented as of this encounter Visit Diagnoses Diagnosis Syncope- Primary Syncope and collapse Sleep apnea Unspecified sleep apnea Vasovagal episode Syncope and collapse documented in this encounter Care Teams Tractor Trailer Driver Relationship Specialty Start Date End Date Irineo Vazquez MD PCP - General 03/29/09 05/26/13 documented as of this encounter
--- OUTSIDE RECORDS SUMMARY | 2024-03-08 15:00 | XMS_ITS | Encounter Summary ---
Author Organization [facility] Address [address] [place] [address] Care Team Providers Care Individual Pension Adviser Name Role Phone Quan Bingham MD Primary Care Provider Reason for Visit * Reason Onset Date Comments Results 09/18/2013 Creatinine Encounter Details Date Type Department Care Team (Late st Contact Info) Description 09/18/2013 Orders Only [address] [address] Morenita Carreno LPN Social History Tobacco Use Types Packs/Day Years [...] Procedure Name Priority Date/Time Associated Diagnosis Comments CREATININE Routine 08/21/2012 documented in this encounter Results * CREATININE (08/21/2012) Creatinine, External 1.1 [facility] GFR, Calculated, External >60 [facility] Blood specimen (specimen) 08/21/2012 Historical Provider CHEMISTRY & BLOOD GAS ORDERABLES [facility] documented in this encounter Visit Diagnoses Not on filedocumented in this encounter Care Teams Individual Pension Adviser Relationship Specialty Start Date End Date Quan Bingham MD [address] [place] [phone] PCP - General 05/27/13 08/09/16 documented as of this encounter
--- OUTSIDE RECORDS SUMMARY | 2024-03-08 15:00 | XMS_ITS | Encounter Summary ---
Author Organization [facility] Address [address] [place] [address] Care Team Providers Care Shoe Cutter Name Role Phone Irineo Vazquez MD Primary Care Provider Unav ailable Encounter Details Date Type Department Care Team (Late st Contact Info) Description 10/10/[address] [facility] - [facility] ([facility]) [address] [place] [id number] Salvador Archer MD [address] [place] [id number] Social History Tobacco Use Types Packs/Day Years [...] Procedure Name Priority Date/Time Associated Diagnosis Comments PSA FREE TOTAL ([facility]) Routine 10/10/2011 6:43 EDT documented in this encounter Results * PSA FREE TOTAL ([facility]) (10/10/2011 6:43 EDT) PSA Ratio, External SN [facility] Comment: Ratio not calculated because clinical usefulness is not defined except in range of total PSA 2-10 ng/mL. ??Serum markers are not specific for malignancy and values may vary by method. PSA, External 1.5 0 - 4.0 ng/ml [facility] Comment:Method: Access II Hy britech Prostate Free, External 0.2 ng/ml [facility] 10/10/2011 6:43 EDT 10/10/2011 6:43 EDT Narrative [facility] - 10/10/2011 8:46 EDT Does PT Have a Latex Allergy? NO Salvador Archer MD CHEMISTRY & BLOOD GA S ORDERABLES [facility] documented in this encounter Visit Diagnoses Not on filedocumented in this encounter Care Teams Shoe Cutter Relationship Specialty Start Date End Date Irineo Vazquez MD PCP - General 03/29/09 05/26/13 documented as of this encounter
--- OUTSIDE RECORDS SUMMARY | 2024-03-08 15:00 | XMS_ITS | Encounter Summary ---
Author Organization [facility] Address [address] [place] [address] Care Team Providers Care Captain Waiter/Waitress Name Role Phone Quan Bingham MD Primary Care Provider Encounter Details Date Type Department Care Team (Late st Contact Info) Description 10/01/2013 Results Only [facility] - [place] [address] [facility] [address] [place] [address] Quan Bingham MD [address] [place] [address] [address] [place] [address] Social History Tobacco Use Types [...] Date/Time Associated Diagnosis Comments BASIC METABOLIC PANEL ([facility]) Routine 10/01/2013 7:01 EDT documented in this encounter Results * (ABNORMAL) BASIC METABOLIC PANEL ([facility]) (10/01/2013 7:01 EDT) Bun, External 15 7 - 18 mg/dL [facility] Calcium, External 9.3 8.5 - 10.1 mg/dL [facility] Chloride, External 106 98 - 107 mEq/L [facility] CO2, External 26 21 - 32 mEq/L [facility] Creatinine, External 0.9 0.5 - 1.4 mg/dL [facility] GFR, Jeremi/Est., External >60 [facility] Comment: Chronic renal impairment is defined as GFR <60 Multiply result by 1.210 for patients. Glucose, Serum, External 105(H) 70 - 100 mg/dL [facility] Potassium, External 4.4 3.5 - 5.0 mEq/L [facility] Sodium, External 139 135 - 145 mEq/L [facility] 10/01/2013 7:01 EDT 10/01/2013 7:01 EDT Narrative [facility] - 10/01/2013 8:34 EDT Does PT Have a Latex Allergy? NO Quan Bingham MD CHEMISTRY & BL OOD GAS ORDERABLES [facility] documented in this encounter Visit Diagnoses Not on filedocumented in this encounter Care Teams Captain Waiter/Waitress Relationship Specialty Start Date End Date Quan Bingham MD [address] [place] [phone] PCP - General 05/27/13 08/09/16 documented as of this encounter
--- OUTSIDE RECORDS SUMMARY | 2024-03-08 15:00 | XMS_ITS | Encounter Summary ---
Author Organization [facility] Address [address] [place] [address] Care Team Providers Care Manager Dairy Name Role Phone Irineo Vazquez MD Primary Care Provider Quan Murphy MD Primary Care Provider Unknown, Provider Primary Care Provider [phone] Quan Bingham MD Primary Care Provider Unknown, Provider Primary Care Provider [phone] Encounter Details Date Type Department Care Team (Late st Contact Info) Description 05/09/2011 Historical Results Only [facility] - [facility] - [place] [address] [place] [address] Jorge Tavera MD [address] [place] [address] [address] [place] [address] Social History Tobacco Use Types Packs/Day Years [...] Date/Time Associated Diagnosis Comments SURGICAL PATHOLOGY Routine 05/09/2011 documented in this encounter Results * SURGICAL PATHOLOGY (05/09/2011) 05/09/2011 05/09/2011 10: 13 EST Narrative [facility] - 05/10/2011 14:12 EST ----- ------- Name: FRANCISCO J ALVAREZ ?: [birth year] ?Age/Sex: 68/M ?Unit#: [id number] ? Loc: END ? Status: DEP CLI ?? Reg Date: 05/09/11 ? Pt.Phone Number: ? ----- ------- Specimen: [id number] ? STATUS: SOUT ?Spec Date:05/09/11 ? Physician Copies: ?Jorge Tavera MD ? Tissues: A ?? Gastrointestinal Tract (COLON @ 25 CM) ? Irineo Vazquez MD CPT: 38334 ?? Units: ??1 ?FINAL DIAGNOSIS ? Colon, 25 cm, polyp, biopsy; ? - Hyperplastic polyp. ? GROSS DESCRIPTION ? Received in [facility] labeled with the patient's name and colon polyp @ 25 cm ? is a 0.3 cm mucosal fragment, e.s. 1. CP ?? PREOP DX/CLINICAL HISTORY ?Screening, history of polyps. Signed ____(signature on file)____ Angela Miller M.D. 05/10/11 By the signature above, the attending physician certifies that he/she has personally conducted a gross and/or microscopic examination of the described specimens and rendered or confirmed the above diagnosis. Test Performed by [facility], [address] [place] [address] Datastage Developer: Angela Miller MD PHD ----- ------- Jorge Tavera MD PATHOLOGY ORDERABLES [facility] documented in this encounter Visit Diagnoses Not on filedocumented in this encounter Care Teams Manager Dairy Relationship Specialty Start Date End Date Irineo Vazquez MD PCP - General 03/29/09 05/26/13 Quan Bingham MD [address] [place] [address] [address] [place] [phone] PCP - General 05/27/13 08/09/16 Unknown, Provider, [address] [place] [address] [address] [place] [phone] PCP - General 08/10/16 10/15/16 Quan Bingham MD [address] [place] [address] [address] [place], [place] [id number] PCP - General 10/16/16 10/16/16 Unknown, Provider, [address] [place] [address] [address] [place] [phone] PCP - General 10/17/16 documented as of this encounter
--- OUTSIDE RECORDS SUMMARY | 2024-03-08 15:00 | XMS_ITS | Encounter Summary ---
Author Organization [facility] Address [address] [place] [address] Care Team Providers Care Electric Sign Wirer Name Role Phone Irineo Vazquez MD Primary Care Provider Unav ailable Reason for Visit * Reason Comments Knee Pain Pt here today for hi s Left knee pain; 2+ weeks, pt awoke and knee was swollen (no know injury)- pt states it's a dull ache Encounter Details Date Type Department Care Team (Late st Contact Info) Description 03/10/2013 13:45 EDT Office Visit [facility] [address] [facility] [address] [place] [address] Quan Bingham MD [address] [place] [address] [address] [place] [address] Knee pain (Primary Dx) Social History Tobacco [...] Sign Reading Time Taken Comments Blood Pressure 146/86 03/10/2013 1348 EDT Pulse 58 03/10/2013 1348 EDT Temperature 36.8 ??C (98.3 ??F) 03/10/2013 1348 EDT Respiratory Rate - - Oxygen Saturation - - Inhaled Oxygen Concentration - - Weight 145.6 kg (321 lb) 03/10/2013 1348 EDT Height - - Body Mass Index 41.49 04/29/2012 1347 EST documented in this encounter Patient Instructions * Patient Instructions* Quan Bingham - 03/10/2013 14:09 EDT Images from the original note were not included. [facility] Patient Instructions Knee Pain: After Your Visit Your Care Instructions Overuse is often the cause of knee pain. Other causes are climbing stairs, kneeling, or other activities that use the knee. Everyday wear and tear, especially as you get older, also can cause knee pain. Rest, along with home treatment, often relieves pain and allows your knee to heal. If you have a serious knee injury, you may need tests and treatment. Follow-up care is a donahue part of your treatment and safety. Be sure to make and go to all appointments, and call your doctor if you are having problems. It???s also a good idea to know your test results and keep a list of the medicines you take. How can you care for yourself at home? ?? Take pain medicines exactly as directed. ?? If the doctor gave you a prescription medicine for pain, take it as prescribed. ?? If you are not taking a prescription pain medicine, ask your doctor if you can take an osub-csk-[id number] medicine. ?? Do not take two or more pain medicines at the same time unless the doctor told you to. Many painmedicines contain acetaminophen, which is Tylenol. Too much acetaminophen (Tylenol) can be harmful. ?? Rest and protect your knee. Take a break from any activity that may cause pain. ?? Put ice or a cold pack on your knee for 10 to 20 minutes at a time. Put a thin cloth between theice and your skin. ?? Prop up a sore knee on a pillow when you ice it or anytime you sit or lie down for the next 3 days. Try to keep it above the level of your heart. This will help reduce swelling. ?? If your doctor recommends an elastic bandage, sleeve, or other type of support for your knee, wear it as directed. ?? If your knee is not swollen, you can put moist heat, a heating pad, or a warm cloth on your knee. ?? After several days of rest, you can begin gentle exercise of your knee. ?? Reach and stay at a healthy weight. Extra weight can strain the joints, especially the knees andhips, and make the pain worse. Losing even a few pounds may help. When should you call for help? Call 911 anytime you think you may need emergency care. For example, call if: ?? You have sudden chest pain and shortness of breath, or you cough up blood. Call your doctor now or seek immediate medical care if: ?? You have severe or increasing pain. ?? Your leg or foot turns cold or changes color. ?? You cannot stand or put weight on your knee. ?? Your knee looks twisted or bent out of shape. ?? You cannot move your knee. ?? You have signs of infection, such as: ?? Increased pain, swelling, warmth, or redness. ?? Red streaks leading from the sore area. ?? Pus draining from a place on your knee. ?? A fever. ?? You have signs of a blood clot in your leg, such as: ?? Pain in your calf, back of the knee, thigh, or groin. ?? Redness and swelling in your leg or groin. Watch closely for changes in your health, and be sure to contact your doctor if: ?? Your knee feels numb or tingly. ?? You do not get better as expected. ?? You have any new symptoms, such as swelling. ?? You have bruises from a knee injury that last longer than 2 weeks. Where can you learn more? Go to www.[employer].net/fahc Enter K195 in the search box to learn more about Knee Pain: After Your Visit. ?? [id number] [employer]. Care instructions adapted under license by [facility], [facility]. This care instruction is for use with your licensed healthcare professional. If you have questions about a medical condition or this instruction, always ask your healthcare professional. [employer] disclaims any warranty or liability for your use of this information. Content Version: 9.7.954898; Last Revised: June 17, 2010 documented in this encounter Progress Notes * Quan Bingham - 03/14/2013 0854 EDT His exam was close to normal this week. No obvious findings to suggest signifiacant internal injuryat the exam. I would suggest watching for a lttle longer. If this does not seem to be improving over the the next 1-2 weeks-I would agree that further imaging or orthopedic eval is indicated * Quan Bingham - 03/14/2013 0854 EDT Subjective: Patient ID: Francisco J Alvarez Jr. is an 62 y.o. male. Chief Complaint Patient presents with ??? Knee Pain Pt here today for his Left knee pain; 2+ weeks, pt awoke and knee was swollen (no know injury)- pt states it's a dull ache HPI Patient Active Problem List Diagnosis ??? Hypertension ??? Colon polyp ??? Hydrocele No past medical history on file. Current Outpatient Prescriptions on File Prior to Visit Medication Status Sig Dispense Refill ??? enalapril (VASOTEC) 20 mg tablet Active Take 1 Tab by mouth daily. 90 Tab 4 ??? metoprolol XL (TOPROL-XL) 100 mg tablet Active Take 1 Tab by mouth daily. 90 Tab 4 No current facility-administered medications on file prior to visit. No Known Allergies Social History Substance Use Topics ??? Smoking status: Never Smoker ??? Smokeless tobacco: Never Used ??? Alcohol Use: No ROS - See HPI Objective: BP 146/86 Pulse 58 Temp(Src) 36.8 ??C (98.3 ??F) Wt 145.605 kg (321 lb) BMI 41.51 kg/m2 Physical Exam Assessment: Plan: Francisco J was seen today for knee pain. Diagnoses and associated orders for this visit: Knee pain Return in about 3 months (around 06/10/2013). Above note is erroneous and please disregard * Quan Bingham - 03/14/2013 0849 EDT Correction - first line in assessment should read - no significant edema. 3rd line should read: no signs of internal derangement , but cannot rule out meniscal injury The last line should read - differential dx includes osteoarthritis * Quan Bingham - 03/10/2013 1900 EDT REASON FOR VISIT: Knee pain. SUBJECTIVE: The patient presents to the clinic today with left knee pain. Present 2 weeks. Unclear what provoked this. No trauma or injury. He essentially awoke with this. Notes that initially it wasswollen, but less so now. Only slight prominence. Pain is mainly localized medially, although he did have some posterior knee pain. No clear provocative factor or change in activity. Generally active without difficulty, although hedoes note during this time period going down stairs, walking on uneven ground, etc. has irritated his knee. He also tends to stiffen up and be sore and more is prominent right after a period of inactivity. After he warms up a little bit, pain is less prominent. Generally, no significant discomfort this week. No other joint or extremity complaints. No obvious locking or buckling other than he has had an episode of lightheadedness in the recent past, which he did have a fall, but no recent occurrence. No prior history of left knee pain. However, did have meniscal injury to right knee that required remote repair. No fevers. OBJECTIVE: Blood pressure 146/86, pulse 58, temp was 97.8. Knee exam: Normal appearance, other thanmild effusion on the left, trace on right. Slight tenderness to palpation with very firm palpation over medial joint line. Otherwise, full range of motion without difficulty. No ligamentous instability including negative Olman test. Negative drawer test. No varus valgus instability, although mildpain elicited over medial knee with valgus stress. Negative Rigo test, negative Apley test. ASSESSMENT: Left knee pain of unclear etiology, but relatively benign exam now. No ischial edema and unclear if he may have had a more prominent effusion in the past. Currently, only slight. No signsof an inflammatory processes at this time. At this point, I doubt any significant internal derangement given the lack of injury, although cannot completely rule out meniscal injury associated with a g lenoid tear. He does have medial joint pain and may have some degree of medial collateral strain, although at present this is mild. Ligaments still intact by exam. Differential also and I think the most likely explanation for symptoms is a flare of osteoarthritis. At this point, this appears to be relatively quiet though. PLAN: Mutually decided to observe with followup if this should worsen. Consider imaging and/or orthopaedic evaluation at that time. documented in this encounter Plan of Treatment Not on file documented as of this encounter Visit Diagnoses Diagnosis Knee pain- Primary Pain in joint, lower leg documented in this encounter Care Teams Electric Sign Wirer Relationship Specialty Start Date End Date Irineo Vazquez MD PCP - General 03/29/09 05/26/13 documented as of this encounter
--- OUTSIDE RECORDS SUMMARY | 2024-03-08 15:00 | XMS_ITS | Encounter Summary ---
Author Organization [facility] Address [address] [place] [address] Care Team Providers Care Graduate Fellow Name Role Phone Irineo Vazquez MD Primary Care Provider Unav ailable Reason for Visit * Reason Onset Date Comments Medications Refill 11/08/2010 ENALAPRIL AND METOPROLOL Encounter Details Date Type Department Care Team (Late st Contact Info) Description 11/08/2010 Refill [facility] [address] [address] Irineo Vazquez MD Medications Refill (ENALAPRIL AND METOPROLOL) Social History Tobacco Use Types Packs/Day Years [...] (hypertension) Take 1 Tab by mouth daily. 30 Tab 5 11/08/2010 05/22/2011 enalapril (VASOTEC) 20 mg tabletIndications:HTN (hypertension) Take 1 Tab by mouth daily. 30 Tab 5 11/08/2010 05/22/2011 documented in this encounter Miscellaneous Notes * Telephone Encounter - Angella Ornelas - 11/08/2010 0943 EDT I called the [facility] and they claim that the rx for metoprolol was written for #30 with 5refills and not as we have it. (#90 with 3 refills) documented in this encounter Plan of Treatment Not on file documented as of this encounter Visit Diagnoses Diagnosis HTN (hypertension) Unspecified essential hypertension documented in this encounter Discontinued Medications Medication Sig Discontinue Reason Start Date End Da te enalapril (VASOTEC) 20 mg tablet Take 1 Tab by mouth daily. Reorder 04/29/2010 11/08/2010 metoprolol XL (TOPROL-XL) 100 mg tabletIndications:HTN (hypertension) Take 1 Tab by mouth daily. Reorder 05/10/2010 11/08/2010 documented as of this encounter Care Teams Graduate Fellow Relationship Specialty Start Date End Date Irineo Vazquez MD PCP - General 03/29/09 05/26/13 documented as of this encounter
--- OUTSIDE RECORDS SUMMARY | 2024-03-08 15:00 | XMS_ITS | Encounter Summary ---
Author Organization [facility] Address [address] [place] [address] Care Team Providers Care Acetone Button Paster Name Role Phone Irineo Vazquez MD Primary Care Provider Unav ailable Reason for Visit * Reason Onset Date Comments Medications Refill 04/29/2010 Encounter Details Date Type Department Care Team (Late st Contact Info) Description 04/29/[address] [address] Fernanda Tang RN Medications Refill Social History Tobacco Use Types [...] Refills Start Date End Da te metoprolol (LOPRESSOR) 100 mg tablet Take 1 Tab by mouth daily. 30 Tab 5 04/29/2010 05/10/2010 enalapril (VASOTEC) 20 mg tablet Take 1 Tab by mouth daily. 30 Tab 5 04/29/2010 11/08/2010 documented in this encounter Plan of Treatment Not on file documented as of this encounter Visit Diagnoses Not on filedocumented in this encounter Discontinued Medications Medication Sig Discontinue Reason Start Date End Da te enalapril (VASOTEC) 20 mg tablet Take 20 mg by mouth daily. Reorder 04/29/2010 metoprolol (LOPRESSOR) 100 mg tablet Take 100 mg by mouth daily. Reorder 04/29/2010 documented as of this encounter Care Teams Acetone Button Paster Relationship Specialty Start Date End Date Irineo Vazquez MD PCP - General 03/29/09 05/26/13 documented as of this encounter
--- OUTSIDE RECORDS SUMMARY | 2024-03-08 15:00 | XMS_ITS | Encounter Summary ---
Author Organization [facility] Address [address] [place] [address] Care Team Providers Care Band Sawyer Name Role Phone Irineo Vazquez MD Primary Care Provider Unav ailable Reason for Referral * Consult (Routine) - Closed Specialty Diagnoses / Procedures Referred By Norma urban Referred To Contact Diagnoses Hydrocele Quan Bingham MD [address] [place] [address] [address] Referral ID Status Reason Start Date Expiration Date V isits Requested Visits Authorized [id number] Closed Specialty Services Required 12/20/2012 1 1 Question Answer Reason for Request: follow up hydrocele, also painful spot associated with the penis Reason for Visit * Reason Comments Follow-up HTN, sleep study was done, no further syncopal events. Encounter Details Date Type Department Care Team (Late st Contact Info) Description 12/20/2012 8:15 EDT Office Visit [facility] [address] [place], [place] [id number] Quan Bingham MD [address] [place] [address] [address] [place] [address] Hypertension (Primary Dx); Sleep apnea; Hydrocele Social History Tobacco Use Types Packs/Day [...] Sign Reading Time Taken Comments Blood Pressure 126/78 12/20/2012817 EDT Pulse 56 12/20/2012817 EDT Temperature 36.6 ??C (97.9 ??F) 12/20/2012817 EDT Respiratory Rate - - Oxygen Saturation 95% 12/20/2012817 EDT Inhaled Oxygen Concentration - - Weight 142 kg (313 lb) 12/20/2012817 EDT Height - - Body Mass Index 40.46 04/29/2012 1347 EST documented in this encounter Progress Notes * Quan Bingham - 12/20/2012 1229 EDT REASON FOR VISIT: Follow up hypertension. SUBJECTIVE: Followup visit for hypertension. Feeling well with current regimen. No problems noted. REVIEW OF SYSTEMS: Essentially unremarkable for any new complaints. No further syncopal episodes - episode in the spring. He does have sleep apnea and he does describe a fairly difficult process of getting this diagnosed with home monitoring. This has been frustrating, but apparently will have hardware delivered in the next week or 2, which he hopes to begin using. Other concerns were urologic. He does have a large hydrocele, for which he has been followed by urology. At one time, he had a 1-time elevated PSA. PSA has subsequently been normal and was felt in the normal range a year ago. No obvious urologic problems noted. We did discuss urologic followup. Of note, he also has a painful spot at the base of penis near the junction of shaft and body. No traumaor injury described. Intermittent discomfort. He has no STD history. OBJECTIVE: Blood pressure 126/78, pulse 56. Chest clear to auscultation. Cardiovascular: Regular rate and rhythm, no murmur. Genital exam: Very large left hydrocele, otherwise unremarkable exam including penis. ASSESSMENT: Problem 1. Hypertension, well controlled. PLAN: 1. Continue current treatment. 2. Follow up in 6 months. Will suggest repeat physical exam then. Problem 2. Sleep apnea - further plan is per sleep clinic. Problem 3. Urology - large hydrocele. No clear change, but given size, I did suggest urologic followup and that he consider having this repaired as it does sound as though it does occasionally botherhim. Of less clear significance are penile symptoms. Benign exam. Suspect there might be some irritation of the soft tissue of the penis that occurs intermittently. PLAN: 1. Urology referral, particularly consider having hydrocele repaired. 2. Follow up otherwise as needed. documented in this encounter Plan of Treatment Scheduled Referrals Name Type Priority Associated Diagnoses Orde r Schedule AMB CONSULT UROLOGY Outpatient Referral Routine Hydrocele Ordered: 12/20/2012 documented as of this encounter Visit Diagnoses Diagnosis Hypertensive disorder- Primary Unspecified essential hypertension Sleep apnea Unspecified sleep apnea Hydrocele Hydrocele, unspecified documented in this encounter Care Teams Band Sawyer Relationship Specialty Start Date End Date Irineo Vazquez MD PCP - General 03/29/09 05/26/13 documented as of this encounter
--- OUTSIDE RECORDS SUMMARY | 2024-03-08 15:00 | XMS_ITS | Encounter Summary ---
Author Organization [facility] Address [address] [place] [address] Care Team Providers Care Drum Tender Name Role Phone Irineo Vazquez MD Primary Care Provider Unav ailable Reason for Visit * Reason Onset Date Comments Knee Pain 03/13/2013 Encounter Details Date Type Department Care Team (Late st Contact Info) Description 03/13/[address] [address] Irineo Vazquez MD Knee Pain Social History Tobacco Use Types Packs/Day Years [...] encounter Miscellaneous Notes * Telephone Encounter - Francesca Hayward RN - 03/14/2013 1308 EDT Spoke with pt and set up appt with Dr. Bingham for Sat at 9:45. * Telephone Encounter - Quan Bingham - 03/14/2013 1241 EDT If pain that severe- he should probably be seen again in the office-that would be a significant change from earlier in the week. rov might be helpful; to eval for interrval change * Telephone Encounter - Francesca Hayward RN - 03/14/2013 0907 EDT Spoke with pt and he is calling the pain severe. He is having to use a cane. He has been taking Ibuprofen. He is concerned because the pain is much worse then when he saw you on Sunday. Please advise. * Telephone Encounter - Quan Bingham - 03/14/2013 09 EDT Essentially normal exam when in this week. We did discuss imaging , but my intention was after observation- as in over the next couple of weeks If not improving then reasonable to proceed with imaging or Ortho eval then. * Telephone Encounter - Fernanda Tang RN - 03/13/2013 09 EDT Patient will wait for KJ to return tomorrow * Telephone Encounter - Angela Choi - 03/13/2013913 EDT Pt was in on Sunday and saw Peewee for his left knee pain. He is calling, per Peewee, to say that the pain is worse, there is burning inside the knee, and it feels very unstable. He said Peewee perhaps would order an MRI. Please call and advise. documented in this encounter Plan of Treatment Not on file documented as of this encounter Visit Diagnoses Not on filedocumented in this encounter Care Teams Drum Tender Relationship Specialty Start Date End Date Irineo Vazquez MD PCP - General 03/29/09 05/26/13 documented as of this encounter
--- OUTSIDE RECORDS SUMMARY | 2024-03-08 15:00 | XMS_ITS | Encounter Summary ---
Author Organization [facility] Address [address] [place] [address] Care Team Providers Care Radioactivity Technician Name Role Phone Quan Bingham MD Primary Care Provider Reason for Visit * Reason Comments Other Encounter Details Date Type Department Care Team (Late st Contact Info) Description 09/17/2013 Telephone [facility] [place] [address] [facility] [address] [place] [address] Quan Bingham MD [address] [place] [address] [address] [place] [address] Other Social History Tobacco Use [...] * Telephone Encounter - Angella Ornelas - 09/19/2013 1105 EDT Patient seems to be scheduled for MPE 10/03/13 already. * Telephone Encounter - Quan Bingham - 09/19/2013 0720 EDT Suggest rov in 3 months for bp check and due for labs then * Telephone Encounter - Fernanda Tang, ANAYA - 09/18/2013 1106 EDT Labs are over due last done 08/24 documented in this encounter Plan of Treatment Not on file documented as of this encounter Visit Diagnoses Not on filedocumented in this encounter Care Teams Radioactivity Technician Relationship Specialty Start Date End Date Quan Bingham MD [address] [place] [id number] PCP - General 05/27/13 08/09/16 documented as of this encounter
--- OUTSIDE RECORDS SUMMARY | 2024-03-08 15:00 | XMS_ITS | Encounter Summary ---
Author Organization [facility] Address [address] [place] [address] Care Team Providers Care Arbor End Mainspring Former Name Role Phone Irineo Vazquez MD Primary Care Provider Unav ailable Reason for Referral * Consult (Routine/Next Available) - Closed Specialty Diagnoses / Procedures Referred By Norma urban Referred To Contact Diagnoses Sleep disorder Irineo Vazquez MD [address] [place] [id number] [address] [address] Referral ID Status Reason Start Date Expiration Date V isits Requested Visits Authorized [id number] Closed Specialty Services Required 04/29/2012 1 1 Question Answer Reason for Request: sleep disorder Reason for Visit * Reason Comments Leg Pain has a spot on his lt leg that comes and goes and feels a squeeze and a burn off and on. Encounter Details Date Type Department Care Team (Late st Contact Info) Description 04/29/2012 13:30 EST Office Visit [facility] Family Medicine [facility] [address] [facility] [address] [address] Irineo Vazquez MD Leg pain; Hypertension; Sleep disorder Social History Tobacco Use Types [...] Sign Reading Time Taken Comments Blood Pressure 128/68 04/29/2012 1347 EST Pulse 68 04/29/2012 1347 EST Temperature - - Respiratory Rate - - Oxygen Saturation - - Inhaled Oxygen Concentration - - Weight 143.6 kg (316 lb 8 oz) 04/29/2012 1347 ES T Height 187.3 cm (6' 1.75) 04/29/2012 1347 EST Body Mass Index 40.91 04/29/2012 1347 EST documented in this encounter Patient Instructions * Patient Instructions* Irineo Vazquez MD - 04/29/2012 14:03 EST Apply cool compress to painful area leg. documented in this encounter Progress Notes * Irineo Vazquez MD - 04/29/2012 5388 EST PROBLEM: Pain, left knee. SUBJECTIVE: Francisco J is here to evaluate his uncomfortable burning sensation left james that he has experienced for the past 4 days. He had flown from across the [place] 1 month ago and developed dry itchy skin from the flight and this had seemed resolved. He cannot think of any injury or strain thatcould have affected his left james. He does recall experiencing severe james splints 40 years ago when he was in the service. There has been no discoloration, bruise or swelling. Otherwise, he feels well and has had no significant health problems in the past year. He never did schedule a sleep disorder but would like to try to get this up as he has had continued daytime fatigue. MEDICATIONS: Enalapril 20 mg daily. Metoprolol XL 100 mg daily. He has no allergies OBJECTIVE: BP 128/68, pulse 68, weight 316 pounds, height 6 feet 1.75 inches, BMI 41. Chest: Clear.Heart sounds normal. Extremities: No ankle edema. He does have prominent superficial veins, left james, but this is not his sensitive area. He indicates area midshin as the site of burning, which is currently not present, there is no erythema, fluctuance, swelling, induration or tenderness. No calf tenderness. Good range of motion ankles, 1+ DP and PT pulses, normal sensation in feet. ASSESSMENT: Burning sensation left james, hypertension, chronic sleep disorder. PLAN: He will be scheduled for a sleep study. Reassurance, no apparent vascular lesions or thrombosis. I suspect some occult strain or injury. He will treat with cool compresses and watch pattern of recurrence and report if this persists. Otherwise, I will see him for an [place]. documented in this encounter Plan of Treatment Scheduled Referrals Name Type Priority Associated Diagnoses Orde r Schedule [facility] Outpatient Referral Routine Sleep disorder Ordered: 04/29/2012 documented as of this encounter Visit Diagnoses Diagnosis Leg pain Pain in limb Hypertensive disorder Unspecified essential hypertension Sleep disorder Sleep disturbance, unspecified documented in this encounter Care Teams Arbor End Mainspring Former Relationship Specialty Start Date End Date Irineo Vazquez MD PCP - General 03/29/09 05/26/13 documented as of this encounter
--- OUTSIDE RECORDS SUMMARY | 2024-03-08 15:00 | XMS_ITS | Encounter Summary ---
Author Organization [facility] Address [address] [place] [address] Care Team Providers Care Medical Records Assistant Name Role Phone Quan Bingham MD Primary Care Provider Reason for Referral * Laboratory Services (Routine) - Closed Specialty Diagnoses / Procedures Referred By Norma t Referred To Contact Diagnoses Hyperglycemia Procedures HEMOGLOBIN A1C Quan Bingham MD [address] [place] [phone] Referral ID Status Reason Start Date Expiration Date Visits Re quested Visits Authorized [id number] Closed 05/25/2014 1 1 * Laboratory Services (Routine) - Closed Specialty Diagnoses / Procedures Referred By Contac t Referred To Contact Diagnoses Hypertensive disorder Procedures LIPID PROFILE (INCLUDES CHOLESTEROL, TRIGLYCERIDES, HDL, LDL) Quan Bingham MD [address] [place] [phone] Referral ID Status Reason Start Date Expiration Date Visits Re quested Visits Authorized [id number] Closed 05/25/2014 1 1 * Laboratory Services (Routine/Next Available) - Closed Specialty Diagnoses / Procedures Referred By Contac t Referred To Contact Diagnoses Hypertensive disorder Procedures BASIC METABOLIC PANEL Quan Bingham MD [address] [place] [phone] Referral ID Status Reason Start Date Expiration Date Visits Re quested Visits Authorized [id number] Closed 05/25/2014 1 1 * Cardiology (Routine/Next Available) - Closed Specialty Diagnoses / Procedures Referred By Contac t Referred To Contact Diagnoses Abnormal EKG Procedures ECHOCARDIOGRAM Quan Bingham MD [address] [place] [address] [address] [place] [phone] Referral ID Status Reason Start Date Expiration Date Visits Re quested Visits Authorized [id number] Closed 05/25/2014 1 1 Reason for Visit * Reason Comments Hypotension Has been going to PT , they have stated that he has had low BP x 2. Weight Loss Pt has lost weight - would like a check up to make sure there is nothing going on. Cardiac Arrest Pt states that when he was on the operating table for TKR - they asked when he had a heart attack. Pt concerned about this - would like more information about this. Medications Refill None needed. Flu Vaccine Already had vaccine this year. Encounter Details Date Type Department Care Team (Late st Contact Info) Description 05/25/2014 14:45 EST Office Visit [facility] Family Medicine - [place] [address] [facility] [address] [place] [address] Quan Bingham MD [address] [place] [address] [address] [place] [phone] Abnormal EKG (Primary Dx); Hypertension; Hyperglycemia Social History Tobacco Use Types Packs/Day Years [...] Sign Reading Time Taken Comments Blood Pressure 102/66 05/25/2014 1444 EST Pulse 60 05/25/2014 1444 EST Temperature 36.8 ??C (98.2 ??F) 05/25/2014 1444 EST Respiratory Rate 16 05/25/2014 1444 EST Oxygen Saturation - - Inhaled Oxygen Concentration - - Weight 124.7 kg (275 lb) 05/25/2014 1444 EST Height - - Body Mass Index 33.92 03/30/2014 1015 EST documented in this encounter Progress Notes * Quan Bingham - 05/25/2014 1835 EST REASON FOR VISIT: Follow up joint replacement. SUBJECTIVE: The patient here for followup of recent joint replacement, left knee. It occurred at [facility] 3 weeks ago. This was otherwise uneventful by his description. No acute new problems noted following this, although he is recovering somewhat slowly, but not unexpected, as discussed with the patient. No overt complications from this. He has been on Coumadin for this. Other medical problems have generally been stable, although he notes blood pressure has been in thelow-normal range. He attributes some of this to being postoperative but also significant weight loss. He has lost approximately 50 pounds over the last year including over 20 in the last month. This has been intentional. He notes that his blood pressure has fallen. This has been an issue as blood pressure has been in the low-normal range and his therapist is worried about lightheadedness. He continues on current dose of metoprolol and enalapril. We did review this. No significant lightheadedness or concerns of fall as of yet. Other issue is findings from [facility] where he had preoperative evaluation. He had EKG done there, not here. It did show what looked to be, and was read on interpretation from EKG machine, as Q-waves inferiorly in 3 and AVF. Otherwise, EKG did not show any acute changes. He was concerned that this had not been mentioned to him and batch and furnace manager had asked him if he had had a heart attack per Q-waves. The patient is quite worried about this and told us right before going under anesthesia. I did have questions with it for his surgeon. The patient was reassured that there was not any acute process ofconcern. Here to discuss this. He has no known cardiac disease. He did have a significant syncopal episode a year and a half ago. However, had EKG evaluation including Holter monitor at that time that was unremarkable. No known cardiac issues. Had never smoked. Other than high blood pressure, has not had any other significant risk factors other than father had early heart disease. To himself, he denies any known episodes of severe chest pain. Of note, EKG a year and a half ago did not show any acute ischemic findings. I reviewed this myself and it did what looked to be S-wave, not a Q-wave ininferior leads, although otherwise had somewhat similar morphology to EKG from [facility]. OBJECTIVE: Blood pressure 102/66, pulse 60, temperature 98.2. General: Alert, in no acute distress.Chest clears to auscultation. Cardiovascular: Regular rate and rhythm, no murmur. Abdomen nontender. Lower extremity exam: Trace edema, well- healed surgical scar left knee. No signs of infection. ASSESSMENT: PROBLEM 1: A 64-year-old status post knee replacement. Overall, doing well. Possible Q-waves and inferiorly, and otherwise patient without known heart disease. I think more than likely, surgeon had intimated that this is almost certainly a false positive; however, I really think it would reasonableenough to obtain an echocardiogram. Given the Q-waves inferiorly on the EKG, there should be some clearly identifiable wall abnormalities in this localized area if this really is a true finding. Further plans pending results of this. If negative, will continue supportive care. PLAN: 1. Echocardiogram. 2. Observe, follow up as needed. PROBLEM 2: Hypertension, which has now much less demand for medication due to weight loss. PLAN: 1. The patient gradually weight loss to decrease metoprolol from 100 to 50 mg a day. 2. We continue to monitor, likely can further decrease. * Morenita Carreno LPN - 05/25/2014 1508 EST Attempted to call [facility] - medical records for MD notes, D/c summary, and EKG from March - April 2014 (TLKR done in April 2014). No answer, left message on medical records voicemail- Gabriela to call back regarding these records. Awaiting call back. documented in this encounter Plan of Treatment Scheduled Orders Name Type Priority Associated Diagnoses Order Schedule ECHOCARDIOGRAM Echocardiography Routine Abnormal EKG Ordered: 05/25/2014 BASIC METABOLIC PANEL Lab Routine Hypertension Ordered: 05/25/2014 LIPID PROFILE (INCLUDES CHOLESTEROL, TRIGLYCERIDES, HDL, LDL) Lab Routine Hypertension Ordered: 05/25/2014 HEMOGLOBIN A1C Lab Routine Hyperglycemia Ordered: 05/25/2014 documented as of this encounter Goals Goal [...] as of this encounter Visit Diagnoses Diagnosis Abnormal EKG- Primary Nonspecific abnormal electrocardiogram (ECG) (EKG) Hypertension Unspecified essential hypertension Hyperglycemia Other abnormal glucose documented in this encounter Historical Medications * This list may reflect changes made after this encounter. Medication Sig Dispensed Refills Start Date End Date CELECOXIB (CELEBREX ORAL) Take 1 Cap by mouth daily Ends on 05/26/13 . 06/29/2014 warfarin (COUMADIN) 5 mg tablet Take 5 mg by mouth daily Ends on 05/26/14 . 06/29/2014 added in this encounter Care Teams Medical Records Assistant Relationship Specialty Start Date End Date Quan Bingham MD [address] [place] [phone] PCP - General 05/27/13 08/09/16 documented as of this encounter
--- OUTSIDE RECORDS SUMMARY | 2024-03-08 15:00 | XMS_ITS | Encounter Summary ---
Author Organization [facility] Address [address] [place] [address] Care Team Providers Care Hydro Plant Technician Name Role Phone Quan Bingham MD Primary Care Provider Reason for Visit * Reason Comments Other Encounter Details Date Type Department Care Team (Late st Contact Info) Description 06/20/[address] [id number] Irineo Vazquez MD Other Social History Tobacco Use Types Packs/Day [...] by mouth once daily 90 Tab 0 06/20/2013 09/29/2013 enalapril (VASOTEC) 20 mg tablet take 1 tablet by mouth once daily 90 Tab 0 06/20/2013 09/29/2013 documented in this encounter Miscellaneous Notes * Telephone Encounter - Francesca Hayward RN - 06/20/2013 4718 EST Last ov 03/2013. Last labs 08/24. Refilled x 90 days. documented in this encounter Plan of Treatment Not on file documented as of this encounter Visit Diagnoses Not on filedocumented in this encounter Discontinued Medications Medication Sig Discontinue Reason Start Date End Da te enalapril (VASOTEC) 20 mg tabletIndications:HTN (hypertension) Take 1 Tab by mouth daily. Reorder 06/17/2012 06/20/2013 metoprolol XL (TOPROL-XL) 100 mg tabletIndications:HTN (hypertension) Take 1 Tab by mouth daily. Reorder 06/17/2012 06/20/2013 documented as of this encounter Care Teams Hydro Plant Technician Relationship Specialty Start Date End Date Quan Bingham MD [address] [place] [phone] PCP - General 05/27/13 08/09/16 documented as of this encounter
--- OUTSIDE RECORDS SUMMARY | 2024-03-08 15:00 | XMS_ITS | Encounter Summary ---
Author Organization [facility] Address [address] [place] [address] Care Team Providers Care Molding Machine Tender Name Role Phone Irineo Vazquez MD Primary Care Provider Unav ailable Encounter Details Date Type Department Care Team (Late st Contact Info) Description 06/20/2005 Before PRISM Converted Visit (Maple) [facility] - Maple conversion [address] [place] [address] Adrián Valerio PA-C Social History Tobacco Use Types Packs/Day Years Used Date Smoking Tobacco: Never Assessed Sex and Gender Information Value Date Recorded Sex Assigned at Not on file Gender Identity Not on file Sexual Orientation Not on file documented as of this encounter Plan of Treatment Not on file documented as of this encounter Visit Diagnoses * Evaluation - Adrián Valerio PA - 07/15/2009 0500 EST [facility] MAINTENANCE EXAMINATION - 06/20/2005 SUBJECTIVE: 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 He said all his labs were normal. He had a normal prostate exam at that time also. He also had a screening colonoscopy in 2004. A polyp was found so he needs to have followup colonoscopyin five years. 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 A urology evaluation was done and this was found to be benign and no treatmentwas needed. He is currently under treatment for hypertension. MEDICATIONS: 1. Enalapril 5 mg one daily 2. Toprol XL 50 mg one daily He is on no any other medications. ALLERGIES: He has no medication allergies. OBJECTIVE: Height 6 foot 3-1/2 inches, weight 285 pounds, blood pressure 130/76, pulse 60, visual acuity is 20/15 in both eyes with glasses. HEENT exam is within normal limits. Neck is without thyromegaly or adenopathy. Lungs are clear. Heart is regular without murmur. Abdomen is without organomegaly. Genitalia- There is a palpable swelling superior portion of the left testes, otherwise no hernias palpated either side. Rectal was deferred. Extremities - Peripheral pulses +2 and symmetrical throughout. Deep tendon reflexes are present and symmetrical. An in-office urinalysis is within normal limits. 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 PROBLEM #2: Hypertension. This seems to be under control. He should followup periodically or have his blood pressure checked outside of the office. He will continue on his current medications. PROBLEM #3: Colon polyp. Followup in five years as directed for another colonoscopy. PROBLEM #4: ? hydrocele of the left testicle. He will followup with urology as directed. Signed by Adrián Valerio PA-C 07/03/2005 16:41 Maria Elena Shaw PA-C Adrián Valerio PA-C - Adrián Valerio PA-C P - lgr Job ID: [id number] Document ID: [id number] cc: documented in this encounter Care Teams Molding Machine Tender Relationship Specialty Start Date End Date Irineo Vazquez MD PCP - General 03/29/09 05/26/13 documented as of this encounter
--- OUTSIDE RECORDS SUMMARY | 2024-03-08 15:00 | XMS_ITS | Encounter Summary ---
Author Organization [facility] Address [address] [place] [address] Care Team Providers Care Director Banking Name Role Phone Irineo Vazquez MD Primary Care Provider Unav ailable Reason for Visit * Reason Onset Date Comments Knee Pain 03/26/2013 Encounter Details Date Type Department Care Team (Late st Contact Info) Description 03/26/2013 Telephone [facility] Family Medicine - [place] [address] [facility] [address] [place], [place] [phone] Quan Bingham MD [address] [place] [address] [address] [place] [address] Knee Pain Social History Tobacco Use Types [...] * Telephone Encounter - Quan Bingham - 03/28/2013 1147 EST Error documented in this encounter Plan of Treatment Not on file documented as of this encounter Visit Diagnoses Not on filedocumented in this encounter Care Teams Director Banking Relationship Specialty Start Date End Date Irineo Vazquez MD PCP - General 03/29/09 05/26/13 documented as of this encounter
--- OUTSIDE RECORDS SUMMARY | 2024-03-08 15:00 | XMS_ITS | Encounter Summary ---
Author Organization [facility] Address [address] [place] [address] Care Team Providers Care Pest Control Operator Name Role Phone Irineo Vazquez MD Primary Care Provider Unav ailable Encounter Details Date Type Department Care Team (Late st Contact Info) Description 08/26/[address] [address] Irineo Vazquez MD Hypertension; Colon polyp; Over weight Social History Tobacco Use Types Packs/Day Years Used Date Smoking Tobacco: Never Assessed Sex and Gender Information Value Date Recorded Sex Assigned at Not on file Gender Identity Not on file Sexual Orientation Not on file documented as of this encounter Plan of Treatment Not on file documented as of this encounter Visit Diagnoses Diagnosis Hypertension Unspecified essential hypertension Colon polyp Benign neoplasm of colon Over weight Overweight documented in this encounter Historical Medications * This list may reflect changes made after this encounter. Medication Sig Dispensed Refills Start Date End Date enalapril (VASOTEC) 20 mg tablet Take 20 mg by mouth daily. 04/29/2010 metoprolol (LOPRESSOR) 100 mg tablet Take 100 mg by mouth daily. 04/29/2010 added in this encounter Care Teams Pest Control Operator Relationship Specialty Start Date End Date Irineo Vazquez MD PCP - General 03/29/09 05/26/13 documented as of this encounter
--- OUTSIDE RECORDS SUMMARY | 2024-03-08 15:00 | XMS_ITS | Encounter Summary ---
Author Organization [facility] Address [address] [place] [address] Care Team Providers Care Braid Maker Name Role Phone Unavailable Primary Care Provider Unavailabl e Encounter Details Date Type Department Care Team (Late st Contact Info) Description 08/13/2008 Before PRISM Converted Visit (Maple) [facility] - Maple conversion [address] [place] [address] Adrián Valerio, PAEstherC Social History Tobacco Use Types Packs/Day Years Used Date Smoking Tobacco: Never Assessed Sex and Gender Information Value Date Recorded Sex Assigned at Not on file Gender Identity Not on file Sexual Orientation Not on file documented as of this encounter Progress Notes * Adrián Valerio - 11/10/2008 0943 EDT [facility]ESS/FOLLOWUP NOTE - 08/13/2008 SUBJECTIVE Mr Alvarez comes in today complaining of a plugged feeling in each ear. Has been working on his left ear with some Debrox. Notes discomfort in the left ear canal at this time. No fever or chills. OBJECTIVE Temperature is 98.4, blood pressure 148/92, pulse 72. He weighs 305 pounds. He is well appearing. On exam of the ears, the right canal is impacted deep in the canal. The left canal shows some cerumen, again deep in the canal. However, the canal itself is erythematous, swollen and very tender duringotoscopy. Attempted flushing each ear canal. Small amount of wax from each canal. He says his hearin g is improved slightly. ASSESSMENT Cerumen impaction bilaterally with left otitis externa. PLAN He will use Debrox in the right ear several times daily for three days and then flush with warm water and follow up with us if needed. Prescription was given for Cortisporin otic for the left ear, four drops three times a day for 5-7 days. The otitis should resolve and if not he will follow up as directed. Signed by Adrián Valerio PA-C 08/17/2008 10:27 Adrián Valerio PA-C - Fredy Valerio PA-C P - Job ID: [id number] Document ID: [id number] cc: documented in this encounter Plan of Treatment Not on file documented as of this encounter Visit Diagnoses Not on filedocumented in this encounter
--- OUTSIDE RECORDS SUMMARY | 2024-03-08 15:00 | XMS_ITS | Encounter Summary ---
Author Organization [facility] Address [address] [place] [address] Care Team Providers Care White Spooler Name Role Phone Quan Bingham MD Primary Care Provider Reason for Visit * Reason Comments Annual Exam MPE. FYI labs done y . Knee Pain Pt tore cartilage in left knee and then had surgery. Slipped and tore all the ligaments in same knee after surgery - continues to have problems and pain with knee. Other BHS COMPLETED. Medications Refill Enalapril and Metopr olol PENDED. Encounter Details Date Type Department Care Team (Late st Contact Info) Description 10/02/2013 9:00 EDT Office Visit [facility] [address] [facility] [address] [place] [address] Quan Bingham MD [address] [place] [address] [address] [place] [address] Hypertension (Primary Dx); Routine health maintenance; Need for Tdap vaccination; Need for zoster vaccine Social History Tobacco Use Types Packs/Day Years [...] Sign Reading Time Taken Comments Blood Pressure 138/84 10/02/2013 0903 EDT Pulse 60 10/02/2013 0903 EDT Temperature - - Respiratory Rate 20 10/02/2013 0903 EDT Oxygen Saturation - - Inhaled Oxygen Concentration - - Weight 139.3 kg (307 lb) 10/02/2013 09 EDT Height 190.5 cm (6' 3) 10/02/2013 09 EDT Body Mass Index 38.37 10/02/2013 09 EDT documented in this encounter Ordered Prescriptions Prescription Sig Dispensed Refills Start Date End Da te metoprolol XL (TOPROL-XL) 100 mg tabletIndications:Hyperten sive disorder take 1 tablet by mouth once daily. 90 Tab 3 11/11/2013 03/30/2014 enalapril (VASOTEC) 20 mg tabletIndications:Hyperten sive disorder take 1 tablet by mouth once daily. 90 Tab 3 11/11/2013 03/30/2014 documented in this encounter Progress Notes * Quan Bingham - 10/02/2013 1119 EDT Male Adult Preventative Care Visit Patient ID: Francisco J Alvarez Jr. is an 63 y.o. male. Subjective: HISTORY OF PRESENT ILLNESS: REASON FOR VISIT: Physical exam. SUBJECTIVE: The patient presents to the clinic today for physical exam. Generally has enjoyed good health. No significant overall interval history changes. He does have hypertension, well controlled. He has had a history of colon polyp and is up to date on screening. No recent GI complaints. Has a large hydrocele on left. Otherwise asymptomatic. He was considering and is planning on havinga repair. However, had acute knee problems that intervened. It does not cause any interval problem,and he is planning on addressing this when knee status quiet. Ongoing issue has been left knee pain. Status post meniscal injury. Required orthopedic evaluation and treatment. This was repaired at [facility] in May. He did well for a couple weeks and unfortunately fell on ice and had significant flare of symptoms since then. Has had chronic knee pain since. He is under the care and evaluation of orthopedics. No clear fracture, but he did have ongoing effusion. He saw an orthopedist and get up at [facility] did have an aspiration. 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 He is in the midst of a workup atthis point. No acute change. Knee is diminished in size since aspiration last week with a steroid in jection. No acute complaints today. History of psoriasis-dermatitis. Was noted when he had an exam with irritation of gluteal cleft which is consistent. He occasionally uses Lidex or Elidel cream. No acute change otherwise. Past medical, surgical, family history updated in EMR. He is due for tetanus booster. He is also due for shingles vaccine, which he is willing to have today. Patient Active Problem List Diagnosis ??? Hypertension ??? Colon polyp ??? Hydrocele ??? Obstructive sleep apnea ??? Psoriasis No past medical history on file. Past Surgical History Procedure Laterality Date ??? Colonoscopy 2004 repeat 2009 ??? Tonsillectomy ??? Knee surgery remote,right, left 05/2013-meniscus History Substance Use Topics ??? Smoking status: Never Smoker ??? Smokeless tobacco: Never Used ??? Alcohol Use: No Family History Problem Relation Age of Onset ??? Cancer Mother lung - 80s ??? Heart Failure Father [place] age 58 ??? Heart Disease Father [place] at 58 ??? Cancer Sister breast X 2 sisiterrs No Known Allergies Current Outpatient Prescriptions Medication Sig Dispense Refill ??? [START ON 11/11/2013] enalapril (VASOTEC) 20 mg tablet take 1 tablet by mouth once daily. 90 Tab 3 ??? [START ON 11/11/2013] metoprolol XL (TOPROL-XL) 100 mg tablet take 1 tablet by mouth once daily. 90 Tab 3 No current facility-administered medications for this visit. ROS Objective: BP 138/84 Pulse 60 Resp 20 Ht 190.5 cm (75) Wt 139.254 kg (307 lb) BMI 38.37 kg/m2 Body mass index is 38.37 kg/(m^2). Physical Exam PHYSICAL EXAM: Vital signs: Noted. Weight noted. He has lost weight and we discussed the weight goal to continue to lose weight towards target in the upper 200s. He has improved diet and activity. Head, Ear, Eye, Nose, Throat Exam: Unremarkable. Neck: No lymphadenopathy. Supple. No bruit or thyromegaly. Chest: Clear to auscultation. Cardiovascular: Regular rate and rhythm. No murmur. Abdomen: Positive bowel sounds, soft, nontender. Genital Exam: Large hydrocele on the left otherwise unremarkable exam this is unchanged. Prostate normal. No induration. No significant enlargement. No nodules.Extremity Exam: Left knee, mild effusion, otherwise normal extremity exam with normal pulses. Skin:No acute lesions noted other than confluent area of erythema and gluteal cleft but no crusting. ASSESSMENT: PROBLEM 1: Hypertension, doing well. PLAN: Continue current treatment, recheck in 1-year. PROBLEM 2: Sleep apnea, doing well on CPAP machine. PLAN: Continue same, followup as needed. 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 PLAN: Continue follow up with orthopedics, activity as tolerated. PROBLEM 4: A left hydrocele. PLAN: Urologic evaluation and treatment at his convenience. PROBLEM 5: Skin - psoriasis - dermatitis. PLAN: Continue p.r.n., Elidel or steroid cream for flares. PROBLEM 6: Health maintenance. Overall, otherwise doing well. Concur with weight loss and did review labs which did show what was slight elevation in glucose which likely will be improved with weightloss and improved diet. PLAN: 1. Continue current diet. 2. Tdap booster. 3. Shingles vaccine. 4. Next exam could be in 1 year. Assessment: Prostate cancer screen: indicated: was performed in clinic today, and is negative. Counseling not done. AAA Screen (once, age 65-75, any smoking hx): not indicated: no risk factors Colon cancer screen: Screening colonoscopy indicated: Skin cancer screen: We reviewed the characteristics of concerning skin lesions. Patient does not report any concerning lesions. Eye care: Last eye exam was 1 year ago. Counseled. Dental care: Last dental visit was 1 year ago. Counseled. Hearing: patient does have concerns. Lipid screen: indicated: . Counseled. DM screen: not indicated: recently screened, not due. Counseled. HTN screen: BP is normal today. Counseled. Depression symptoms: none EtOH use: reports that he does not drink alcohol.. Counseled. Tobacco use: reports that he has never smoked. He has never used smokeless tobacco.. Counseled. Substance abuse: reports that he does not use illicit drugs.. Counseled. Weight: obese (BMI 30-39). Counseled. Exercise: frequently. Counseled. Injury prevention: Seatbelt use: always. Helmet use: . Gun safety (trigger locks, gun cabinets, separate ammo storage) discussed. Immunizations: Counseled about: Immunization History Administered Date(s) Administered ??? Shingles (Herpes Zoster) SQ 10/02/2013 ? ? Tdap Vaccine =>7YO IM 10/02/2013 ??? Tetanus Vaccine IM, Historical 05/14/2003 Plan: Francisco J was seen today for annual exam, knee pain, other and medications refill. Diagnoses and associated orders for this visit: Hypertension - enalapril (VASOTEC) 20 mg tablet; take 1 tablet by mouth once daily. - metoprolol XL (TOPROL-XL) 100 mg tablet; take 1 tablet by mouth once daily. Routine health maintenance Need for Tdap vaccination - Tdap vaccine greater than or equal to 7yo IM Need for zoster vaccine - Zostavax Return in about 1 year (around 10/02/2014) for PE. References: USPTF Level A & B Recommendations List USPTF Adult Recommendations USPTF Breast Cancer Screening USPTF Cervical Cancer Screening USPTF Colorectal Cancer Screening CDC Adult Immunizations 2010 CDC 7-18 Years Immunizations 2011 AA Clinical Recommendations * Morenita Carreno LPN - 10/02/2013 1006 EDT Pt here for a physical exam today, when a sensitive exam may occur. This nurse offered pt to have someone, as myself, in the room if a sensitive exam occurs. Pt declined to have a stamp machine servicer in the room. Made Quan Bingham MD aware. documented in this encounter Plan of Treatment [...] Diagnoses Diagnosis Hypertension- Primary Unspecified essential hypertension Routine health maintenance Routine general medical examination at a health care facility Need for Tdap vaccination Need for prophylactic vaccination with combined qebfohxnkl-vgtcuhr-wgozsyaxb (DTP) vaccine Need for zoster vaccine Need for prophylactic vaccination and inoculation against other viral diseases documented in this encounter Discontinued Medications Medication Sig Discontinue Reason Start Date End Da te ibuprofen (MOTRIN) 200 mg tablet Take 200 mg by mouth every 6 hours. Patient Stopped Taking 10/02/2013 enalapril (VASOTEC) 20 mg tablet take 1 tablet by mouth once daily. Reorder 09/29/2013 10/02/2013 metoprolol XL (TOPROL-XL) 100 mg tablet take 1 tablet by mouth once daily. Reorder 09/29/2013 10/02/2013 documented as of this encounter Orders Immunization/Injection Count Last Ordered Date First Ordered Date SHINGLES (HERPES ZOSTER) SQ 1 10/02/2013 TDAP VACCINE =>7YO IM 1 10/02/2013 documented in this encounter Care Teams White Spooler Relationship Specialty Start Date End Date Quan Bingham MD [address] [place] [id number] PCP - General 05/27/13 08/09/16 documented as of this encounter
--- OUTSIDE RECORDS SUMMARY | 2024-03-08 15:00 | XMS_ITS | Encounter Summary ---
Author Organization [facility] Address [address] [place] [address] Care Team Providers Care Liaison Officer Name Role Phone Irineo Vazquez MD Primary Care Provider Unav ailable Encounter Details Date Type Department Care Team (Late st Contact Info) Description 01/20/2013 Results Only [facility] [phone] Orlando Gordon, DO [address] [facility] [address] [place] [address] Social History Tobacco Use Types Packs/Day Years [...] Name Priority Date/Time Associated Diagnosis Comments PSA TOTAL, DIAGNOSTIC Routine 01/20/2013 11:12 EDT documented in this encounter Results * PSA (01/20/2013 11:12 EDT) PSA, External 1.920 0.00 - 4.50 ng/mL [facility] Comment:Method: Siemens Vist a-Chemiluminescence/LOCI technology 01/20/2013 11:1 2 EDT 01/20/2013 11:12 EDT Narrative [facility] - 01/20/2013 12:12 EDT Does PT Have a Latex Allergy? NO Medical Necessity NA Orlando Gordon DO CHEMISTRY & BLOOD GA S ORDERABLES [facility] documented in this encounter Visit Diagnoses Not on filedocumented in this encounter Care Teams Liaison Officer Relationship Specialty Start Date End Date Irineo Vazquez MD PCP - General 03/29/09 05/26/13 documented as of this encounter
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
--- OUTSIDE RECORDS SUMMARY | 2024-03-08 15:00 | XMS_ITS | Encounter Summary ---
Author Organization [facility] Address [address] [place] [address] Care Team Providers Care Cytotechnologist/Histotechnologist Name Role Phone Irineo Vazquez MD Primary Care Provider Unav ailable Reason for Visit * Reason Onset Date Comments Results 03/26/2013 Encounter Details Date Type Department Care Team (Late st Contact Info) Description 03/26/[address] [place] [address] Quan Bingham MD [address] [place] [address] [address] [place] [address] Results Social History Tobacco Use [...] Telephone Encounter - Francesca Hayward RN - 03/27/2013 0837 EST Spoke with pt and gave him results. He will call today to set up appt with Orthopedics. * Telephone Encounter - Quan Bingham - 03/26/20132011 EST The MRI of the knee did show a meniscal(cartilage) tear which I think explains his symptoms. It also showed osteoarthritis. He needs to see ortho. Please call the pt and confirm that he has an appt with orthopedics documented in this encounter Plan of Treatment Not on file documented as of this encounter Visit Diagnoses Not on filedocumented in this encounter Care Teams Cytotechnologist/Histotechnologist Relationship Specialty Start Date End Date Irineo Vazquez MD PCP - General 03/29/09 05/26/13 documented as of this encounter
[2024-03-08] MEDS: dilTIAZem 25 MG/5 ML VIAL 10 MG IVP (15:09)
[2024-03-08 15:19] LABS: ALT 36 U/L (16-63); AST 22 U/L (15-37); Alkaline Phosphatase 89 U/L (46-116); Anion Gap 9.5 mmol/L (3-11); BUN 17 mg/dL (7-18); Bilirubin, Total 0.82 mg/dL (0.2-1.0); CO2 26.5 mmol/L (21.0-32.0); Calcium 9.5 mg/dL (8.5-10.1); Chloride 108 mmol/L (98-107); Estimated GFR 79.97 (mL/min/1.73m2); Glucose 143 mg/dL (74-106); NT-proBNP 345 pg/mL (<300); Potassium 3.7 mmol/L (3.5-5.1); Sodium 144 mmol/L (136-145); TSH (W/Ref FT4) 1.97 uIU/mL (0.36-3.74); Total Protein 7.1 g/dL (6.4-8.2); Troponin I 26 ng/L (<or=76)
[2024-03-08] MEDS: dilTIAZem 30 MG TAB (16:00)
[2024-03-08] MEDS: Apixaban 5 MG TAB PO (16:05)
== END 2024-03-08 16:16 | disposition home or self-care (01) ==
PROVIDERS: Emergency Provider Emergency Medicine; PCP Family Medicine
DX: I48.91 Unspecified atrial fibrillation (principal); R35.0 Frequency of micturition; I10 Essential (primary) hypertension; E78.5 Hyperlipidemia, unspecified; I25.10 Atherosclerotic heart disease of native coronary artery without angina pectoris; Z79.82 Long term (current) use of aspirin
CPT/HCPCS: 36415; 80053; 93005; 96374; 96375; 99284; 81003; 83735; 83880; 84443; 84484; 85025; 93010; 99283; J3475

== ENCOUNTER 2024-04-04 09:21 | Outpatient (CLI) | payer MEDICARE, SELFPAY ==
[2024-04-07 09:33] LABS: Kappa Free Light Chain 1.03 mg/dL (0.33-1.94); Lambda Free Light Chain 0.89 mg/dL (0.57-2.63)
[2024-04-07 15:47] LABS: Albumin, Urine mg/dL 1 mg/dL; Globulins, Urine mg/dL 5 mg/dL; Immunotyping, Urine (See Note); Total Protein Urine 6 mg/dL (See Note)
[2024-04-07 16:02] LABS: Albumin 67.4 % (55.8-66.1); Albumin g/dL 4.4 g/dL (3.6-5.2); Immunotyping, Serum (See Note); Total Protein 6.5 g/dL (6.3-8.2)
== END 2024-04-04 09:22 | disposition home or self-care (01) ==
LOC: LBO 09:22
PROVIDERS: PCP Family Medicine; Visit Provider Internal Medicine Cardiovascular Disease
DX: I48.91 Unspecified atrial fibrillation (principal); I25.10 Atherosclerotic heart disease of native coronary artery without angina pectoris
CPT/HCPCS: 36415; 84156; 84166; 86335; 83883; 84155; 84165; 86320